=== PATIENT | male | born 1950 | race Caucasian/White ===

== ENCOUNTER → 2024-01-26 | Outpatient (CLI) | payer MEDICARE, OTHER, SELFPAY ==
--- NOTE | 2024-01-26 16:02 | RAD_ITS ---
INDICATION: HIP PAIN EXAMINATION/TECHNIQUE: X-RAY - XR Hip Unilateral with Pelvis when performed; 3 Views COMPARISON: FINDINGS: PELVIC BONES: No displaced fracture, destructive or sclerotic lesions. Note that overlapping bowel shadows may however obscure fine detail. Sacroiliac joints are unremarkable. No widening of the pubic symphysis. Degenerative vertebral changes. HIPS: The articular structures are unremarkable. No displaced fracture seen in this frontal view. SOFT TISSUES: No soft tissue swelling or gas. RAD/HIP, UNI W/ Pelvis 2-3 Views IMPRESSION: No evidence of displaced pelvic or hip fracture. Electronically Signed: Israel Edouard DO at 11:55 EST Reading Location ID and State: [facility] / [place] Tel [phone], Service support ,
== END | disposition home or self-care (01) ==
PROVIDERS: PCP Internal Medicine; Referring Provider Clinical Nurse Specialist Adult Health; Visit Provider Clinical Nurse Specialist Adult Health
DX: M25.551 Pain in right hip (principal)
CPT/HCPCS: 73502

== ENCOUNTER 2024-09-22 17:13 | Emergency (ER) | payer MEDICARE, OTHER, SELFPAY ==
[2024-09-22] VITALS (7 sets, daily range): BP systolic 168–184; BP diastolic 75–92; PULSE 66–81; RESP 16–18; TEMP 36.9; O2SAT 99–100; BMI 33.6
[2024-09-22 20:37] LABS: Anion Gap 12 (5-15); BUN 13 mg/dL (4-19); BUN/Creat Ratio 13.3 RATIO (10-20); CRP 7.72 mg/L (0.0-3.0); Calcium,Total 9.5 mg/dL (7.6-11.0); Carbon Dioxide 23.0 mmol/L (21.0-32.0); Chloride 103 mmol/L (98-108); Estimated Creatinine Clearance 83.68 ml/min (50-250); Glucose 125 mg/dL (70-99); Potassium 4.6 mmol/L (3.3-5.1)
--- NOTE | 2024-09-22 21:01 | EX.ED.DYSGE1 ---
HPI History of Present Illness Chief Complaint: Wound Detail of Chief Complaint: Infected third right toe due to cutting the bottom of his toe while he was Informant: patient and spouse/S.O. Onset/Context/Timing Onset: Days Context: Sudden Onset Timing: Continuous Quality: Infected right third toe Location: Right third toe Current Severity: Mild Maximum Severity: Mild Worsened by: Suspect due to to PAD not healing quickly Relieved by: Not applicable Associated Symptoms Associated Symptoms: None Narrative Narrative: Patient had wound to right third toe. He saw podiatry. He apparently trimmed his toenails too close and clipped the bottom of his third right toe. He had x-rays that did not reveal any abnormality. He had a vascular study because he has stigmata of peripheral arterial disease. He does not know the results. He was placed on Augmentin 875 mg twice daily. Patient does not check his blood sugar on a regular basis. He denies blurred vision, polyuria or polydipsia. He states the wound has not gotten much better. He denies fever, chills night sweats. He has no other complaints. Prior similar symptoms: No Recent Illness/Hospitalization: No PFSH PFSH Medical History no medical history Home Medications ?Medication ?Instructions ?Recorded ?Last Taken ?Type ezetimibe 10 mg tablet 10 mg PO DAILY 09/22/24 09/22/24 History gabapentin 300 mg capsule 900 mg PO BID 09/22/24 09/22/24 History lisinopril 40 mg tablet 40 mg PO DAILY 09/22/24 09/22/24 History metformin 500 mg tablet 1,000 mg PO BID 09/22/24 09/22/24 History sulfamethoxazole 800 1 tab PO BID #10 TABLETS 09/22/24 Unknown Rx mg-trimethoprim 160 mg tablet Allergy/AdvReac Type Severity Reaction Status Date / Time No Known Allergies Allergy Verified 09/22/24 17:15 Family History no significant family his Surgical History no surgical history Social History Smoking Status: Never smoker ROS ROS ED Constitutional Constitutional ED: Denies chills, fever(s), subjective, sweats or weight loss Eyes Eyes: Denies blurry vision Cardiovascular Cardiovascular: Denies palpitations Respiratory/Chest Respiratory/Chest: Denies dyspnea Gastrointestinal Gastrointestinal: Denies abdominal pain, nausea or vomiting Musculoskeletal Musculoskeletal: Denies arthralgias or myalgias Integumentary Reports rash Neurologic Neurologic: Denies paresthesias Endocrine Endocrinology: Denies polydipsia or polyuria Hematologic/Lymphatic Hematologic/Lymphatic: Reports systems reviewed and no addt'l complaints, except as documented EXAM Physical Exam Const Vital Signs: 09/22/24 17:13 09/22/24 17:15 09/22/24 18:15 Temperature 98.4 F 98.4 F 98.4 F Temperature Source Oral Oral Oral Pulse Rate 79 81 69 Respiratory Rate 18 18 16 Blood Pressure 170/83 H 170/83 H 184/92 H Blood Pressure Mean 112 112 122 Pulse Ox 99 100 99 Oxygen Delivery Method Room Air Room Air Room Air 09/22/24 18:59 09/22/24 20:00 09/22/24 21:00 Temperature 98.4 F 98.4 F 98.4 F Temperature Source Oral Oral Oral Pulse Rate 74 67 66 Respiratory Rate 16 18 16 Blood Pressure 184/92 H 176/80 H 181/75 H Blood Pressure Mean 122 112 110 Pulse Ox 100 100 99 Oxygen Delivery Method Room Air Room Air Room Air Positive well nourished Constitutional Narrative: Patient is hard of hearing. Vital signs remarkable for elevated blood pressure. General Appearance ED: NAD HEENT Reports moist mucous membranes HEENT Narrative: Head is atraumatic normocephalic. Ears normal. Nares patent. Patient wears glasses. Eyes PERRL and EOMs intact bilaterally General Eye ED: Negative for pale conjunctiva or scleral icterus Resp normal respiratory effort Cardio regular rate and regular rhythm GI GI Narrative: There is no right inguinal lymphadenopathy. Extremity Negative for normal to inspection Extremity Narrative: Patient has a erythematous slightly warm right third toe. There is no fluctuance. There is no induration. There is no lymphangitis. There is no popliteal mita lymphadenopathy. Patient has no hair on his toes. His skin is shiny. Does have some edema of the dorsal surface of the right foot. Neuro oriented x3, CN's II-XII intact bilaterally and no sensory deficits noted Motor Exam: strength 5/5 throughout Psych mental status grossly normal Skin Skin Narrative: Cellulitis right third toe. MDM MDM MDM Narrative Medical decision making narrative: Patient reports he has not gotten much better. Suspect he has delay in improvement due to PAD. Will obtain blood work to determine if patient is hyperglycemic has elevated white count or abnormal renal function that would results and adjusting his antibiotic dosage. He is proceeding predominately through the clinic. He had images and pictures taken that were placed in his medical records but not available through [facility]. Lab Data Attestation: I reviewed the patient's lab results. Lab results narrative: CBC is unremarkable. Patient has mild anemia. Basic metabolic panel with slight elevation of glucose at 125 with normal CO2 anion gap. ESR is normal. CRP is slightly elevated. Labs: Laboratory Results - last 24 hr 09/22/24 09/22/24 09/22/24 19:18 19:18 20:47 WBC Cancelled 8.0 Corrected WBC Cancelled RBC Cancelled 4.26 L Hgb Cancelled 12.8 L Hct Cancelled 38.0 L MCV Cancelled 89.2 MCH Cancelled 30.0 MCHC Cancelled 33.7 RDW Std Deviation Cancelled 44.6 H RDW Coeff of Baldo Cancelled 13.8 Plt Count Cancelled 214 MPV Cancelled 8.9 Immature Gran % (Auto) Cancelled 0.400 Neut % (Auto) Cancelled 63.5 Lymph % (Auto) Cancelled 22.6 [place] % (Auto) Cancelled 10.2 H Eos % (Auto) Cancelled 2.6 Baso % (Auto) Cancelled 0.7 Absolute Neuts (auto) Cancelled 5.1 Absolute Lymphs (auto) Cancelled 1.81 Total Counted Cancelled Neutrophils % (Manual) Cancelled Band Neutrophils % Cancelled Lymphocytes % (Manual) Cancelled Monocytes % (Manual) Cancelled Eosinophils % (Manual) Cancelled Basophils % (Manual) Cancelled Metamyelocytes % Cancelled Myelocytes % Cancelled Promyelocytes % Cancelled Blast Cells % Cancelled Plasma Cell % (Manual) Cancelled Other Cells % Cancelled Nucleated RBC % Cancelled 0 Nucleated RBCs/100 WBC Cancelled Differential Comment Cancelled Diff Path Review Cancelled Hypersegmented Neuts Cancelled Atypical Lymphocytes Cancelled Reactive Lymphocytes Cancelled Smudge Cells Cancelled Toxic Granulation Cancelled Toxic Vacuolation Cancelled Dohle Bodies Cancelled Fiordaliza Rods Cancelled Platelet Estimate Cancelled Plt Morphology Comment Cancelled RBC Morphology Cancelled Cancelled Polychromasia Cancelled Hypochromasia Cancelled Basophilic Stippling Cancelled Anisocytosis Cancelled Microcytosis Cancelled Macrocytosis Cancelled Spherocytes Cancelled Sickle Cells Cancelled Target Cells Cancelled Tear Drop Cells Cancelled Ovalocytes Cancelled Stomatocytes Cancelled Florentino-Colquitt Bodies Cancelled Samantha Cells Cancelled Bite Cells Cancelled Crenated Cell Cancelled Acanthocytes (Spur) Cancelled Rouleaux Cancelled Schistocytes Cancelled ESR Cancelled 5 Sodium 139 Potassium 4.6 Chloride 103 Carbon Dioxide 23.0 Anion Gap 12 BUN 13 Creatinine 0.96 Estim Creat Clear Calc 83.68 Est GFR (MDRD) Non-Af 84 BUN/Creatinine Ratio 13.3 Glucose 125 H Calcium 9.5 C-React Prot Ext Range 7.72 H Treatment and Re-Evaluation :: Patient was informed of results. Will add Bactrim for MRSA coverage. Suspect he is not healing quickly because he has PAD. Discharge Plan Triage Chief Complaint: Wound ED Provider: Kyrie Amaya Dx/Rx/DC Orders Clinical Impression: Cellulitis of third toe of right foot, Type 2 diabetes mellitus, PAD (peripheral artery disease), Elevated blood pressure reading with diagnosis of hypertension Instructions: ED Cellulitis Prescriptions: New sulfamethoxazole-trimethoprim 800-160 mg tablet 1 tab PO BID Qty: 10 0RF No Action metformin 500 mg tablet 1,000 mg PO BID gabapentin 300 mg capsule 900 mg PO BID lisinopril 40 mg tablet 40 mg PO DAILY ezetimibe 10 mg tablet 10 mg PO DAILY Primary Care Provider: Juan Alcaraz Referrals: Juan Alcaraz MD [Primary Care Provider] - Activity Restrictions/Additional Instructions: Keep your scheduled appointment with podiatry. Take the trimethoprim/sulfamethoxazole in addition to the amoxicillin-clavulanic acid you were prescribed by the supervisor sound technician Print Language: Libyan Disposition Disposition: Home, Self Care
[2024-09-22 21:10] LABS: Hematocrit 38.0 % (40-54); Hemoglobin 12.8 g/dL (13.0-16.5); Immature Granulocytes Count 0.030 X10^3/uL (0.0-0.0); Mean Corp Hgb Conc 33.7 g/dL (32-36); Mean Corpuscular Volume 89.2 fL (80-94); Mean Platelet Vol. 8.9 fl (6.2-12.0); NRBC Flagged by Analyzer 0 % (0-5); Platelet Count 214 K/mm3 (150-450); RBC Distribution Width CV 13.8 % (11.6-14.6); RBC Distribution Width SD 44.6 fl (35.1-43.9); Red Blood Count 4.26 M/mm3 (4.6-6.2); White Blood Count 8.0 K/mm3 (4.4-11.0)
[2024-09-22] MEDS: Smz/Tmp Ds Tablet 1 TABLET PO (21:57)
== END 2024-09-22 22:00 | disposition home or self-care (01) ==
PROVIDERS: Emergency Provider Emergency Medicine; PCP Internal Medicine; Visit Provider Emergency Medicine
DX: L03.031 Cellulitis of right toe (principal); E11.51 Type 2 diabetes mellitus with diabetic peripheral angiopathy without gangrene; I10 Essential (primary) hypertension; Z79.899 Other long term (current) drug therapy; Z79.84 Long term (current) use of oral hypoglycemic drugs
CPT/HCPCS: 80048; 85025; 85652; 86140; 99282; A4216

== ENCOUNTER 2024-09-27 10:24 | Inpatient (IN) | payer MEDICARE, OTHER, SELFPAY ==
[2024-09-27] VITALS (8 sets, daily range): BP systolic 118–150; BP diastolic 66–75; PULSE 72–80; RESP 15–18; TEMP 36.2–36.7; O2SAT 97–100; BMI 33.0; BMI 32.8
--- NOTE | 2024-09-27 10:48 | EX.ED.DYSGE1 ---
HPI History of Present Illness Chief Complaint: Wound Narrative Narrative: Chief complaint and HPI: Right third toe infection. History taken by patient as well as podiatry note. 73-year-old male with past medical history of DM2, PAD, HTN presents from the podiatry office for right third toe infection. Patient states 3 weeks ago he developed infection/ulcer in his right third toe. He states this developed after toenail trimming. He follows with podiatry Dr. Ralph. His initial evaluation was on 09/19 with podiatry in which he had x-ray and circulation studies performed. He has been on Augmentin and Bactrim without any improvement. His toe continues to swell and have redness. Endorses pain with palpation. Podiatry recommended admission for IV antibiotics. He denies any fever, chills, nausea, vomiting. Review of systems: See HPI Medications: As listed on the chart Allergies: As listed on the chart PFSH: Per chart Vital signs: As listed on the chart. Reviewed. Physical exam: Gen: A&O x3, NAD Head: Normocephalic, atraumatic Eyes: No sclera icterus, conjunctiva clear ENT: Moist mucous membranes Neck: Trachea midline, No JVD CV: RRR, no murmurs, no peripheral edema Resp: Lungs CTA BL, no w/r/c GI: Abd soft, non-distended, non-tender, no r/r/g Musc: Full ROM, no deformity, DP/PT pulses +1 on the right, +2 on the left, normal capillary refill, patient has swelling and erythema of the distal third toe extending to the PIP joint on the dorsal aspect. There is an ulceration on the distal tip with black eschar-this is on the plantar surface, no purulence or drainage, toe is tender to palpation, no crepitus Skin: Warm, dry Neuro: Alert, oriented, grossly intact, sensation intact Psych: Cooperative, appropriate mood and affect [facility] Medical History (Updated 09/27/24 @ 11:43 by Jerrica Atkins) Cellulitis of third toe of right foot Type 2 diabetes mellitus PAD (peripheral artery disease) Elevated blood pressure reading with diagnosis of hypertension Home Medications ?Medication ?Instructions ?Recorded ?Last Taken ?Type ezetimibe 10 mg tablet 10 mg PO DAILY 09/22/24 09/22/24 History gabapentin 300 mg capsule 900 mg PO BID 09/22/24 09/22/24 History lisinopril 40 mg tablet 40 mg PO DAILY 09/22/24 09/22/24 History metformin 500 mg tablet 1,000 mg PO BID 09/22/24 09/22/24 History sulfamethoxazole 800 1 tab PO BID #10 TABLETS 09/22/24 Unknown Rx mg-trimethoprim 160 mg tablet Allergy/AdvReac Type Severity Reaction Status Date / Time No Known Allergies Allergy Verified 09/22/24 17:15 Family History no significant family his Social History (Updated 09/27/24 @ 11:44 by Jerrica Atkins) household members: spouse housing: house Smoking Status: Never smoker EXAM Physical Exam Const Vital Signs: 09/27/24 10:25 09/27/24 11:26 Temperature 97.8 F 97.8 F Temperature Source Temporal Oral Pulse Rate 80 72 Respiratory Rate 16 18 Blood Pressure 131/73 H 118/66 Blood Pressure Mean 92 83 Pulse Ox 99 97 Oxygen Delivery Method Room Air Room Air MDM MDM MDM Narrative Medical decision making narrative: 73-year-old male with past medical history of DM2, PAD, HTN presents from the podiatry office for right third toe infection. History taken by patient as well as podiatry office know. Patient has had an infection/ulcer to the right third toe for approximately 3 weeks. Follows with podiatry Dr. Ralph. Sent to the emergency department by podiatry for admission with IV antibiotics given he is failing outpatient management. On presentation, patient is in no acute distress. Nontoxic-appearing. See physical exam findings. Differential diagnosis includes but is not limited to cellulitis, osteomyelitis, PAD. Vancomycin and Zosyn ordered for antibiotics. Infectious laboratory workup ordered including x-ray. On chart review, patient did have an x-ray performed on 09/19 that showed no cortical destruction to suggest osteomyelitis. He had a wound culture that revealed lactobacillus and pantoya species. Podiatry note recommends admission for further workup including vascular consult and possible partial versus total third toe amputation. He did have PVRs from 09/19 which demonstrate an JONES of 1.02 in the dorsalis pedis and 0.84 in the posterior tibial on the right foot. Left foot JONES was 1.08 and 0.95. CBC without leukocytosis or anemia. ESR unremarkable. CRP elevated at 11.8. BMP unremarkable. Lactic acid unremarkable. X-ray of the foot was personally viewed and interpreted by ar, ED physician. No fracture or dislocation. Per radiology no bony destruction. Calcaneal spurs. Patient will warrant admission for his IV antibiotics. Patient was updated of all the results and confirmed understanding of plan. I spoke with the hospitalist service who accepted admission. Impression: 1. Diabetic right third toe infection/cellulitis, failed outpatient management Lab Data Labs: Laboratory Results - last 24 hr 09/27/24 11:00 WBC 7.0 RBC 4.56 L Hgb 13.7 Hct 41.0 MCV 89.9 MCH 30.0 MCHC 33.4 RDW Std Deviation 46.1 H RDW Coeff of Baldo 14.1 Plt Count 227 MPV 8.7 Immature Gran % (Auto) 0.300 Neut % (Auto) 71.7 H Lymph % (Auto) 17.0 L [place] % (Auto) 9.2 Eos % (Auto) 1.1 Baso % (Auto) 0.7 Absolute Neuts (auto) 5.0 Absolute Lymphs (auto) 1.20 Nucleated RBC % 0 ESR 5 Sodium 138 Potassium 5.0 Chloride 104 Carbon Dioxide 21.7 Anion Gap 12 BUN 14 Creatinine 1.10 Estim Creat Clear Calc 72.46 Est GFR (MDRD) Non-Af 71 BUN/Creatinine Ratio 13.1 Glucose 108 H Lactic Acid 1.7 Calcium 9.4 C-React Prot Ext Range 11.80 H Radiography Diagnostic Testing: Clinical Impression(s) from Imaging Studies Foot X-Ray 09/27/24 11:45 IMPRESSION: Soft tissue swelling with a small amount of air seen within the soft tissues overlying the great toe. No bony destruction. Calcaneal spurs. Reading Location: [id number] Discharge Plan Triage Chief Complaint: Wound ED Provider: Abiel Hawley Dx/Rx/DC Orders Prescriptions: No Action metformin 500 mg tablet 1,000 mg PO BID gabapentin 300 mg capsule 900 mg PO BID lisinopril 40 mg tablet 40 mg PO DAILY ezetimibe 10 mg tablet 10 mg PO DAILY sulfamethoxazole-trimethoprim 800-160 mg tablet 1 tab PO BID Qty: 10 0RF Primary Care Provider: Juan Alacraz Referrals: Juan Alcaraz MD [Primary Care Provider] - Print Language: Romansh
[2024-09-27 11:16] LABS: Hematocrit 41.0 % (40-54); Hemoglobin 13.7 g/dL (13.0-16.5); Immature Granulocytes Count 0.020 X10^3/uL (0.0-0.0); Mean Corp Hgb Conc 33.4 g/dL (32-36); Mean Corpuscular Volume 89.9 fL (80-94); Mean Platelet Vol. 8.7 fl (6.2-12.0); NRBC Flagged by Analyzer 0 % (0-5); Platelet Count 227 K/mm3 (150-450); RBC Distribution Width CV 14.1 % (11.6-14.6); RBC Distribution Width SD 46.1 fl (35.1-43.9); Red Blood Count 4.56 M/mm3 (4.6-6.2); White Blood Count 7.0 K/mm3 (4.4-11.0)
[2024-09-27] MEDS: Piperacil/Tazobactam 4.5 GM in 0.9% Normal Saline (100mL MB+) 100 ML IV (11:20)
--- NOTE | 2024-09-27 11:45 | RAD_ITS ---
PROCEDURE: FOOT MIN 3 VIEWS 09/27/2024 REASON FOR EXAM: TOE INFECTION TECHNIQUE: FOOT MIN 3 VIEWS COMPARISON: None FINDINGS: Bones: Calcaneal spurs. No bony erosions are seen. Joints: Normal alignment. Soft tissues: Soft tissue swelling overlying the great toe. Small amount of air is seen within the soft tissues. Other: RAD/Foot min 3 Views IMPRESSION: Soft tissue swelling with a small amount of air seen within the soft tissues ov erlying the great toe. No bony destruction. Calcaneal spurs. Reading Location: [id number]
[2024-09-27 11:58] LABS: Anion Gap 12 (5-15); BUN 14 mg/dL (4-19); BUN/Creat Ratio 13.1 RATIO (10-20); CRP 11.80 mg/L (0.0-3.0); Calcium,Total 9.4 mg/dL (7.6-11.0); Carbon Dioxide 21.7 mmol/L (21.0-32.0); Chloride 104 mmol/L (98-108); Estimated Creatinine Clearance 72.46 ml/min (50-250); Glucose 108 mg/dL (70-99); Potassium 5.0 mmol/L (3.3-5.1)
[2024-09-27] MEDS: Vancomycin HCl 2,000 MG in 0.9% Normal Saline (500mL Bag) 500 ML 250 MG IV (12:30)
--- NOTE | 2024-09-27 13:33 | PCM.RX.CS ---
Consult Antibiotic Management Pharmacy has been consulted to manage selected antibiotic: Vancomycin Type of Intervention Type of Consult: New start Suspected Infection Suspected Infection: Skin/Soft tissue Prior Doses of Antibiotics Prior Doses of Antibiotics Received/Current Regimen: Vancomycin 2000 mg IV x 1 given 09/27/24 @ 1230 Labs Labs: Sodium 138 mmol/L (133-145) 09/27/24 11:00 Potassium 5.0 mmol/L (3.3-5.1) 09/27/24 11:00 Chloride 104 mmol/L (98-108) 09/27/24 11:00 Carbon Dioxide 21.7 mmol/L (21.0-32.0) 09/27/24 11:00 Anion Gap 12 (5-15) 09/27/24 11:00 BUN 14 mg/dL (4-19) 09/27/24 11:00 Creatinine 1.10 mg/dL (0.70-1.20) 09/27/24 11:00 Est GFR (MDRD) Non-Af 71 (>60) 09/27/24 11:00 BUN/Creatinine Ratio 13.1 RATIO (10-20) 09/27/24 11:00 Glucose 108 mg/dL (70-99) H 09/27/24 11:00 Dosing Weight Weight used for dosin kg Estimated Creatinine Clearance Estimated Creatinine Clearance: ~ 72 Goal Trough Goal Trough: 10-15 mcg/mL Pharmacy Plan for Drug Dosing Pharmacy Plan for Drug Dosing: Vancomycin 2000 mg IV x 1 followed by 1250 mg Q12H Pharmacy Service will continue to monitor and adjust dosing as required. Follow-Up Labs Follow-Up Labs: Trough: Vancomycin Date/Time Labs Ordered Labs to be done on [date and time ordered]: 09/29/24 @ 0000
--- NOTE | 2024-09-27 17:52 | PCM.HP.STD ---
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 Patient states approximately 3 weeks ago he was clipping his toenails and accidentally cut the end of his right third toe, he was placed on Augmentin initially, when this did not work he was seen in the emergency room and placed on Bactrim. Today he was seen by his water and sewer systems supervisor who felt that the area was not healing adequately and sent him to the emergency room for evaluation. Workup in the emergency room included a CBC which showed a normal white blood cell count, hemoglobin was 13.7, chemistry profile was unremarkable, C-reactive protein was elevated at 11.8. X-rays of the right foot were obtained which shows soft tissue swelling with a small amount of air seen within the soft tissues overlying the great toe, no bony destruction was noted. Examination of the right third toe reveals an area approximately 1/4 cm in diameter on the tip of the right third toe which appears to be an eschar. There is no drainage noted from the area, the area is tender to palpation. Patient will be admitted to [place] [address], he was given IV Zosyn and vancomycin, he will be seen in consultation by podiatry. [facility] Medical History Cellulitis of third toe of right foot Type 2 diabetes mellitus PAD (peripheral artery disease) Elevated blood pressure reading with diagnosis of hypertension Home Medications ?Medication ?Instructions ?Recorded ?Last Taken ?Type ezetimibe 10 mg tablet 10 mg PO DAILY 09/22/24 09/22/24 History gabapentin 300 mg capsule 900 mg PO BID 09/22/24 09/22/24 History lisinopril 40 mg tablet 40 mg PO DAILY 09/22/24 09/22/24 History metformin 500 mg tablet 1,000 mg PO BID 09/22/24 09/22/24 History Allergy/AdvReac Type Severity Reaction Status Date / Time No Known Allergies Allergy Verified 09/22/24 17:15 Family History no significant family his Social History household members: spouse housing: house Smoking Status: Never smoker ROS Constitutional Constitutional: Denies anorexia, change in weight, chills, fatigue, fever(s), malaise, night sweats or weakness Eyes Eyes: Denies blurry vision, change in vision, discharge from eye(s) or eye pain Cardiovascular Cardiovascular: Denies chest pain, claudication, dyspnea on exertion, edema or palpitations Respiratory/Chest Respiratory/Chest: Denies cough, hemoptysis, shortness of breath at rest or shortness of breath with exertion Gastrointestinal Gastrointestinal: Denies abdominal pain, constipation, diarrhea, hematemesis, hematochezia, melena, nausea or vomiting Genitourinary Genitourinary: Denies dysuria, hematuria, urinary frequency, urinary hesitancy, urinary incontinence or urinary urgency Musculoskeletal Musculoskeletal: Denies back pain, joint pain, joint stiffness, joint swelling, myalgias or neck pain Neurologic Neurologic: Denies abnormal gait, abnormal speech, dizziness, focal weakness, headache(s), loss of vision, numbness, other visual disturbances, paresthesias, syncope or tingling Psychiatric Psychiatric: Denies anxiety, cognitive impairment, depression, irritability, mood swings or suicidal ideation Endocrine Endocrinology: Denies change in body appearance, cold intolerance, excessive sweating, heat intolerance, polydipsia or polyuria Hematologic/Lymphatic Hematologic/Lymphatic: Denies none, anemia, easy bleeding, easy bruising or lymphadenopathy Allergic/Immunologic Allergic/Immunologic: Denies rhinitis, urticaria, eczemia or asthma Vital Signs Vital Signs Vital Signs: 09/27/24 10:25 09/27/24 11:26 09/27/24 12:00 Temperature 97.8 F 97.8 F 97.2 F L Temperature Source Temporal Oral Temporal Pulse Rate 80 72 79 Respiratory Rate 16 18 18 Blood Pressure 131/73 H 118/66 142/72 H Blood Pressure Mean 92 83 95 Blood Pressure Source Blood Pressure Position Blood Pressure Location Pulse Ox 99 97 100 Oxygen Delivery Method Room Air Room Air 09/27/24 12:40 09/27/24 13:03 09/27/24 13:52 Temperature 97.2 F L 97.4 F L 97.4 F L Temperature Source Temporal Temporal Pulse Rate 79 72 72 Respiratory Rate 18 16 16 Blood Pressure 142/72 H 130/73 H 130/73 H Blood Pressure Mean 95 92 92 Blood Pressure Source Monitor Blood Pressure Position Semi-Fowlers Blood Pressure Location Right Arm Pulse Ox 100 100 100 Oxygen Delivery Method Room Air Room Air Weight Weight: 104 kg Body Mass Index (BMI) 32.8 Physical Exam Const alert, oriented x3, no apparent distress and healthy appearing General Appearance: cooperative, well kempt and well developed Orientation / Consciousness: awake, oriented to person, oriented to place and oriented to time HEENT normocephalic, head/scalp atraumatic and moist oral mucous membranes Eyes PERRL, EOMs intact bilaterally and conjunctivae normal Neck supple, no JVD, thyroid normal and no carotid bruits General: trachea midline Resp normal respiratory effort, no retractions, no use of accessory muscles and clear to auscultation bilaterally Auscultation: Negative for rales, rhonchi or wheezes Cardio regular rate, regular rhythm, S1 normal heart sound, S2 normal heart sound, no murmurs, no rub and no gallops GI normal to inspection, nondistended, normoactive bowel sounds, soft to palpation, non-tender and non-distended Extremity Extremity Narrative: There is some edema of the right third toe noted, the tip of the right third toe has an eschar that is approximately quarter centimeter in diameter-this area is tender to palpation Skin Skin Narrative: There is an eschar over the tip of the right third toe approximately 1/4 cm in diameter Neuro oriented x3, CN's II-XII intact bilaterally, moves all extremities, no focal motor deficits and no sensory deficits noted Sensorium / Orientation: awake and alert Speech: speech normal Psych affect normal Results Lab / Micro Data 09/27/24 11:00 09/27/24 11:00 Labs: Laboratory Results - last 24 hr 09/27/24 11:00: WBC 7.0, RBC 4.56 L, Hgb 13.7, Hct 41.0, MCV 89.9, MCH 30.0, MCHC 33.4, RDW Std Deviation 46.1 H, RDW Coeff of Baldo 14.1, Plt Count 227, MPV 8.7, Immature Gran % (Auto) 0.300, Neut % (Auto) 71.7 H, Lymph % (Auto) 17.0 L, [place] % (Auto) 9.2, Eos % (Auto) 1.1, Baso % (Auto) 0.7, Absolute Neuts (auto) 5.0, Absolute Lymphs (auto) 1.20, Nucleated RBC % 0, ESR 5, Sodium 138, Potassium 5.0, Chloride 104, Carbon Dioxide 21.7, Anion Gap 12, BUN 14, Creatinine 1.10, Estim Creat Clear Calc 72.46, Est GFR (MDRD) Non-Af 71, BUN/Creatinine Ratio 13.1, Glucose 108 H, Lactic Acid 1.7, Calcium 9.4, C-React Prot Ext Range 11.80 H Imaging Radiology Impression Foot X-Ray 09/27/24 11:45 IMPRESSION: Soft tissue swelling with a small amount of air seen within the soft tissues overlying the great toe. No bony destruction. Calcaneal spurs. Reading Location: [id number] Assessment & Plan Assessment/Plan (1) Cellulitis of third toe of right foot: PLAN: Plan 1. Cellulitis of the right third toe-failed outpatient treatment-patient will be admitted to [place] [id number] and be placed on Zosyn and IV vancomycin. Patient will be seen in consultation by podiatry. #2 type 2 diabetes-patient is currently on metformin, fingerstick blood sugars will be monitored 3 times daily and sliding scale insulin will be administered as needed #3 hyperlipidemia-patient is on Zetia #4 essential hypertension-patient is on lisinopril Total clinical time spent by myself addressing the patient's medical issues, reviewing all of his data, and collaborating with the patient's care team: 55 minutes Charges/Coding Visit Charges Inpatient E&M: 06293 Init Hosp L2
--- OUTSIDE RECORDS SUMMARY | 2024-09-27 21:16 | XMS RPT_ITS | CCD ---
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 Role Phone Juan Alcaraz MD Primary Care Provider Ezra Montoya Unavailable [phone] Juan Alcaraz MD Primary Care Provider Ezra Montoya Unavailable [phone] Jen Woo APRN.CNP Unavailable ALEXEI RALPH Attending Unavailable KIERAN, JUAN Freed Primary Care Unavailable ALEXEI RALPH Referring Unavailable ALCARAZ, JUAN Freed Primary Care Unavailable ALEXEI RALPH Referring Unavailable ALCARAZ, JUAN Freed Primary Care Unavailable ALCARAZ, JUAN Freed Referring Unavailable ALCARAZ, JUAN Freed Primary Care Unavailable JEN WOO Attending Unavailable ALCARAZ, JUAN Freed Primary Care Unavailable ALCARAZ, JUAN Freed Referring Unavailable ALCARAZ, LAUREN Primary Care Unavailable ALCARAZ, LAUREN Primary Care Unavailable LINDA FERNÁNDEZ Attending Unavailable ALCARAZ, JUAN Freed Attending Unavailable ALCARAZ, LAUREN Primary Care Unavailable ALCARAZ, LAUREN Primary Care Unavailable JEANA DIAZ Attending Unavailable Dr. Juan Alcaraz MD Primary Care Provider Dr. Kyrie Amaya MD Emergency Provider Juan Alcaraz Primary Care Unavailable Lily Gonzales Referring Unavailable Lily Gonzales Attending Unavailable Kieran, Juan Primary Care Unavailable Kyrie Amaya Attending Unavailable Dr. Abiel Hawley DO Emergency Provider Dr. Jeana Greer DO Admit Provider [phone] Dr. Jeana Greer DO Attending Provider [phone] Allergies Allergy Classification Reported Allergen(s) Allergy Type Date of Onset Reaction(s) Facility HMG-CoA Reductase Inhibitors (statins) (4 sources) atorvastatin Drug Allergy 12-15-2016 [facility] (20 sources) atorvastatin; Translations: [ATORVASTATIN] Drug Allergy 03-04-2018 [facility] Work Phone: (20 sources) Lovastatin; Translations: [LOVASTATIN] Drug Allergy 03-04-2018 [facility] Work Phone: (20 sources) Pravastatin; Translations: [PRAVASTATIN SODIUM] Drug Allergy 12-15-2016 [facility] Work Phone: (20 sources) rosuvastatin; Translations: [ROSUVASTATIN CALCIUM] Drug Allergy 04-29-2017 [facility] Medications Current Medications Medication Drug Class(es) Dates Sig (Normalized) Sig (Original) amoxicillin 875 mg / clavulanate 125 mg oral tablet (3 sources) Penicillin-class Antibacterial Start: 09-19-2024 End: 09-26-2024 take 1 tablet by mouth twice daily amoxicillin-clav ulanate potassium (AUGMENTIN) 875-125 mg per tablet Take 1 tablet by mouth two times a day for 7 days. 14 tablet 09/19/2024 09/26/2024 Active Start: 03-19-2022 End: 03-26-2022 take 1 tablet by mouth twice daily amoxicillin-clavulanic acid (AUGMENTIN) 875-125 mg per tablet Take 1 tablet by mouth twice daily for 7 days. 14 tablet 0 03/19/2022 03/26/2022 Active Comment on above: Take 1 tablet by cam th twice daily for 7 days. aspirin 81 mg oral tablet (20 sources) Platelet Aggregation Inhibitor, Nonsteroidal Anti-inflammatory Drug Start: 1 take 1 tablet by mouth once daily Aspirin 81 mg ORAL Tab Take 1 tablet by mouth once daily. 30 tablet 11 07/17/2010 Active Comment on above: Take 1 tablet by cam th once daily. doxazosin 4 mg oral tablet (20 sources) alpha-Adrenergic Samina Start: take 1 tablet by mouth once daily doxazosin (CARDURA) 4 mg tablet Indications: Essential hypertension , Benign prostatic hyperplasia with incomplete bladder emptying Take 1 tablet by mouth once daily. 90 tablet 3 03/14/2024 Active Start: 09-02-2023 End: 03-11-2024 take 1 tablet by mouth once daily doxazosin (CARDURA) 4 mg tablet Indications: Essential hypertension , Benign prostatic hyperplasia with incomplete bladder emptying Take 1 tablet by mouth once daily. 90 tablet 1 09/02/2023 03/11/2024 Discontinued Start: 03-27-2023 End: 09-02-2023 take 1 tablet by mouth once daily doxazosin (CARDURA) 2 mg tablet Indications: Essential hypertension , Benign prostatic hyperplasia with incomplete bladder emptying Take 1 tablet by mouth once daily. 90 tablet 1 03/27/2023 09/02/2023 Discontinued (Dosage adjustment) Start: 12-04-2020 End: 12-10-2021 take 1 tablet by mouth once daily doxazosin (CARDURA) 2 mg tablet Indications: Essential hypertension , Benign prostatic hyperplasia with incomplete bladder emptying Take 1 tablet by mouth once daily. 90 tablet 3 12/10/2021 Active Comment on above: Take 1 tablet by cam th once daily. doxycycline hyclate 100 mg oral tablet (5 sources) Tetracycline-class Drug Start: 09-19-19 End: 09-29-19 take 1 tablet by mouth twice daily doxycycline (VIBRA-TABS) 100 mg tablet Indications: Cellulitis of toe of right foot Take 1 tablet by mouth two times a day for 10 days. 20 tablet 09/18/2024 09/28/2024 Active ezetimibe 10 mg oral tablet (8 sources) Dietary Cholesterol Absorption Inhibitor Start: 09-08-19 take 1 tablet by mouth once daily Ezetimibe 10 mg tablet Active 10 mg PO DAILY September 22, 2024 12:00am gabapentin 300 mg oral capsule (20 sources) Anti-epileptic Agent Start: 03-27-19 End: 03-06-20 take 3 capsules by mouth twice daily gabapentin (NEURONTIN) 300 mg capsule Indications: Well controlled type 2 diabetes mellitus with neurological manifestations (HCC) Take 3 capsules by mouth two times a day for 180 days. 540 capsule 1 09/07/2024 03/06/2025 Active Start: 08-05-2022 End: 02-01-2023 take 3 capsules by mouth twice daily gabapentin (NEURONTIN) 300 mg capsule Indications: Well controlled type 2 diabetes mellitus with neurological manifestations (HCC) Take 3 capsules by mouth twice daily for 180 days. 180 capsule 5 08/05/2022 02/01/2023 Active Start: 09-17-2021 End: 06-08-2022 take 2 capsules by mouth twice daily gabapentin (NEURONTIN) 300 mg capsule Indications: Well controlled type 2 diabetes mellitus with neurological manifestations (HCC) Take 2 capsules by mouth twice daily for 180 days. 120 capsule 5 12/10/2021 06/08/2022 Active Start: 07-26-2021 End: 01-22-2022 take 2 capsules by mouth once daily in the morning, then take 1 capsule by mouth once daily in the evening gabapentin (NEURONTIN) 300 mg capsule Indications: Well controlled type 2 diabetes mellitus with neurological manifestations (HCC) Take 2 capsules by mouth every morning AND 1 capsule every evening. Do all this for 180 days. 0 07/26/2021 09/07/2021 Discontinued (Changing Therapy/Dosage Form) Start: 03-05-2021 End: 09-01-2021 take 1 capsule by mouth three times daily gabapentin (NEURONTIN) 300 mg capsule Indications: Well controlled type 2 diabetes mellitus with neurological manifestations (HCC) Take 1 capsule by mouth three times daily for 180 days. 270 capsule 1 03/05/2021 07/26/2021 Discontinued Comment on above: Take 1 capsule by mo uth three times daily for 180 days. Take 2 capsules by m outh every morning AND 1 capsule every evening. Do all this for 180 days. Take 2 capsules by m outh twice daily for 180 days. Take 3 capsules by m outh twice daily for 180 days. lisinopril 40 mg oral tablet (20 sources) Angiotensin Converting Enzyme Inhibitor Start: 03-14-2024 take 1 tablet by mouth once daily Lisinopril 40 mg tablet Active 40 mg PO DAILY September 22, 2024 12:00am Start: 03-27-2023 End: 03-11-2024 take 1 tablet by mouth once daily lisinopril (ZESTRIL) 40 mg tablet Indications: Essential hypertension Take 1 tablet by mouth once daily. 90 tablet 1 09/02/2023 03/11/2024 Discontinued Start: 08-05-2022 take 1 tablet by cam once daily lisinopril (ZESTRIL) 40 mg tablet Indications: Essential hypertension Take 1 tablet by mouth once daily. 90 tablet 1 08/05/2022 Active Start: 03-05-2021 take 1 tablet by cam th once daily lisinopril (ZESTRIL, PRINIVIL) 40 mg tablet Indications: Essential hypertension Take 1 tablet by mouth once daily. 90 tablet 3 03/05/2021 Active Comment on above: Take 1 tablet by cam th once daily. metFORMIN hydrochloride 500 mg oral tablet (20 sources) Biguanide Start: take 2 tablets by mouth twice daily Metformin 500 mg tablet Active 1000 mg PO TWICE A DAY September 22, 2024 12:00am Start: 03-27-2023 End: 03-11-2024 take 2 tablets by mouth twice daily metFORMIN (GLUCOPHAGE) 500 mg tablet Indications: Well controlled type 2 diabetes mellitus with neurological manifestations (HCC) Take 2 tablets by mouth two times a day. 360 tablet 1 09/02/2023 03/11/2024 Discontinued Start: 08-05-2022 take 2 tablets by mo [facility] twice daily metFORMIN (GLUCOPHAGE) 500 mg tablet Indications: Well controlled type 2 diabetes mellitus with neurological manifestations (HCC) Take 2 tablets by mouth twice daily. 360 tablet 1 08/05/2022 Active Start: 03-05-2021 take 2 tablets by mo uth twice daily metFORMIN (GLUCOPHAGE) 500 mg tablet Indications: Well controlled type 2 diabetes mellitus with neurological manifestations (HCC) Take 2 tablets by mouth twice daily. 360 tablet 3 03/05/2021 Active Comment on above: Take 2 tablets by mo uth twice daily. metroNIDAZOLE 7.5 mg/ml topical cream (16 sources) Nitroimidazole Antimicrobial Start: 2022 metroNIDAZOLE 0.75 % cream For rosacea 0 08/05/2022 Active Comment on above: For rosacea nirmatrelvir tablet 300 mg (150 mg x 2) and ritonavir tablet 100 mg in a dose pack (PAXLOVID) (1 source) Start: 2021 End: 2021 nirmatrelvir tablet 300 mg (150 mg x 2) and ritonavir tablet 100 mg in a dose pack (PAXLOVID) Indications: COVID-19 Administer TWO pink nirmatrelvir 150 mg tablets and ONE white ritonavir 100 mg tablet for a total of three tablets twice daily. 30 tablet 0 11/20/2021 11/25/2021 Active Comment on above: Administer TWO pink nirmatrelvir 150 mg tablets and ONE white ritonavir 100 mg tablet for a total of three tablets twice daily. polymyxin b 26019 unt/ml / trimethoprim 1 mg/ml ophthalmic solution (1 source) Dihydrofolate Reductase Inhibitor Antibacterial, Polymyxin-class Antibacterial Start: 2022 End: 2022 take 1 drop(s) into the eye(s) four times daily trimethoprim-polymyx in (POLYTRIM) 10,000 unit- 1 mg/mL ophthalmic solution Use 1 Drop in both eyes four times daily for 7 days. 1.4 mL 0 03/19/2022 03/26/2022 Active Comment on above: Use 1 Drop in both e yes four times daily for 7 days. semaglutide (OZEMPIC) 0.25 mg or 0.5 mg (2 mg/3 mL) pen (10 sources) Start: 2024 inject 0.5 mg by subcutaneous injection every week semaglutide (OZEMPIC) 0.25 mg or 0.5 mg (2 mg/3 mL) pen Indications: Well controlled type 2 diabetes mellitus with neurological manifestations (HCC) Inject 0.5 mg subcutaneously one time a week. Patient should start on October 19, 2024. 9 mL 10/19/2024 Active Start: 09-08-2024 End: 10-20-2024 inject 0.25 mg by subcutaneous injection every week, then inject 0.5 mg by subcutaneous injection every week semaglutide (OZEMPIC) 0.25 mg or 0.5 mg (2 mg/3 mL) pen Indications: Well controlled type 2 diabetes mellitus with neurological manifestations (HCC) Inject 0.25 mg subcutaneously one time a week for 28 days, THEN 0.5 mg one time a week for 14 days. 3 mL 09/08/2024 10/20/2024 Active sulfamethoxazole 800 mg / trimethoprim 160 mg oral tablet (3 sources) Dihydrofolate Reductase Inhibitor Antibacterial, Sulfonamide Antimicrobial Start: 09-23-2024 take 1 tablet by mouth every twelve hours sulfamethoxazole-trimethoprim (BACTRIM DS) 800-160 mg per tablet Take 1 tablet by mouth every 12 hours. 09/23/2024 Active Start: 09-22-2024 End: 09-27-2024 Sulfamethoxazole-Trimethopri m 800-160 mg tablet Discontinued 1 {tbl} PO TWICE A DAY 10 0 September 22, 2024 12:00am September 27, 2024 12:37pm tadalafil 20 mg oral tablet (20 sources) Phosphodiesterase 5 Inhibitor Start: 08-05-2022 End: 09-07-2024 Tadalafil (CIALIS) 20 mg tablet Indications: Erectile dysfunction, unspecified erectile dysfunction type Take 1 tablet by mouth as needed. 30 tablet 2 09/07/2024 Active Start: 03-05-2021 End: 04-01-2022 Tadalafil (CIALIS) 20 mg tab (s) Indications: Erectile dysfunction, unspecified erectile dysfunction type Take 1 tablet by mouth as needed. 30 tablet 2 04/01/2022 Active Comment on above: Take 1 tablet by cam as needed. Completed/Discontinued Medications Medication Drug Class(es) Dates Sig (Normalized) Sig (Original) 0.5 ml dulaglutide 1.5 mg/ml auto-injector (2 sources) GLP-1 Receptor Agonist Start: 09-07-2024 End: 09-08-2024 inject 0.75 mg by subcutaneous injection every week dulaglutide (TRULICITY) 0.75 mg/0.5 mL pen injector Indications: Well controlled type 2 diabetes mellitus with neurological manifestations (HCC) Inject 0.75 mg subcutaneously one time a week. 2 mL 2 09/07/2024 09/08/2024 Discontinued (Cost of medication) GLUC/CHND/OM3/DHA/ EPA/FISH/STR (GLUCOSAMINE CHONDROITIN PLUS ORAL) (20 sources) End: 09-07-2024 take 2 tablets by mouth once daily GLUC/CHND/OM3/DHA/EP A/FISH/STR (GLUCOSAMINE CHONDROITIN PLUS ORAL) Take 2 tablets by mouth once daily. 09/07/2024 Discontinued take 2 tablets by mo ut once daily GLUC/CHND/OM3/DHA/EPA/FISH/STR (GLUCOSAM INE CHONDROITIN PLUS ORAL) Take 2 tablets by mouth once daily. Active take 2 tablets by mo uth once daily GLUC/CHND/OM3/DHA/EPA/FISH/STR (GLUCOSAM INE CHONDROITIN PLUS ORAL) Take 2 tablets by mouth once daily. 0 Active Comment on above: Take 2 tablets by [facility] once daily. mupirocin 0.02 mg/mg topical ointment (2 sources) RNA Synthetase Inhibitor Antibacterial Start: 09-02-2024 End: 09-12-2024 mupirocin (BACTROBAN) 2 % ointment Indications: Open wound of toe, initial encounter Apply to affected area three times a day for 10 days. 15 g 09/02/2024 09/07/2024 Discontinued nystatin [id number] unt/ml topical cream (13 sources) Polyene Antifungal Start: 04-05-2021 nystatin (MYCOSTATIN) cream Indications: Penile lesion Apply 1 application to affected area three times daily. 30 g 1 04/05/2021 Active Comment on above: Apply 1 application to affected area three times daily. [place]-3 Fatty Acids (FISH OIL) 500 mg cap (11 sources) Start: 10-19-2012 [place]-3 Fatty Acids (FISH OIL) 500 mg cap Take by mouth once daily. 0 10/19/2012 Active Comment on above: Take by mouth once d aily. [place]-3 Fatty Acids 500 mg cap (5 sources) Start: 10-19-2012 End: 09-02-2023 [place]-3 Fatty Acids 500 mg cap Take by mouth once daily. 0 10/19/2012 09/02/2023 Discontinued Start: 10-19-2012 [place]-3 Fatty Acids 500 mg cap Take by mouth once daily. 0 10/19/2012 Active Comment on above: Take by mouth once d aily. pregabalin 100 mg oral capsule (6 sources) Start: 09-13-2021 End: 12-12-2021 pregabalin (LYRICA) 100 mg capsule Indications: Well controlled type 2 diabetes mellitus with neurological manifestations (HCC) Take 1 capsule by mouth three times daily for 90 days. Do not start before September 13, 2021. 90 capsule 2 09/13/2021 09/17/2021 Discontinued (Adverse Reaction) Start: 09-07-2021 End: 09-17-2021 take 1 capsule by mouth three times daily pregabalin (LYRICA) 75 mg capsule Indications: Well controlled type 2 diabetes mellitus with neurological manifestations (HCC) Take 1 capsule by mouth three times daily for 7 days. 21 capsule 0 09/07/2021 09/17/2021 Discontinued (Adverse Reaction) Comment on above: Take 1 capsule by mo uth three times daily for 7 days. Take 1 capsule by mo uth three times daily for 90 days. Do not start before September 13, 2021. psyllium 3400 mg powder for oral suspension (11 sources) Start: 07-26-2021 Psyllium Husk-Aspartame (METAMUCIL MULTIHEALTH FIBER) 3.4 gram/5.8 gram powd Indications: Constipation, unspecified constipation type Take 1 Tablespoonful by mouth three times a week. 0 07/26/2021 Active Comment on above: Take 1 Tablespoonful by mouth three times a week. thioctic acid 600 mg oral tablet (3 sources) End: 09-02-2023 alpha lipoic acid 600 mg tab Take by mouth. 0 09/02/2023 Discontinued Comment on above: Take by mouth. Problems Active Problems Problem Classification Problem Date Documented Date Episodic/Chronic Acquired foot deformities (3 sources) Other hammer toe(s) (acquired), right foot; Translations: [Hammer toe] Onset: 5 09-19-2024 Chronic Chronic ulcer of skin (4 sources) Non-pressure chronic ulcer of other part of right foot with fat layer exposed; Translations: [Ulcer of other part of foot] Onset: 5 09-19-2024 Chronic Diabetes mellitus with complications (20 sources) Type 2 diabetes mellitus; Translations: [Type 2 diabetes mellitus with other diabetic neurological complication] Onset: 1 Resolved: 8 05-25-2015 Chronic Disorders of lipid metabolism (20 sources) Hyperlipidemia; Translations: [Hyperlipidemia, unspecified] Onset: 4 03-24-2013 Chronic E Codes: Adverse effects of medical drugs (8 sources) HMG COA reductase inhibitor adverse reaction; Translations: [Adverse effect of antihyperlipidemic and antiarteriosclerotic drugs, initial encounter] Onset: 5 09-07-2024 Episodic Esophageal disorders (20 sources) Gastroesophageal reflux disease; Translations: [Gastro-esophageal reflux disease without esophagitis] Onset: 9 Chronic Essential hypertension (20 sources) Essential hypertension; Translations: [Essential (primary) hypertension] Onset: 9 Chronic Hyperplasia of prostate (20 sources) Benign prostatic hypertrophy with outflow obstruction; Translations: [Benign prostatic hyperplasia with lower urinary tract symptoms] Onset: 8 03-04-2018 Chronic Immunizations and screening for infectious disease (2 sources) Vaccination needed; Translations: [Encounter for immunization] 09-02-2023 Episodic Inflammation; infection of eye (except that caused by tuberculosis or sexually transmitteddisease) (1 source) Bacterial conjunctivitis; Translations: [Unspecified conjunctivitis] Episodic Open wounds of extremities (4 sources) Open wound of toe; Translations: [Unspecified open wound of unspecified toe(s) without damage to nail, initial encounter] Onset: 5 09-02-2024 Episodic Other circulatory disease (1 source) Other specified symptoms and signs involving the circulatory and respiratory systems; Translations: [Diminished pulses in lower extremity] Onset: Episodic Other circulatory disease (2 sources) Abnormal peripheral pulse; Translations: [Other specified symptoms and signs involving the circulatory and respiratory systems] 09-19-2024 Episodic Other hereditary and degenerative nervous system conditions (1 source) Intention tremor; Translations: [Other specified forms of tremor] 01-26-2024 Chronic Other hereditary and degenerative nervous system conditions (1 source) Essential tremor; Translations: [Essential tremor] 09-07-2024 Chronic Other hereditary and degenerative nervous system conditions (1 source) Essential tremor; Translations: [Essential tremor] Onset: 5 Chronic Other male genital disorders (20 sources) Male erectile dysfunction, unspecified; Translations: [Impotence of organic origin] Onset: 9 12-03-2015 Chronic Other nutritional; endocrine; and metabolic disorders (20 sources) Obese class I; Translations: [Obesity, unspecified] Onset: 8 03-04-2018 Chronic Other skin disorders (1 source) Nail dystrophy; Translations: [Onychodystrophy] Onset: Episodic Other skin disorders (3 sources) Dystrophia unguium; Translations: [Nail dystrophy] 09-19-2024 Episodic Other upper respiratory infections (1 source) Chronic sinusitis; Translations: [Chronic sinusitis, unspecified] Chronic Peripheral and visceral atherosclerosis (3 sources) Peripheral vascular disease, unspecified; Translations: [Peripheral arterial disease] 09-22-2024 Chronic Residual codes; unclassified (20 sources) Obstructive sleep apnea syndrome; Translations: [Obstructive sleep apnea (adult) (pediatric)] Onset: 9 10-27-2016 Chronic Residual codes; unclassified (1 source) Obstructive sleep apnea (adult) (pediatric); Translations: [ROSE on CPAP] Onset: 7 Chronic Screening and history of mental health and substance abuse codes (4 sources) Patient encounter status; Translations: [Encounter for screening for depression] Onset: 5 09-07-2024 Episodic Skin and subcutaneous tissue infections (10 sources) Cellulitis of right toe; Translations: [Cellulitis and abscess of toe, unspecified] Onset: 5 09-18-2024 Episodic Unclassified (1 source) Cellulitis of toe of right foot 09-18-2024 Viral infection (1 source) Disease caused by 2019-nCoV; Translations: [COVID-19] Episodic Past or Other Problems Problem Classification Problem Date Documented Da te Episodic/Chronic Anal and rectal conditions (15 sources) Anal fistula; Translations: [Anal fistula] Onset: 9 Resolved: 1 12-20-2010 Episodic Aortic and peripheral arterial embolism or thrombosis (15 sources) Vascular disorder; Translations: [Embolism and thrombosis of unspecified artery] Onset: 9 Resolved: 1 12-20-2010 Chronic Diverticulosis and diverticulitis (15 sources) Diverticulosis of colon; Translations: [Diverticulosis of large intestine without perforation or abscess without bleeding] Onset: 9 Resolved: 1 12-20-2010 Chronic Hemorrhoids (15 sources) External hemorrhoids; Translations: [Residual hemorrhoidal skin tags] Onset: 9 Resolved: 1 12-20-2010 Episodic Melanomas of skin (20 sources) Malignant melanoma of scalp; Translations: [Malignant melanoma of scalp and neck] Onset: 9 Resolved: 4 09-22-2018 Chronic Other connective tissue disease (15 sources) Pain in limb; Translations: [Pain in unspecified limb] Onset: 4 Resolved: 6 05-25-2015 Episodic Other gastrointestinal disorders (20 sources) Constipation; Translations: [Constipation, unspecified] Onset: 2 Episodic Other male genital disorders (15 sources) Cyst of epididymis; Translations: [Cyst of epididymis] Onset: 7 Resolved: 8 03-04-2018 Episodic Other nervous system disorders (15 sources) Paresthesia of foot ; Translations: [Anesthesia of skin] Onset: 3 Resolved: 6 05-25-2015 Episodic Other non-traumatic joint disorders (15 sources) Shoulder joint pain; Translations: [Pain in unspecified shoulder] Onset: 1 Resolved: 1 12-20-2010 Episodic Other non-traumatic joint disorders (15 sources) Arthralgia of the pelvic region and thigh; Translations: [Pain in unspecified hip] Onset: 4 Resolved: 6 05-25-2015 Episodic Other non-traumatic joint disorders (1 source) Pain in right hip; Translations: [Pain in right hip] Onset: 4 Episodic Other nutritional; endocrine; and metabolic disorders (15 sources) Obesity; Translations: [Obesity, unspecified] Onset: 9 Resolved: 8 03-04-2018 Chronic Other screening for suspected conditions (not mental disorders or infectious disease) (20 sources) Raised prostate specific antigen; Translations: [Elevated prostate specific antigen [PSA]] Onset: 9 Resolved: 1 03-21-2019 Episodic Other skin disorders (15 sources) Skin tag; Translations: [Unspecified hypertrophic and atrophic conditions of skin] Onset: 9 Resolved: 1 12-20-2010 Episodic Phlebitis; thrombophlebitis and thromboembolism (15 sources) Venous thrombosis; Translations: [Phlebitis and thrombophlebitis of unspecified site] Onset: 9 Resolved: 1 12-20-2010 Episodic Spondylosis; intervertebral disc disorders; other back problems (15 sources) Cervical spondylosis; Translations: [Spondylosis without myelopathy or radiculopathy, cervical region] Onset: 4 Resolved: 7 03-11-2021 Chronic Spondylosis; intervertebral disc disorders; other back problems (15 sources) Backache; Translations: [Dorsalgia, unspecified] Onset: 4 Resolved: 7 10-27-2016 Episodic Unclassified (2 sources) Ulcer of toe of right foot, with fat layer exposed ([facility]) 09-19-2024 Results Test Name Value Interpretation Reference Range Facility Absolute lymphocyte countOrd ered By: Abiel Hawley on 09-27-2024 Lymphocytes Auto (Unsp spec) [#/Vol] 1.20 10*3/uL 0.83-4.51 [facility] Absolute neutrophil countOrd ered By: Abiel Hawley on 09-27-2024 Neutrophils (Bld) [#/Vol] 5.0 10*3/uL 2.0-7.7 [facility] Anion gap in Serum or Plasma Ordered By: Abiel Hawley on 09-27-2024 Anion gap [Moles/Vol] 12 mmol/L 5-15 [facility] Automated lymphocyte count a s percentage of total leukocytesOrdered By: Abiel Hawley on 09-27-2024 Lymphocytes/100 WBC Auto (Unsp spec) 17.0 % Low 19-41 [facility] BUN/creatinine ratioOrdered By: Abiel Hawley on 09-27-2024 Urea nitrogen/Creatinine [Mass ratio] 13.1 mg/mg 10-20 [facility] Basophil percentageOrdered B y: Abiel Hawley on 09-27-2024 Basophils/100 WBC (Bld) 0.7 % 0-1 [facility] [facility] Carbon dioxide, total [Moles /volume] in Central venous bloodOrdered By: Abiel Hawley on 09-27-2024 CO2 [Moles/Vol] 21.7 mmol/L 21.0-32.0 [facility] Chloride assayOrdered By: Junito Hawley on 09-27-2024 Chloride [Moles/Vol] 104 mmol/L 98-108 [facility] Eosinophil percentageOrdered By: Abiel Hawley on 09-27-2024 Eosinophils/100 WBC (Bld) 1.1 % 0-5 [facility] Erythrocyte distribution wid th ratioOrdered By: Abiel Hawley on 09-27-2024 Erythrocyte distribution width (RBC) [Ratio] 14.1 % 11.6-14.6 [facility] Erythrocyte distribution wid th standard deviationOrdered By: Abieleufemia Lopez on 09-27-2024 Erythrocyte distribution width (RBC) [Ratio] 46.1 fl High 35.1-43.9 [facility] Erythrocyte sedimentation ra teOrdered By: Abieleufemia Hawley on 09-27-2024 ESR (d) [Velocity] 5 mm/h 0-20 [facility] Glomerular filtration rate ( GFR) estimation/1.73 sq m using serum, plasma, or whole bOrdered By: Abieleufemia Hawley on 09-27-2024 GFR/1.73 sq M.predicted among non-blacks MDRD (S/P/Bld) [Vol rate/Area] 71 mL/min/{1.73_m2} >60 [facility] Comment on above: mL/min/1.73m2 CKD-EP I Creatinine Equation (2020) Hematocrit Auto (Bld) [Volum e fraction]Ordered By: Abiel Hawley on 09-27-2024 Hematocrit (Bld) [Volume fraction] 41.0 % 40-54 [facility] Hemoglobin measurementOrdere d By: Abiel Hwaley on 09-27-2024 Hemoglobin (Bld) [Mass/Vol] 13.7 g/dL 13.0-16.5 [facility] Immature granulocytes/100 WB C Auto (Bld)Ordered By: Abieleufemia Hawley on 09-27-2024 Immature granulocytes/100 WBC (Bld) 0.300 % 0.0-0.9 [facility] Comment on above: IG% - Immature Granu locytes (promyelocytes, myelocytes and metamyelocytes) > 1% indicates that a LEFT SHIFT is Present. Lactic acid measurementOrder ed By: Abiel Hawley on 09-27-2024 Lactate [Moles/Vol] 1.7 mmol/L 0.0-2.0 [facility] MCV (mean corpuscular volume ) determinationOrdered By: Abiel Hawley on 09-27-2024 MCV (RBC) [Entitic vol] 89.9 fL 80-94 [facility] Mean corpuscular hemoglobin (MCH) determinationOrdered By: Abiel Hawley on 09-27-2024 MCH (RBC) [Entitic mass] 30.0 pg 27.0-32.0 [facility] Mean corpuscular hemoglobin concentration (MCHC) determinationOrdered By: Abieleufemia Hawley on 09-27-2024 MCHC (RBC) [Mass/Vol] 33.4 g/dL 32-36 [facility] Mean platelet volume determi nationOrdered By: Abiel Hawley on 09-27-2024 Platelet mean volume (Bld) [Entitic vol] 8.7 fL 6.2-12.0 [facility] Monocyte percentageOrdered B y: Abiel Hawley on 09-27-2024 Monocytes/100 WBC (Bld) 9.2 % 0-10 [facility] Neutrophil percentageOrdered By: [place] Chandan on 09-27-2024 Neutrophils/100 WBC (Bld) 71.7 % High 47-70 [facility] Nucleated red blood cell per centageOrdered By: Abiel Hawley on 09-27-2024 Nucleated RBC/100 WBC (Bld) [Ratio] 0 % 0-5 [facility] Platelet countOrdered By: Junito Hawley on 09-27-2024 Platelets (Bld) [#/Vol] 227 10*3/uL 150-450 [facility] Potassium measurement (mass/ volume)Ordered By: Abiel Hawley on 09-27-2024 Potassium (Unsp spec) [Mass/Vol] 5.0 mmol/L 3.3-5.1 [facility] Comment on above: Hemolysis present, R esults could be affected. RBC Auto (Bld) [#/Vol]Ordere d By: Abiel Hawley on 09-27-2024 RBC (Bld) [#/Vol] 4.56 10*6/uL Low 4.6-6.2 [facility] Serum creatinine measurement (mass/volume)Ordered By: Abiel Hawley on 09-27-2024 Creatinine [Mass/Vol] 1.10 mg/dL 0.70-1.20 [facility] Serum glucose measurement (m ass/volume)Ordered By: Abiel Hawley on 09-27-2024 Glucose [Mass/Vol] 108 mg/dL High 70-99 [facility] Serum or plasma C reactive p rotein measurement (mass/volume)Ordered By: Abiel Hawley on 09-27-2024 CRP [Mass/Vol] 11.80 mg/L High 0.0-3.0 [facility] Serum or plasma calcium phil urement (mass/volume)Ordered By: Abiel Lopez on 09-27-2024 Calcium [Mass/Vol] 9.4 mg/dL 7.6-11.0 [facility] Serum or plasma urea nitroge n measurement (mass/volume)Ordered By: Abiel Hawley on 09-27-2024 Urea nitrogen [Mass/Vol] 14 mg/dL 4-19 [facility] Sodium levelOrdered By: Jovany Hawley on 09-27-2024 Sodium [Moles/Vol] 138 mmol/L 133-145 [facility] White blood cell (WBC) count Ordered By: Abiel Hawley on 09-27-2024 WBC (Bld) [#/Vol] 7.0 10*3/uL 4.4-11.0 [facility] Absolute lymphocyte countOrd ered By: Kyrie Amaya on 09-22-2024 Lymphocytes Auto (Unsp spec) [#/Vol] 1.81 10*3/uL 0.83-4.51 [facility] Absolute neutrophil countOrd ered By: Kyrie Amaya on 09-22-2024 Neutrophils (Bld) [#/Vol] 5.1 10*3/uL 2.0-7.7 [facility] Anion gap in Serum or Plasma Ordered By: Kyrie Amaya on 09-22-2024 Anion gap [Moles/Vol] 12 mmol/L 5-15 [facility] Automated lymphocyte count a s percentage of total leukocytesOrdered By: Kyrie Amaya on 09-22-2024 Lymphocytes/100 WBC Auto (Unsp spec) 22.6 % - [facility] BUN/creatinine ratioOrdered By: Kyrie Amaya on 09-22-2024 Urea nitrogen/Creatinine [Mass ratio] 13.3 mg/mg 01-02 [facility] Basic Metabolic Profile (BMP )on 09-22-2024 BUN/CRE 13.3 RATIO Normal 01-02 [facility] Comment on above: Performed By: #### L 500.2500, L501.6710, L101.9900, L100.0100 #### [facility] [address] [place], [address] Calcium [Mass/Vol] 9.5 mg/dL Normal 7.6-11.0 [facility] Comment on above: Performed By: #### L 500.2500, L501.6710, L101.9900, L100.0100 #### [facility] [address] [place], [address] Chloride [Moles/Vol] 103 mmol/L Normal 98-108 [facility] Comment on above: Performed By: #### L 500.2500, L501.6710, L101.9900, L100.0100 #### [facility] [address] [place], [address] CO2 [Moles/Vol] 23.0 mmol/L Normal 21.0-32.0 [facility] Comment on above: Performed By: #### L 500.2500, L501.6710, L101.9900, L100.0100 #### [facility] [address] [place], [address] Creatinine [Mass/Vol] 0.96 mg/dL Normal 0.70-1.20 [facility] Comment on above: Performed By: #### L 500.2500, L501.6710, L101.9900, L100.0100 #### [facility] [address] [place], [address] ECRCL 83.68 ml/min Normal 50-250 [facility] Comment on above: Performed By: #### L 500.2500, L501.6710, L101.9900, L100.0100 #### [facility] [address] [place], [address] GAP 12 Normal 5-15 [facility] Comment on above: Performed By: #### L 500.2500, L501.6710, L101.9900, L100.0100 #### [facility] [address] [place], [address] GFR/1.73 sq M.predicted among non-blacks MDRD (S/P/Bld) [Vol rate/Area] 84 mL/min/{1.73_m2} Normal >60 [facility] Comment on above: Result Comment: mL/m in/1.73m2 CKD-EPI Creatinine Equation (2020) Performed By: #### L 500.2500, L501.6710, L101.9900, L100.0100 #### [facility] [address] [place], [address] Glucose [Mass/Vol] 125 mg/dL High 70-99 [facility] Comment on above: Performed By: #### L 500.2500, L501.6710, L101.9900, L100.0100 #### [facility] [address] [place], [address] Potassium [Moles/Vol] 4.6 mmol/L Normal 3.3-5.1 [facility] Comment on above: Result Comment: Hemo lysis present, Results??could be affected. ?? Performed By: #### L 500.2500, L501.6710, L101.9900, L100.0100 #### [facility] [address] [place], [address] Sodium [Moles/Vol] 139 mmol/L Normal 133-145 [facility] Comment on above: Performed By: #### L 500.2500, L501.6710, L101.9900, L100.0100 #### [facility] [address] [place], [address] Urea nitrogen [Mass/Vol] 13 mg/dL Normal 4-19 [facility] Comment on above: Performed By: #### L 500.2500, L501.6710, L101.9900, L100.0100 #### [facility] [address] [place], [address] Basophil percentageOrdered B y: Kyrie Amaya on 09-22-2024 Basophils/100 WBC (Bld) 0.7 % 0-1 [facility] CBC W/Diff, Automatedon 09-13 0-2024 Absolute Lymph 1.81 X10 3/uL Normal 0.83-4.51 [facility] Comment on above: Performed By: #### L 100.0100, L101.9900 #### [facility] [address] [place], [address] Absolute Neut 5.1 X10 3/uL Normal 2.0-7.7 [facility] Comment on above: Performed By: #### L 100.0100, L101.9900 #### [facility] [address] [place], [address] Basophils/100 WBC (Bld) 0.7 % Normal 0-1 [facility] Comment on above: Performed By: #### L 100.0100, L101.9900 #### [facility] [address] [place], [address] Eosinophils/100 WBC (Bld) 2.6 % Normal 0-5 [facility] Comment on above: Performed By: #### L 100.0100, L101.9900 #### [facility] [address] [place], [address] Erythrocyte distribution width (RBC) [Ratio] 13.8 % Normal 11.6-14.6 [facility] Comment on above: Performed By: #### L 100.0100, L101.9900 #### [facility] [address] [place], [address] Hematocrit (Bld) [Volume fraction] 38.0 % Low 40-54 [facility] Comment on above: Performed By: #### L 100.0100, L101.9900 #### [facility] [address] [place], [address] Hemoglobin (Bld) [Mass/Vol] 12.8 g/dL Low 13.0-16.5 [facility] Comment on above: Performed By: #### L 100.0100, L101.9900 #### [facility] [address] [place], [address] IG% 0.400 Normal 0.0-0.9 [facility] Comment on above: Result Comment: IG% - Immature Granulocytes (promyelocytes, myelocytes and metamyelocytes) > 1% indicates that a LEFT SHIFT is Present. Performed By: #### L 100.0100, L101.9900 #### [facility] [address] [place], [address] Lymphocytes/100 WBC (Bld) 22.6 % Normal 19-41 [facility] Comment on above: Performed By: #### L 100.0100, L101.9900 #### [facility] [address] [place], [address] MCH (RBC) [Entitic mass] 30.0 pg Normal 27.0-32.0 [facility] Comment on above: Performed By: #### L 100.0100, L101.9900 #### [facility] [address] [place], [address] MCHC (RBC) [Mass/Vol] 33.7 g/dL Normal 32-36 [facility] Comment on above: Performed By: #### L 100.0100, L101.9900 #### [facility] [address] [place], [address] MCV (RBC) [Entitic vol] 89.2 fL Normal 80-94 [facility] Comment on above: Performed By: #### L 100.0100, L101.9900 #### [facility] [address] [place], [address] Monocytes/100 WBC (Bld) 10.2 % High 0-10 [facility] Comment on above: Performed By: #### L 100.0100, L101.9900 #### [facility] [address] [place], [address] Neutrophils/100 WBC (Bld) 63.5 % Normal 47-70 [facility] Comment on above: Performed By: #### L 100.0100, L101.9900 #### [facility] [address] [place], [address] Nucleated RBC (Bld) [#/Vol] 0 10*3/uL Normal 0-5 [facility] Comment on above: Performed By: #### L 100.0100, L101.9900 #### [facility] [address] [place], [address] Platelet mean volume (Bld) [Entitic vol] 8.9 fL Normal 6.2-12.0 [facility] Comment on above: Performed By: #### L 100.0100, L101.9900 #### [facility] [address] [place], [address] Platelets (Bld) [#/Vol] 214 10*3/uL Normal 150-450 [facility] Comment on above: Performed By: #### L 100.0100, L101.9900 #### [facility] [address] [place], [address] RBC (Bld) [#/Vol] 4.26 10*6/uL Low 4.6-6.2 [facility] Comment on above: Performed By: #### L 100.0100, L101.9900 #### [facility] [address] [place], [address] RDW SD 44.6 fl High 35.1-43.9 [facility] Comment on above: Performed By: #### L 100.0100, L101.9900 #### [facility] [address] [place], [address] WBC (Bld) [#/Vol] 8.0 10*3/uL Normal 4.4-11.0 [facility] Comment on above: Performed By: #### L 100.0100, L101.9900 #### [facility] [address] [place], [address] Absolute Neut Normal 2.0-7.7 [facility] Comment on above: Result Comment: This specimen has been REJECTED due to Laboratory criteria: Clotted. CATE (ED) has been notified of need of recollection. 09/22/242038 Teena Lollo Performed By: #### L 500.2500, L501.6710, L101.9900, L100.0100 #### [facility] [address] [place], [address] HCT Normal 40-54 [facility] Comment on above: Result Comment: This specimen has been REJECTED due to Laboratory criteria: Clotted. CATE (ED) has been notified of need of recollection. 09/22/242038 Teena Lollo Performed By: #### L 500.2500, L501.6710, L101.9900, L100.0100 #### [facility] [address] [place], [address] HGB Normal 13.0-16.5 [facility] Comment on above: Result Comment: This specimen has been REJECTED due to Laboratory criteria: Clotted. CATE (ED) has been notified of need of recollection. 09/22/242038 Teena Lollo Performed By: #### L 500.2500, L501.6710, L101.9900, L100.0100 #### [facility] [address] [place], [address] MCH Normal 27.0-32.0 [facility] Comment on above: Result Comment: This specimen has been REJECTED due to Laboratory criteria: Clotted. CATE (ED) has been notified of need of recollection. 09/22/242038 Teena Lollo Performed By: #### L 500.2500, L501.6710, L101.9900, L100.0100 #### [facility] [address] [place], [address] MCHC Normal 32-36 [facility] Comment on above: Result Comment: This specimen has been REJECTED due to Laboratory criteria: Clotted. CATE (ED) has been notified of need of recollection. 09/22/242038 Teena Lollo Performed By: #### L 500.2500, L501.6710, L101.9900, L100.0100 #### [facility] [address] [place], [address] MCV Normal 80-94 [facility] Comment on above: Result Comment: This specimen has been REJECTED due to Laboratory criteria: Clotted. CATE (ED) has been notified of need of recollection. 09/22/242038 Teena Lollo Performed By: #### L 500.2500, L501.6710, L101.9900, L100.0100 #### [facility] [address] [place], [address] NEUT% Normal 47-70 [facility] Comment on above: Result Comment: This specimen has been REJECTED due to Laboratory criteria: Clotted. CATE (ED) has been notified of need of recollection. 09/22/242038 Teena Lollo Performed By: #### L 500.2500, L501.6710, L101.9900, L100.0100 #### [facility] [address] [place], [address] PLT Normal 150-450 [facility] Comment on above: Result Comment: This specimen has been REJECTED due to Laboratory criteria: Clotted. CATE (ED) has been notified of need of recollection. 09/22/242038 Teena Lollo Performed By: #### L 500.2500, L501.6710, L101.9900, L100.0100 #### [facility] [address] [place], [address] RBC Normal 4.6-6.2 [facility] Comment on above: Result Comment: This specimen has been REJECTED due to Laboratory criteria: Clotted. CATE (ED) has been notified of need of recollection. 09/22/242038 Teena Lollo Performed By: #### L 500.2500, L501.6710, L101.9900, L100.0100 #### [facility] [address] [place], [address] RDW CV Normal 11.6-14.6 [facility] Comment on above: Result Comment: This specimen has been REJECTED due to Laboratory criteria: Clotted. CATE (ED) has been notified of need of recollection. 09/22/242038 Teena Lollo Performed By: #### L 500.2500, L501.6710, L101.9900, L100.0100 #### [facility] [address] [place], [address] RDW SD Normal 35.1-43.9 [facility] Comment on above: Result Comment: This specimen has been REJECTED due to Laboratory criteria: Clotted. CATE (ED) has been notified of need of recollection. 09/22/242038 Teena Lollo Performed By: #### L 500.2500, L501.6710, L101.9900, L100.0100 #### [facility] [address] [place], [address] WBC Normal 4.4-11.0 [facility] Comment on above: Result Comment: This specimen has been REJECTED due to Laboratory criteria: Clotted. CATE (ED) has been notified of need of recollection. 09/22/242038 Teena Lollo Performed By: #### L 500.2500, L501.6710, L101.9900, L100.0100 #### [facility] [address] [place], [address] CRPon 09-22-2024 C-REACTIVE PROT 7.72 mg/L High 0.0-3.0 [facility] Comment on above: Performed By: #### L 500.2500, L501.6710, L101.9900, L100.0100 #### [facility] [address] [place], [address] Carbon dioxide, total [Moles /volume] in Central venous bloodOrdered By: Kyrie Amaya on 09-22-2024 CO2 [Moles/Vol] 23.0 mmol/L 21.0-32.0 [facility] Chloride assayOrdered By: Ug o Amaya on 09-22-2024 Chloride [Moles/Vol] 103 mmol/L 98-108 [facility] Emergency Department Summary on 09-22-2024 Emergency Department Summary [facility] Medical Records Department [address] [place] [address] Emergency Department Summary 09/22/24 MR#: [id number] Acct: [id number] Name: OZZY DUNN Rep #: [id number] : 1950 73 From: Kyrie Amaya MD PCP: Dr. 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 Onset/Context/Timing Onset: Days Context: Sudden Onset Timing: Continuous Quality: Infected right third toe Location: Right third toe Current Severity: Mild Maximum Severity: Mild Worsened by: Suspect due to to PAD not healing quickly Relieved by: Not applicable Associated Symptoms Associated Symptoms: None Narrative Narrative: Patient had wound to right third toe. He saw podiatry. He apparently trimmed his toenails too close and clipped the bottom of his third right toe. He had x-rays that did not reveal any abnormality. He had a vascular study because he has stigmata of peripheral arterial disease. He does not know the results. He was placed on Augmentin 875 mg twice daily. Patient does not check his blood sugar on a regular basis. He denies blurred vision, polyuria or polydipsia. He states the wound has not gotten much better. He denies fever, chills night sweats. He has no other complaints. Prior similar symptoms: No Recent Illness/Hospitalization: No PFSH PFSH Medical History no medical history Home Medications ???Medication ???Instructions ???Recorded ???Last Taken ???Type ezetimibe 10 mg tablet 10 mg PO DAILY 09/22/24 09/22/24 H istory gabapentin 300 mg capsule 900 mg PO BID 09/22/24 09/22/24 Hi story lisinopril 40 mg tablet 40 mg PO DAILY 09/22/24 09/22/24 H istory metformin 500 mg tablet 1,000 mg PO BID 09/22/24 09/22/24 History sulfamethoxazole 800 1 tab PO BID #10 TABLETS 09/22/24 Unknown Rx mg-trimethoprim 160 mg tablet Allergy/AdvReac Type Severity Reaction Status Date / Time No Known Allergies Allergy Verified 09/22/24 17:15 Family History no significant family his Surgical History no surgical history Social History Smoking Status: Never smoker ROS ROS ED Constitutional Constitutional ED: Denies chills, fever(s), subjective, sweats or weight loss Eyes Eyes: Denies blurry vision Cardiovascular Cardiovascular: Denies palpitations Respiratory/Chest Respiratory/Chest: Denies dyspnea Gastrointestinal Gastrointestinal: Denies abdominal pain, nausea or vomiting Musculoskeletal Musculoskeletal: Denies arthralgias or myalgias Integumentary Reports rash Neurologic Neurologic: Denies paresthesias Endocrine Endocrinology: Denies polydipsia or polyuria Hematologic/Lymphatic Hematologic/Lymphatic: Reports systems reviewed and no addt'l complaints, except as documented EXAM Physical Exam Const Vital Signs: 09/22/24 17:13 09/22/24 17:15 09/22/24 18:15 Temperature 98.4 F 98.4 F 98.4 F Temperature Source Oral Oral Oral Pulse Rate 79 81 69 Respiratory Rate 18 18 16 Blood Pressure 170/83 H 170/83 H 184/92 H Blood Pressure Mean 112 112 122 Pulse Ox 99 100 99 Oxygen Delivery Method Room Air Room Air Room Air 09/22/24 18:59 09/22/24 20:00 09/22/24 21:00 Temperature 98.4 F 98.4 F 98.4 F Temperature Source Oral Oral Oral Pulse Rate 74 67 66 Respiratory Rate 16 18 16 Blood Pressure 184/92 H 176/80 H 181/75 H Blood Pressure Mean 122 112 110 Pulse Ox 100 100 99 Oxygen Delivery Method Room Air Room Air Room Air Positive well nourished Constitutional Narrative: Patient is hard of hearing. Vital signs remarkable for elevated blood pressure. General Appearance ED: NAD HEENT Reports moist mucous membranes HEENT Narrative: Head is atraumatic normocephalic. Ears normal. Nares patent. Patient wears glasses. Eyes PERRL and EOMs intact bilaterally General Eye ED: Negative for pale conjunctiva or scleral icterus Resp normal respiratory effort Cardio regular rate and regular rhythm GI GI Narrative: There is no right inguinal lymphadenopathy. Extremity Negative for normal to inspection Extremity Narrative: Patient has a erythematous slightly warm right third toe. There is no fluctuance. There is no induration. There is no lymphangitis. There is no popliteal mita lymphadenopathy. Patient has no hair on his toes. His skin is shiny. Does have some edema of the dorsal surface of the right foot. Neuro oriented x3, CN's II-XII intact bilaterally and no sensory deficits noted Motor Exam: strength 5/5 throughout Psych mental status grossly normal Skin Skin Narrative: C (more content not included)... Normal [facility] Eosinophil percentageOrdered By: Kyrie Amaya on 09-22-2024 Eosinophils/100 WBC (Bld) 2.6 % 0-5 [facility] Erythrocyte Sed Rateon 09-22 SED RATE 5 mm/hr Normal 0-20 [facility] Comment on above: Performed By: #### L 100.0100, L101.9900 #### [facility] [address] [place], [address] SED RATE Normal 0-20 [facility] Comment on above: Result Comment: This specimen has been REJECTED due to Laboratory criteria: Clotted. CATE (ED) has been notified of need of recollection. 09/22/242038 Teena Comer Performed By: #### L 500.2500, L501.6710, L101.9900, L100.0100 #### [facility] [address] [facility] [place], [place], [address] Erythrocyte distribution wid th ratioOrdered By: Kyriechetan Amaya on 09-22-2024 Erythrocyte distribution width (RBC) [Ratio] 13.8 % 11.6-14.6 [facility] Erythrocyte distribution wid th standard deviationOrdered By: Kyriechetan Amaya on 09-22-2024 Erythrocyte distribution width (RBC) [Ratio] 44.6 fl High 35.1-43.9 [facility] Erythrocyte sedimentation ra teOrdered By: Kyrie Amaya on 09-22-2024 ESR (Bld) [Velocity] 5 mm/h 0-20 [facility] Glomerular filtration rate ( GFR) estimation/1.73 sq m using serum, plasma, or whole bOrdered By: Kyriechetan Amaya on 09-22-2024 GFR/1.73 sq M.predicted among non-blacks MDRD (S/P/Bld) [Vol rate/Area] 84 mL/min/{1.73_m2} >60 [facility] Comment on above: mL/min/1.73m2 CKD-EP I Creatinine Equation (2020) Hematocrit Auto (Bld) [Volum e fraction]Ordered By: Kyrie Amaya on 09-22-2024 Hematocrit (Bld) [Volume fraction] 38.0 % Low 40-54 [facility] Hemoglobin measurementOrdere d By: Kyrie Amaya on 09-22-2024 Hemoglobin (Bld) [Mass/Vol] 12.8 g/dL Low 13.0-16.5 [facility] Immature granulocytes/100 WB C Auto (Bld)Ordered By: Kyrie Amaay on 09-22-2024 Immature granulocytes/100 WBC (Bld) 0.400 % 0.0-0.9 [facility] Comment on above: IG% - Immature Granu locytes (promyelocytes, myelocytes and metamyelocytes) > 1% indicates that a LEFT SHIFT is Present. MCV (mean corpuscular volume ) determinationOrdered By: Kyriechetan Amaya on 09-22-2024 MCV (RBC) [Entitic vol] 89.2 fL 80-94 [facility] Mean corpuscular hemoglobin (MCH) determinationOrdered By: Kyriechetan Amaya on 09-22-2024 MCH (RBC) [Entitic mass] 30.0 pg 27.0-32.0 [facility] Mean corpuscular hemoglobin concentration (MCHC) determinationOrdered By: Kyriechetan Amaya on 09-22-2024 MCHC (RBC) [Mass/Vol] 33.7 g/dL 32-36 [facility] Mean platelet volume determi nationOrdered By: Kyrie Amaya on 09-22-2024 Platelet mean volume (Bld) [Entitic vol] 8.9 fL 6.2-12.0 [facility] Monocyte percentageOrdered B y: Kyrie Amaya on 09-22-2024 Monocytes/100 WBC (Bld) 10.2 % High 0-10 [facility] Neutrophil percentageOrdered By: Kyriechetan Amaya on 09-22-2024 Neutrophils/100 WBC (Bld) 63.5 % 47-70 [facility] Nucleated red blood cell per centageOrdered By: Kyriechetan Amaya on 09-22-2024 Nucleated RBC/100 WBC (Bld) [Ratio] 0 % 0-5 [facility] Platelet countOrdered By: Luisana Amaya on 09-22-2024 Platelets (Bld) [#/Vol] 214 10*3/uL 150-450 [facility] Potassium measurement (mass/ volume)Ordered By: Kyriechetan Amaya on 09-22-2024 Potassium (Unsp spec) [Mass/Vol] 4.6 mmol/L 3.3-5.1 [facility] Comment on above: Hemolysis present, R esults could be affected. RBC Auto (Bld) [#/Vol]Ordere d By: Kyrie Amaya on 09-22-2024 RBC (Bld) [#/Vol] 4.26 10*6/uL Low 4.6-6.2 [facility] Serum creatinine measurement (mass/volume)Ordered By: Kyrie Amaya on 09-22-2024 Creatinine [Mass/Vol] 0.96 mg/dL 0.70-1.20 [facility] Serum glucose measurement (m ass/volume)Ordered By: Kyrie Amaya on 09-22-2024 Glucose [Mass/Vol] 125 mg/dL High 70-99 [facility] Serum or plasma C reactive p rotein measurement (mass/volume)Ordered By: Kyrie Amaya on 09-22-2024 CRP [Mass/Vol] 7.72 mg/L High 0.0-3.0 [facility] Serum or plasma calcium phil urement (mass/volume)Ordered By: Kyriechetan Amaya on 09-22-2024 Calcium [Mass/Vol] 9.5 mg/dL 7.6-11.0 [facility] Serum or plasma urea nitroge n measurement (mass/volume)Ordered By: Kyrie Amaya on 09-22-2024 Urea nitrogen [Mass/Vol] 13 mg/dL 4-19 [facility] Sodium levelOrdered By: Kyriechetan Amaya on 09-22-2024 Sodium [Moles/Vol] 139 mmol/L 133-145 [facility] White blood cell (WBC) count Ordered By: Kyriechetan Amaya on 09-22-2024 WBC (Bld) [#/Vol] 8.0 10*3/uL 4.4-11.0 [facility] CNOVon 09-19-2024 CNOV Office Visit (PODIWS ) -- SHAUNOZZY P ([id number]) 1950 M Date Time Provider Department 09/19/24 10:15 AM ALEXEI RALPH During your visit today, we recorded the following information about you: Deanna Johnston LPN 09/19/2024 10:32 PM Signed AMB ROOMING INTAKE FLOWSHEET DATA Pain Pain Level: 6 Pain Location: Toe Description: Sore Duration Amount of Time: 2 Duration Units: Weeks Frequency: Intermittent Intervention/Comfort measure: Relaxation, Reposition, Medication Patient presents with: Right 3rd Toe - New, Diabetic Foot Ulcer, Pain, Infection, Swelling SAL[place]OR [place] Matthew 09/19/2024 10:51 AM Signed - Begin Augmentin twice daily for 7 days as prescribed; prescription sent to [facility] in [place]. - Clean the wound gently each morning (and after showering) with soap and water, then pat dry. - Stop using Neosporin; apply the Aquacel dressing cut to the size of the wound, then cover with a clean gauze. If the dressing becomes very moist, change it twice daily. - Keep the dressing dry when you shower--cover it, then remove, clean, and reapply afterward. - Wear the surgical shoe provided to off-load pressure on your right third toe. - Obtain the right foot X-ray to check for any bone involvement as ordered. - Complete the peripheral vascular study (PVR) today or as soon as possible to assess blood flow to your feet. - Wound culture was performed today; results will guide further treatment. - Return to this clinic in one week for wound check, review of X-ray and circulation results, and further planning. - If the redness, swelling, pain worsens, or if you develop fever or chills, go to the hospital immediately. - Be aware that if the infection extends into the bone, partial removal of the toe may be necessary to clear the infection. Diana Pacheco, MELODY 09/19/2024 10:32 PM Signed Patients toe dressed with aquacel and gauzewrap. Wound care reviewed with patient and dressing supplies provided. Per Dr. Ralph, Ozzy was provided with Post op shoe with offloading insert, size Large, and instructed/educated in its application, wear, and care. All questions were answered, and patient was able to demonstrate competence with the necessary skills to utilize the above equipment. MELODY Saldivar Matthew 09/19/2024 10:32 PM Signed Subjective Ramakrishna Dunn is a 73-year-old male with a history of diabetes mellitus, presenting for evaluation of a right third toe ulceration. Right Third Toe Ulceration: - Ulceration on the distal tuft of the right third toe, x2 weeks. - Occurred after trimming toenails and accidentally cutting the skin. - Initially treated with antibiotic ointment and Epsom salt soaks BID. - Wound began to swell and flare up last Thursday. - Seen at urgent care yesterday; prescribed oral antibiotics, but prescription was not received by [facility]. - Denies current use of oral antibiotics. - No known allergies to medications; dislikes narcotics. Diabetes Mellitus: - Last A1c in August was 7.4%. - No previous issues with feet until the recent incident with the toenail. Musculoskeletal: (+) right third toe swelling, (+) right third toe pain Skin: (+) right third toe ulceration PAST MEDICAL HISTORY Diagnosis Date Anal fistula 2008 Cyst of epididymis 09/25/2016 Added automatically from request for surgery [id number] Diverticulosis of colon (without mention of hemorrhage) 2009 Embolism and thrombosis of unspecified site 10/09/2008 Postoperative DVT Epididymal cyst 10/14/2016 benign, excised Esophageal reflux 04/11/2008 Hemorrhage of rectum and anus HEMORRHOIDS EXTERNAL 09/18/2008 HTN (hypertension) no meds HYPERLIPIDEMIA NEC/NOS 04/11/2008 HYPERTENSION NOS 2008 Hypertrophy of prostate without urinary obstruction and other lower urinary tract symptoms (LUTS) 04/11/2008 Left leg cellulitis 04/27/2023 Left knee, leg MRSA. Inpatient in [place], [place] Malignant melanoma of scalp (HCC) 09/22/2018 Removed August 2018 by plastic surgeon with [facility]. Early stage, no further treatment ROSE on CPAP 04/11/2008 On CPAP Otalgia of left ear 12/21/2010 Recurrent. ENT, Dr. Rangel Snoring THROMBOPHLEBITIS NOS 10/09/2008 Type II or unspecified type diabetes mellitus without mention of complication, not stated as uncontrolled 06/07/2010 Current Outpatient Medications Medication Sig Dispense Refill amoxicillin-clavulanate potassium (AUGMENTIN) 875-125 mg per tablet Take 1 tablet by mouth two times a day for 7 days. 14 tablet 0 doxycycline (VIBRA-TABS) 100 mg tablet Take 1 tablet by mouth two times a day for 10 days. 20 tablet 0 semaglutide (OZEMPIC) 0.25 mg or 0.5 mg (2 mg/3 mL) pen Inject 0.25 mg subcutaneously one time a week for 28 days, THEN 0.5 mg one time a week for 14 days. 3 mL 0 [START ON 10/19/2024] semaglutide (OZEM (more content not included)... Normal [facility] PVR ANK PRESS RICKY VAS LABon 09-19-2024 PVR ANK PRESS RICKY VAS LAB Non-Invasive Vascular Laboratory [facility] Lower Extremity Arterial Physiology Study Bilateral/Complete Date of service/time: 09/19/2024 1:29:00 PM Name: MR. OZZY DUNN Date of : 1950 Age: 73 years Gender: M Clinical Indication Abnormal pulses. TECHNIQUE -------- An arterial physiological examination was performed, including measurement of blood pressures using continuous wave Doppler and recording of plethysmographic with or without Doppler waveforms at the below-mentioned limb segments. FINDINGS -------- RIGHT SIDE AT REST Right Doppler Waveforms Dorsalis pedis: Multiphasic. Post tibial: Multiphasic. Right Pressures Brachial: 112 mmHg Ankle dorsalis pedis: 114 mmHg JONES: 1.02 Ankle posterior tibial: 94 mmHg JONES: 0.84 Digit: 20 mmHg Right PVR Waveforms Ankle: Normal. Transmetatarsal: Mildly dampened. Digit: Mildly dampened. LEFT SIDE AT REST Left Doppler Waveforms Dorsalis pedis: Multiphasic. Post tibial: Monophasic. Left Pressures Brachial: 110 mmHg Ankle dorsalis pedis: 121 mmHg JONES: 1.08 Ankle posterior tibial: 106 mmHg JONES: 0.95 Digit: 29 mmHg Left PVR Waveforms Ankle: Normal. Transmetatarsal: Mildly dampened. Digit: Moderately dampened. IMPRESSION Dr Ralph was notified with results at 2:05pm. Compared to prior study of 10/27/2016, Right JONES was 1.34, TBI was .32; Left JONES was 1.66, TBI was .48. RIGHT SIDE Resting right ankle brachial index: 1.02 Right toe brachial index: 0.18 Normal ankle brachial index at rest in the right leg. Abnormal toe brachial index at rest is evidence of peripheral artery disease. Right ankle: Normal at rest. LEFT SIDE Resting left ankle brachial index: 1.08 Left toe brachial index: 0.26 Normal ankle brachial index at rest in the left leg. Abnormal toe brachial index at rest is evidence of peripheral artery disease. Left ankle: Normal at rest. Technologist: Felicita Betancourt RVT Ordering physician: ALEXEI RALPH Interpreting physician: Maxi Wade MD, RPVI Final CC [employer] Image : [id number] See Link below for Image Normal [facility].doppler Extremity arterie s - bilateral for physiologic artery studyon 09-19-2024 Non-Invasive Vascular Laboratory [facility] Lower Extremity Arterial Physiology Study Bilateral/Complete Date of service/time: 09/19/2024 1:29:00 PM Name: MR. OZZY DUNN Date of : 1950 Age: 73 years Gender: M Clinical Indication Abnormal pulses. TECHNIQUE -------- An arterial physiological examination was performed, including measurement of blood pressures using continuous wave Doppler and recording of plethysmographic with or without Doppler waveforms at the below-mentioned limb segments. FINDINGS -------- RIGHT SIDE AT REST Right Doppler Waveforms Dorsalis pedis: Multiphasic. Post tibial: Multiphasic. Right Pressures Brachial: 112 mmHg Ankle dorsalis pedis: 114 mmHg JONES: 1.02 Ankle posterior tibial: 94 mmHg JONES: 0.84 Digit: 20 mmHg Right PVR Waveforms Ankle: Normal. Transmetatarsal: Mildly dampened. Digit: Mildly dampened. LEFT SIDE AT REST Left Doppler Waveforms Dorsalis pedis: Multiphasic. Post tibial: Monophasic. Left Pressures Brachial: 110 mmHg Ankle dorsalis pedis: 121 mmHg JONES: 1.08 Ankle posterior tibial: 106 mmHg JONES: 0.95 Digit: 29 mmHg Left PVR Waveforms Ankle: Normal. Transmetatarsal: Mildly dampened. Digit: Moderately dampened. IMPRESSION Dr Ralph was notified with results at 2:05pm. Compared to prior study of 10/27/2016, Right JONES was 1.34, TBI was .32; Left JONES was 1.66, TBI was .48. RIGHT SIDE Resting right ankle brachial index: 1.02 Right toe brachial index: 0.18 Normal ankle brachial index at rest in the right leg. Abnormal toe brachial index at rest is evidence of peripheral artery disease. Right ankle: Normal at rest. LEFT SIDE Resting left ankle brachial index: 1.08 Left toe brachial index: 0.26 Normal ankle brachial index at rest in the left leg. Abnormal toe brachial index at rest is evidence of peripheral artery disease. Left ankle: Normal at rest. Technologist: Felicita Betancourt T Ordering physician: ALEXEI RALPH Interpreting physician: Maxi Wade MD, RPVI Final See Link below for [facility] CNOVon 09-18-2024 CNOV Office Visit (UCWSTR ) -- OZZY DUNN ([id number]) 1950 M Date Time Provider Department 09/18/24 12:45 PM JEANA DIAZ [facility] During your visit today, we recorded the following information about you: Temperature Pulse Respiration Blood pressure 98.3 degrees 90/minute 20/minute 129/82 Weight 105 kg Jeana Diaz PA-C 09/18/2024 1:06 PM Signed This note was created using [employer]. Subjective Ozzy Dunn is a 73 year old male. Patient is a 73-year-old male complains of worsening redness, swelling and foul discharge to the distal aspect of his right third toe. Patient was seen and evaluated at this facility on 02 September 2024 for evaluation of a superficial laceration secondary to nail trimming. Patient was provided with a prescription for Bactroban 2% ointment states he has been applying the medication as directed, however has noted worsening symptoms over the past 1 week. Patient is diabetic. Patient denies new skin wounds to the right third toe. Patient is able to bear weight and ambulate without difficulty. Wound Check Review of Systems Skin: Redness, Swelling and Discharge to Right Third Toe All other systems reviewed and are negative. Objective BP 129/82 Pulse 90 Temp 36.8 ?C (98.3 ?F) Resp 20 Wt 105 kg (231 lb 7.7 oz) SpO2 96% BMI 32.65 kg/m? Physical Exam Vitals and nursing note reviewed. Constitutional: Appearance: Normal appearance. He is normal weight. HENT: Head: Normocephalic and atraumatic. Nose: Nose normal. Mouth/Throat: Mouth: Mucous membranes are moist. Pharynx: Oropharynx is clear. Eyes: Extraocular Movements: Extraocular movements intact. Conjunctiva/sclera: Conjunctivae normal. Pupils: Pupils are equal, round, and reactive to light. Cardiovascular: Rate and Rhythm: Normal rate. Pulses: Normal pulses. Pulmonary: Effort: Pulmonary effort is normal. Breath sounds: Normal breath sounds. Musculoskeletal: General: Swelling present. No tenderness, deformity or signs of injury. Normal range of motion. Cervical back: Normal range of motion and neck supple. Skin: General: Skin is warm and dry. Capillary Refill: Capillary refill takes less than 2 seconds. Findings: Erythema present. Comments: Erythema and soft tissue edema is noted to the distal right third toe. There is an open wound which is draining a small degree of purulent fluid. There is no cyanosis to the skin and patient demonstrates no dorsal erythema or ecchymosis. No crepitus or deformity is noted to the right third toe. Remainder of exam to the skin of the right toes and foot is unremarkable. Neurological: General: No focal deficit present. Mental Status: He is alert and oriented to person, place, and time. Psychiatric: Mood and Affect: Mood normal. Behavior: Behavior normal. Thought Content: Thought content normal. Judgment: Judgment normal. Assessment and Plan Physical exam findings as noted above. Patient was provided with a prescription for doxycycline 100 mg and advised to continue the wound care which he has been performing at home. Referral order was placed with Dr. Alexei Ralph and the patient was scheduled for an appointment to see Dr. Ralph tomorrow morning, 19 September 2024. CLINICAL IMPRESSION: Cellulitis/Abscess Distal Right Third Toe ASSESSMENT/PLAN: 1. Cellulitis of toe of right foot - ICD9: 681.10, ICD10: L03.031 - CONSULT TO PODIATRY - DOXYCYCLINE HYCLATE 100 MG TABLET MDM Risk of Complications, Morbidity, and/or Mortality Presenting problems: low Diagnostic procedures: low Management options: yarelis Jeana JUANIS Diaz Allergies As of Date: 09/18/2024 Noted Allergy Reaction ATORVASTATIN 03/04/2018 8 - GI Upset CRESTOR (ROSUVASTATIN CALCIUM) 04/29/2017 8 - GI Upset LOVASTATIN 03/04/2018 8 - GI Upset PRAVACHOL (PRAVASTATIN SODIUM) 12/15/2016 8 - GI Upset Date Reviewed: 09/18/2024 Reviewed by: Jinny Olsen LPN - Fully Assessed Reason for Visit: Wound Check [133] Cmt: R foot 3rd toe, cut with clippers 09/02 and was seen and given cream, was improving for about a week, and then started worsening, pus filled under toe, redness and swelling, x 1 week Primary Visit Diagnosis:Cellulitis of toe of right foot [L03.031] Order(s):CONSULT TO PODIATRY [9034] Order #: [id number]: 1 FUTURE doxycycline (VIBRA-TABS) 100 mg tabletTake 1 tablet by mouth two times a day for 10 days.Disp: 20 tabletRfl: 0 Prescriptions as of 09/18/2024 - doxycycline (VIBRA-TABS) 100 mg tablet Take 1 tablet by mouth two times a day for 10 days. - semaglutide (OZEMPIC) 0.25 mg or 0.5 mg (2 mg/3 mL) pen Inject 0.25 mg subcutaneously one time a week for 28 days, THEN 0.5 mg one time a week for 14 days. - semaglutide (OZEMPIC) 0.25 mg or 0.5 mg (2 mg/3 mL) pen Inject 0.5 mg subcutaneously one time a week. Patient should start on October 19 (more content not included)... Normal [facility] CNOVon 09-07-2024 CNOV Office Visit (INTMWS ) -- SHAUNOZZY Mary ([id number]) 1950 M Date Time Provider Department 09/07/24 1:40 PM JUAN ALCARAZ INTMWS During your visit today, we recorded the following information about you: Temperature Pulse Respiration Blood pressure 98.6 degrees 84/minute 12/minute 126/78 Weight Height 103.8 kg 1.793 m Juan Alcaraz MD 09/07/2024 2:24 PM Signed Ozzy Mary Shaun is a 73 year old male here for a Medicare wellness visit. Medicare Health Risk Assessment General Health Good Exercise: Minutes/Day 20 min Exercise: Days/Week 3 days Alcohol: Daily Use Never Alcohol: Drinks/Day Patient does not drink Alcohol: 6 or more drinks Never Feel off balance Yes Concerns: Teeth/Dentures No Concerns: Sexual function No Troubled by feelings None of the above Frequency: Eating healthy diet Nearly every day ADLs requiring help None of the above Safety precautions in home/vehicle Yes Smoke, vape, chews tobacco No Difficulty hearing Yes Difficulty seeing No Current Providers Specialists: I have reviewed specialist-related care of the patient in the medical record. Current care team: Patient Care Team: Juan Alcaraz MD as PCP - General (Internal Medicine) Jen Woo APRN.GOOD as [place] (Internal Medicine) Outside specialists seen: Dr. Kyree Gamboa, Sleep Medicine. Dr. Romero Bowman, Ophthalmology. Dr. Ar Rock, Pain Management. Dr. Renetta Gotti, Dermatology [facility]. Dr. Charline Rice, PCP in [place]. Medical/Family history review Reviewed and updated problem list, medical/surgical/family/so cial history, medications, and allergies. Opioid use review Opioid Medications (last 90 days) No data to display Anxiety/Depression screening Recommendation: no further intervention at this time Cognitive screening Mini Cog Score: 4 Cognitive screening reviewed and No further action needed (score 3-5). Functional Observation Was the patient's Timed Up AND Go test unsteady or >= 12 seconds? No Advance Care Planning Patient did not wish or was not able to name a surrogate decision maker or provide an advance care plan Measurements BP 126/78 Pulse 84 Temp 37 ?C (98.6 ?F) (Temporal) Resp 12 Ht 179.3 cm (5' 10.6) Wt 103.8 kg (228 lb 13.4 oz) BMI 32.28 kg/m? Vision Screening: Follows with optometry/ophthalmology Right: 20/25 Left: 20/ 25 Both: 20/30 Assessment/Plan Medicare annual wellness visit, subsequent (Z00.00) - Counseled on healthy diet and regular exercise - Fall avoidance information provided - Personalized prevention plan provided - Discussed need for and benefit of weight loss. BMI 32.28 kg/(m2) Juan Alcaraz MD 09/07/2024 2:24 PM Signed This note was created using [employer]. Subjective Ozzy Dunn is a 73 year old male. His diabetes mellitus and lipids were elevating. His diabetes mellitus was elevating as well. Dietary indiscretion may be a factor. His hypertension and neuropathy was controlled. He noted tremors of the hands when holding a steering wheel for the past year. Paying attention controls the tremor. No resting tremor was noted, and there is no family history of tremors. He nicked the tip of his toe last week, while trimming his toenails. Review of Systems Constitutional: Negative for fatigue and fever. Respiratory: Negative for shortness of breath. Cardiovascular: Negative for chest pain, palpitations and leg swelling. Gastrointestinal: Negative for abdominal pain, constipation, diarrhea, nausea and vomiting. Genitourinary: Negative for difficulty urinating and dysuria. Musculoskeletal: Negative for arthralgias. Neurological: Negative. 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 doxazosin (CARDURA) 4 mg tablet Take 1 tablet by mouth once daily. gabapentin (NEURONTIN) 300 mg capsule Take 3 capsules by mouth two times a day for 180 days. metFORMIN (GLUCOPHAGE) 500 mg tablet Take 2 tablets by mouth two times a day. Tadalafil (CIALIS) 20 mg tablet Take 1 tablet by mouth as needed. metroNIDAZOLE 0.75 % cream For rosacea Aspirin 81 mg ORAL Tab Take 1 tablet by mouth once daily. mupirocin (BACTROBAN) 2 % ointment Apply to affected area three times a day for 10 days. (Patient not taking: Reported on 09/07/2024) GLUC/CHND (more content not included)... Normal [facility] 09-07-2024 [facility] [place] Telephone (INTMWS) -- OZZY DUNN ([id number]) 1950 M Date Time Provider Department 09/07/24 JUAN ALCARAZ INTWS During your visit today, we recorded the following information about you: Gita Lorenz RN 09/07/2024 4:34 PM Signed Patient calls to report that he was supposed to check on the cost of Trulicity with the pharmacy and let provider know if it was too costly. Patient reports the cost would be $530 per month and he is not able to afford that. He was to call back and provider was going to give further orders. Please review and advise, MELODY Brito Victor H, MD 09/08/2024 11:21 AM Signed The following approved medication requests have been transmitted electronically. Requested Prescriptions Signed Prescriptions Disp Refills semaglutide (OZEMPIC) 0.25 mg or 0.5 mg (2 mg/3 mL) pen 3 mL 0 Sig: Inject 0.25 mg subcutaneously one time a week for 28 days, THEN 0.5 mg one time a week for 14 days. Authorizing Provider: JUAN ALCARAZ semaglutide (OZEMPIC) 0.25 mg or 0.5 mg (2 mg/3 mL) pen 9 mL 0 Sig: Inject 0.5 mg subcutaneously one time a week. Patient should start on October 19, 2024. Authorizing Provider: JUAN ALCARAZ MD Babulski, Amanda, RN 09/08/2024 12:53 PM Signed Pt called and is notified of providers message. Pt voices understanding. Diana Skelton RN Allergies As of Date: 09/07/2024 Noted Allergy Reaction ATORVASTATIN 03/04/2018 8 - GI Upset CRESTOR (ROSUVASTATIN CALCIUM) 04/29/2017 8 - GI Upset LOVASTATIN 03/04/2018 8 - GI Upset PRAVACHOL (PRAVASTATIN SODIUM) 12/15/2016 8 - GI Upset Date Reviewed: 09/07/2024 Reviewed by: Renetta Reece LPN - Fully Assessed Reason for Visit: Medication Problem [65] Visit Diagnosis:Well controlled type 2 diabetes mellitus with neurological manifestations (HCC) [E11.49] Order(s):semaglutide (OZEMPIC) 0.25 mg or 0.5 mg (2 mg/3 mL) penInject 0.25 mg subcutaneously one time a week for 28 days, THEN 0.5 mg one time a week for 14 days.Disp: 3 mLRfl: 0 [START ON 10/19/2024] semaglutide (OZEMPIC) 0.25 mg or 0.5 mg (2 mg/3 mL) penInject 0.5 mg subcutaneously one time a week. Patient should start on October 19, 2024.Disp: 9 mLRfl: 0 Prescriptions as of 09/08/2024 - semaglutide (OZEMPIC) 0.25 mg or 0.5 mg (2 mg/3 mL) pen Inject 0.25 mg subcutaneously one time a week for 28 days, THEN 0.5 mg one time a week for 14 days. - semaglutide (OZEMPIC) 0.25 mg or 0.5 mg (2 mg/3 mL) pen Inject 0.5 mg subcutaneously one time a week. Patient should start on October 19, 2024. - gabapentin (NEURONTIN) 300 mg capsule Take 3 capsules by mouth two times a day for 180 days. - Tadalafil (CIALIS) 20 mg tablet Take 1 tablet by mouth as needed. - ezetimibe (ZETIA) 10 mg tablet Take 1 tablet by mouth once daily. - lisinopril (ZESTRIL) 40 mg tablet Take 1 tablet by mouth once daily. - doxazosin (CARDURA) 4 mg tablet Take 1 tablet by mouth once daily. - metFORMIN (GLUCOPHAGE) 500 mg tablet Take 2 tablets by mouth two times a day. - metroNIDAZOLE 0.75 % cream For rosacea - Aspirin 81 mg ORAL Tab Take 1 tablet by mouth once daily. 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] 09/18/2008 12/20/2010 HEMORRHOIDS EXTERNAL [K64.4] 09/18/2008 12/20/2010 Essential hypertension [I10] 2008 Phlebitis and thrombophlebitis of unspecified s*10/09/2008 12/20/2010 Embolism and thrombosis of unspecified site [I7*10/09/2008 12/20/2010 Skin tags 12/26/2008 12/20/2010 Well controlled type 2 diabetes mellitus with n*06/07/2010 Pain in joint, shoulder region [M25.519] 06/19/2010 12/20/2010 Numbness and tingling of foot [R20.0, R20.2] 10/19/2012 05/25/2015 Hyperlipidemia [E78.5] 03/24/2013 DJD (degenerative joint disease) of cervical sp*03/24/2013 10/27/2016 Diabetic peripheral neuropathy (HCC) [E11.42] 11/10/2013 03/04/2018 Backache [M54.9] 01/10/2014 10/27/2016 Pain in limb [M79.609] 01/10/2014 05/25/2015 Pain in joint, pelvic region and thigh [M25.559]01/10/2014 05/25/2015 Cyst of epididymis [N50.3] 09/25/2016 03/04/2018 Obesity, Class I, BMI 30-34.9 [E66.811] 03/04/2018 Malignant melanoma of scalp (HCC) [C43.4] 09/22/2018 01/26/2024 PSA elevation [R97.20] 03/21/2019 Constipation [K59.00] 07/26/2021 Adverse effect of statin [T46.6X5A] 09/07/2024 Prescriptions ordered this encounter Disp Refills Start End SEMAGLUTIDE 0.25 MG OR 0.5 MG (2 MG/* 3 mL 0 09/08/2024 10/20/2024 Route: SQ Sig: Inject 0.25 mg subcutaneously (more content not included)... Normal [facility] CNOVon 09-02-2024 CNOV Office Visit (UCWSTR ) -- OZZY DUNN ([id number]) 1950 M Date Time Provider Department 09/02/24 11:00 AM [facility] your visit today, we recorded the following information about you: Temperature Pulse Respiration Blood pressure 98.8 degrees 82/minute 20/minute 160/79 Weight 105 kg Linda Fernández APRN.GOOD 09/02/2024 11:32 AM Signed [facility] Subjective Ozzy Dunn is a 73 year old male. Patient presents with: Ingrown Toenail: 3rd toe clipped tip to far down and is bleeding x 2 hours ago HPI Toe Injury: - Accidentally trimmed the tip of his toe while cutting his nails at 0900 this morning. - Denies known trauma. 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 Diabetes Mellitus: - Reports A1c is below 6. Review of Systems Skin: (+) toe laceration Objective BP 160/79 Pulse 82 Temp 37.1 ?C (98.8 ?F) Resp 20 Wt 105 kg (231 lb 7.7 oz) SpO2 97% BMI 32.29 kg/m? Physical Exam General: No acute distress. Skin: Toe wound, no signs of infection. {1. Open wound of toe, initial encounter (S91.109A) - Laceration occurred this morning at 0900 while trimming toenails; no signs of infection on examination. - Soak the wound in warm [employer] salt baths at least three times daily. - Apply mupirocin cream to the wound and cover with a bandage; keep the wound covered when outside or wearing shoes to prevent contamination. - Leave the wound open to air when indoors and not at risk of contamination. - Monitor for signs of infection, including erythema, edema, lymphangitic streaking, fever, or chills; seek immediate medical attention if these symptoms occur. - Tetanus vaccination is up to date, last administered in August 2020; next due in 2030. and Recording using [employer] software for draft documentation of the visit was discussed with the patient/authorized sales representative health insurance; all questions welcomed and answered. Patient/authorized sales representative health insurance agreed to proceed MDM Procedures Allergies As of Date: 09/02/2024 Noted Allergy Reaction ATORVASTATIN 03/04/2018 8 - GI Upset CRESTOR (ROSUVASTATIN CALCIUM) 04/29/2017 8 - GI Upset LOVASTATIN 03/04/2018 8 - GI Upset PRAVACHOL (PRAVASTATIN SODIUM) 12/15/2016 8 - GI Upset Date Reviewed: 09/02/2024 Reviewed by: Jinny Olsen LPN - Fully Assessed Reason for Visit: Ingrown Toenail [111] Cmt: 3rd toe clipped tip to far down and is bleeding x 2 hours ago Primary Visit Diagnosis:Open wound of toe, initial encounter [S91.109A] Order(s):mupirocin (BACTROBAN) 2 % ointmentApply to affected area three times a day for 10 days.Disp: 15 gRfl: 0 Prescriptions as of 09/02/2024 - mupirocin (BACTROBAN) 2 % ointment Apply to affected area three times a day for 10 days. - lisinopril (ZESTRIL) 40 mg tablet Take 1 tablet by mouth once daily. - doxazosin (CARDURA) 4 mg tablet Take 1 tablet by mouth once daily. - gabapentin (NEURONTIN) 300 mg capsule Take 3 capsules by mouth two times a day for 180 days. - metFORMIN (GLUCOPHAGE) 500 mg tablet Take 2 tablets by mouth two times a day. - Tadalafil (CIALIS) 20 mg tablet Take 1 tablet by mouth as needed. - metroNIDAZOLE 0.75 % cream For rosacea - GLUC/CHND/OM3/DHA/EPA/FISH /STR (GLUCOSAMINE CHONDROITIN PLUS ORAL) Take 2 tablets by mouth once daily. - Aspirin 81 mg ORAL Tab Take 1 tablet by mouth once daily. Problem List As Of Date 09/02/2024 Noted Resolved ROSE on CPAP [G47.33] 04/11/2008 Esophageal Reflux [K21.9] 04/11/2008 OVERWEIGHT [E66.9] 04/11/2008 03/04/2018 Male erectile dysfunction, unspecified [N52.9] 04/11/2008 Benign prostatic hyperplasia with incomplete bl*03/04/2018 HYPERGLYCEMIA [R79.89] 04/14/2008 12/20/2010 DIVERTICULOSIS COLON - NO HEMORRHAGE [K57.30] 09/18/2008 12/20/2010 FISTULA ANAL [K60.30] 09/18/2008 12/20/2010 HEMORRHOIDS EXTERNAL [K64.4] 09/18/2008 12/20/2010 Essential hypertension [I10] 2008 Phlebitis and thrombophlebitis of unspecified s*10/09/2008 12/20/2010 Embolism and thrombosis of unspecified site [I7*10/09/2008 12/20/2010 Skin tags 12/26/2008 12/20/2010 Well controlled type 2 diabetes mellitus with n*06/07/2010 Pain in joint, shoulder region [M25.519] 06/19/2010 12/20/2010 Numbness and tingling of foot [R20.0, R20.2] 10/19/2012 05/25/2015 Hyperlipidemia [E78.5] 03/24/2013 DJD (degenerative joint disease) of cervical sp*03/24/2013 10/27/2016 Diabetic peripheral neuropathy (HCC) [E11.42] 11/10/2013 03/04/2018 Backache [M54.9] 01/10/2014 10/27/2016 Pain in limb [M79.609] 01/10/2014 05/25/2015 Pain in joint, pelvic region and thigh [M25.559]01/10/2014 05/25/2015 Cyst of epididymis [N50.3] 09/25/2016 03/04/2018 Obesity, Class I, BMI 30-34.9 [E66.811] 03/04/2018 Malignant melanoma of scalp (HCC) [C43.4] 09/22/2018 01/26/2024 PSA elevation [R97.20] 03/21/2019 Constipation [K59.00] 07/26/2021 (more content not included)... Normal [facility] Basic metabolic 2000 panelon 08-24-2024 Anion gap [Moles/Vol] 15 mmol/L Normal 8-15 [facility] Comment on above: Order Comment: Speci men Type: BLOOD SPECIMENOrdering Facility: [facility] Address: [address] [place] [address] Performed By: #### 2 4321-2 ####[facility] [id number] [place] [id number] [place] Calcium [Mass/Vol] 9.1 mg/dL Normal 8.5-10.2 [facility] Comment on above: Order Comment: Speci men Type: BLOOD SPECIMENOrdering Facility: [facility] Address: [address] [place] [address] Performed By: #### 2 4321-2 ####[facility]ITAL[facility]CLIA [id number] [place] [address] [place] Chloride [Moles/Vol] 101 mmol/L Normal 98-107 [facility] Comment on above: Order Comment: Speci men Type: BLOOD SPECIMENOrdering Facility: [facility] Address: [address] [place] [address] Performed By: #### 2 4321-2 ####[facility] [id number] [place] [address] [place] CO2 [Moles/Vol] 22 mmol/L Normal 22-30 [facility] Comment on above: Order Comment: Speci men Type: BLOOD SPECIMENOrdering Facility: [facility] Address: [address] [place] [address] Performed By: #### 2 4321-2 ####[facility] [id number] [place] [address] [place] Creatinine [Mass/Vol] 0.89 mg/dL Normal 0.73-1.22 [facility] Comment on above: Order Comment: Speci men Type: BLOOD SPECIMENOrdering Facility: [facility] Address: [address] [place] [address] Performed By: #### 2 4321-2 ####[facility] [id number] [place] [address] [place] [address] [facility] Creatinine and Glomerular filtration rate.predicted panel (S/P/Bld) 90 mL/min/1.73m??? Normal >=60 [facility] Comment on above: Order Comment: Speci men Type: BLOOD SPECIMENOrdering Facility: [facility] Address: [address] [place] [address] Result Comment: Roya mated Glomerular Filtration Rate (eGFR) is calculated using the 2020 CKD-EPI creatinine equation. This equation utilizes serum creatinine, sex, and age as parameters. The creatinine assay has traceable calibration to isotope dilution-mass spectrometry. Refer to KDIGO guidelines for clinical interpretation. In patients with unstable renal function, e.g. those with acute kidney injury, the eGFR may not accurately reflect actual GFR. Performed By: #### 2 4321-2 ####[facility] [id number] [place] [address] [place] Glucose [Mass/Vol] 134 mg/dL High 74-99 [facility] Comment on above: Order Comment: Speci men Type: BLOOD SPECIMENOrdering Facility: [facility] Address: [address] [place], [place] [id number] Result Comment: The [place] Diabetes Association (ADA) provides guidance for cutoff values for fasting glucose and random glucose. The ADA defines fasting as no caloric intake for at least 8 hours. Fasting plasma glucose results between 100 to 125 mg/dL indicate increased risk for diabetes (prediabetes). Fasting plasma glucose results greater than or equal to 126 mg/dL meet the criteria for diagnosis of diabetes. In the absence of unequivocal hyperglycemia, results should be confirmed by repeat testing. In a patient with classic symptoms of hyperglycemia or hyperglycemic crisis, random plasma glucose results greater than or equal to 200 mg/dL meet the criteria for diagnosis of diabetes. Reference: Standards of Medical Care in Diabetes 2016, [place] Diabetes Association. Diabetes Care. 2016.39(Suppl 1). Performed By: #### 2 4321-2 ####[facility] [id number] [place] [address] [place] Potassium [Moles/Vol] 4.9 mmol/L Normal 3.7-5.1 [facility] Comment on above: Order Comment: Speci men Type: BLOOD SPECIMENOrdering Facility: [facility] Address: [address] [place] [address] Performed By: #### 2 4321-2 ####[facility] [id number] [place] [address] [place] Sodium [Moles/Vol] 138 mmol/L Normal 136-144 [facility] Comment on above: Order Comment: Speci men Type: BLOOD SPECIMENOrdering Facility: [facility] Address: [address] [place] [address] Performed By: #### 2 4321-2 ####[facility] [id number] [place] [address] [place] Urea nitrogen [Mass/Vol] 19 mg/dL Normal 9-24 [facility] Comment on above: Order Comment: Speci men Type: BLOOD SPECIMENOrdering Facility: [facility] Address: [address] [place] [address] Performed By: #### 2 4321-2 ####[facility] [id number] [place] [address] [place] HbA1c (Bld)on 08-24-2024 Average glucose Estimated from glycated hemoglobin (Bld) [Mass/Vol] 166 mg/dL Normal [facility] Comment on above: Order Comment: [facility] Type: BLOOD SPECIMENOrdering Facility: [facility] Address: [address] [place] [address] Result Comment: eAG: (Estimated average glucose) is a calculated value from HgbA1c and is sales representative health insurance of the average blood glucose level in the last 2-3 month period. Performed By: #### 5 5454-3 ####[facility] LABCLIA [id number] [address] [place] HbA1c (Bld) [Mass fraction] 7.4 % High 4.3-5.6 [facility] Comment on above: Order Comment: [facility] Type: BLOOD SPECIMENOrdering Facility: [facility] Address: [address] [place] [address] Result Comment: [place] Diabetes Association guidelines indicate that patients with HgbA1c in the range 5.7-6.4% are at increased risk for development of diabetes, and intervention by lifestyle modification may be beneficial. HgbA1c greater or equal to 6.5% is considered diagnostic of diabetes. Performed By: #### 5 5454-3 ####[facility] LABCLIA [id number] [address] [address] [place] [facility] [place] Lipid 1996 panelon 5 Cholesterol [Mass/Vol] 208 mg/dL High <200 [facility] Comment on above: Order Comment: Geronimojasmin felton Type: BLOOD SPECIMENOrdering Facility: [facility] Address: [address] [place] [address] Result Comment: <200 mg/dL, Desirable 200-239 mg/dL, Borderline high >239 mg/dL, High Performed By: #### 2 4331-1 ####[facility] LABCLIA [id number] [id number] [place] [address] [place] Cholesterol in HDL [Mass/Vol] 37 mg/dL Low >39 [facility] Comment on above: Order Comment: Renetta felton Type: BLOOD SPECIMENOrdering Facility: [facility] Address: [address] [place] [address] Result Comment: 40-5 9 mg/dL, Acceptable >59 mg/dL, High: Negative risk factor for coronary heart disease <40 mg/dL, Low: Positive risk factor for coronary heart disease Performed By: #### 2 4331-1 ####[facility] LABCLIA [id number] [address] [id number] [place] [address] [facility] Cholesterol in LDL [Mass/Vol] 137 mg/dL High <100 [facility] Comment on above: Order Comment: Renetta men Type: BLOOD SPECIMENOrdering Facility: [facility] Address: [address] [place] [address] Result Comment: <100 mg/dL, Optimal 100-129 mg/dL, Near optimal/above optimal 130-159 mg/dL, Borderline high 160-189 mg/dL, High >189 mg/dL, Very high Secondary prevention optimal LDL Cholesterol levels are recommended to be <70 mg/dL LDL cholesterol is calculated using the Louis-NIH equation. Performed By: #### 2 4331-1 ####[facility] LABIA [id number] [address] [id number] [place] [address] [place] Cholesterol in LDL/Cholesterol in HDL [Mass ratio] 3.70 {ratio} High <2.54 [facility] Comment on above: Order Comment: Speci men Type: BLOOD SPECIMENOrdering Facility: [facility] Address: [address] [place] [address] Result Comment: Tyesha mensah: 1. National Cholesterol Education Program ATP III Guideline At-A-Glance Quick Desk Reference: National Heart, Lung, and Blood Orient. National Institutes of Health. 2001: NIH Publication No. 01-3305. 2. An International Atherosclerosis Society position paper: global recommendations for the management of dyslipidemia: executive summary, Atherosclerosis. 2014: 232(2):410-413. Performed By: #### 2 4331-1 ####[facility] [id number] [address] [id number] [place] [address] [place] Cholesterol in VLDL [Mass/Vol] 34 mg/dL High <30 [facility] Comment on above: Order Comment: Speci men Type: BLOOD SPECIMENOrdering Facility: [facility] Address: [address] [place] [address] Performed By: #### 2 4331-1 ####[facility] [id number] [address] [id number] [place] [address] [place] Cholesterol non HDL [Mass/Vol] 171 mg/dL High <130 [facility] Comment on above: Order Comment: Speci men Type: BLOOD SPECIMENOrdering Facility: [facility] Address: [address] [place], [place] [address] Result Comment: <130 mg/dL, Optimal 130-159 mg/dL, Near optimal/above optimal 160-189 mg/dL, Borderline high 190-219 mg/dL, High >219 mg/dL, Very high Secondary prevention optimal non HDL Cholesterol levels are recommended to be <100 mg/dL Performed By: #### 2 4331-1 ####[facility] LABCLIA [id number] [address] [address] [facility] [id number] [place] [address] [place] Cholesterol.total/Chol esterol in HDL [Mass ratio] 5.62 {ratio} High <5.10 [facility] Comment on above: Order Comment: Speci men Type: BLOOD SPECIMENOrdering Facility: [facility] Address: [address] [place], [place] [address] Performed By: #### 2 4331-1 ####[facility] LABCLIA [id number] [place] [id number] [facility] [id number] [place] [address] [place] FASTING TIME 15 hrs Normal [facility] Comment on above: Order Comment: Speci men Type: BLOOD SPECIMENOrdering Facility: [facility] Address: [address] [place], [place] [address] Performed By: #### 2 4331-1 ####[facility] LABCLIA [id number] [place] [id number] [facility] [id number] [place] [address] [place] Triglyceride [Mass/Vol] 189 mg/dL High <150 [facility] Comment on above: Order Comment: Speci men Type: BLOOD SPECIMENOrdering Facility: [facility] Address: [address] [place] [address] Result Comment: <150 mg/dL, Normal 150-199 mg/dL, Borderline high 200-499 mg/dL, High >499 mg/dL, Very high Performed By: #### 2 4331-1 ####[facility] LABCLIA [id number] [place] [id number] [facility] [id number] [address] CNPNon 08-02-2024 CNPN Telephone (4CQ) -- OZZY DUNN ([id number]) 1950 M Date Time Provider Department 08/02/24 DUNCAN SHELDON 4CQ During your visit today, we recorded the following information about you: Duncan Sheldon, DESTIN 08/02/2024 10:43 AM Signed Patient came in for lab work before 09/02/2024 appointment. Please call patient if labs are needed. Juan Alcaraz MD 08/02/2024 1:59 PM Signed Fasting labs ordered. Renetta Reece LPN 08/02/2024 2:11 PM Signed Patient notified, verbalized understanding. 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 - doxazosin (CARDURA) 4 mg tablet Take 1 tablet by mouth once daily. - gabapentin (NEURONTIN) 300 mg capsule Take 3 capsules by mouth two times a day for 180 days. - metFORMIN (GLUCOPHAGE) 500 mg tablet Take 2 tablets by mouth two times a day. - Tadalafil (CIALIS) 20 mg tablet Take 1 tablet by mouth as needed. - metroNIDAZOLE 0.75 % cream For rosacea - GLUC/CHND/OM3/DHA/EPA/FISH /STR (GLUCOSAMINE CHONDROITIN PLUS ORAL) Take 2 tablets by mouth once daily. - Aspirin 81 mg ORAL Tab Take 1 tablet by mouth once daily. Problem List As Of Date 08/02/2024 Noted Resolved ROSE on CPAP [G47.33] 04/11/2008 Esophageal Reflux [K21.9] 04/11/2008 OVERWEIGHT [E66.9] 04/11/2008 03/04/2018 Male erectile dysfunction, unspecified [N52.9] 04/11/2008 Benign prostatic hyperplasia with incomplete bl*03/04/2018 HYPERGLYCEMIA [R79.89] 04/14/2008 12/20/2010 DIVERTICULOSIS COLON - NO HEMORRHAGE [K57.30] 09/18/2008 12/20/2010 FISTULA ANAL [K60.30] 09/18/2008 12/20/2010 HEMORRHOIDS EXTERNAL [K64.4] 09/18/2008 12/20/2010 Essential hypertension [I10] 2008 Phlebitis and thrombophlebitis of unspecified s*10/09/2008 12/20/2010 Embolism and thrombosis of unspecified site [I7*10/09/2008 12/20/2010 Skin tags 12/26/2008 12/20/2010 Well controlled type 2 diabetes mellitus with n*06/07/2010 Pain in joint, shoulder region [M25.519] 06/19/2010 12/20/2010 Numbness and tingling of foot [R20.0, R20.2] 10/19/2012 05/25/2015 Hyperlipidemia [E78.5] 03/24/2013 DJD (degenerative joint disease) of cervical sp*03/24/2013 10/27/2016 Diabetic peripheral neuropathy (HCC) [E11.42] 11/10/2013 03/04/2018 Backache [M54.9] 01/10/2014 10/27/2016 Pain in limb [M79.609] 01/10/2014 05/25/2015 Pain in joint, pelvic region and thigh [M25.559]01/10/2014 05/25/2015 Cyst of epididymis [N50.3] 09/25/2016 03/04/2018 Obesity, Class I, BMI 30-34.9 [E66.811] 03/04/2018 Malignant melanoma of scalp (HCC) [C43.4] 09/22/2018 01/26/2024 PSA elevation [R97.20] 03/21/2019 Constipation [K59.00] 07/26/2021 Encounter Status:Closed by RENETTA REECE on 08/02/24 [facility] Mallika 01-26-2024 CNOV Office Visit (INTMWS ) -- OZZY DUNN ([id number]) 1950 M Date Time Provider Department 01/26/24 10:40 AM JEN WOO INTMWS During your visit today, we recorded the following information about you: Pulse Respiration Blood pressure Weight 70/minute 16/minute 125/71 106.6 kg Jen Woo, WELLNESS PROGRAM ADMINISTRATOR.RN INTENSIVE CARE UNIT 01/26/2024 11:59 AM Signed CC: Patient presents with: 5 month follow up: C/o neuropathy in feet ; tremors in right hand HPI Ozzy Dunn is a 73 year old male who presents today for above. HTN-Medication changes:Yes dose of doxazosin increased to 4 mg daily five months ago Taking all medications as prescribed: Yes Side effects: No Home BP's: No Denies: headache, chest pain, palpitations, dyspnea, and peripheral edema. Last 3 Encounter BP Readings: Date: BP: 09/02/2023 148/79 03/02/2023 138/70 08/05/2022 138/74 Tremors of the right hand x 6 months: reports tremors at times when he reaches for something or holding his fork. No worsening since initial presentation. Denies resting tremors. Denies numbness, tingling, weakness of the extremities. Diabetic neuropathy: taking Gabapentin 900 mg BID. Pain in his feet is bothersome at times, especially with prolonged standing or walking. Does not interfere with sleep, no trouble falling or staying asleep. Does not affect gait. He checks his feet daily, denies any ulcers or sores. Review of Systems See HPI PAST MEDICAL HISTORY Diagnosis Date Anal fistula 2008 Cyst of epididymis 09/25/2016 Added automatically from request for surgery [id number] Diverticulosis of colon (without mention of hemorrhage) 2008 Embolism and thrombosis of unspecified site 10/09/2008 Postoperative DVT Epididymal cyst 10/14/2016 benign, excised Esophageal reflux 04/11/2008 Hemorrhage of rectum and anus HEMORRHOIDS EXTERNAL 09/18/2008 HTN (hypertension) no meds HYPERLIPIDEMIA NEC/NOS 04/11/2008 HYPERTENSION NOS 2008 Hypertrophy of prostate without urinary obstruction and other lower urinary tract symptoms (LUTS) 04/11/2008 Left leg cellulitis 04/27/2023 Left knee, leg MRSA. Inpatient in [place], [place] Malignant melanoma of scalp (HCC) 09/22/2018 Removed August 2018 by plastic surgeon with [facility]. Early stage, no further treatment ROSE (obstructive sleep apnea) on CPAP ROSE on CPAP 04/11/2008 On CPAP Otalgia of left ear 12/21/2010 Recurrent. ENT, Dr. Rangel Snoring THROMBOPHLEBITIS NOS 10/09/2008 Type II or unspecified type diabetes mellitus without mention of complication, not stated as uncontrolled 06/07/2010 PAST SURGICAL HISTORY Procedure Laterality Date ARTHROPLASTY TOTAL SHOULDER Left 09/25/2020 COLONOSCOPY FLX DX W/COLLJ SPEC WHEN PFRMD 09/18/2008 Ext. hemorrhoid with left post. fistula COLONOSCOPY FLX DX W/COLLJ SPEC WHEN PFRMD 10/20/2018 Colonoscopy EPIDIDYMECTOMY UNILATERAL Left 10/14/2016 benign PAST SURGICAL HISTORY OF 2002 colonoscopy PAST SURGICAL HISTORY OF 2002 Umbilical hernia repair PAST SURGICAL HISTORY OF 2005 Rt. bicep tendon repair PAST SURGICAL HISTORY OF 2004 Rt. AND Lt. Carpal Tunnel repair surgery PAST SURGICAL HISTORY OF 08/31/2018 excision of melanoma with skin graft SEPTOPLASTY/SUBMUCOUS RESECJ W/WO CARTILAGE GRF 1989 Septoplasty SURG TX ANAL FISTULA INTERSPHINCTERIC 09/20/2008 ALLERGIES Atorvastatin, Crestor [Rosuvastatin Calcium], Lovastatin, and Pravachol [Pravastatin Sodium] MEDICATIONS gabapentin (NEURONTIN) 300 mg capsule Take 3 capsules by mouth two times a day for 180 days. lisinopril (ZESTRIL) 40 mg tablet Take 1 tablet by mouth once daily. metFORMIN (GLUCOPHAGE) 500 mg tablet Take 2 tablets by mouth two times a day. Tadalafil (CIALIS) 20 mg tablet Take 1 tablet by mouth as needed. doxazosin (CARDURA) 4 mg tablet Take 1 tablet by mouth once daily. metroNIDAZOLE 0.75 % cream For rosacea GLUC/CHND/OM3/DHA/EPA/FISH /STR (GLUCOSAMINE CHONDROITIN PLUS ORAL) Take 2 tablets by mouth once daily. Aspirin 81 mg ORAL Tab Take 1 tablet by mouth once daily. FAMILY HISTORY Problem Relation Age of Onset Hypertension Mother Dementia Mother dec. age 92 Blood Disease Father TTP dec. age 90 Diabetes Father No Known Problems Brother Arthritis Brother knee replacements. Social History Tobacco Use Smoking status: Never Smokeless tobacco: Never Substance Use Topics Alcohol use: No Drug use: No BP 125/71 Pulse 70 Resp 16 Wt 106.6 kg (235 lb 0.2 oz) SpO2 98% BMI 32.78 kg/m? Physical Exam Vitals reviewed. Constitutional: Appearance: Normal appearance. Cardiovascular: Rate and Rhythm: Normal rate and regular rhythm. Heart sounds: Normal heart sounds. No murmur heard. Pulmonary: Effort: Pulmonary effort is normal. Breath sounds: Normal breath sounds. No wheezing, rhonchi or rales. Skin: General: Skin is warm and dry. N (more content not included)... Normal [facility] HIP, UNI W/ Pelvis 2-3 Views on 01-26-2024 HIP, UNI W/ Pelvis 2-[address] [facility] Imaging Services [address] [place] [address] HIP, UNI W/ Pelvis 2-3 Views MR#: [id number] Acct: [id number] Name: OZZY DUNN Rep #: [id number] : 1950 M 73 From: Israel Edouard DO PCP: Dr. Juan Alcaraz MD Status: [facility] Study: HIP, UNI W/ Pelvis 2-3 Views Date of Exam: 03/08 Exam# [id number] Ordering Dr: Lily Gonzales [id number] INDICATION: HIP PAIN EXAMINATION/TECHNIQUE: X-RAY - XR Hip Unilateral with Pelvis when performed; 3 Views COMPARISON: FINDINGS: PELVIC BONES: No displaced fracture, destructive or sclerotic lesions. Note that overlapping bowel shadows may however obscure fine detail. Sacroiliac joints are unremarkable. No widening of the pubic symphysis. Degenerative vertebral changes. HIPS: The articular structures are unremarkable. No displaced fracture seen in this frontal view. SOFT TISSUES: No soft tissue swelling or gas. RAD/HIP, UNI W/ Pelvis 2-3 Views IMPRESSION: No evidence of displaced pelvic or hip fracture. Electronically Signed: Israel Edouard DO at 11:55 EST , CC: Lily Gonzales; Dr. Juan Alcaraz MD Players Assistant: Signed Normal [facility] ALBUMIN/CREATININE RATIO, UR INEon 01-22-2024 Albumin DL <= 20 mg/L (U) [Mass/Vol] mg/dL Normal [facility] Comment on above: Order Comment: Speci men Type: URINE SPECIMENOrdering Facility: [facility] Address: [address] [place] [address] Performed By: #### U ACR ####[facility]CLIA [id number] [place] [address] [place] Albumin/Creatinine (U) [Mass ratio] <9 Normal <30 [facility] Comment on above: Order Comment: Speci men Type: URINE SPECIMENOrdering Facility: [facility] Address: [address] [place] [address] Result Comment: Adul t Male and Female Nephrotic Criteria: <30 mg/g is considered normal to mildly increased 30-300 mg/g is considered moderately increased >300 mg/g is considered severely increased KDIGO. (2013). KDIGO 2012 Clinical Practice Guideline for the Evaluation and Management of Chronic Kidney Disease. Official Journal of the International Society of Nephrology, 3(1), 1-150. Performed By: #### U ACR ####[facility] [id number] [place] [address] [place] Creatinine (U) [Mass/Vol] 137.5 mg/dL Normal 20.0-300.0 [facility] Comment on above: Order Comment: Speci men Type: URINE SPECIMENOrdering Facility: [facility] Address: [address] [place] [address] Performed By: #### U ACR ####[facility]CL[facility] [id number] [place] [address] [place] Comprehensive metabolic 2000 panelon 01-22-2024 Albumin [Mass/Vol] 4.5 g/dL Normal 3.9-4.9 [facility] Comment on above: Order Comment: Speci men Type: BLOOD SPECIMENOrdering Facility: [facility] Address: [address] [place] [address] Performed By: #### 2 4331-1, 34684-6 ####[facility]CLIA [id number] [address] [address] [place] ALP [Catalytic activity/Vol] 57 U/L Normal 38-113 [facility] Comment on above: Order Comment: Speci men Type: BLOOD SPECIMENOrdering Facility: [facility] Address: [address] [id number] Performed By: #### 2 4331-1, ####[facility] [id number] [place] [address] [place] ALT [Catalytic activity/Vol] 35 U/L Normal 10-54 [facility] Comment on above: Order Comment: Speci men Type: BLOOD SPECIMENOrdering Facility: [facility] Address: [address] [place] [address] Performed By: #### 2 4331-1, ####[facility]CLIA [id number] [place] [address] [place] Anion gap [Moles/Vol] 13 mmol/L Normal 8-15 [facility] Comment on above: Order Comment: Speci men Type: BLOOD SPECIMENOrdering Facility: [facility] Address: [address] [place] [address] Performed By: #### 2 4331-1, ####[facility] [id number] [place] [address] [place] AST [Catalytic activity/Vol] 30 U/L Normal 14-40 [facility] Comment on above: Order Comment: Speci men Type: BLOOD SPECIMENOrdering Facility: [facility] Address: [address] [place], [place] [address] Performed By: #### 2 4331-1, ####[facility]CLIA [id number] [place] [address] [place] Bilirubin [Mass/Vol] 0.6 mg/dL Normal 0.2-1.3 [facility] Comment on above: Order Comment: Speci men Type: BLOOD SPECIMENOrdering Facility: [facility] Address: [address] [place], [place] [address] Performed By: #### 2 4331-1, 31422-5 ####[facility]CLIA [id number] [address] [address] [place] Calcium [Mass/Vol] 9.7 mg/dL Normal 8.5-10.2 [facility] Comment on above: Order Comment: Speci men Type: BLOOD SPECIMENOrdering Facility: [facility] Address: [address] [place], [place] [address] Performed By: #### 2 433-1, 13257-0 ####[facility]CLIA [id number] [place] [address] [place] Chloride [Moles/Vol] 104 mmol/L Normal 98-107 [facility] Comment on above: Order Comment: Speci men Type: BLOOD SPECIMENOrdering Facility: [facility] Address: [address] [place] [address] Performed By: #### 2 4331-, ####[facility]CLIA [id number] [place] [address] [place] CO2 [Moles/Vol] 26 mmol/L Normal 22-30 [facility] Comment on above: Order Comment: Speci men Type: BLOOD SPECIMENOrdering Facility: [facility] Address: [address] [place], [place] [address] Performed By: #### 2 4331-, 41421-9 ####[facility] LABCLIA [id number] [place] [address] [place] Creatinine [Mass/Vol] 0.91 mg/dL Normal 0.73-1.22 [facility] Comment on above: Order Comment: Speci men Type: BLOOD SPECIMENOrdering Facility: [facility] Address: [address] [place], [place] [address] Performed By: #### 2 4331-1, 24344-1 ####[facility] [id number] [place] [address] [place] Creatinine and Glomerular filtration rate.predicted panel (S/P/Bld) 89 mL/min/1.73m??? Normal >=60 [facility] Comment on above: Order Comment: Renetta felton Type: BLOOD SPECIMENOrdering Facility: [facility] Address: [address] [place] [address] Result Comment: Roya mated Glomerular Filtration Rate (eGFR) is calculated using the 2020 CKD-EPI creatinine equation. This equation utilizes serum creatinine, sex, and age as parameters. The creatinine assay has traceable calibration to isotope dilution-mass spectrometry. Refer to KDIGO guidelines for clinical interpretation. In patients with unstable renal function, e.g. those with acute kidney injury, the eGFR may not accurately reflect actual GFR. Performed By: #### 2 4331-1, 57937-8 ####[facility] [id number] [place] [address] [place] Glucose [Mass/Vol] 138 mg/dL High 74-99 [facility] Comment on above: Order Comment: Renetta felton Type: BLOOD SPECIMENOrdering Facility: [facility] Address: [address] [place] [address] Result Comment: The [place] Diabetes Association (ADA) provides guidance for cutoff values for fasting glucose and random glucose. The ADA defines fasting as no caloric intake for at least 8 hours. Fasting plasma glucose results between 100 to 125 mg/dL indicate increased risk for diabetes (prediabetes). Fasting plasma glucose results greater than or equal to 126 mg/dL meet the criteria for diagnosis of diabetes. In the absence of unequivocal hyperglycemia, results should be confirmed by repeat testing. In a patient with classic symptoms of hyperglycemia or hyperglycemic crisis, random plasma glucose results greater than or equal to 200 mg/dL meet the criteria for diagnosis of diabetes. Reference: Standards of Medical Care in Diabetes 2016, [place] Diabetes Association. Diabetes Care. 2016.39(Suppl 1). Performed By: #### 2 4331-1, 43061-8 ####[facility] LABIA [id number] [place] [address] [place] Potassium [Moles/Vol] 5.0 mmol/L Normal 3.7-5.1 [facility] Comment on above: Order Comment: Speci men Type: BLOOD SPECIMENOrdering Facility: [facility] Address: [address] [place] [address] Performed By: #### 2 4331-1, 47948-9 ####[facility] [id number] [place] [address] [place] Protein [Mass/Vol] 6.7 g/dL Normal 6.3-8.0 [facility] Comment on above: Order Comment: Speci men Type: BLOOD SPECIMENOrdering Facility: [facility] Address: [address] [place] [address] Performed By: #### 2 4331-1, 32323-7 ####[facility]CLIA [id number] [place] [address] [place] Sodium [Moles/Vol] 143 mmol/L Normal 136-144 [facility] Comment on above: Order Comment: Speci men Type: BLOOD SPECIMENOrdering Facility: [facility] Address: [address] [place] [address] Performed By: #### 2 4331-1, 13635-0 ####[facility]CL[facility] [id number] [place] [address] [place] Urea nitrogen [Mass/Vol] 12 mg/dL Normal 9-24 [facility] Comment on above: Order Comment: Speci men Type: BLOOD SPECIMENOrdering Facility: [facility] Address: [address] [place] [address] Performed By: #### 2 4331-1, 73580-7 ####[facility]CLIA [id number] [place] [address] [place] HbA1c (Bld)on 01-22-2024 Average glucose Estimated from glycated hemoglobin (Bld) [Mass/Vol] 137 mg/dL Normal [facility] Comment on above: Order Comment: Geronimoi men Type: BLOOD SPECIMENOrdering Facility: [facility] Address: [address] [place] [address] Result Comment: eAG: (Estimated average glucose) is a calculated value from HgbA1c and is sales representative health insurance of the average blood glucose level in the last 2-3 month period. Performed By: #### 5 5454-3 ####[facility]CL[facility] [id number] [place] [address] [place] HbA1c (Bld) [Mass fraction] 6.4 % High 4.3-5.6 [facility] Comment on above: Order Comment: Renetta men Type: BLOOD SPECIMENOrdering Facility: [facility] Address: [address] [place] [address] Result Comment: [place] Diabetes Association guidelines indicate that patients with HgbA1c in the range 5.7-6.4% are at increased risk for development of diabetes, and intervention by lifestyle modification may be beneficial. HgbA1c greater or equal to 6.5% is considered diagnostic of diabetes. Performed By: #### 5 5454-3 ####[facility]CLIA [id number] [place] [address] [place] Lipid 1996 panelon 4 Cholesterol [Mass/Vol] 187 mg/dL Normal <200 [facility] Comment on above: Order Comment: Renetta men Type: BLOOD SPECIMENOrdering Facility: [facility] Address: [address] [place] [address] Result Comment: <200 mg/dL, Desirable 200-239 mg/dL, Borderline high >239 mg/dL, High Performed By: #### 2 4331-1, 57421-9 ####[facility] LABIA [id number] [place] [address] [place] Cholesterol in HDL [Mass/Vol] 34 mg/dL Low >39 [facility] Comment on above: Order Comment: Geronimoi men Type: BLOOD SPECIMENOrdering Facility: [facility] Address: [address] [place] [address] Result Comment: 40-5 9 mg/dL, Acceptable >59 mg/dL, High: Negative risk factor for coronary heart disease <40 mg/dL, Low: Positive risk factor for coronary heart disease Performed By: #### 2 4331-1, ####[facility] [id number] [facility] [place] [address] [place] Cholesterol in LDL [Mass/Vol] 123 mg/dL High <100 [facility] Comment on above: Order Comment: Speci men Type: BLOOD SPECIMENOrdering Facility: [facility] Address: [address] [place] [address] Result Comment: <100 mg/dL, Optimal 100-129 mg/dL, Near optimal/above optimal 130-159 mg/dL, Borderline high 160-189 mg/dL, High >189 mg/dL, Very high Secondary prevention optimal LDL Cholesterol levels are recommended to be < 70 mg/dL Performed By: #### 2 433-, ####[facility]CLIA [id number] [place] [address] [place] Cholesterol in LDL/Cholesterol in HDL [Mass ratio] 3.62 {ratio} High <2.54 [facility] Comment on above: Order Comment: Speci men Type: BLOOD SPECIMENOrdering Facility: [facility] Address: [address] [place] [address] Result Comment: Refbernabe marquesce: 1. National Cholesterol Education Program ATP III Guideline At-A-Glance Quick Desk Reference: National Heart, Lung, and Blood Orient. National Institutes of Health. 2001: NIH Publication No. 01-3305. 2. An International Atherosclerosis Society position paper: global recommendations for the management of dyslipidemia: executive summary, Atherosclerosis. 2014: 232(2):410-413. Performed By: #### 2 4331-1, ####[facility]CLIA [id number] [place] [address] [place] Cholesterol in VLDL [Mass/Vol] 30 mg/dL High <30 [facility] Comment on above: Order Comment: Speci men Type: BLOOD SPECIMENOrdering Facility: [facility] Address: [address] [place] [address] Performed By: #### 2 4331-1, ####[facility]CLIA [id number] [place] [address] [place] Cholesterol non HDL [Mass/Vol] 153 mg/dL High <130 [facility] Comment on above: Order Comment: Speci men Type: BLOOD SPECIMENOrdering Facility: [facility] Address: [address] [place] [address] Result Comment: <130 mg/dL, Optimal 130-159 mg/dL, Near optimal/above optimal 160-189 mg/dL, Borderline high 190-219 mg/dL, High >219 mg/dL, Very high Secondary prevention optimal non HDL Cholesterol levels are recommended to be <100 mg/dL Performed By: #### 2 433-, ####[facility]CLIA [id number] [place] [address] [place] Cholesterol.total/Chol esterol in HDL [Mass ratio] 5.50 {ratio} High <5.10 [facility] Comment on above: Order Comment: Speci men Type: BLOOD SPECIMENOrdering Facility: [facility] Address: [address] [place] [address] Performed By: #### 2 4331-, ####[facility]CLIA [id number] [place] [address] [place] FASTING TIME 12 hrs Normal [facility] Comment on above: Order Comment: Speci men Type: BLOOD SPECIMENOrdering Facility: [facility] Address: [address] [place] [address] Performed By: #### 2 4331-1, ####[facility]CLIA [id number] [place] [address] [place] Triglyceride [Mass/Vol] 150 mg/dL High <150 [facility] Comment on above: Order Comment: Speci men Type: BLOOD SPECIMENOrdering Facility: [facility] Address: [address] [place] [address] Result Comment: <150 mg/dL, Normal 150-199 mg/dL, Borderline high 200-499 mg/dL, High >499 mg/dL, Very high Performed By: #### 2 4331-1, 96393-2 ####[facility] [id number] [place] [address] [place] [facility] Prostate specific Ag [Mass/Vol] 3.42 ng/mL High <2.60 [facility] Comment on above: Order Comment: Speci men Type: BLOOD SPECIMENOrdering Facility: [facility] Address: [address] [place] [address] Result Comment: Tota l PSA test methodology used is the Electrochemiluminescence Immunoassay by Cecilio Ramen. Total PSA values by differing methodologies cannot be interchanged. For an individual patient, the significance of a PSA level should be interpreted in a broad clinical context, including age, race, family history, digital rectal exam, prostate size, results of prior testing (prostate biopsy, free PSA, PCA3), and use of 5-alpha reductase inhibitors. Considering the high incidence of asymptomatic cancer in the general population that may not pose an ultimate risk to a patient, the decision to recommend urological evaluation or prostate biopsy should be individualized after consideration of all these factors. REFERENCE: Ender Núñez M.D., M.P.H., Luis Alberto Mcintyre M.D., Ph.D., Hema Roland M.D., Victorina Longo, M.P.H., Martha Pro Sc.D. Effect of Verification Bias on Screening for Prostate Cancer by Measurement of Prostatic Specific Antigen. N Engl J Med 2003,349:335-42. Performed By: #### 2 857-1 ####[facility]CLIA [id number] [address] [place] [address] [place] Basic metabolic 2000 panelon 08-28-2023 Anion gap [Moles/Vol] 14 mmol/L 8 - 15 mmol/L [facility] Calcium [Mass/Vol] 9.7 mg/dL 8.5 - 10. 2 mg/dL [facility] Chloride [Moles/Vol] 105 mmol/L 98 - 10 7 mmol/L [facility] CO2 [Moles/Vol] 23 mmol/L 22 - 30 mmol/L [facility] Creatinine [Mass/Vol] 0.83 mg/dL 0.73 - 1.22 mg/dL [facility] GFR/1.73 sq M.predicted among non-blacks MDRD (S/P/Bld) [Vol rate/Area] 93 mL/min/{1.73_m2} - PINF [facility] Comment on above: Estimated Glomerular Filtration Rate (eGFR) is calculated using the 2020 CKD-EPI creatinine equation. This equation utilizes serum creatinine, sex, and age as parameters. The creatinine assay has traceable calibration to isotope dilution-mass spectrometry. Refer to KDIGO guidelines for clinical interpretation. In patients with unstable renal function, e.g. those with acute kidney injury, the eGFR may not accurately reflect actual GFR. Glucose [Mass/Vol] 109 mg/dL High 74 - 99 mg/dL [facility] Comment on above: The [place] Diabete s Association (ADA) provides guidance for cutoff values for fasting glucose and random glucose. The ADA defines fasting as no caloric intake for at least 8 hours. Fasting plasma glucose results between 100 to 125 mg/dL indicate increased risk for diabetes (prediabetes). Fasting plasma glucose results greater than or equal to 126 mg/dL meet the criteria for diagnosis of diabetes. In the absence of unequivocal hyperglycemia, results should be confirmed by repeat testing. In a patient with classic symptoms of hyperglycemia or hyperglycemic crisis, random plasma glucose results greater than or equal to 200 mg/dL meet the criteria for diagnosis of diabetes. Reference: Standards of Medical Care in Diabetes 2016, [place] Diabetes Association. Diabetes Care. 2016.39(Suppl 1). Interpretation and review of laboratory results Abnormal [facility] Potassium [Moles/Vol] 4.6 mmol/L 3.7 - 5.1 mmol/L [facility] Sodium [Moles/Vol] 142 mmol/L 136 - 144 mmol/L [facility] Urea nitrogen [Mass/Vol] 11 mg/dL 9 - 24 mg/dL [facility] .Auto Diffon 09-26-2020 Basophil, Absolute 0.00 10 3/mcL Normal 0.00-0.19 [facility] ([place]) Comment on above: Performed By: #### C BC, ADIFF, ANEU, BMP #### [address] [address] #### GFR #### [address] [address] Basophils/100 WBC (Bld) 0.2 % Normal 0.0-2.5 [facility] ([place]) Comment on above: Performed By: #### C BC ADIFF, ANEU, BMP #### [place] [address] #### GFR #### [address] [address] Eosinophil, Absolute 0.00 10 3/mcL Normal 0.00-0.40 [facility] ([place]) Comment on above: Performed By: #### C BC, ADIFF, ANEU, BMP #### [place] [address] #### GFR #### [address] [address] Eosinophils/100 WBC (Bld) 0.3 % Normal 0.0-7.0 [facility] ([place]) Comment on above: Performed By: #### C BC, ADIFF, ANEU, BMP #### [place] [address] #### GFR #### [address] [address] Lymphocyte, Absolute 1.80 10 3/mcL Normal 0.77-3.85 A [facility] ([place]) Comment on above: Performed By: #### C BC, ADIFF, ANEU, BMP #### [place] [address] #### GFR #### [address] [address] Lymphocytes/100 WBC (Bld) 15.0 % Normal 10.0-50.0 [facility] ([place]) Comment on above: Performed By: #### C BC, ADIFF, ANEU, BMP #### [address] [address] #### GFR #### [address] [address] Monocyte, Absolute 0.90 10 3/mcL Normal 0.15-1.00 [facility] ([place]) Comment on above: Performed By: #### C BC, ADIFF, ANEU, BMP #### [address] [address] #### GFR #### [address] [address] Monocytes/100 WBC (Bld) 7.8 % Normal 1.7-13.0 [facility] ([place]) Comment on above: Performed By: #### C BC, ADIFF, ANEU, BMP #### [address] [address] #### GFR #### [address] [address] Neutrophils/100 WBC (Bld) 76.7 % Normal 37.0-80.0 [facility] [facility] ([place]) Comment on above: Performed By: #### C BC, ADIFF, ANEU, BMP #### [address] [address] #### GFR #### [address] [address] .GFRon 09-26-2020 GFR 89 ml/min/1.73sqm Normal [facility] ([place]) Comment on above: Result Comment: GFR Population mean for , Non- Americans Ages 20-29 = 116 mL/min/1.73 sq.m. Ages 30-39 = 107 mL/min/1.73 sq.m. Ages 40-49 = 99 mL/min/1.73 sq.m. Ages 50-59 = 93 mL/min/1.73 sq.m. Ages 60-69 = 85 mL/min/1.73 sq.m. Ages 70+ = 75 mL/min/1.73 sq.m. Chronic Kidney Disease: Less than 60 mL/min/1.73 square meters End Stage Renal Disease: Less than 15 mL/min/1.73 square meters Performed By: #### C BC, ADIFF, ANEU, BMP #### [address] [address] #### GFR #### [place] [address] GFR Non- 73 ml/min/1.73sqm Normal [facility] ([place]) Comment on above: Result Comment: GFR Population mean for , Non- Americans Ages 20-29 = 116 mL/min/1.73 sq.m. Ages 30-39 = 107 mL/min/1.73 sq.m. Ages 40-49 = 99 mL/min/1.73 sq.m. Ages 50-59 = 93 mL/min/1.73 sq.m. Ages 60-69 = 85 mL/min/1.73 sq.m. Ages 70+ = 75 mL/min/1.73 sq.m. Chronic Kidney Disease: Less than 60 mL/min/1.73 square meters End Stage Renal Disease: Less than 15 mL/min/1.73 square meters Performed By: #### C BC ADYAMIL, ANEU, BMP #### [address] [address] #### GFR #### [place] [address] .NEUABSon 09-26-2020 Neutrophil, Absolute 9.00 10 3/mcL High 2.85-6.16 A [facility] ([place]) Comment on above: Performed By: #### C BC, ADIFF, ANEU, BMP #### [address] [address] #### GFR #### [address] [address] BMPon 09-26-2020 BUN/Creatinine Ratio 15 ratio Normal 7-27 [facility] ([place]) Comment on above: Performed By: #### C BC, ADIFF, ANEU, BMP #### [address] [address] #### GFR #### [address] [address] Calcium [Mass/Vol] 8.5 mg/dL Normal 8.4-10.2 [facility] ([place]) Comment on above: Performed By: #### C BC, ADIFF, ANEU, BMP #### [address] [address] #### GFR #### [address] [address] Chloride [Moles/Vol] 105 mmol/L Normal 98-107 [facility] ([place]) Comment on above: Performed By: #### C BC ADYAMIL, ANEU, BMP #### [address] [address] #### GFR #### [address] [address] CO2 [Moles/Vol] 26 mmol/L Normal 23-31 [facility] ([place]) Comment on above: Performed By: #### C BC, ADYAMIL, ANEU, BMP #### [address] [address] #### GFR #### [address] [address] Creatinine [Mass/Vol] 1.01 mg/dL Normal 0.70-1.30 [facility] ([place]) Comment on above: Performed By: #### C BC, ADIFF, ANEU, BMP #### [address] [address] #### GFR #### [address] [address] Electrolyte Balance 10.0 mEq/L Normal [facility] ([place]) Comment on above: Performed By: #### C BC, ADIFF, ANEU, BMP #### [address] [address] #### GFR #### [address] [address] Glucose [Mass/Vol] 147 mg/dL High 83-110 [facility] ([place]) Comment on above: Performed By: #### C BC, ADIFF, ANEU, BMP #### [address] [address] #### GFR #### [address] [address] Potassium [Moles/Vol] 4.1 mmol/L Normal 3.5-5.1 [facility] ([place]) Comment on above: Performed By: #### C BC, ADIFF, ANEU, BMP #### [address] [address] #### GFR #### [address] [address] Sodium [Moles/Vol] 141 mmol/L Normal 136-145 [facility] ([place]) Comment on above: Performed By: #### C BC, ADIFF, ANEU, BMP #### [place] [address] #### GFR #### [address] [address] Urea nitrogen [Mass/Vol] 15 mg/dL Normal 7-18 [facility] ([place]) Comment on above: Performed By: #### C BC ADYAMIL, ANEU, BMP #### [address] [address] #### GFR #### [address] [address] CBCon 09-26-2020 Erythrocyte distribution width (RBC) [Ratio] 13.3 % Normal 11.5-14.5 [facility] ([place]) Comment on above: Performed By: #### C BC, ADIFF, ANEU, BMP #### [address] [address] #### GFR #### [address] [address] Hematocrit (Bld) [Volume fraction] 36.3 % Low 42.0-52.0 [facility] ([place]) Comment on above: Performed By: #### C BC, ADIFF, ANEU, BMP #### [address] [address] #### GFR #### [place] [address] Hgb 12.4 G/dL Low 14.0-18.0 [facility] ([place]) Comment on above: Performed By: #### C MARCELO, ADYAMIL, ANEU, BMP #### [place] [address] #### GFR #### [place] [address] MCH (RBC) [Entitic mass] 31.3 pg High 27.0-31.2 [facility] ([place]) Comment on above: Performed By: #### C GUEVARA ROBERTSON, ANEU, BMP #### [place] [address] #### GFR #### [place] [address] MCHC 34.2 G/dL Normal 31.8-35.4 [facility] ([place]) Comment on above: Performed By: #### C GUEVARA ROBERTSON, ANEU, BMP #### [place] [address] #### GFR #### [place] [address] MCV (RBC) [Entitic vol] 91.3 fL Normal 80.0-94.0 [facility] ([place]) Comment on above: Performed By: #### C GUEVARA ROBERTSON, ANEU, BMP #### [place] [address] #### GFR #### [place] [address] Platelet 212 10 3/mcL Normal 130-400 [facility] ([place]) Comment on above: Performed By: #### C BC, ADIFF, ANEU, BMP #### [place] [address] #### GFR #### [place] [address] Platelet mean volume (Bld) [Entitic vol] 7.1 fL Low 7.4-10.4 [facility] ([place]) Comment on above: Performed By: #### C BCGUEVARA ANEU, BMP #### [address] [address] #### GFR #### [place] [address] RBC 3.97 10 6/mcL Low 4.04-6.13 [facility] ([place]) Comment on above: Performed By: #### C BC, ADYAMIL ANEU, BMP #### [address] [address] #### GFR #### [place] [address] WBC 11.70 10 3/mcL High 4.60-10.80 [facility] ([place]) Comment on above: Performed By: #### C GUEVARA ROBERTSON ANEU, BMP #### [place] [address] #### GFR #### [place] [address] .GFRon 09-25-2020 GFR 98 ml/min/1.73sqm Normal [facility] ([place]) Comment on above: Result Comment: GFR Population mean for , Non- Americans Ages 20-29 = 116 mL/min/1.73 sq.m. Ages 30-39 = 107 mL/min/1.73 sq.m. Ages 40-49 = 99 mL/min/1.73 sq.m. Ages 50-59 = 93 mL/min/1.73 sq.m. Ages 60-69 = 85 mL/min/1.73 sq.m. Ages 70+ = 75 mL/min/1.73 sq.m. Chronic Kidney Disease: Less than 60 mL/min/1.73 square meters End Stage Renal Disease: Less than 15 mL/min/1.73 square meters Performed By: #### B MP, GFR #### [place] [address] GFR Non- 81 ml/min/1.73sqm Normal [facility] ([place]) Comment on above: Result Comment: GFR Population mean for , Non- Americans Ages 20-29 = 116 mL/min/1.73 sq.m. Ages 30-39 = 107 mL/min/1.73 sq.m. Ages 40-49 = 99 mL/min/1.73 sq.m. Ages 50-59 = 93 mL/min/1.73 sq.m. Ages 60-69 = 85 mL/min/1.73 sq.m. Ages 70+ = 75 mL/min/1.73 sq.m. Chronic Kidney Disease: Less than 60 mL/min/1.73 square meters End Stage Renal Disease: Less than 15 mL/min/1.73 square meters Performed By: #### B MP, GFR #### [address] [address] [facility] BUN/Creatinine Ratio 18 ratio Normal 7-27 [facility] ([place]) Comment on above: Order Comment: per cory walker metallurgical tester Specimen hemolyzed. Notified Toni in Surgery @09/25/2020 08:46:19 EDT BP Performed By: #### B TSERING, GFR #### [address] [address] Calcium [Mass/Vol] 9.0 mg/dL Normal 8.4-10.2 [facility] ([place]) Comment on above: Order Comment: gary walker metallurgical tester Specimen hemolyzed. Notified Toni in Surgery @09/25/2020 08:46:19 EDT BP Performed By: #### B MP, GFR #### [address] [address] Chloride [Moles/Vol] 102 mmol/L Normal 98-107 [facility] ([place]) Comment on above: Order Comment: per cory walker metallurgical tester Specimen hemolyzed. Notified Toni in Surgery @09/25/2020 08:46:19 EDT BP Performed By: #### B MP, GFR #### [address] [address] CO2 [Moles/Vol] 29 mmol/L Normal 23-31 [facility] ([place]) Comment on above: Order Comment: per j walker, metallurgical tester Specimen hemolyzed. Notified Toni in Surgery @09/25/2020 08:46:19 EDT BP Performed By: #### B MP, GFR #### [address] [address] Creatinine [Mass/Vol] 0.93 mg/dL Normal 0.70-1.30 [facility] ([place]) Comment on above: Order Comment: per cory walker, metallurgical tester Specimen hemolyzed. Notified Toni in Surgery @09/25/2020 08:46:19 EDT BP Performed By: #### B MP, GFR #### [address] [address] Electrolyte Balance 6.0 mEq/L Normal [facility] ([place]) Comment on above: Order Comment: per cory rousseaur, metallurgical tester Specimen hemolyzed. Notified Toni in Surgery @09/25/2020 08:46:19 EDT BP Performed By: #### B MP, GFR #### [address] [address] Glucose [Mass/Vol] 106 mg/dL Normal 83-110 [facility] ([place]) Comment on above: Order Comment: per cory walker, metallurgical tester Specimen hemolyzed. Notified Toni in Surgery @09/25/2020 08:46:19 EDT BP Performed By: #### B MP, GFR #### [address] [address] Potassium [Moles/Vol] 4.3 mmol/L Normal 3.5-5.1 [facility] ([place]) Comment on above: Order Comment: per cory walker, metallurgical tester Specimen hemolyzed. Notified Toni in Surgery @09/25/2020 08:46:19 EDT BP Performed By: #### B MP, GFR #### [address] [address] Sodium [Moles/Vol] 137 mmol/L Normal 136-145 [facility] ([place]) Comment on above: Order Comment: per cory walker, metallurgical tester Specimen hemolyzed. Notified Toni in Surgery @09/25/2020 08:46:19 EDT BP Performed By: #### B MP, GFR #### [address] [address] Urea nitrogen [Mass/Vol] 17 mg/dL Normal 7-18 [facility] ([place]) Comment on above: Order Comment: gary walker crna Specimen hemolyzed. Notified Toni in Surgery @09/25/2020 08:46:19 EDT BP Performed By: #### B MP, GFR #### [place] [id number] XR SHOULDER MINIMUM 2 VIEWS LEFTon 09-25-2020 XR SHOULDER MINIMUM 2 VIEWS LEFT ORIGINAL EXAMINATION: TWO XRAY VIEWS OF THE LEFT SHOULDER 09/25/2020 11:52 am COMPARISON: None. HISTORY: ORDERING SYSTEM PROVIDED HISTORY: Status Post Arthroplasty Reason for Exam: Status Post Arthroplasty FINDINGS: A left shoulder prosthesis is identified. The components appear well seated and intact. The acromioclavicular joint is maintained with mild degenerative change. There is no visible acute fracture or dislocation. There is gas in the soft tissues which would be consistent with given history of immediate postoperative state. IMPRESSION: Surgical changes. Interpreted by: Maeve Doherty Preliminary Report By: Maeve Doherty Electronically signed By Maeve Doherty Dictated Date: 09/25/2020 1:52:56 PM Prelim Date: 09/25/2020 1:53:51 PM Sign Date: 09/25/2020 1:53:51 PM Ordering Provider: CHARLINE Powell [facility] ([place]) .Auto Diffon 09-07-2020 Basophil, Absolute 0.10 10 3/mcL Normal 0.00-0.19 [facility] ([place]) Comment on above: Performed By: #### C BC, ADIFF, ANEU, BMP #### [address] [address] #### GFR #### [address] [address] Basophils/100 WBC (Bld) 0.8 % Normal 0.0-2.5 [facility] ([place]) Comment on above: Performed By: #### C BC, ADIFF, ANEU, BMP #### [address] [address] #### GFR #### [address] [address] Eosinophil, Absolute 0.10 10 3/mcL Normal 0.00-0.40 A [facility] ([place]) Comment on above: Performed By: #### C BC, ADIFF, ANEU, BMP #### [address] [address] #### GFR #### [address] [address] Eosinophils/100 WBC (Bld) 1.8 % Normal 0.0-7.0 [facility] ([place]) Comment on above: Performed By: #### C BC, ADIFF, ANEU, BMP #### [address] [address] #### GFR #### [address] [address] Lymphocyte, Absolute 1.80 10 3/mcL Normal 0.77-3.85 A [facility] ([place]) Comment on above: Performed By: #### C BC, ADIFF, ANEU, BMP #### [address] [address] #### GFR #### [address] [address] Lymphocytes/100 WBC (Bld) 25.7 % Normal 10.0-50.0 [facility] ([place]) Comment on above: Performed By: #### C BC, ADIFF, ANEU, BMP #### [address] [address] #### GFR #### [address] [address] Monocyte, Absolute 0.80 10 3/mcL Normal 0.15-1.00 [facility] ([place]) Comment on above: Performed By: #### C BC, ADIFF, ANEU, BMP #### [address] [address] #### GFR #### [address] [address] Monocytes/100 WBC (Bld) 11.2 % Normal 1.7-13.0 [facility] ([place]) Comment on above: Performed By: #### C BC, ADIFF, ANEU, BMP #### [address] [address] #### GFR #### [address] [address] Neutrophils/100 WBC (Bld) 60.5 % Normal 37.0-80.0 [facility] ([place]) Comment on above: Performed By: #### C BC ADYAMIL ANEU, BMP #### [address] [address] #### GFR #### [address] [address] .GFRon 09-07-2020 GFR 87 ml/min/1.73sqm Normal [facility] ([place]) Comment on above: Result Comment: GFR Population mean for , Non- Americans Ages 20-29 = 116 mL/min/1.73 sq.m. Ages 30-39 = 107 mL/min/1.73 sq.m. Ages 40-49 = 99 mL/min/1.73 sq.m. Ages 50-59 = 93 mL/min/1.73 sq.m. Ages 60-69 = 85 mL/min/1.73 sq.m. Ages 70+ = 75 mL/min/1.73 sq.m. Chronic Kidney Disease: Less than 60 mL/min/1.73 square meters End Stage Renal Disease: Less than 15 mL/min/1.73 square meters Performed By: #### C BC ADYAMIL, ANEU, BMP #### [address] [address] #### GFR #### [address] [address] GFR Non- 72 ml/min/1.73sqm Normal [facility] ([place]) Comment on above: Result Comment: GFR Population mean for , Non- Americans Ages 20-29 = 116 mL/min/1.73 sq.m. Ages 30-39 = 107 mL/min/1.73 sq.m. Ages 40-49 = 99 mL/min/1.73 sq.m. Ages 50-59 = 93 mL/min/1.73 sq.m. Ages 60-69 = 85 mL/min/1.73 sq.m. Ages 70+ = 75 mL/min/1.73 sq.m. Chronic Kidney Disease: Less than 60 mL/min/1.73 square meters End Stage Renal Disease: Less than 15 mL/min/1.73 square meters Performed By: #### C BC, ADIFF, ANEU, BMP #### [place] [address] #### GFR #### [place] [address] .NEUABSon 09-07-2020 Neutrophil, Absolute 4.30 10 3/mcL Normal 2.85-6.16 A [facility] ([place]) Comment on above: Performed By: #### C BC, ADYAMIL, ANEU, BMP #### [place] [address] #### GFR #### [place] [address] A1Con 09-07-2020 HbA1c (Bld) [Mass fraction] 6.2 % Normal 4.3-6.4 [facility] ([place]) Comment on above: Performed By: #### A 1C #### [address] 09-07-2020 BUN/Creatinine Ratio 24 ratio Normal 7-27 [facility] ([place]) Comment on above: Performed By: #### C BC, ADIFF, ANEU, BMP #### [address] [address] #### GFR #### [place] [address] Calcium [Mass/Vol] 9.3 mg/dL Normal 8.4-10.2 [facility] ([place]) Comment on above: Performed By: #### C BC, ADIFF, ANEU, BMP #### [place] [address] #### GFR #### [address] [address] Chloride [Moles/Vol] 104 mmol/L Normal 98-107 [facility] ([place]) Comment on above: Performed By: #### C BC, GUEVARA, ANEU, BMP #### [address] [address] #### GFR #### [address] [address] CO2 [Moles/Vol] 30 mmol/L Normal 23-31 [facility] ([place]) Comment on above: Performed By: #### C BC, ADYAMIL, ANEU, BMP #### [address] [address] #### GFR #### [address] [address] Creatinine [Mass/Vol] 1.03 mg/dL Normal 0.70-1.30 [facility] ([place]) Comment on above: Performed By: #### C GUEVARA ROBERTSON, ANEU, BMP #### [address] [address] #### GFR #### [address] [address] Electrolyte Balance 6.0 mEq/L Normal [facility] ([place]) Comment on above: Performed By: #### C BCGUEVARA, ANEU, BMP #### [address] [address] #### GFR #### [address] [address] Glucose [Mass/Vol] 97 mg/dL Normal 80-115 [facility] ([place]) Comment on above: Performed By: #### C BC, ADIFF, ANEU, BMP #### [address] [address] #### GFR #### [address] [address] Potassium [Moles/Vol] 5.3 mmol/L High 3.5-5.1 [facility] ([place]) Comment on above: Performed By: #### C BC, ADIFF, ANEU, BMP #### [address] [address] #### GFR #### [address] [address] Sodium [Moles/Vol] 140 mmol/L Normal 136-145 [facility] ([place]) Comment on above: Performed By: #### C BC, ADIFF, ANEU, BMP #### [address] [address] #### GFR #### [place] [address] Urea nitrogen [Mass/Vol] 25 mg/dL High 7-18 [facility] ([place]) Comment on above: Performed By: #### C BC, ADIFF, ANEU, BMP #### [place] [address] #### GFR #### [place] [address] CBCon 09-07-2020 Erythrocyte distribution width (RBC) [Ratio] 13.9 % Normal 11.5-14.5 [facility] ([place]) Comment on above: Order Comment: Pre-A dmission Testing Performed By: #### C BC, ADIFF, ANEU, BMP #### [place] [address] #### GFR #### [place] [address] Hematocrit (Bld) [Volume fraction] 41.3 % Low 42.0-52.0 [facility] ([place]) Comment on above: Order Comment: Pre-A dmission Testing Performed By: #### C BC, ADIFF, ANEU, BMP #### [address] [address] #### GFR #### [place] [address] Hgb 14.1 G/dL Normal 14.0-18.0 [facility] ([place]) Comment on above: Order Comment: Pre-A dmission Testing Performed By: #### C BC, ADIFF, ANEU, BMP #### [place] [address] #### GFR #### [address] [address] MCH (RBC) [Entitic mass] 31.4 pg High 27.0-31.2 [facility] ([place]) Comment on above: Order Comment: Pre-A dmission Testing Performed By: #### C BC, ADIFF, ANEU, BMP #### [place] [address] #### GFR #### [place] [address] MCHC 34.2 G/dL Normal 31.8-35.4 [facility] ([place]) Comment on above: Order Comment: Pre-A dmission Testing Performed By: #### C BC, ADIFF, ANEU, BMP #### [place] [address] #### GFR #### [place] [address] MCV (RBC) [Entitic vol] 91.9 fL Normal 80.0-94.0 [facility] ([place]) Comment on above: Order Comment: Pre-A dmission Testing Performed By: #### C BC, ADIFF, ANEU, BMP #### [place] [address] #### GFR #### [place] [address] Platelet 230 10 3/mcL Normal 130-400 [facility] ([place]) Comment on above: Order Comment: Pre-A dmission Testing Performed By: #### C BC, ADIFF, ANEU, BMP #### [place] [address] #### GFR #### [place] [address] Platelet mean volume (Bld) [Entitic vol] 7.1 fL Low 7.4-10.4 [facility] ([place]) Comment on above: Order Comment: Pre-A dmission Testing Performed By: #### C BC, ADIFF, ANEU, BMP #### [address] [address] #### GFR #### [place] [address] RBC 4.49 10 6/mcL Normal 4.04-6.13 [facility] ([place]) Comment on above: Order Comment: Pre-A dmission Testing Performed By: #### C BC, ADIFF, ANEU, BMP #### [place] [address] #### GFR #### [place] [address] WBC 7.20 10 3/mcL Normal 4.60-10.80 [facility] ([place]) Comment on above: Order Comment: Pre-A dmission Testing Performed By: #### C BC, ADIFF, ANEU, BMP #### [address] [address] #### GFR #### [place] [address] [address] SHOULDER W/O CONTRAST LEF Ton 08-09-2020 CT SHOULDER W/O CONTRAST LEFT ORIGINAL CT LEFT shoulder without contrast with sagittal and coronal reconstructions Clinical Statement: OSTEOARTHRITIS LEFT SHOULDER, shoulder pain preoperative mapping for surgery, Comparison: None TECHNIQUE:This exam was performed according to our departmental dose optimization program, and includes the following measures where applicable: automated exposure control, adjustment of the mAs and/or kVp according to patient size and/or exam, and an iterative reconstruction algorithm. FINDINGS: There is moderate glenohumeral osteoarthritis with subchondral sclerosis and marginal spurring most prominent in the inferior aspect of the humeral head articular surface. No significant joint space narrowing. Glenohumeral alignment on the axial images is within normal limits. There may be mild underlying glenoid dysplasia. There is mild calcific tendinitis at the supraspinatus footprint. Rotator cuff muscle bulk is within normal limits. There are spicules bodies in the subcoracoid region larger is 12 mm. There is at least small glenohumeral effusion. Moderate AC joint arthrosis with spurring that is causing some deformity of the supraspinatus. No significant acromial downsloping. The included LEFT lung shows no consolidation or mass. There is evidence of previous healed granulomatous disease with lung granulomas and calcified LEFT hilar lymph nodes. IMPRESSION: Moderate glenohumeral osteoarthritis. Supraspinatus calcific tendinitis. Loose bodies in the subscapularis bursa. Interpreted By: Carrillo Mosley MD Preliminary Report By: Carrillo Mosley MD Electronically Signed By: Carrillo Mosley MD Dictated Date: 08/08/2020 9:59:00 PM Prelim Date: 08/08/2020 9:59:00 PM Sign Date: 08/08/2020 10:03:54 PM Ordering Provider:Charline Urena [facility] ([place]) Vital Signs Date Time Vital Sign Value Performing Clinician Facility 09-27-2024 12:40-0400 Body temperature 97.2 [degF] Dr. Juan Alcaraz MD Work Phone: 5(820)695-503102 [place] [address] 09-27-2024 12:40-0400 Diastolic blood pressure 72 mm[Hg] Dr. Juan Alcaraz MD Work Phone: 6(094)029-498402 [place] [address] 09-27-2024 12:40-0400 Heart rate 79 /min Dr. Juan Alcaraz MD Work Phone: 9(879)006-834302 [place] [address] 09-27-2024 12:40-0400 Respiratory rate 18 /min Dr. Juan Alcaraz MD Work Phone: 1(213)028-703002 [place] [address] 09-27-2024 12:40-0400 SaO2% (BldA) [Mass fraction] 100 % Dr. Juan Alcaraz MD Work Phone: 8(502)617-802102 [place] [address] 09-27-2024 12:40-0400 Systolic blood pressure 142 mm[Hg] Dr. Juan Alcaraz MD Work Phone: 9(689)039-330202 [place] [address] 09-27-2024 10:25-0400 Body height 177.[address] Juan Alcaraz MD Work Phone: 4(919)637-861102 [place] [address] 09-27-2024 10:25-0400 Body mass index (BMI) [Ratio] 33 kg/m2 Dr. Juan Alcaraz MD Work Phone: 1(393)759-258091 [place] [address] 09-27-2024 10:25-0400 Body weight 104.[address] Juan Alcaraz MD Work Phone: 0(878)126-658391 [place] [address] 09-22-2024 21:58-0400 Body temperature 98.4 [degF] Dr. Juan Alcaraz MD Work Phone: 3(647)180-997291 [place] [address] 09-22-2024 21:58-0400 Diastolic blood pressure 83 mm[Hg] Dr. Juan Alcaraz MD Work Phone: 1(534)954-481102 [place] [address] 09-22-2024 21:58-0400 Heart rate 68 /min Dr. Juan Alcaraz MD Work Phone: 4(906)723-424602 [place] [address] 09-22-2024 21:58-0400 Respiratory rate 18 /min Dr. Juan Aclaraz MD Work Phone: 2(403)960-346102 [place] [address] 09-22-2024 21:58-0400 SaO2% (BldA) [Mass fraction] 99 % Dr. Juan Alcaraz MD Work Phone: 9(723)833-005591 [place] [address] 09-22-2024 21:58-0400 Systolic blood pressure 168 mm[Hg] Dr. Juan Alcaraz MD Work Phone: 2(148)151-141091 [place] [address] 09-22-2024 17:13-0400 Body height 177.[address] Juan Alcaraz MD Work Phone: 8(090)237-936591 [place] [address] 09-22-2024 17:13-0400 Body mass index (BMI) [Ratio] 33.6 kg/m2 Dr. Juan Alcaraz MD Work Phone: 8(802)721-392491 [place] [address] 09-22-2024 17:13-0400 Body weight 106.[address] Juan Alcaraz MD Work Phone: 9(567)986-573202 [place] [address] 09-18-2024 12:46-0400 Body mass index (BMI) [Ratio] 32.65 kg/m2 Jeana Diaz PA-C Work Phone: [facility] 09-18-2024 12:46-0400 Body temperature 98.29 [degF] Jeana Diaz PA-C Work Phone: 0(832)275-521565 [place] [address] 09-18-2024 12:46-0400 Body weight 105 kg Jeana Clutter PA-C Work Phone: [facility] 09-18-2024 12:46-0400 Diastolic blood pressure 82 mm[Hg] Jeana Clutter PA-C Work Phone: [facility] 09-18-2024 12:46-0400 Heart rate 90 /min Jeana Clutter PA-C Work Phone: [facility] 09-18-2024 12:46-0400 Respiratory rate 20 /min Jeana Clutter PA-C Work Phone: [facility] 09-18-2024 12:46-0400 SaO2% (BldA) [Mass fraction] 96 % Jeana Clutter PA-C Work Phone: [facility] 09-18-2024 12:46-0400 Systolic blood pressure 129 mm[Hg] Jeana Clutter PA-C Work Phone: [facility] 09-07-2024 13:22-0400 Body height 179.3 cm Juan Alcaraz MD Work Phone: [facility] 09-07-2024 13:22-0400 Body mass index (BMI) [Ratio] 32.28 kg/m2 Juan Alcaraz MD Work Phone: [facility] 09-07-2024 13:22-0400 Body temperature 98.6 [degF] Juan Alcaraz MD Work Phone: [facility] 09-07-2024 13:22-0400 Body weight 103.8 kg Juan Alcaraz MD Work Phone: [facility] 09-07-2024 13:22-0400 Diastolic blood pressure 78 mm[Hg] Juan Alcaraz MD Work Phone: [facility] 09-07-2024 13:22-0400 Heart rate 84 /min Juan Alcaraz MD Work Phone: [facility] 09-07-2024 13:22-0400 Respiratory rate 12 /min Juan Alcaraz MD Work Phone: [facility] 09-07-2024 13:22-0400 Systolic blood pressure 126 mm[Hg] Juan Alcaraz MD Work Phone: [facility] 09-02-2024 11:03-0400 Body mass index (BMI) [Ratio] 32.29 kg/m2 Linda Fernández APRN.RN INTENSIVE CARE UNIT Work Phone: [facility] 09-02-2024 11:03-0400 Body temperature 98.8 [degF] Linda Fernández APRN.RN INTENSIVE CARE UNIT Work Phone: [facility] 09-02-2024 11:03-0400 Body weight 105 kg Linda Fernández APRN.RN INTENSIVE CARE UNIT Work Phone: [facility] 09-02-2024 11:03-0400 Diastolic blood pressure 79 mm[Hg] Linda Fernández APRN.RN INTENSIVE CARE UNIT Work Phone: [facility] 09-02-2024 11:03-0400 Heart rate 82 /min Linda Fernández APRN.RN INTENSIVE CARE UNIT Work Phone: [facility] 09-02-2024 11:03-0400 Respiratory rate 20 /min Linda Fernández APRN.RN INTENSIVE CARE UNIT Work Phone: [facility] 09-02-2024 11:03-0400 SaO2% (BldA) [Mass fraction] 97 % Linda Fernández APRN.RN INTENSIVE CARE UNIT Work Phone: [facility] 09-02-2024 11:03-0400 Systolic blood pressure 160 mm[Hg] Linda Fernández APRN.RN INTENSIVE CARE UNIT Work Phone: [facility] 01-26-2024 11:24-0500 Diastolic blood pressure 71 mm[Hg] Jen Woo APRN.RN INTENSIVE CARE UNIT Work Phone: [facility] Comment on above: bp alfredo average 01-26-2024 11:24-0500 Heart rate 70 /min Jen Woo APRN.RN INTENSIVE CARE UNIT Work Phone: [facility] 01-26-2024 11:24-0500 Systolic blood pressure 125 mm[Hg] Jen Woo WELLNESS PROGRAM ADMINISTRATOR.RN INTENSIVE CARE UNIT Work Phone: [facility] Comment on above: bp alfredo average 01-26-2024 10:58-0500 Body mass index (BMI) [Ratio] 32.78 kg/m2 Jen Woo WELLNESS PROGRAM ADMINISTRATOR.RN INTENSIVE CARE UNIT Work Phone: [facility] 01-26-2024 10:58-0500 Body weight 106.6 kg Jen Woo WELLNESS PROGRAM ADMINISTRATOR.RN INTENSIVE CARE UNIT Work Phone: [facility] 01-26-2024 10:58-0500 Respiratory rate 16 /min Jen Woo WELLNESS PROGRAM ADMINISTRATOR.RN INTENSIVE CARE UNIT Work Phone: [facility] 01-26-2024 10:58-0500 SaO2% (BldA) [Mass fraction] 98 % Jen Woo WELLNESS PROGRAM ADMINISTRATOR.RN INTENSIVE CARE UNIT Work Phone: [facility] 09-02-2023 09:22-0400 Diastolic blood pressure 79 mm[Hg] Juan Alcaraz MD Work Phone: [facility] 09-02-2023 09:22-0400 Heart rate 72 /min Juan Alcaraz MD Work Phone: [facility] 09-02-2023 09:22-0400 Systolic blood pressure 148 mm[Hg] Juan Alcaraz MD Work Phone: [facility] 09-02-2023 09:13-0400 Body height 180.3 cm Juan Alcaraz MD Work Phone: [facility] 09-02-2023 09:13-0400 Body mass index (BMI) [Ratio] 32.08 kg/m2 Juan Alcaraz MD Work Phone: [facility] 09-02-2023 09:13-0400 Body temperature 98.6 [degF] Juan Alcaraz MD Work Phone: [facility] 09-02-2023 09:13-0400 Body weight 104.33 kg Juan Alcaraz MD Work Phone: [facility] 03-19-2022 08:39-0500 Body temperature 99.5 [degF] [facility] WELLNESS PROGRAM ADMINISTRATOR.RN INTENSIVE CARE UNIT Work Phone: [facility] 03-19-2022 08:39-0500 Body weight 107.23 kg [facility] WELLNESS PROGRAM ADMINISTRATOR.RN INTENSIVE CARE UNIT Work Phone: [facility] 03-19-2022 08:39-0500 Diastolic blood pressure 78 mm[Hg] [facility] WELLNESS PROGRAM ADMINISTRATOR.RN INTENSIVE CARE UNIT Work Phone: [facility] 03-19-2022 08:39-0500 Heart rate 93 /min [facility] WELLNESS PROGRAM ADMINISTRATOR.RN INTENSIVE CARE UNIT Work Phone: [facility] 03-19-2022 08:39-0500 Respiratory rate 21 /min [facility] WELLNESS PROGRAM ADMINISTRATOR.RN INTENSIVE CARE UNIT Work Phone: [facility] 03-19-2022 08:39-0500 SaO2% (BldA) [Mass fraction] 95 % [facility] WELLNESS PROGRAM ADMINISTRATOR.RN INTENSIVE CARE UNIT Work Phone: [facility] 03-19-2022 08:39-0500 Systolic blood pressure 158 mm[Hg] [facility] WELLNESS PROGRAM ADMINISTRATOR.RN INTENSIVE CARE UNIT Work Phone: [facility] 07-26-2021 10:29-0400 Diastolic blood pressure 60 mm[Hg] Juan Alcaraz MD Work Phone: [facility] 07-26-2021 10:29-0400 Systolic blood pressure 110 mm[Hg] Juan Alcaraz MD Work Phone: [facility] 07-26-2021 10:14-0400 Body height 182.9 cm Juan Alcraaz MD Work Phone: [facility] 07-26-2021 10:140400 Body temperature 97.7 [degF] Juan Alcaraz MD Work Phone: [facility] 07-26-2021 10:140400 Body weight 107.96 kg Juan Alcaraz MD Work Phone: [facility] 07-26-2021 10:14-0400 Heart rate 76 /min Juan Alcaraz MD Work Phone: [facility] 07-26-2021 10:14-0400 Respiratory rate 12 /min Juan Alcaraz MD Work Phone: [facility] 07-26-2021 10:14-0400 SaO2% (BldA) [Mass fraction] 98 % Juan Alcaraz MD Work Phone: [facility] 07-22-2021 09:13-0400 Diastolic blood pressure 71 mm[Hg] Mi Nurse Work Phone: [facility] 07-22-2021 09:13-0400 Heart rate 70 /min Mi Nurse Work Phone: [facility] 07-22-2021 09:13-0400 Systolic blood pressure 126 mm[Hg] Mi Nurse Work Phone: [facility] Encounters Encounter Date Encounter Type Care Provider Facility Start: 09-27-2024 Evaluation and management of inpatient Dr. Jeana Greer DO -Medical Surgical 3 Work Phone: Start: 09-27-2024 End: 09-27-2024 Patient encounter procedure Alexei Ralph Work Phone: Podiatry Comment on above: Skin ulcer of toe of right foot with fat layer exposed (HCC); Peripheral vascular disease; Cellulitis of right toe Start: 09-22-2024 End: 09-22-2024 Emergency department patient visit Dr. Juan Alcaraz MD Work Phone: -Emergency Department Work Phone: Start: 09-19-2024 End: 09-19-2024 ambulatory ALEXEI RALPH Facility:[facility] Start: 09-19-2024 ambulatory ALEXEI RALPH Facili ty:[facility] Start: 09-19-2024 End: 09-19-2024 Subsequent hospital visit by physician Justo [facility] [place] Me[facility]ia Work Phone: Radiology Comment on above: Ulcer of toe of righ t foot, with fat layer exposed (HCC) [L97.512] Start: 09-19-2024 End: 09-19-2024 Patient encounter procedure Alexei Ralph Work Phone: Podiatry Comment on above: Ulcer of toe of righ t foot, with fat layer exposed (HCC) (Primary Dx); Diabetic polyneuropathy associated with type 2 diabetes mellitus (HCC); Hammertoe of right foot; Cellulitis and abscess of toe of right foot; Onychodystrophy; Diminished pulses in lower extremity Start: 09-19-2024 End: 09-19-2024 ambulatory ALEXEI RALPH Facility:[facility] Start: 09-18-2024 End: 09-18-2024 Office outpatient new 30 minutes Jeana Diaz PA-C Work Phone: [facility] Comment on above: Cellulitis of toe of right foot (Primary Dx) Start: 09-18-2024 End: 09-18-2024 ambulatory JUAN ALCARAZ Facility:[facility] Start: 09-07-2024 End: 09-08-2024 Telephone encounter Juan Alcaraz MD Work Phone: [facility] [place] Comment on above: Medication Problem Start: 09-07-2024 End: 09-07-2024 ambulatory JUAN ALCARAZ Facility:[facility] Start: 09-07-2024 End: 09-07-2024 Patient encounter procedure Juan Alcaraz MD Work Phone: [facility] [place] Comment on above: Medicare annual well ness visit, subsequent (Primary Dx); Screening for depression; Encounter for screening examination for other mental health and behavioral disorders; Well controlled type 2 diabetes mellitus with neurological manifestations (HCC); Erectile dysfunction, unspecified erectile dysfunction type; Open wound of toe, subsequent encounter; Essential hypertension; Hyperlipidemia, unspecified hyperlipidemia type; ROSE on CPAP; Adverse effect of statin; Essential tremor Start: 09-02-2024 End: 09-02-2024 Patient encounter procedure Linda Fernández APRN.CNP Work Phone: [facility] Comment on above: Open wound of toe, i nitial encounter (Primary Dx) Start: 09-02-2024 End: 09-02-2024 ambulatory JUAN ALCARAZ Facility:[facility] Start: 08-27-2024 End: 08-27-2024 Follow-up encounter Juan Alcaraz MD Work Phone: [facility] [place] Start: 08-24-2024 End: 08-24-2024 ambulatory JUAN ALCARAZ Facility:[facility] Start: 03-11-2024 End: 03-14-2024 Refill Juan Alcaraz MD Work Phone: [facility] Comment on above: Refill Request Start: 01-26-2024 End: 01-26-2024 ambulatory JEN WOO Facility:[facility] Start: 01-26-2024 End: 01-26-2024 Patient encounter procedure Jen Woo WELLNESS PROGRAM ADMINISTRATOR.RN INTENSIVE CARE UNIT Work Phone: [facility] [place] Comment on above: Well controlled type 2 diabetes mellitus with neurological manifestations (HCC) (Primary Dx); Action tremor; Essential hypertension; Hyperlipidemia, unspecified hyperlipidemia type; PSA elevation; Encounter for immunization Start: 01-26-2024 End: 01-26-2024 ambulatory Juan Alcaraz Facility:[facility] Start: 01-22-2024 End: 01-22-2024 ambulatory JUAN ALCARAZ Facility:[facility] Start: 09-30-2023 Refill Juan echols MD Work Phone: [facility] Comment on above: Refill Request Start: 09-18-2023 Telephone encounter Juan west MD Work Phone: [facility] [place] Comment on above: Medication Question Start: 09-02-2023 Telephone encounter Juan west MD Work Phone: [facility] [place] Comment on above: Medical Records Start: 09-02-2023 End: 09-02-2023 Patient encounter procedure Juan Alcaraz MD Work Phone: [facility] [place] Comment on above: Medicare annual well ness visit, subsequent (Primary Dx); Essential hypertension; Benign prostatic hyperplasia with incomplete bladder emptying; Well controlled type 2 diabetes mellitus with neurological manifestations (HCC); Erectile dysfunction, unspecified erectile dysfunction type; Need for COVID-19 vaccine; PSA elevation Start: 08-28-2023 Telephone encounter Juan west MD Work Phone: [facility] [place] Comment on above: Orders Start: 10-07-2022 ambulatory Juan echols MD Work Phone: [facility] [place] Start: 04-01-2022 Refill Juan echols MD Work Phone: [facility] [place] Comment on above: Refill Request Start: 03-19-2022 End: 03-19-2022 Office outpatient visit 25 minutes Ar Moya APRN.CNP Work Phone: [facility] Comment on above: Bacterial conjunctiv itis (Primary Dx); Sinobronchitis Start: 12-10-2021 Telephone encounter Juan west MD Work Phone: [facility] Comment on above: Patient Question Refill Request Start: 11-20-2021 End: 11-20-2021 ambulatory Juan Alcaraz MD Work Phone: [facility] [place] Comment on above: COVID-19 (Primary Dx ) Start: 11-20-2021 End: 11-20-2021 Telemedicine consultation with patient Juan Alcaraz MD Work Phone: [facility] [place] Start: 11-20-2021 Telephone encounter Juan west MD Work Phone: [facility] [place] Comment on above: VV appt Start: 09-17-2021 Telephone encounter Juan west MD Work Phone: [facility] [place] Comment on above: Patient Update Start: 09-11-2021 Telephone encounter Juan west MD Work Phone: [facility] [place] Comment on above: Insurance Authorizat ion Start: 09-05-2021 Telephone encounter Juan west MD Work Phone: [facility] Comment on above: Patient Update Start: 07-26-2021 End: 07-26-2021 Patient encounter procedure Juan Alcaraz MD Work Phone: [facility] [place] Comment on above: Constipation, unspec ified constipation type (Primary Dx); Well controlled type 2 diabetes mellitus with neurological manifestations (HCC); Essential hypertension; Hyperlipidemia, unspecified hyperlipidemia type Start: 07-22-2021 Telephone encounter Juan west MD Work Phone: [facility] [place] Comment on above: Blood Pressure Check Start: 07-22-2021 End: 07-22-2021 Nursing evaluation of patient and report Mi Nurse Work Phone: [facility] Comment on above: Essential hypertensi on (Primary Dx) Procedures Date Procedure Procedure Detail Performing Clinician Start: 09-27-2024 X-ray of foot, three or more views Dr. Juan Alcaraz MD Work Phone: Start: 09-27-[address] Juan Alcaraz MD Work Phone: Start: 09-22-[address] Juan Aclaraz MD Work Phone: Start: 09-07-2024 Adult depression screening assessment Juan Alcaraz MD Work Phone: Start: 09-02-2023 [employer] COVI D-19 VACCINE () AGE 12+ YR Juan Alcaraz MD Work Phone: Start: 09-02-2023 Adult depression screening assessment Jen Woo APRN.CNP Work Phone: Start: 09-03-2020 Adult depression screening assessment Mi Nurse Work Phone: Start: 10-20-2018 Colonoscopy Mi Nurse Work Phone: Plan of Treatment Date Care Activity Detail Author Start: 09-03-2030 Urine microalbumin profile [facility] Start: 10-20-2028 Colonoscopy COLONOSCOPY [facility] Start: 10-20-2028 COLORECTAL CANCER SCREENING COLORECTAL CANCER SCREENING [facility] Start: 10-20-2028 Screening for malign ant neoplasm of colon [facility] Start: 2025 RSV Vaccine (1 - 1-d ose 75+ series) RSV Vaccine (1 - 1-dose 75+ series) [facility] Start: 09-07-2025 Annual PCP Team Branch Lending Manager dang Disease Visit Annual PCP Team Chronic Disease Visit [facility] Start: 09-07-2025 Anxiety Screening Anxiety Screening [facility] Start: 09-07-2025 Depression Screening Depression Scre ening [facility] Start: 09-07-2025 Diabetic foot examination Diabetic Foot Exam [facility] Start: 09-07-2025 Medicare Annual Wellness Visit Medicare Annual Wellness Visit [facility] Start: 08-24-2025 Hepatitis B surface antibody level LDL Cholesterol [facility] Start: 02-23-2025 Hemoglobin A1c measurement HbA1C [facility] Start: 01-25-2025 Annual PCP Team Branch Lending Manager dang Disease Visit Annual PCP Team Chronic Disease Visit [facility] Start: 01-25-2025 BP Controlled (<130/80) BP Controlle d (<130/80) [facility] Start: 01-25-2025 Covid-19 Vaccine ( season) Covid-19 Vaccine () [facility] Comment on above: Postponed from 11/14 (Declined at this time) Start: 01-21-2025 Hepatitis B screening Urine Al bumin:Creatinine Ratio [facility] Start: 01-21-2025 Hepatitis B surface antibody level LDL Cholesterol [facility] Start: 12-15-2024 End: 12-15-2024 Patient encounter procedure 12/15/2024 10:40 AM EDT Office Visit [facility] [place] [address] [place], [place] [id number] Juan Alcaraz MD [address] [place], [place] [address] 3 month follow-up [facility] [place] Comment on above: 3 month follow-up Start: 11-14-2024 Influenza vaccination Influenza Vacc ine (#1) [facility] Start: 10-18-2024 End: 10-18-2024 Patient encounter procedure 10/18/2024 3:00 PM EDT Office Visit Podiatry [address] [place], [place] [id number] Alexei Ralph [address] [place] [address] [facility] Comment on above: [facility] Start: 09-27-2024 Bacteria identified in Blood by Culture Blood Culture [facility] Start: 09-27-2024 Verification routine [facility] Start: 09-27-2024 Admission procedure [facility] Start: 09-27-2024 Hospital admission, emergency, from emergency room, medical nature [facility] Start: 09-27-2024 [facility] Start: 09-27-2024 End: 09-27-2024 Patient encounter procedure 09/27/2024 9:15 AM EDT Office Visit Podiatry [address] [place] [address] Alexei Ralph [address] [place] [address] 1 week follow up ulcer Podiatry Comment on above: [address] [facility] Start: 09-22-2024 [facility] Start: 09-19-2024 End: 09-19-2024 Patient encounter procedure 09/19/2024 10:15 AM EDT Office Visit Podiatry [address] [place] [address] Alexei Ralph [address] [place] [address] open wound 3rd toe / per [facility] Comment on above: open wound 3rd toe / per [facility] Start: 09-07-2024 End: 09-07-2024 Patient encounter procedure 09/07/2024 1:40 PM EDT Office Visit [facility] [place] [address] [place] [address] Juan Alcaraz MD [address] [place] [address] Annual Medicare Wellness w/6 month follow-up [facility] [place] Comment on above: Annual Medicare Well ness w/6 month follow-up Start: 09-02-2024 End: 09-02-2024 Patient encounter procedure 09/02/2024 10:00 AM EDT Office Visit [facility] [place] [address] [place] [address] Juan Alcaraz MD [address] [facility] [place] [address] Annual Medicare Wellness w/6 month follow-up [facility] [place] Comment on above: Annual Medicare Well ness w/6 month follow-up Start: 09-01-2024 Annual PCP Team Branch Lending Manager dang Disease Visit Annual PCP Team Chronic Disease Visit [facility] Start: 09-01-2024 Anxiety Screening Anxiety Screening [facility] Start: 09-01-2024 Depression Screening Depression Scre ening [facility] Start: 09-01-2024 Diabetic foot examination Diabetic Foot Exam [facility] Start: 09-01-2024 Medicare Annual Wellness Visit Medicare Annual Wellness Visit [facility] Start: 07-21-2024 Hemoglobin A1c measurement HbA1C [facility] Start: 07-19-2024 Glaucoma screening Dilated Retinal E xam [facility] Start: 03-16-2024 Advance Directive Discussion Advance Directive Discussion [facility] Start: 03-02-2024 Annual PCP Team Branch Lending Manager dang Disease Visit Annual PCP Team Chronic Disease Visit [facility] Start: 03-02-2024 RSV Vaccine (1 - 1-d ose 60+ series) RSV Vaccine (1 - 1-dose 60+ series) [facility] Comment on above: Postponed from 10/03 (Declined at this time) Start: 02-27-2024 Hemoglobin A1c measurement HbA1C [facility] Start: 02-25-2024 Hepatitis B screening Urine Al bumin:Creatinine Ratio [facility] Start: 02-25-2024 Hepatitis B surface antibody level LDL Cholesterol [facility] Start: 01-26-2024 End: 01-26-2024 Patient encounter procedure 01/26/2024 10:40 AM EST Office Visit [facility] [place] [address] [place] [address] Jen Woo, WELLNESS PROGRAM ADMINISTRATOR.RN INTENSIVE CARE UNIT [address] [facility] [place] [address] 5 month follow-up [facility] [place] Comment on above: 5 month follow-up Start: 01-15-2024 End: 04-15-2024 Comprehensive metabolic 2000 panel - Serum or Plasma COMPREHENSIVE METABOLIC PANEL Lab Routine Well controlled type 2 diabetes mellitus with neurological manifestations (HCC) Expected: 01/15/2024, Expires: 04/15/2024 [facility] Work Phone: Comment on above: Expected: 01/15/2024 , Expires: 04/15/2024 Start: 01-15-2024 End: 04-15-2024 Hemoglobin A1c in Blood HEMOGLOBIN A1C Lab Routine Well controlled type 2 diabetes mellitus with neurological manifestations (HCC) Expected: 01/15/2024, Expires: 04/15/2024 [facility] Comment on above: Expected: 01/15/2024 , Expires: 04/15/2024 Start: 01-15-2024 End: 04-15-2024 Lipid 1996 panel - Serum or Plasma LIPID PANEL BASIC Lab Routine Well controlled type 2 diabetes mellitus with neurological manifestations (HCC) Expected: 01/15/2024, Expires: 04/15/2024 [facility] Comment on above: Expected: 01/15/2024 , Expires: 04/15/2024 Start: 01-15-2024 End: 04-15-2024 Microalbumin/Creatinine [Mass Ratio] in Urine ALBUMIN/CREATININE RATIO, URINE Lab Routine Well controlled type 2 diabetes mellitus with neurological manifestations (HCC) Expected: 01/15/2024, Expires: 04/15/2024 [facility] Comment on above: Expected: 01/15/2024 , Expires: 04/15/2024 Start: 01-15-2024 End: 04-15-2024 Prostate specific Ag [Mass/volume] in Serum or Plasma PROSTATE-SPECIFIC ANTIGEN DIAGNOSTIC Lab Routine PSA elevation Expected: 01/15/2024, Expires: 04/15/2024 [facility] Comment on above: Expected: 01/15/2024 , Expires: 04/15/2024 Start: 12-23-2023 Shingrix Vaccine (2 of 2) Shingrix Vaccine (2 of 2) [facility] Start: 11-15-2023 Influenza vaccination Influenza Vacc ine (#1) [facility] Start: 09-02-2023 End: 09-02-2023 Patient encounter procedure 09/02/2023 9:20 AM EDT Office Visit [facility] [place] [address] [place] [address] Juan Alcaraz MD [address] [place] [address] 6 month Medicare Wellness [facility] [place] Comment on above: 6 month Medicare Wel lness Start: 08-28-2023 End: 11-27-2023 Hemoglobin A1c in Blood [facility] Work Phone: Comment on above: Expected: 08/28/2023 , Expires: 11/27/2023 Start: 08-26-2023 Hemoglobin A1c measurement HbA1C [facility] Start: 08-06-2023 3 comp foot exam completed DIABETIC FOOT EXAM [facility] Start: 08-06-2023 ANNUAL PCP TEAM FOCUSER DANG DISEASE VISIT ANNUAL PCP TEAM CHRONIC DISEASE VISIT [facility] Start: 08-06-2023 COVID-19 VACCINE (4 - Moderna series) COVID-19 VACCINE (4 - Moderna series) [facility] Comment on above: Postponed from 04/16 (Declined at this time) Start: 08-06-2023 Diabetic foot examination Diabetic Foot Exam [facility] Start: 08-06-2023 SHINGRIX VACCINE (1 of 2) SHINGRIX VACCINE (1 of 2) [facility] Comment on above: Postponed from 10/03 (Declined at this time) Start: 07-02-2023 Covid-19 Vaccine ( season) Covid-19 Vaccine ( season) [facility] Start: 03-16-2023 Advance Directive Discussion Advance Directive Discussion [facility] Start: 03-16-2023 Behavioral Health Screening Behavioral Health Screening [facility] Start: 11-20-2022 ANNUAL PCP TEAM FOCUSER DANG DISEASE VISIT ANNUAL PCP TEAM CHRONIC DISEASE VISIT [facility] Start: 11-14-2022 Influenza vaccination INFLUENZA (#1) [facility] Start: 10-07-2022 End: 12-07-2022 Hemoglobin A1c in Blood HGB A1C Lab Routine Well controlled type 2 diabetes mellitus with neurological manifestations (HCC) Expected: 10/07/2022, Expires: 12/07/2022 [facility] Work Phone: Comment on above: Expected: 10/07/2022 , Expires: 12/07/2022 Start: 07-26-2022 ANNUAL PCP TEAM FOCUSER DANG DISEASE VISIT ANNUAL PCP TEAM CHRONIC DISEASE VISIT [facility] Start: 07-26-2022 BP CONTROLLED (<130/80) BP CONTROLLE D (<130/80) [facility] Start: 07-22-2022 BP CONTROLLED (<130/80) BP CONTROLLE D (<130/80) [facility] Start: 07-22-2022 Hepatitis B screening URINE AL BUMIN:CREATININE RATIO [facility] Start: 03-16-2022 ADVANCE DIRECTIVE DISCUSSION ADVANCE DIRECTIVE DISCUSSION [facility] Start: 03-16-2022 DEPRESSION ASSESSMENT DEPRESSION ASS ESSMENT [facility] Start: 03-05-2022 ANNUAL PCP TEAM FOCUSER DANG DISEASE VISIT ANNUAL PCP TEAM CHRONIC DISEASE VISIT [facility] Start: 03-05-2022 SHINGRIX VACCINE (1 of 2) SHINGRIX VACCINE (1 of 2) [facility] Comment on above: Postponed from 10/03 (Declined at this time) Postponed from 10/03 (Declined at this time) Start: 02-19-2022 Hepatitis C antibody , confirmatory test DILATED RETINAL EXAM [facility] Start: 01-26-2022 End: 03-28-2022 Basic metabolic 2000 panel - Serum or Plasma BASIC METABOLIC PNL Lab Routine Well controlled type 2 diabetes mellitus with neurological manifestations (HCC) Expected: 01/26/2022, Expires: 03/28/2022 [facility] Work Phone: Comment on above: Expected: 01/26/2022 , Expires: 03/28/2022 Start: 01-26-2022 End: 03-28-2022 Hemoglobin A1c/Hemoglobin.total in Blood HGB A1C Lab Routine Well controlled type 2 diabetes mellitus with neurological manifestations (HCC) Expected: 01/26/2022, Expires: 03/28/2022 [facility] Work Phone: Comment on above: Expected: 01/26/2022 , Expires: 03/28/2022 Start: 01-22-2022 Hemoglobin A1c/Hemoglobin.total in Blood HBA1C [facility] Start: 11-14-2021 Influenza vaccination INFLUENZA (#1) [facility] Start: 09-03-2021 3 comp foot exam completed DIABETIC FOOT EXAM [facility] Start: 09-03-2021 Adult depression screening assessment DEPRESSION SCREENING [facility] Start: 09-03-2021 Hemoglobin A1c/Hemoglobin.total in Blood HBA1C [facility] Start: 09-03-2021 Hepatitis B screening URINE AL BUMIN:CREATININE RATIO [facility] Start: 08-28-2021 Hepatitis B surface antibody level LDL CHOLESTEROL [facility] Start: 06-20-2021 COVID-19 VACCINE (4 - Booster for Moderna series) COVID-19 VACCINE (4 - Booster for Moderna series) [facility] Start: 04-16-2021 COVID-19 VACCINE (4 - Booster for Moderna series) COVID-19 VACCINE (4 - Booster for Moderna series) [facility] Start: 03-16-2021 ADVANCE DIRECTIVE DISCUSSION ADVANCE DIRECTIVE DISCUSSION [facility] Start: 03-16-2021 DEPRESSION ASSESSMENT DEPRESSION ASS ESSMENT [facility] Start: 12-22-2014 FECAL OCCULT BLOOD FECAL OCCULT BLOO D [facility] Start: 12-22-2014 Screening for malign ant neoplasm of colon Fecal Occult Blood [facility] Start: 2000 SHINGRIX VACCINE (1 of 2) SHINGRIX VACCINE (1 of 2) [facility] Start: 10-04-1995 COLOGUARD (FIT-DNA) COLOGUARD (FIT-D NA) [facility] Start: 10-04-[address] [facility] Start: 10-04-1995 Screening for malign ant neoplasm of colon [facility] Start: 10-04-1995 SIGMOIDOSCOPY SIGMOIDOSCOPY [facility] Start: 1968 BP CONTROLLED (<130/80) BP CONTROLLE D (<130/80) [facility] Bacteria identified in Wound by Culture BACTERIAL CULTURE AND GRAM STAIN, ABSCESS AND WOUND (AEROBIC CULTURE) Microbiology Routine Ulcer of toe of right foot, with fat layer exposed (HCC) 09/19/2024 11:04 AM EDT [facility] Hemoglobin.gastroint est inal.lower [Presence] in Stool by Immunoassay FECAL OCCULT BLOOD TEST Lab Routine Constipation, unspecified constipation type Ordered: 07/26/2021 [facility] Work Phone: Comment on above: Ordered: 07/26/2021 Patient Education ED Cellulitis [facility] Work Phone: End: 10-19-2025 XR Toes - right 3 Views XR TOE AP/LAT/OBL RIGHT Radiology Routine Ulcer of toe of right foot, with fat layer exposed (HCC) Cellulitis and abscess of toe of right foot Onychodystrophy 1 Occurrences starting 09/19/2024 until 10/19/2025 [facility] Work Phone: Comment on above: 1 Occurrences starti ng 09/19/2024 until 10/19/2025 XR Toes - right 3 Views XR TOE A P/LAT/OBL RIGHT Radiology Routine Ulcer of toe of right foot, with fat layer exposed (HCC) Cellulitis and abscess of toe of right foot Onychodystrophy 09/19/2024 11:41 AM EDT [facility] Immunizations Immunization Date Immunization Notes Care Provider Renetta hoff 04-05-2024 zoster vaccine recombinant Juan Alcaraz MD Work Phone: [facility] 01-26-2024 influenza, high dose seasonal, preservative-free Jen Maricarmen WELLNESS PROGRAM ADMINISTRATOR.RN INTENSIVE CARE UNIT Work Phone: [facility] 01-26-2024 influenza virus vaccine, unspecified formulation Jeana Diaz PA-C Work Phone: [facility] 10-28-2023 zoster vaccine recombinant Jen Maricarmen WELLNESS PROGRAM ADMINISTRATOR.RN INTENSIVE CARE UNIT Work Phone: [facility] 09-02-2023 COVID-19 vaccine, ag e 12+ yr, season (PFIZER-BIONTECH) Juan Alcaraz MD Work Phone: [facility] 03-02-2023 COVID-19 vaccine, ag e 12+ yr, season (PFIZER-BIONTECH) Juan Alcaraz MD Work Phone: [facility] 03-02-2023 influenza (HD-IIV4) vaccine, age 65+ yr, high dose, quadrivalent, PF (FLUZONE HIGH-DOSE) Juan Alcaraz MD Work Phone: [facility] 03-02-2023 influenza virus vaccine, unspecified formulation Juan Alcaraz MD Work Phone: [facility] 02-19-2021 COVID-19 vaccine, booster dose (MODERNA) Mi Nurse Work Phone: [facility] Work Phone: 12-04-2020 influenza, high-dose , quadrivalent vaccine (FLUZONE HIGH DOSE QUADRIVALENT) Mi Nurse Work Phone: [facility] Work Phone: 09-03-2020 tetanus toxoid, redu mariella diphtheria toxoid, and acellular pertussis vaccine, adsorbed Mi Nurse Work Phone: [facility] Work Phone: 07-25-2020 COVID-19 vaccine, fu ll dose (MODERNA) Nh Nurse Work Phone: [facility] Work Phone: 06-27-2020 COVID-19 vaccine, fu ll dose (MODERNA) Nh Nurse Work Phone: [facility] Work Phone: 03-29-2019 influenza, high dose seasonal, preservative-free Nh Nurse Work Phone: [facility] Work Phone: 03-04-2018 pneumococcal polysaccharide vaccine, 23 valent Nh Nurse Work Phone: [facility] 12-03-2015 influenza, high dose seasonal, preservative-free Mi Nurse Work Phone: [facility] 12-03-2015 pneumococcal conjuga te vaccine, 13 valent Nh Nurse Work Phone: [facility] 03-24-2013 influenza virus vaccine, unspecified formulation Mi Nurse Work Phone: [facility] 02-19-2012 influenza virus vaccine, unspecified formulation Mi Nurse Work Phone: [facility] 07-17-2010 pneumococcal polysaccharide vaccine, 23 valent Nh Nurse Work Phone: [facility] Work Phone: 10-30-2008 tetanus and diphther ia toxoids, adsorbed, preservative free, for adult use (2 Lf of tetanus toxoid and 2 Lf of diphtheria toxoid) Nh Nurse Work Phone: [facility] Payers Date Payer Category Payer Self-pay 2019 Private Health Insurance MMO MED ICARE SUPPLEMENT [id number] 2019 Unknown MMO MMO MEDICARE SUPPLEMENT [id number] 2019-Present [phone] [address] [place] [address] Indemnity [id number] 2019 Unknown MMO MMO MEDICARE SUPPLEMENT [id number] 2019-Present [phone] [address] [place] [address] Indemnity [id number] 2019 Medicare [id number] 2015 Medicare MEDICARE MEDICAR E A AND B [id number] 2015-Present [phone] [address] [address] [place] [address] Medicare [id number] 2015 Medicare [id number] 2015 Medicare [id number] Unknown [id number] Unknown [id number] Social History Date Type Detail Facility Start: 09-09-2010 End: 09-27-2024 Tobacco smoking status NHIS Never smoked tobacco [facility] Work Phone: Start: 07-22-2021 End: 09-27-2024 Alcohol intake Current non-drinker of alcohol (finding) [facility] Start: 1950 Sex Assigned At Not on file [facility] Start: 07-12-2021 End: 07-26-2021 Exposure to SARS-CoV-2 (event) Not sure [facility] Start: 09-09-2010 Tobacco use and exposure Smokeless tobacco non-user [facility] Start: 11-10-2021 End: 11-20-2021 Exposure to SARS-CoV-2 (event) Yes [facility] Start: 08-05-2022 End: 09-02-2023 History of Social function [facility] Work Phone: Start: 08-05-2022 End: 09-02-2023 Tobacco use panel [facility] Work Phone: Adult Depression Screening Assessment 0 [facility] Work Phone: How often to you hav e a drink containing alcohol? Never [facility] Start: 1950 Sex Assigned At Male W [facility] Functional Status Date Assessment Result Facility 09-07-2024 Total score [AUDIT-C] 0 09/08/19 1:41 PM Juan Daley MD [facility] 06-02-2016 Are you deaf, or do you have serious difficulty hearing No 06/02/2016 8:40 AM Juan Daley MD No [facility] 06-02-2016 Are you blind, or do you have serious difficulty seeing, even when wearing glasses No 06/02/2016 8:40 AM STORMT Juan Alcaraz MD No [facility] 06-02-2016 Do you have serious difficulty walking or climbing stairs No 06/02/2016 8:40 AM STORMT Juan Alcaraz MD No [facility] 06-02-2016 Do you have difficul ty dressing or bathing No 06/02/2016 8:40 AM EDT Juan Alcaraz MD No [facility] 06-02-2016 Because of a physica l, mental, or emotional condition, do you have difficulty doing errands alone such as visiting a physician's office or shopping No 06/02/2016 8:40 AM STORMT Juan Alcaraz MD [facility] Mental Status Date Assessment Result Facility 06-02-2016 Because of a physica l, mental, or emotional condition, do you have serious difficulty concentrating, remembering, or making decisions No 06/02/2016 8:40 AM STORMT Juan Alcaraz MD [facility] Clinical Notes 09-25-2016 to 09-27-2024 Alexei Ralph - 09/27/2024 10:01 AM Deanna Allred LPN - 09/27/2024 8:46 AM EDT Note Date & Type Note Facility 09-27-2024 Discharge summary [facility] 09-27-2024 Radiology Diagnostic study note [facility] Imaging Services [address], [place] [address] Foot min 3 Views MR#: [id number] Acct: [id number] Name: OZZY DUNN Rep #: [id number] : 1950 M 73 From: Saul Fontenot MD PCP: Dr. Juan Alcaraz MD Status: R EG ER Study:Foot min 3 Views Date of Exam: Exam# [id number] Ordering Dr: Abiel Alfred DO PROCEDURE: FOOT MIN 3 VIEWS 09/27/2024 REASON FOR EXAM: TOE INFECTION TECHNIQUE: FOOT MIN 3 VIEWS COMPARISON: None FINDINGS: Bones: Calcaneal spurs. No bony erosions are seen. Joints: Normal alignment. Soft tissues: Soft tissue swelling overlying the great toe. Small amount of airis seen within the soft tissues. Other: RAD/Foot min 3 Views IMPRESSION: Soft tissue swelling with a small amount of air seen within the soft tissues overlying the great toe. No bony destruction. Calcaneal spurs. Reading Location: [id number] CC: Dr. Abiel Acosta-Jessica, DO; Dr. Juan Alcaraz MD ~ Players Assistant: Signed [facility] 09-27-2024 History of Present illness Narrative Subjective Ramakrishna Dunn is a 73-year-old male presenting for follow-up of a right third toe ulceration. Right Third Toe Ulceration: - Ulceration began after aggressive toenail trimming by patient. - Seen on 09/19 for initial evaluation; x-ray and circulation studies performed. - ER visit resulted in Bactrim prescription, completed today. - Augmentin prescribed by clinician. - he has been on both augmentin and bactrim for the past week. continues to have swelling and redness to his right 3rd toe - Applying silver gel to the ulceration. - Reports ulceration is staying the same - First Mounjaro injection on Thursday for diabetes management. Skin: (+) right third toe redness PAST MEDICAL HISTORY Diagnosis Date Anal fistula 2009 Cyst of epididymis 09/25/2016 Added automatically from request for surgery [id number] Diverticulosis of colon (without mention of hemorrhage) 2009 Embolism and thrombosis of unspecified site 10/09/2008 Postoperative DVT Epididymal cyst 10/14/2016 benign, excised Esophageal reflux 04/11/2008 Hemorrhage of rectum and anus HEMORRHOIDS EXTERNAL 09/18/2008 HTN (hypertension) no meds HYPERLIPIDEMIA NEC/NOS 04/11/2008 HYPERTENSION NOS 2008 Hypertrophy of prostate without urinary obstruction and other lower urinary tract symptoms (LUTS) 04/11/2008 Left leg cellulitis 04/27/2023 Left knee, leg MRSA. Inpatient in [place], [place] Malignant melanoma of scalp (HCC) 09/22/2018 Removed August 2018 by plastic surgeon with [facility]. Early stage, no further treatment ROSE on CPAP 04/11/2008 On CPAP Otalgia of left ear 12/21/2010 Recurrent. ENT, Dr. Rangel Snoring THROMBOPHLEBITIS NOS 10/09/2008 Type II or unspecified type diabetes mellitus without mention of complication, not stated as uncontrolled 06/07/2010 Current Outpatient Medications Medication Sig Dispense Refill sulfamethoxazole-trimethoprim (BACTRIM DS) 800-160 mg per tablet Take 1 tablet by mouth every 12 hours. doxycycline (VIBRA-TABS) 100 mg tablet Take 1 tablet by mouth two times a day for 10 days. 20 tablet 0 semaglutide (OZEMPIC) 0.25 mg or 0.5 mg (2 mg/3 mL) pen Inject 0.25 mg subcutaneously one time a week for 28 days, THEN 0.5 mg one time a week for 14 days. (Patient not taking: Reported on 09/27/2024) 3 mL 0 [START ON 10/19/2024] semaglutide (OZEMPIC) 0.25 mg or 0.5 mg (2 mg/3 mL) pen Inject 0.5 mg subcutaneously one time a week. Patient should start on October 19, 2024. (Patient not taking: Reported on 09/27/2024 Patient should start on October 19, 2024.) 9 mL 0 gabapentin (NEURONTIN) 300 mg capsule Take 3 capsules by mouth two times a day for 180 days. 540 capsule 1 Tadalafil (CIALIS) 20 mg tablet Take 1 tablet by mouth as needed. 30 tablet 2 ezetimibe (ZETIA) 10 mg tablet Take 1 tablet by mouth once daily. 90 tablet 1 lisinopril (ZESTRIL) 40 mg tablet Take 1 tablet by mouth once daily. 90 tablet 3 doxazosin (CARDURA) 4 mg tablet Take 1 tablet by mouth once daily. 90 tablet 3 metFORMIN (GLUCOPHAGE) 500 mg tablet Take 2 tablets by mouth two times a day. 360 tablet 3 metroNIDAZOLE 0.75 % cream For rosacea 0 Aspirin 81 mg ORAL Tab Take 1 tablet by mouth once daily. (Patient not taking: Reported on 09/18/2024) 30 tablet 11 No current facility-administered medications for this visit. Family History Problem Relation Age of Onset Hypertension Mother Dementia Mother dec. age 92 Blood Disease Father TTP dec. age 90 Diabetes Father No Known Problems Brother Arthritis Brother knee replacements. Objective There were no vitals taken for this visit. - Cardiovascular: Dorsalis pedis and posterior tibial pulses faintly palpable in the right lower extremity; capillary refill time <5 seconds. - Skin: Skin temperature warm to cool. - Musculoskeletal: - Right Third Toe: - Swelling and slight erythema noted at the level of the distal phalanx extending to the proximal interphalangeal joint. - Neurological: - Skin: - Right Third Toe: - Ulceration on the distal tip with a mixture of granulation tissue and black eschar, measuring 9 mm; no drainage noted. Labs: - Wound culture: Growth of Leclercia sp. and Pantoea sp. Susceptibility Leclercia adecarboxylata (1) Antibiotic Interpretation Method Status Ampicillin Susceptible MINIMUM INHIBITORY CONCENTRATION(VITEK) Final Ceftriaxone Susceptible MINIMUM INHIBITORY CONCENTRATION(VITEK) Final Cefepime Susceptible MINIMUM INHIBITORY CONCENTRATION(VITEK) Final Ertapenem Susceptible MINIMUM INHIBITORY CONCENTRATION(VITEK) Final Meropenem Susceptible MINIMUM INHIBITORY CONCENTRATION(VITEK) Final Ampicillin/Sulbact Susceptible MINIMUM INHIBITORY CONCENTRATION(VITEK) Final Gentamicin Susceptible MINIMUM INHIBITORY CONCENTRATION(VITEK) Final Tobramycin Susceptible MINIMUM INHIBITORY CONCENTRATION(VITEK) Final Trimeth sulfameth Susceptible MINIMUM INHIBITORY CONCENTRATION(VITEK) Final Ciprofloxacin Susceptible MINIMUM INHIBITORY CONCENTRATION(VITEK) Final Piperacillin/Tazobac Susceptible MINIMUM INHIBITORY CONCENTRATION ([place]) Final Pantoea agglomerans (2) Antibiotic Interpretation Method Status Ampicillin Susceptible MINIMUM INHIBITORY CONCENTRATION(VITEK) Final Ceftriaxone Susceptible MINIMUM INHIBITORY CONCENTRATION(VITEK) Final Cefepime Susceptible MINIMUM INHIBITORY CONCENTRATION(VITEK) Final Ertapenem Susceptible MINIMUM INHIBITORY CONCENTRATION(VITEK) Final Meropenem Susceptible MINIMUM INHIBITORY CONCENTRATION(VITEK) Final Ampicillin/Sulbact Susceptible MINIMUM INHIBITORY CONCENTRATION(VITEK) Final Piperacillin/Tazobac Susceptible MINIMUM INHIBITORY CONCENTRATION(VITEK) Final Gentamicin Susceptible MINIMUM INHIBITORY CONCENTRATION(VITEK) Final Tobramycin Susceptible MINIMUM INHIBITORY CONCENTRATION(VITEK) Final Trimeth sulfameth Susceptible MINIMUM INHIBITORY CONCENTRATION(VITEK) Final Ciprofloxacin Susceptible MINIMUM INHIBITORY CONCENTRATION(VITEK) Final Tests: - (09/19) PVR: - Right foot: - JONES (dorsalis pedis): 1.02 - JONES (posterior tibial): 0.84 - Toe pressure: 0.18 - Left foot: - JONES (dorsalis pedis): 1.08 - JONES (posterior tibial): 0.95 - Toe pressure: 0.26 Imaging: - (09/19) X-ray of the right third toe: No cortical destruction to suggest bone infection. Assessment & Plan 1. Skin ulcer of toe of right foot with fat layer exposed ([facility]) (L97.512) 2. Cellulitis of right toe (L03.031) - Ulceration on the distal top of the right third toe measures 9 mm, with a mixture of granulation tissue and black eschar; no drainage noted. Slight erythema and swelling extending to the proximal interphalangeal joint. - X-rays from September 19 show no cortical destruction to suggest osteomyelitis. - Wound culture revealed Lactobacillus and Pantoya species. - Completed course of Bactrim; Augmentin was also prescribed. - discussed the appearance of right 3rd toe. there is continued swelilng, redness and nonhealing of wound. he has been on augmentin and bactrim but continues to have pain, swelling, redness. at this time, I do feel that the infection combined with pad, admission to the hospital for further work-up including vascular consult and possible partial vs total 3rd toe amputation is necessary. discussed options, both [facility] and [facility]. I informed patient that I do not take call at [facility] so if he goes to [facility], he will need to have staff at [facility] evaluate him. he is not interested in [facility]. - Advised patient on the potential risk of partial or complete toe amputation due to poor healing and circulation. - Recommended immediate evaluation in the ER at [facility] for potential IV antibiotics and vascular surgery consultation. - I informed patient taht I have concerns that this toe has potential for rapid decline. 3. Peripheral vascular disease (I73.9) - PVRs from September 19 demonstrate an JONES of 1.02 to the dorsalis pedis and 0.84 to the posterior tibial on the right foot; toe pressures on the right side were 0.18. - Left foot JONES was 1.08 and 0.95; toe pressures were 0.26. - Circulation to the foot is adequate, but toe pressures indicate poor blood flow to the toe, consistent with small vessel disease. - Discussed the possibility of vascular intervention to improve circulation to the toe. - Advised patient to seek immediate evaluation in the ER for potential vascular surgery consultation. Recording using [employer] software for draft documentation of the visit was discussed with the patient/authorized sales representative health insurance; all questions welcomed and answered. Patient/authorized sales representative health insurance agreed to proceed Alexei Ralph DPM AMB ROOMING INTAKE FLOWSHEET DATA Pain Pain Level: 10 Pain Location: Toe Description: Sharp Duration Units: Weeks Frequency: Intermittent Intervention/Comfort measure: Reposition, Relaxation, Medication Patient presents with: Right 3rd Toe - Pain, Swelling, Infection, Diabetic Foot Ulcer, Established Patient, Follow Up Deanna Johnston LPN documented in this encounter [facility] 09-22-2024 Discharge summary [facility] 09-22-2024 Discharge summary Note Date/Time September 22, 2024 9:55pm [facility] Medical Records Department [address] [place] [address] Emergency Department Summary 09/22/24 MR#: [id number] Acct: [id number] Name: OZZY DUNN Rep #:[id number] : 1950 73 From: Kyrie Amaya MD PCP: Dr. Juan Alcaraz MD Status:R EG ER Location: ED HPI History of Present Illness Chief Complaint: Wound Detail of Chief Complaint: Infected third right toe due to cutting the bottom ofhis toe while he was Informant: patient and spouse/S.O. Onset/Context/Timing Onset: Days Context: Sudden Onset Timing: Continuous Quality: Infected right third toe Location: Right third toe Current Severity: Mild Maximum Severity: Mild Worsened by: Suspect due to to PAD not healing quickly Relieved by: Not applicable Associated Symptoms Associated Symptoms: None Narrative Narrative: Patient had wound to right third toe. He saw podiatry. He apparently trimmed his toenails too close and clipped the bottom of his third right toe. He had x-rays that did not reveal any abnormality. He had a vascular study because he has stigmata of peripheral arterial disease. He does not know the results. He was placed on Augmentin 875 mg twice daily. Patient does not check his blood sugar on a regular basis. He denies blurred vision, polyuria or polydipsia. He states the wound has not gotten much better. He denies fever, chills night sweats. He has no other complaints. Prior similar symptoms: No Recent Illness/Hospitalization: No PFSH PFSH Medical History no medical history Home Medications ?Medication ?Instructions ?Recorded ?Last Taken ?Type ezetimibe 10 mg tablet 10 mg PO DAILY 09/22/2409/13 History gabapentin 300 mg capsule 900 mg PO BID 09/22/2409/22 History lisinopril 40 mg tablet 40 mg PO DAILY 09/22/2409/13 History metformin 500 mg tablet 1,000 mg PO BID 09/22/2401/07 History sulfamethoxazole 800 1 tab PO BID #10 TABLETS 01/07 Unknown Rx mg-trimethoprim 160 mg tablet Allergy/AdvReac Type Severity Reaction Status Date / Time No Known Allergies Allergy Verified 09/22/24 17:15 Family History no significant family his Surgical History no surgical history Social History Smoking Status: Never smoker ROS ROS ED Constitutional Constitutional ED: Denies chills, fever(s), subjective, sweats or weight loss Eyes Eyes: Denies blurry vision Cardiovascular Cardiovascular: Denies palpitations Respiratory/Chest Respiratory/Chest: Denies dyspnea Gastrointestinal Gastrointestinal: Denies abdominal pain, nausea or vomiting Musculoskeletal Musculoskeletal: Denies arthralgias or myalgias Integumentary Reports rash Neurologic Neurologic: Denies paresthesias Endocrine Endocrinology: Denies polydipsia or polyuria Hematologic/Lymphatic Hematologic/Lymphatic: Reports systems reviewed and no addt'l complaints, exceptas documented EXAM Physical Exam Const Vital Signs: 09/22/24 17:13 09/22/24 17:15 09/22/24 18:15 Temperature 98.4 F 98.4 F 98.4 F Temperature Source Oral Oral Oral Pulse Rate 79 81 69 Respiratory Rate 18 18 16 Blood Pressure 170/83 H 170/83 H 184/92 H Blood Pressure Mean 112 112 122 Pulse Ox 99 100 99 Oxygen Delivery Method Room Air Room Air Room Air 09/22/24 18:59 09/22/24 20:00 09/22/24 21:00 Temperature 98.4 F 98.4 F 98.4 F Temperature Source Oral Oral Oral Pulse Rate 74 67 66 Respiratory Rate 16 18 16 Blood Pressure 184/92 H 176/80 H 181/75 H Blood Pressure Mean 122 112 110 Pulse Ox 100 100 99 Oxygen Delivery Method Room Air Room Air Room Air Positive well nourished Constitutional Narrative: Patient is hard of hearing. Vital signs remarkable for elevated blood pressure. General Appearance ED: NAD HEENT Reports moist mucous membranes HEENT Narrative: Head is atraumatic normocephalic. Ears normal. Nares patent. Patient wears glasses. Eyes PERRL and EOMs intact bilaterally General Eye ED: Negative for pale conjunctiva or scleral icterus Resp normal respiratory effort Cardio regular rate and regular rhythm GI GI Narrative: There is no right inguinal lymphadenopathy. Extremity Negative for normal to inspection Extremity Narrative: Patient has a erythematous slightly warm right third toe. There is no fluctuance. There is no induration. There is no lymphangitis. There is no popliteal mita lymphadenopathy. Patient has no hair on his toes. His skin is shiny. Does have some edema of the dorsal surface of the right foot. Neuro oriented x3, CN's II-XII intact bilaterally and no sensory deficits noted Motor Exam: strength 5/5 throughout Psych mental status grossly normal Skin Skin Narrative: Cellulitis right third toe. MDM MDM MDM Narrative Medical decision making narrative: Patient reports he has not gotten much better. Suspect he has delay in improvement due to PAD. Will obtain blood work to determine if patient is hyperglycemic has elevated white count or abnormal renal function that would results and adjusting his antibiotic dosage. He is proceeding predominately through theclinic. He had images and pictures taken that were placed in his medical records but not available through [facility]. Lab Data Attestation: I reviewed the patient's lab results. Lab results narrative: CBC is unremarkable. Patient has mild anemia. Basic metabolic panel with slight elevation of glucose at 125 with normal CO2 anion gap. ESR is normal. CRP is slightly elevated. Labs: Laboratory Results - last 24 hr 09/22/24 09/22/24 09/22/24 19:18 19:18 20:47 WBC Cancelled 8.0 Corrected WBC Cancelled RBC Cancelled 4.26 L Hgb Cancelled 12.8 L Hct Cancelled 38.0 L MCV Cancelled 89.2 MCH Cancelled 30.0 MCHC Cancelled 33.7 RDW Std Deviation Cancelled 44.6 H RDW Coeff of Baldo Cancelled 13.8 Plt Count Cancelled 214 MPV Cancelled 8.9 Immature Gran % (Auto) Cancelled 0.400 Neut % (Auto) Cancelled 63.5 Lymph % (Auto) Cancelled 22.6 [place] % (Auto) Cancelled 10.2 H Eos % (Auto) Cancelled 2.6 Baso % (Auto) Cancelled 0.7 Absolute Neuts (auto) Cancelled 5.1 Absolute Lymphs (auto) Cancelled 1.81 Total Counted Cancelled Neutrophils % (Manual) Cancelled Band Neutrophils % Cancelled Lymphocytes % (Manual) Cancelled Monocytes % (Manual) Cancelled Eosinophils % (Manual) Cancelled Basophils % (Manual) Cancelled Metamyelocytes % Cancelled Myelocytes % Cancelled Promyelocytes % Cancelled Blast Cells % Cancelled Plasma Cell % (Manual) Cancelled Other Cells % Cancelled Nucleated RBC % Cancelled 0 Nucleated RBCs/100 WBC Cancelled Differential Comment Cancelled Diff Path Review Cancelled Hypersegmented Neuts Cancelled Atypical Lymphocytes Cancelled Reactive Lymphocytes Cancelled Smudge Cells Cancelled Toxic Granulation Cancelled Toxic Vacuolation Cancelled Dohle Bodies Cancelled Fiordaliza Rods Cancelled Platelet Estimate Cancelled Plt Morphology Comment Cancelled RBC Morphology Cancelled Cancelled Polychromasia Cancelled Hypochromasia Cancelled Basophilic Stippling Cancelled Anisocytosis Cancelled Microcytosis Cancelled Macrocytosis Cancelled Spherocytes Cancelled Sickle Cells Cancelled Target Cells Cancelled Tear Drop Cells Cancelled Ovalocytes Cancelled Stomatocytes Cancelled Florentino-[place] Bodies Cancelled Samantha Cells Cancelled Bite Cells Cancelled Crenated Cell Cancelled Acanthocytes (Spur) Cancelled Rouleaux Cancelled Schistocytes Cancelled ESR Cancelled 5 Sodium 139 Potassium 4.6 Chloride 103 Carbon Dioxide 23.0 Anion Gap 12 BUN 13 Creatinine 0.96 Estim Creat Clear Calc 83.68 Est GFR (MDRD) Non-Af 84 BUN/Creatinine Ratio 13.3 Glucose 125 H Calcium 9.5 C-React Prot Ext Range 7.72 H Treatment and Re-Evaluation :: Patient was informed of results. Will add Bactrim for MRSA coverage. Suspect he is not healing quickly because he has PAD. Discharge Plan Triage Chief Complaint: Wound ED Provider: Kyrie Amaya Dx/Rx/DC Orders Clinical Impression: Cellulitis of third toe of right foot, Type 2 diabetes mellitus, PAD (peripheral artery disease), Elevated blood pressure reading with diagnosis of hypertension Instructions: ED Cellulitis Prescriptions: New sulfamethoxazole-trimethoprim 800-160 mg tablet 1 tab PO BID Qty: 10 0RF No Action metformin 500 mg tablet 1,000 mg PO BID gabapentin 300 mg capsule 900 mg PO BID lisinopril 40 mg tablet 40 mg PO DAILY ezetimibe 10 mg tablet 10 mg PO DAILY Primary Care Provider: Juan Alcaraz Referrals: Juan Alcaraz MD [Primary Care Provider] - Activity Restrictions/Additional Instructions: Keep your scheduled appointment with podiatry. Take the trimethoprim/sulfamethoxazole in addition to the amoxicillin-clavulanicacid you were prescribed by the pick up and delivery driver Print Language: Czech Disposition Disposition: Home, Self Care What to do if you have Problems For any increased pain, shortness of breath, bleeding, nausea or vomiting, chestpain, or any unexpected problems, contact your Primary Care Provider. Call [facility] ([phone]) or report to the closest Emergency Room. Call 911 if necessary. [id number]/22/[id number] <Electronically signed by Kyrie Amaya MD> Cosigner Signature (if applicable): CC: Dr. Juan Alcaraz MD ~ Signed [facility] Work Phone: [phone] 562-628507-07-2025 NoteHNO ID: [id number] Author: ALEXEI RALPH, ? Service: ? Author Type: Physician Type: Progress Notes Filed: 09/19/2024 22:32 Note Text: Subjective Ramakrishna Dunn is a 73-year-old male with a history of diabetes mellitus, presenting for evaluation of a right third toe ulceration. Right Third Toe Ulceration: - Ulceration on the distal tuft of the right third toe, x2 weeks. - Occurred after trimming toenails and accidentally cutting the skin. - Initially treated with antibiotic ointment and Epsom salt soaks BID. - Wound began to swell and flare up last Thursday. - Seen at urgent care yesterday; prescribed oral antibiotics, but prescription was not received by [facility]. - Denies current use of oral antibiotics. - No known allergies to medications; dislikes narcotics. Diabetes Mellitus: - Last A1c in August was 7.4%. - No previous issues with feet until the recent incident with the toenail. Musculoskeletal: (+) right third toe swelling, (+) right third toe pain Skin: (+) right third toe ulceration PAST MEDICAL HISTORY Diagnosis Date Anal fistula 2008 Cyst of epididymis 09/25/2016 Added automatically from request for surgery [id number] Diverticulosis of colon (without mention of hemorrhage) 2008 Embolism and thrombosis of unspecified site 10/09/2008 Postoperative DVT Epididymal cyst 10/14/2016 benign, excised Esophageal reflux 04/11/2008 Hemorrhage of rectum and anus HEMORRHOIDS EXTERNAL 09/18/2008 HTN (hypertension) no meds HYPERLIPIDEMIA NEC/NOS 04/11/2008 HYPERTENSION NOS 2008 Hypertrophy of prostate without urinary obstruction and other lower urinary tract symptoms (LUTS) 04/11/2008 Left leg cellulitis 04/27/2023 Left knee, leg MRSA. Inpatient in [place], [place] Malignant melanoma of scalp (HCC) 09/22/2018 Removed August 2018 by plastic surgeon with [facility]. Early stage, no further treatment ROSE on CPAP 04/11/2008 On CPAP Otalgia of left ear 12/21/2010 Recurrent. ENT, Dr. Rangel Snoring THROMBOPHLEBITIS NOS 10/09/2008 Type II or unspecified type diabetes mellitus without mention of complication, not stated as uncontrolled 06/07/2010 Current Outpatient Medications Medication Sig Dispense Refill amoxicillin-clavulanate potassium (AUGMENTIN) 875-125 mg per tablet Take 1 tablet by mouth two times a day for 7 days. 14 tablet 0 doxycycline (VIBRA-TABS) 100 mg tablet Take 1 tablet by mouth two times a day for 10 days. 20 tablet 0 semaglutide (OZEMPIC) 0.25 mg or 0.5 mg (2 mg/3 mL) pen Inject 0.25 mg subcutaneously one time a week for 28 days, THEN 0.5 mg one time a week for 14 days. 3 mL 0 [START ON 10/19/2024] semaglutide (OZEMPIC) 0.25 mg or 0.5 mg (2 mg/3 mL) pen Inject 0.5 mg subcutaneously one time a week. Patient should start on October 19, 2024. 9 mL 0 gabapentin (NEURONTIN) 300 mg capsule Take 3 capsules by mouth two times a day for 180 days. 540 capsule 1 Tadalafil (CIALIS) 20 mg tablet Take 1 tablet by mouth as needed. 30 tablet 2 ezetimibe (ZETIA) 10 mg tablet Take 1 tablet by mouth once daily. 90 tablet 1 lisinopril (ZESTRIL) 40 mg tablet Take 1 tablet by mouth once daily. 90 tablet 3 doxazosin (CARDURA) 4 mg tablet Take 1 tablet by mouth once daily. 90 tablet 3 metFORMIN (GLUCOPHAGE) 500 mg tablet Take 2 tablets by mouth two times a day. 360 tablet 3 metroNIDAZOLE 0.75 % cream For rosacea 0 Aspirin 81 mg ORAL Tab Take 1 tablet by mouth once daily. (Patient not taking: Reported on 09/18/2024) 30 tablet 11 No current facility-administered medications for this visit. Family History Problem Relation Age of Onset Hypertension Mother Dementia Mother dec. age 92 Blood Disease Father TTP dec. age 90 Diabetes Father No Known Problems Brother Arthritis Brother knee replacements. Objective There were no vitals taken for this visit. - Cardiovascular: Dorsalis pedis and posterior tibial pulses non-palpable bilaterally; capillary refill <5 seconds; skin temperature warm to cool from proximal to distal; hair growth absent on toes bilaterally; posterior tibial pulses triphasic on right lower extremity; dorsalis pedis pulses monophasic to nonphasic on right lower extremity. - Skin: Ulceration on distal tuft of right third toe with a combination of vascular and fibrotic tissue, marcus-wound blistering; wound measures 9mm x 6mm; drainage present; erythema extending to PIP joint and slightly to MTP joint; redness persists with elevation of the right foot. nails 1-5 b/l are elongated, dystrophic, painful - Neurological: Protective sensation intact bilaterally; vibratory sensation diminished bilaterally. - Musculoskeletal: Hammer toes on lesser toes of right foot; subtle contractures on lesser toes of left foot. Labs: - (Today) Wound Culture: Results not available - (August) Hemoglobin A1c: 7.4 Tests: - (2016) JONES with Toe Pressures: - Right JONES: 1.18 - Left JONES: 1.15 - Right Toe Pressure: 0.32 - Left Toe Press (more content not included)...[facility] 09-19-2024 History of Present illness Narrative* Alexei Ralph - 09/19/2024 10:30 PM EDT Subjective Ramakrishna Dunn is a 73-year-old male with a history of diabetes mellitus, presenting for evaluation of a right third toe ulceration. Right Third Toe Ulceration: - Ulceration on the distal tuft of the right third toe, x2 weeks. - Occurred after trimming toenails and accidentally cutting the skin. - Initially treated with antibiotic ointment and Epsom salt soaks BID. - Wound began to swell and flare up last Thursday. - Seen at urgent care yesterday; prescribed oral antibiotics, but prescription was not received by [facility]. - Denies current use of oral antibiotics. - No known allergies to medications; dislikes narcotics. Diabetes Mellitus: - Last A1c in August was 7.4%. - No previous issues with feet until the recent incident with the toenail. Musculoskeletal: (+) right third toe swelling, (+) right third toe pain Skin: (+) right third toe ulceration PAST MEDICAL HISTORY Diagnosis Date Anal fistula 2008 Cyst of epididymis 09/25/2016 Added automatically from request for surgery [id number] Diverticulosis of colon (without mention of hemorrhage) 2008 Embolism and thrombosis of unspecified site 10/09/2008 Postoperative DVT Epididymal cyst 10/14/2016 benign, excised Esophageal reflux 04/11/2008 Hemorrhage of rectum and anus HEMORRHOIDS EXTERNAL 09/18/2008 HTN (hypertension) no meds HYPERLIPIDEMIA NEC/NOS 04/11/2008 HYPERTENSION NOS 2008 Hypertrophy of prostate without urinary obstruction and other lower urinary tract symptoms (LUTS) 04/11/2008 Left leg cellulitis 04/27/2023 Left knee, leg MRSA. Inpatient in [place], [place] Malignant melanoma of scalp (HCC) 09/22/2018 Removed August 2018 by plastic surgeon with [facility]. Early stage, no further treatment ROSE on CPAP 04/11/2008 On CPAP Otalgia of left ear 12/21/2010 Recurrent. ENT, Dr. Rangel Snoring THROMBOPHLEBITIS NOS 10/09/2008 Type II or unspecified type diabetes mellitus without mention of complication, not stated as uncontrolled 06/07/2010 Current Outpatient Medications Medication Sig Dispense Refill amoxicillin-clavulanate potassium (AUGMENTIN) 875-125 mg per tablet Take 1 tablet by mouth two times a day for 7 days. 14 tablet 0 doxycycline (VIBRA-TABS) 100 mg tablet Take 1 tablet by mouth two times a day for 10 days. 20 tablet 0 semaglutide (OZEMPIC) 0.25 mg or 0.5 mg (2 mg/3 mL) pen Inject 0.25 mg subcutaneously one time a week for 28 days, THEN 0.5 mg one time a week for 14 days. 3 mL 0 [START ON 10/19/2024] semaglutide (OZEMPIC) 0.25 mg or 0.5 mg (2 mg/3 mL) pen Inject 0.5 mg subcutaneously one time a week. Patient should start on October 19, 2024. 9 mL 0 gabapentin (NEURONTIN) 300 mg capsule Take 3 capsules by mouth two times a day for 180 days. 540 capsule 1 Tadalafil (CIALIS) 20 mg tablet Take 1 tablet by mouth as needed. 30 tablet 2 ezetimibe (ZETIA) 10 mg tablet Take 1 tablet by mouth once daily. 90 tablet 1 lisinopril (ZESTRIL) 40 mg tablet Take 1 tablet by mouth once daily. 90 tablet 3 doxazosin (CARDURA) 4 mg tablet Take 1 tablet by mouth once daily. 90 tablet 3 metFORMIN (GLUCOPHAGE) 500 mg tablet Take 2 tablets by mouth two times a day. 360 tablet 3 metroNIDAZOLE 0.75 % cream For rosacea 0 Aspirin 81 mg ORAL Tab Take 1 tablet by mouth once daily. (Patient not taking: Reported on 09/18/2024) 30 tablet 11 No current facility-administered medications for this visit. Family History Problem Relation Age of Onset Hypertension Mother Dementia Mother dec. age 92 Blood Disease Father TTP dec. age 90 Diabetes Father No Known Problems Brother Arthritis Brother knee replacements. Objective There were no vitals taken for this visit. - Cardiovascular: Dorsalis pedis and posterior tibial pulses non-palpable bilaterally; capillary refill <5 seconds; skin temperature warm to cool from proximal to distal; hair growth absent on toes bilaterally; posterior tibial pulses triphasic on right lower extremity; dorsalis pedis pulses monophasic to nonphasic on right lower extremity. - Skin: Ulceration on distal tuft of right third toe with a combination of vascular and fibrotic tissue, marcus-wound blistering; wound measures 9mm x 6mm; drainage present; erythema extending to PIP joint and slightly to MTP joint; redness persists with elevation of the right foot. nails 1-5 b/l areelongated, dystrophic, painful - Neurological: Protective sensation intact bilaterally; vibratory sensation diminished bilaterally. - Musculoskeletal: Hammer toes on lesser toes of right foot; subtle contractures on lesser toes of left foot. Labs: - (Today) Wound Culture: Results not available - (August) Hemoglobin A1c: 7.4 Tests: - (2016) JONES with Toe Pressures: - Right JONES: 1.18 - Left JONES: 1.15 - Right Toe Pressure: 0.32 - Left Toe Pressure: 0.48 Assessment & Plan 1. Ulcer of toe of right foot, with fat layer exposed ([facility]) (L97.512) 2. Cellulitis and abscess of toe of right foot (L03.031) - Ulceration on the distal tuft of the right third toe measuring 9mm x 6mm with erythema extending to the PIP joint and slight redness to the MTP joint; evidence of infection with marcus-wound blistering and drainage. - Performed debridement of nonviable tissue today with tissue nippers. total debridement was 9 mm x6 mm. - Ordered X-ray of the right foot to evaluate for any underlying osteomyelitis. - Initiated Augmentin BID for 7 days; prescription sent to [facility] in [place]. - Provided Aquacel dressing; instructed to clean the wound daily with soap and water, keep it dry, apply Aquacel, and cover with gauze. - Advised to avoid Neosporin to prevent moisture retention and blistering. - Provided surgical shoe to offload pressure from the ulcer. - Scheduled follow-up in one week to reassess wound healing and review culture and imaging results. 3. Diabetic polyneuropathy associated with type 2 diabetes mellitus (HCC) (E11.42) - Neurological examination reveals intact protective sensation but diminished vibratory sensation in both feet. - Last HbA1c in August was 7.4%. - Discussed the importance of glycemic control in wound healing. 4. Hammertoe of right foot (M20.41) - Contributing to pressure on the ulcerated area. - Provided gel pad to reduce pressure; advised not to tighten the strap excessively to avoid blistering. 5. Onychodystrophy (L60.3) - Toenails trimmed during the visit. toenails 1-5 b/l debrided ion length and thickness. q8 modifier. - Discussed regular nail care to prevent future complications. 6. Diminished pulses in lower extremity (R09.89) - Dorsalis pedis and posterior tibial pulses non-palpable bilaterally; capillary refill time less than 5 seconds. - Skin temperature warm to cool from proximal to distal; absence of hair growth on toes. - Ordered PVR to assess circulation. - Previous circulation study in 2017 showed adequate foot circulation but decreased toe pressures (right: 0.32, left: 0.48). - Discussed potential impact of compromised circulation on wound healing and risk of infection progression. Recording using [employer] software for draft documentation of the visit was discussed with the patient/authorized sales representative health insurance; all questions welcomed and answered. Patient/authorized sales representative health insurance agreed to proceed Alexei Ralph DPM * Diana Pacheco RN - 09/19/2024 11:36 AM EDT Patients toe dressed with aquacel and gauzewrap. Wound care reviewed with patient and dressing supplies provided. Per Ozzy Dsouza was provided with Post op shoe with offloading insert, size Large, and instructed/educated in its application, wear, and care. All questions were answered, and patient was able to demonstrate competence with the necessary skills to utilize the above equipment. Diana Pacheco RN * Deanna Johnston LPN - 09/19/2024 9:54 AM EDT AMB ROOMING INTAKE FLOWSHEET DATA Pain Pain Level: 6 Pain Location: Toe Description: Sore Duration Amount of Time: 2 Duration Units: Weeks Frequency: Intermittent Intervention/Comfort measure: Relaxation, Reposition, Medication Patient presents with: Right 3rd Toe - New, Diabetic Foot Ulcer, Pain, Infection, Swelling Deanna Johnston LPN [facility] NoteHNO ID: [id number] Author: DIANA PACHECO RN Service: ? Author Type: Registered Nurse Type: Progress Notes Filed: 09/19/2024 22:32 Note Text: Patients toe dressed with aquacel and gauzewrap. Wound care reviewed with patient and dressing supplies provided. Per Ozzy Dsouza was provided with Post op shoe with offloading insert, size Large, and instructed/educated in its application, wear, and care. All questions were answered, and patient was able to demonstrate competence with the necessary skills to utilize the above equipment. Diana Pacheco [facility] Instructions* Patient Instructions* Alexei Ralph - 09/19/2024 10:51 AM EDT - Begin Augmentin twice daily for 7 days as prescribed; prescription sent to [facility] in [place]. - Clean the wound gently each morning (and after showering) with soap and water, then pat dry. - Stop using Neosporin; apply the Aquacel dressing cut to the size of the wound, then cover with a clean gauze. If the dressing becomes very moist, change it twice daily. - Keep the dressing dry when you shower--cover it, then remove, clean, and reapply afterward. - Wear the surgical shoe provided to off-load pressure on your right third toe. - Obtain the right foot X-ray to check for any bone involvement as ordered. - Complete the peripheral vascular study (PVR) today or as soon as possible to assess blood flow toyour feet. - Wound culture was performed today; results will guide further treatment. - Return to this clinic in one week for wound check, review of X-ray and circulation results, and further planning. - If the redness, swelling, pain worsens, or if you develop fever or chills, go to the hospital immediately. - Be aware that if the infection extends into the bone, partial removal of the toe may be necessaryto clear the infection. documented in this [facility]25 NoteHNO ID: [id number] Author: DEANNA JOHNSTON LPN Service: ? Author Type: LICENSED NURSE Type: Progress Notes Filed: 09/19/2024 22:32 Note Text: AMB ROOMING INTAKE FLOWSHEET DATA Pain Pain Level: 6 Pain Location: Toe Description: Sore Duration Amount of Time: 2 Duration Units: Weeks Frequency: Intermittent Intervention/Comfort measure: Relaxation, Reposition, Medication Patient presents with: Right 3rd Toe - New, Diabetic Foot Ulcer, Pain, Infection, Swelling [facility] NoteHNO ID: [id number] Author: JEANA DIAZ PA-C Service: ? Author Type: Physician Marketing Support Coordinator Type: Progress Notes Filed: 09/18/2024 13:06 Note Text: This note was created using [employer]. Subjective Ozzy Dunn is a 73 year old male. Patient is a 73-year-old male complains of worsening redness, swelling and foul discharge to the distal aspect of his right third toe. Patient was seen and evaluated at this facility on 02 September 2024 for evaluation of a superficial laceration secondary to nail trimming. Patient was provided with a prescription for Bactroban 2% ointment states he has been applying the medication as directed, however has noted worsening symptoms over the past 1 week. Patient is diabetic. Patient denies new skin wounds to the right third toe. Patient is able to bear weight and ambulate without difficulty. Wound Check Review of Systems Skin: Redness, Swelling and Discharge to Right Third Toe All other systems reviewed and are negative. Objective BP 129/82 Pulse 90 Temp 36.8 ?C (98.3 ?F) Resp 20 Wt 105 kg (231 lb 7.7 oz) SpO2 96% BMI 32.65 kg/m? Physical Exam Vitals and nursing note reviewed. Constitutional: Appearance: Normal appearance. He is normal weight. HENT: Head: Normocephalic and atraumatic. Nose: Nose normal. Mouth/Throat: Mouth: Mucous membranes are moist. Pharynx: Oropharynx is clear. Eyes: Extraocular Movements: Extraocular movements intact. Conjunctiva/sclera: Conjunctivae normal. Pupils: Pupils are equal, round, and reactive to light. Cardiovascular: Rate and Rhythm: Normal rate. Pulses: Normal pulses. Pulmonary: Effort: Pulmonary effort is normal. Breath sounds: Normal breath sounds. Musculoskeletal: General: Swelling present. No tenderness, deformity or signs of injury. Normal range of motion. Cervical back: Normal range of motion and neck supple. Skin: General: Skin is warm and dry. Capillary Refill: Capillary refill takes less than 2 seconds. Findings: Erythema present. Comments: Erythema and soft tissue edema is noted to the distal right third toe. There is an open wound which is draining a small degree of purulent fluid. There is no cyanosis to the skin and patient demonstrates no dorsal erythema or ecchymosis. No crepitus or deformity is noted to the right third toe. Remainder of exam to the skin of the right toes and foot is unremarkable. Neurological: General: No focal deficit present. Mental Status: He is alert and oriented to person, place, and time. Psychiatric: Mood and Affect: Mood normal. Behavior: Behavior normal. Thought Content: Thought content normal. Judgment: Judgment normal. Assessment and Plan Physical exam findings as noted above. Patient was provided with a prescription for doxycycline 100 mg and advised to continue the wound care which he has been performing at home. Referral order was placed with Dr. Alexei Ralph and the patient was scheduled for an appointment to see Dr. Ralph tomorrow morning, 19 September 2024. CLINICAL IMPRESSION: Cellulitis/Abscess Distal Right Third Toe ASSESSMENT/PLAN: 1. Cellulitis of toe of right foot - ICD9: 681.10, ICD10: L03.031 - CONSULT TO PODIATRY - DOXYCYCLINE HYCLATE 100 MG TABLET MDM Risk of Complications, Morbidity, and/or Mortality Presenting problems: low Diagnostic procedures: low Management options: low [facility]07-06-2025 History of Present illness Narrative* Jeana Diaz PA-C - 09/18/2024 12:52 PM EDT This note was created using Quipperriter. Subjective Ozzy Dunn is a 73 year old male. Patient is a 73-year-old male complains of worsening redness, swelling and foul discharge to the distal aspect of his right third toe. Patient was seen and evaluated at this facility on 02 September 2024 for evaluation of a superficial laceration secondary to nail trimming. Patient was provided with a prescription for Bactroban 2% ointment states he has been applying the medication as directed, however has noted worsening symptoms over the past 1 week. Patient is diabetic. Patient denies new skin wounds to the right third toe. Patient is able to bear weight and ambulate without difficulty. Wound Check Review of Systems Skin: Redness, Swelling and Discharge to Right Third Toe All other systems reviewed and are negative. Objective BP 129/82 Pulse 90 Temp 36.8 C (98.3 F) Resp 20 Wt 105 kg (231 lb 7.7 oz) SpO2 96% BMI 32.65 kg/m Physical Exam Vitals and nursing note reviewed. Constitutional: Appearance: Normal appearance. He is normal weight. HENT: Head: Normocephalic and atraumatic. Nose: Nose normal. Mouth/Throat: Mouth: Mucous membranes are moist. Pharynx: Oropharynx is clear. Eyes: Extraocular Movements: Extraocular movements intact. Conjunctiva/sclera: Conjunctivae normal. Pupils: Pupils are equal, round, and reactive to light. Cardiovascular: Rate and Rhythm: Normal rate. Pulses: Normal pulses. Pulmonary: Effort: Pulmonary effort is normal. Breath sounds: Normal breath sounds. Musculoskeletal: General: Swelling present. No tenderness, deformity or signs of injury. Normal range of motion. Cervical back: Normal range of motion and neck supple. Skin: General: Skin is warm and dry. Capillary Refill: Capillary refill takes less than 2 seconds. Findings: Erythema present. Comments: Erythema and soft tissue edema is noted to the distal right third toe. There is an open wound which is draining a small degree of purulent fluid. There is no cyanosis to the skin and patient demonstrates no dorsal erythema or ecchymosis. No crepitus or deformity is noted to the right third toe. Remainder of exam to the skin of the right toes and foot is unremarkable. Neurological: General: No focal deficit present. Mental Status: He is alert and oriented to person, place, and time. Psychiatric: Mood and Affect: Mood normal. Behavior: Behavior normal. Thought Content: Thought content normal. Judgment: Judgment normal. Assessment and Plan Physical exam findings as noted above. Patient was provided with a prescription for doxycycline 100mg and advised to continue the wound care which he has been performing at home. Referral order was placed with Dr. Alexei Ralph and the patient was scheduled for an appointment to see Dr. Ralph tomorrow morning, 19 September 2024. CLINICAL IMPRESSION: Cellulitis/Abscess Distal Right Third Toe ASSESSMENT/PLAN: 1. Cellulitis of toe of right foot - ICD9: 681.10, ICD10: L03.031 - CONSULT TO PODIATRY - DOXYCYCLINE HYCLATE 100 MG TABLET MDM Risk of Complications, Morbidity, and/or Mortality Presenting problems: low Diagnostic procedures: low Management options: low Jeana Diaz PA-C [facility] encounter Note * Telephone Encounter - Diana Skelton RN - 09/08/2024 12:52 PM EDT Pt called and is notified of providers message. Pt voices understanding. Diana Skelton RN [facility]06-[facility] Miscellaneous Notes* Telephone Encounter - Diana Skelton RN - 09/08/2024 12:52 PM EDT Pt called and is notified of providers message. Pt voices understanding. Diana Skelton RN * Telephone Encounter - Jaun Alcaraz MD - 09/08/2024 11:20 AM EDT The following approved medication requests have been transmitted electronically. Requested Prescriptions Signed Prescriptions Disp Refills semaglutide (OZEMPIC) 0.25 mg or 0.5 mg (2 mg/3 mL) pen 3 mL 0 Sig: Inject 0.25 mg subcutaneously one time a week for 28 days, THEN 0.5 mg one time a week for 14 days. Authorizing Provider: JUAN ALCARAZ semaglutide (OZEMPIC) 0.25 mg or 0.5 mg (2 mg/3 mL) pen 9 mL 0 Sig: Inject 0.5 mg subcutaneously one time a week. Patient should start on October 19, 2024. Authorizing Provider: JUAN ALCARAZ MD * Telephone Encounter - Gita Lorenz RN - 09/07/2024 4:32 PM EDT Patient calls to report that he was supposed to check on the cost of Trulicity with the pharmacy and let provider know if it was too costly. Patient reports the cost would be $530 per month and he is not able to afford that. He was to call back and provider was going to give further orders. Please review and advise, Gita Lorenz RN documented [facility] Telephone encounter Note * Telephone Encounter - Juan Alcaraz MD - 09/08/2024 11:20 AM EDT The following approved medication requests have been transmitted electronically. Requested Prescriptions Signed Prescriptions Disp Refills semaglutide (OZEMPIC) 0.25 mg or 0.5 mg (2 mg/3 mL) pen 3 mL 0 Sig: Inject 0.25 mg subcutaneously one time a week for 28 days, THEN 0.5 mg one time a week for 14 days. Authorizing Provider: JUAN ALCARAZ semaglutide (OZEMPIC) 0.25 mg or 0.5 mg (2 mg/3 mL) pen 9 mL 0 Sig: Inject 0.5 mg subcutaneously one time a week. Patient should start on October 19, 2024. Authorizing Provider: JUAN ALCARAZ MD [facility] Telephone encounter Note* Telephone Encounter - Gita Lorenz RN - 09/07/2024 4:32 PM EDT Patient calls to report that he was supposed to check on the cost of Trulicity with the pharmacy and let provider know if it was too costly. Patient reports the cost would be $530 per month and he is not able to afford that. He was to call back and provider was going to give further orders. Please review and advise, Gita Lorenz RN [facility]06-25-[facility] Instructions* Patient Instructions* Juan Alcaraz MD - 09/07/2024 1:50 PM EDT Screening schedule The following prevention plan is recommended: Advance Directive Discussion due on 03/16/2024 Dilated Retinal Exam due on 07/19/2024 Medicare Annual Wellness Visit due on 09/01/2024 Diabetic Foot Exam due on 09/01/2024 Depression Screening due on 09/01/2024 Anxiety Screening due on 09/01/2024 Advance Directive Forms Advanced Directives Forms (Czech) FORMS: [email or web address]-[email or web address]-[email or web address]-[email or web address].pd f INFORMATIONAL BROCHURE: [email or web address]/files/[email or web address]/patients-[email or web address]/inform ation/advance-[email or web address]?la=en Advance Directives (non-Czech) FORMS: [email or web address]-xzokp/adva nce-directives#forms-tab Please bring completed forms to your next appointment or email them to [email or web address]. Patient Resources How to Get Started Talking with Loved Ones about your Wishes at the End of Life [email or web address]/wp-content/uploads//ConversationProjec m-RbjveVlywrlnIld-Kqznozf.pdf How to Navigate Conversations with your Care Team around your Preferences [email or web address] WHAT YOU CAN DO TO PREVENT FALLS Many falls can be prevented. By making some changes, you can lower your chances of falling. Four things YOU can do to prevent falls for you* and your caregiver 1. Begin a regular exercise program Exercise is one of the most important ways to lower your chances of falling. It makes you stronger and helps you feel better. Exercises that improve balance and coordination (like Mike Chi) are the most helpful. Lack of exercise leads to weakness and increases your chances of falling. Ask your doctor or health care provider about the best type of exercise program for you. 2. Have your health care provider review your medicines Have your doctor or pharmacist review all the medicines you take, even zurj-kik-rdxzvkk medicines. As you get older, the way medicines work in your body can change. Some medicines, or combinations of medicines, can make you sleepy or dizzy andcan cause you to fall. 3. Have your vision checked Have your eyes checked by an eye doctor at least once a year. You may be wearing the wrong glasses or have a condition like glaucoma or cataracts that limits your vision. Poor vision can increase your chances of falling. 4. Make your home safer About half of all falls happen at home. To make your home safer: Remove things you can trip over (like papers, books, clothes, and shoes) from stairs and places where you walk. Remove small throw rugs or use double-sided tape to keep the rugs from slipping. Keep items you use often in cabinets you can reach easily without using a step stool. Have grab bars put in next to your toilet and in the tub or shower. Use non-slip mats in the bathtub and on shower floors. Improve the lighting in your home. As you get older, you need brighter lights to see well. Hang light-weight curtains or shades to reduce glare. Have handrails and lights put in on all staircases. Wear shoes both inside and outside the house. Avoid going barefoot or wearing slippers. For more information, contact: Centers for Disease Control and Prevention www.cdc.gov/injury * This information may not apply if you have certain medical conditions. documented in this encounterCos[facility]06-[facility]25 NoteHNO ID: [id number] Author: JUAN ALCARAZ MD Service: ? Author Type: Physician Type: Progress Notes Filed: 09/07/2024 14:24 Note Text: This note was created using Quipperriter. Subjective Ozzy Dunn is a 73 year old male. His diabetes mellitus and lipids were elevating. His diabetes mellitus was elevating as well. Dietary indiscretion may be a factor. His hypertension and neuropathy was controlled. He noted tremors of the hands when holding a steering wheel for the past year. Paying attention controls the tremor. No resting tremor was noted, and there is no family history of tremors. He nicked the tip of his toe last week, while trimming his toenails. Review of Systems Constitutional: Negative for fatigue and fever. Respiratory: Negative for shortness of breath. Cardiovascular: Negative for chest pain, palpitations and leg swelling. Gastrointestinal: Negative for abdominal pain, constipation, diarrhea, nausea and vomiting. Genitourinary: Negative for difficulty urinating and dysuria. Musculoskeletal: Negative for arthralgias. Neurological: Negative. 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 doxazosin (CARDURA) 4 mg tablet Take 1 tablet by mouth once daily. gabapentin (NEURONTIN) 300 mg capsule Take 3 capsules by mouth two times a day for 180 days. metFORMIN (GLUCOPHAGE) 500 mg tablet Take 2 tablets by mouth two times a day. Tadalafil (CIALIS) 20 mg tablet Take 1 tablet by mouth as needed. metroNIDAZOLE 0.75 % cream For rosacea Aspirin 81 mg ORAL Tab Take 1 tablet by mouth once daily. mupirocin (BACTROBAN) 2 % ointment Apply to affected area three times a day for 10 days. (Patient not taking: Reported on 09/07/2024) GLUC/CHND/OM3/DHA/EPA/FISH/STR (GLUCOSAMINE CHONDROITIN PLUS ORAL) Take 2 tablets by mouth once daily. (Patient not taking: Reported on 09/02/2024) No current facility-administered medications for this visit. Objective BP 126/78 Pulse 84 Temp 37 ?C (98.6 ?F) (Temporal) Resp 12 Ht 179.3 cm (5' 10.6) Wt 103.8 kg (228 lb 13.4 oz) BMI 32.28 kg/m? Physical Exam Constitutional: General: He is not in acute distress. HENT: Nose: No rhinorrhea. Eyes: Conjunctiva/sclera: Conjunctivae normal. Cardiovascular: Rate and Rhythm: Normal rate and regular rhythm. Heart sounds: No murmur heard. No gallop. Pulmonary: Breath sounds: Normal breath sounds. Abdominal: Palpations: Abdomen is soft. Tenderness: There is no abdominal tenderness. Musculoskeletal: Right lower leg: No edema. Left lower leg: No edema. Neurological: General: No focal deficit present. Mental Status: He is alert and oriented to person, place, and time. Sensory: No sensory deficit. Motor: Tremor present. No weakness or abnormal muscle tone. Coordination: Coordination normal. Gait: Gait normal. Comments: Mild intention tremor of both hands. Feet:Shoes and socks removed, No deformities, ulcers, calluses, normal distal pulses, sensitive to 10 gm monofilament, and nails notable for Deformed, Hypertrophic, or Yellowish. Granulating dry wound, tip of right 3rd toe. Latest Ref Rng 08/24/2024 Glucose 74 - 99 mg/dL 134 (H) BUN 9 - 24 mg/dL 19 Creatinine 0.73 - 1.22 mg/dL 0.89 Sodium 136 - 144 mmol/L 138 Potassium 3.7 - 5.1 mmol/L 4.9 Chloride 98 - 107 mmol/L 101 CO2 22 - 30 mmol/L 22 Anion Gap 8 - 15 mmol/L 15 Calcium 8.5 - 10.2 mg/dL 9.1 eGFR >=60 mL/min/1.73m? 90 Cholesterol, Total <200 mg/dL 208 (H) Triglyceride <150 mg/dL 189 (H) HDL Cholesterol >39 mg/dL 37 (L) LDL Cholesterol, Calculated <100 mg/dL 137 (H) Non HDL Cholesterol <130 mg/dL 171 (H) VLDL Cholesterol <30 mg/dL 34 (H) TC:HDL Ratio <5.10 5.62 (H) LDL:HDL Ratio <2.54 3.70 (H) Fasting Time hrs 15 Hemoglobin A1C 4.3 - 5.6 % 7.4 (H) Estimated Average Glucose mg/dL 166 Legend: (H) High (L) Low Assessment and Plan 1. Medicare annual wellness visit, subsequent - ICD9: V70.0, ICD10: Z00.00 (primary diagnosis) 2. Screening for depression - ICD9: V79.0, ICD10: Z13.31 - DEPRESSION SCREENING 3. Encounter for screening examination for other mental health and behavioral disorders - ICD9: V79.8, ICD10: Z13.39 - ANXIETY SCREENING 4. Well controlled type 2 diabetes mellitus with neurological manifestations (HCC) - ICD9: 250.60, ICD10: E11.49 - Worsening control - Continue current medications - Start dulaglutide (Trulicity) (more content not included)...[facility]06-25-2025 History of Present illness Narrative* Juan Alcaraz MD - 09/07/2024 1:49 PM EDT This note was created using CoWare. Subjective Ozzy Dunn is a 73 year old male. His diabetes mellitus and lipids were elevating. His diabetes mellitus was elevating as well. Dietary indiscretion may be a factor. His hypertension and neuropathy was controlled. He noted tremors of the hands when holding a steering wheel for the past year. Paying attention controls the tremor. No resting tremor was noted, and there is no family history of tremors. He nicked the tip of his toe last week, while trimming his toenails. Review of Systems Constitutional: Negative for fatigue and fever. Respiratory: Negative for shortness of breath. Cardiovascular: Negative for chest pain, palpitations and leg swelling. Gastrointestinal: Negative for abdominal pain, constipation, diarrhea, nausea and vomiting. Genitourinary: Negative for difficulty urinating and dysuria. Musculoskeletal: Negative for arthralgias. Neurological: Negative. ACTIVE PROBLEM LIST Rose On Cpap Esophageal Reflux Male Erectile Dysfunction, Unspecified Benign Prostatic Hyperplasia With Incomplete Bladder Emptying Essential Hypertension Well Controlled Type 2 Diabetes Mellitus With Neurological Manifestations ([facility]) Hyperlipidemia Obesity, Class I, Bmi 30-34.9 Psa Elevation Constipation Social History Tobacco Use Smoking status: Never Smokeless tobacco: Never Substance Use Topics Alcohol use: No Drug use: No Current Outpatient Medications Medication Sig lisinopril (ZESTRIL) 40 mg tablet Take 1 tablet by mouth once daily. doxazosin (CARDURA) 4 mg tablet Take 1 tablet by mouth once daily. gabapentin (NEURONTIN) 300 mg capsule Take 3 capsules by mouth two times a day for 180 days. metFORMIN (GLUCOPHAGE) 500 mg tablet Take 2 tablets by mouth two times a day. Tadalafil (CIALIS) 20 mg tablet Take 1 tablet by mouth as needed. metroNIDAZOLE 0.75 % cream For rosacea Aspirin 81 mg ORAL Tab Take 1 tablet by mouth once daily. mupirocin (BACTROBAN) 2 % ointment Apply to affected area three times a day for 10 days. (Patient not taking: Reported on 09/07/2024) GLUC/CHND/OM3/DHA/EPA/FISH/STR (GLUCOSAMINE CHONDROITIN PLUS ORAL) Take 2 tablets by mouth once daily. (Patient not taking: Reported on 09/02/2024) No current facility-administered medications for this visit. Objective BP 126/78 Pulse 84 Temp 37 C (98.6 F) (Temporal) Resp 12 Ht 179.3 cm (5' 10.6) Wt 103.8 kg (228 lb 13.4 oz) BMI 32.28 kg/m Physical Exam Constitutional: General: He is not in acute distress. HENT: Nose: No rhinorrhea. Eyes: Conjunctiva/sclera: Conjunctivae normal. Cardiovascular: Rate and Rhythm: Normal rate and regular rhythm. Heart sounds: No murmur heard. No gallop. Pulmonary: Breath sounds: Normal breath sounds. Abdominal: Palpations: Abdomen is soft. Tenderness: There is no abdominal tenderness. Musculoskeletal: Right lower leg: No edema. Left lower leg: No edema. Neurological: General: No focal deficit present. Mental Status: He is alert and oriented to person, place, and time. Sensory: No sensory deficit. Motor: Tremor present. No weakness or abnormal muscle tone. Coordination: Coordination normal. Gait: Gait normal. Comments: Mild intention tremor of both hands. Feet:Shoes and socks removed, No deformities, ulcers, calluses, normal distal pulses, sensitive to 10 gm monofilament, and nails notable for Deformed, Hypertrophic, or Yellowish. Granulating dry wound, tip of right 3rd toe. Latest Ref Rng 08/24/2024 Glucose 74 - 99 mg/dL 134 (H) BUN 9 - 24 mg/dL 19 Creatinine 0.73 - 1.22 mg/dL 0.89 Sodium 136 - 144 mmol/L 138 Potassium 3.7 - 5.1 mmol/L 4.9 Chloride 98 - 107 mmol/L 101 CO2 22 - 30 mmol/L 22 Anion Gap 8 - 15 mmol/L 15 Calcium 8.5 - 10.2 mg/dL 9.1 eGFR >=60 mL/min/1.73m 90 Cholesterol, Total <200 mg/dL 208 (H) Triglyceride <150 mg/dL 189 (H) HDL Cholesterol >39 mg/dL 37 (L) LDL Cholesterol, Calculated <100 mg/dL 137 (H) Non HDL Cholesterol <130 mg/dL 171 (H) VLDL Cholesterol <30 mg/dL 34 (H) TC:HDL Ratio <5.10 5.62 (H) LDL:HDL Ratio <2.54 3.70 (H) Fasting Time hrs 15 Hemoglobin A1C 4.3 - 5.6 % 7.4 (H) Estimated Average Glucose mg/dL 166 Legend: (H) High (L) Low Assessment and Plan 1. Medicare annual wellness visit, subsequent - ICD9: V70.0, ICD10: Z00.00 (primary diagnosis) 2. Screening for depression - ICD9: V79.0, ICD10: Z13.31 - DEPRESSION SCREENING 3. Encounter for screening examination for other mental health and behavioral disorders - ICD9: V79.8, ICD10: Z13.39 - ANXIETY SCREENING 4. Well controlled type 2 diabetes mellitus with neurological manifestations (HCC) - ICD9: 250.60, ICD10: E11.49 - Worsening control - Continue current medications - Start dulaglutide (Trulicity) - GABAPENTIN 300 MG CAPSULE - DULAGLUTIDE 0.75 MG/0.5 ML SUBCUTANEOUS PEN INJECTOR Discussed medication dosage, usage, goals of therapy, and side effects. PA may be needed. 5. Erectile dysfunction, unspecified erectile dysfunction type - ICD9: 607.84, ICD10: N52.9 - Controlled. - TADALAFIL 20 MG TABLET 6. Open wound of toe, subsequent encounter - ICD9: V58.89, 893.0, ICD10: S91.109D - Right 3rd toe, healing well. 7. Essential hypertension - ICD9: 401.9, ICD10: I10 - Controlled - Continue current medications 8. Hyperlipidemia, unspecified hyperlipidemia type - ICD9: 272.4, ICD10: E78.5 - Worsening control - EZETIMIBE 10 MG TABLET 9. ROSE on CPAP - ICD9: 327.23, ICD10: G47.33 - Controlled and managed by his sleep specialist, Dr. Gamboa. 10. Adverse effect of statin - ICD9: E942.2, ICD10: T46.6X5A - Various tried, all with GI upset. 11. Essential tremor - ICD9: 333.1, ICD10: G25.0 - Noted for one year. Monitor for impacts to activities of daily living. Juan Alcaraz MD * Juan Alcaraz MD - 09/07/2024 1:44 PM EDT Images from the original note were not included. Ozzy Dunn is a 73 year old male here for a Medicare wellness visit. Medicare Health Risk Assessment General Health Good Exercise: Minutes/Day 20 min Exercise: Days/Week 3 days Alcohol: Daily Use Never Alcohol: Drinks/Day Patient does not drink Alcohol: 6 or more drinks Never Feel off balance Yes Concerns: Teeth/Dentures No Concerns: Sexual function No Troubled by feelings None of the above Frequency: Eating healthy diet Nearly every day ADLs requiring help None of the above Safety precautions in home/vehicle Yes Smoke, vape, chews tobacco No Difficulty hearing Yes Difficulty seeing No Current Providers Specialists: I have reviewed specialist-related care of the patient in the medical record. Current care team: Patient Care Team: Juan Alcaraz MD as PCP - General (Internal Medicine) MaricarmenJen alberto, DANYA.RN INTENSIVE CARE UNIT as [facility] (Internal Medicine) Outside specialists seen: Dr. Kyree Gamboa, Sleep Medicine. Dr. Romero Bowman, Ophthalmology. Dr. Ar Rock, Pain Management. Dr. Renetta Gotti, Dermatology [facility]. Dr. Charline Rice, PCP in [place]. Medical/Family history review Reviewed and updated problem list, medical/surgical/family/social history, medications, and allergies. Opioid use review Opioid Medications (last 90 days) No data to display Anxiety/Depression screening Recommendation: no further intervention at this time Cognitive screening Mini Cog Score: 4 Cognitive screening reviewed and No further action needed (score 3-5). Functional Observation Was the patient's Timed Up & Go test unsteady or >= 12 seconds? No Advance Care Planning Patient did not wish or was not able to name a surrogate decision maker or provide an advance care plan Measurements BP 126/78 Pulse 84 Temp 37 C (98.6 F) (Temporal) Resp 12 Ht 179.3 cm (5' 10.6) Wt 103.8 kg (228 lb 13.4 oz) BMI 32.28 kg/m Vision Screening: Follows with optometry/ophthalmology Right: 20/25 Left: Both: Assessment/Plan Medicare annual wellness visit, subsequent (Z00.00) - Counseled on healthy diet and regular exercise - Fall avoidance information provided - Personalized prevention plan provided - Discussed need for and benefit of weight loss. BMI 32.28 kg/(m^2) documented in this encounterCos[facility]06-[facility]25 NoteHNO ID: [id number] Author: JUAN ALCARAZ MD Service: ? Author Type: Physician Type: Progress Notes Filed: 09/07/2024 14:24 Note Text: Ozzy Dunn is a 73 year old male here for a Medicare wellness visit. Medicare Health Risk Assessment General Health Good Exercise: Minutes/Day 20 min Exercise: Days/Week 3 days Alcohol: Daily Use Never Alcohol: Drinks/Day Patient does not drink Alcohol: 6 or more drinks Never Feel off balance Yes Concerns: Teeth/Dentures No Concerns: Sexual function No Troubled by feelings None of the above Frequency: Eating healthy diet Nearly every day ADLs requiring help None of the above Safety precautions in home/vehicle Yes Smoke, vape, chews tobacco No Difficulty hearing Yes Difficulty seeing No Current Providers Specialists: I have reviewed specialist-related care of the patient in the medical record. Current care team: Patient Care Team: Juan Alcaraz MD as PCP - General (Internal Medicine) Jen Woo, WELLNESS PROGRAM ADMINISTRATOR.RN INTENSIVE CARE UNIT as [facility] (Internal Medicine) Outside specialists seen: Dr. Kyree Gamboa, Sleep Medicine. Dr. Romero Bowman, Ophthalmology. Dr. Ar Rock, Pain Management. Dr. Renetta Gotti, Dermatology [facility]. Dr. Charline Rice, PCP in [place]. Medical/Family history review Reviewed and updated problem list, medical/surgical/family/social history, medications, and allergies. Opioid use review Opioid Medications (last 90 days) No data to display Anxiety/Depression screening Recommendation: no further intervention at this time Cognitive screening Mini Cog Score: 4 Cognitive screening reviewed and No further action needed (score 3-5). Functional Observation Was the patient's Timed Up AND Go test unsteady or >= 12 seconds? No Advance Care Planning Patient did not wish or was not able to name a surrogate decision maker or provide an advance care plan Measurements BP 126/78 Pulse 84 Temp 37 ?C (98.6 ?F) (Temporal) Resp 12 Ht 179.3 cm (5' 10.6) Wt 103.8 kg (228 lb 13.4 oz) BMI 32.28 kg/m? Vision Screening: Follows with optometry/ophthalmology Right: 20/25 Left: 20/ 25 Both: 2030 Assessment/Plan Medicare annual wellness visit, subsequent (Z00.00) - Counseled on healthy diet and regular exercise - Fall avoidance information provided - Personalized prevention plan provided - Discussed need for and benefit of weight loss. BMI 32.28 kg/(m2)[facility]06-20-2025 NoteHNO ID: [id number] Author: LINDA FERNÁNDEZ APRN.RN INTENSIVE CARE UNIT Service: ? Author Type: Nurse Practitioner Type: Progress Notes Filed: 09/02/2024 11:32 Note Text: [facility] Subjective Ozzy Dunn is a 73 year old male. Patient presents with: Ingrown Toenail: 3rd toe clipped tip to far down and is bleeding x 2 hours ago HPI Toe Injury: - Accidentally trimmed the tip of his toe while cutting his nails at 0900 this morning. - Denies known trauma. 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 Diabetes Mellitus: - Reports A1c is below 6. Review of Systems Skin: (+) toe laceration Objective BP 160/79 Pulse 82 Temp 37.1 ?C (98.8 ?F) Resp 20 Wt 105 kg (231 lb 7.7 oz) SpO2 97% BMI 32.29 kg/m? Physical Exam General: No acute distress. Skin: Toe wound, no signs of infection. {1. Open wound of toe, initial encounter (S91.109A) - Laceration occurred this morning at 0900 while trimming toenails; no signs of infection on examination. - Soak the wound in warm Epsom salt baths at least three times daily. - Apply mupirocin cream to the wound and cover with a bandage; keep the wound covered when outside or wearing shoes to prevent contamination. - Leave the wound open to air when indoors and not at risk of contamination. - Monitor for signs of infection, including erythema, edema, lymphangitic streaking, fever, or chills; seek immediate medical attention if these symptoms occur. - Tetanus vaccination is up to date, last administered in August 2020; next due in 2030. and Recording using ambient AI software for draft documentation of the visit was discussed with the patient/authorized sales representative health insurance; all questions welcomed and answered. Patient/authorized sales representative health insurance agreed to proceed [facility] History of Present illness Narrative* Linda Fernández APRN.[facility] - 09/02/2024 11:06 AM EDT [facility] Subjective Ozzy Dunn is a 73 year old male. Patient presents with: Ingrown Toenail: 3rd toe clipped tip to far down and is bleeding x 2 hours ago HPI Toe Injury: - Accidentally trimmed the tip of his toe while cutting his nails at 0900 this morning. - Denies known trauma. 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 Diabetes Mellitus: - Reports A1c is below 6. Review of Systems Skin: (+) toe laceration Objective BP 160/79 Pulse 82 Temp 37.1 C (98.8 F) Resp 20 Wt 105 kg (231 lb 7.7 oz) SpO2 97% BMI 32.29 kg/m Physical Exam General: No acute distress. Skin: Toe wound, no signs of infection. {1. Open wound of toe, initial encounter (S91.109A) - Laceration occurred this morning at 0900 while trimming toenails; no signs of infection on examination. - Soak the wound in warm Epsom salt baths at least three times daily. - Apply mupirocin cream to the wound and cover with a bandage; keep the wound covered when outside or wearing shoes to prevent contamination. - Leave the wound open to air when indoors and not at risk of contamination. - Monitor for signs of infection, including erythema, edema, lymphangitic streaking, fever, or chills; seek immediate medical attention if these symptoms occur. - Tetanus vaccination is up to date, last administered in August 2020; next due in 2030. and Recording using ambient AI software for draft documentation of the visit was discussed with thepatient/authorized sales representative health insurance; all questions welcomed and answered. Patient/authorized sales representative health insurance agreed to proceed MDM Procedures documented [facility] encounter[facility] Telephone encounter Note * Telephone Encounter - Alyson Martinez - 03/11/2024 11:56 AM EST Prescription Refill Information The patient has been identified by name and date of : Yes Caregiver verified no other encounters exist for this prescription request: Yes Caregiver confirmed with patient/requestor that no other refills are due, in the near future, with this provider at this time: Yes The last office visit in the department: 01-26-24 Does the patient have a future office visit with this provider/department: Yes Requested Prescriptions Pending Prescriptions Disp Refills lisinopril (ZESTRIL) 40 mg tablet 90 tablet 1 Sig: Take 1 tablet by mouth once daily. doxazosin (CARDURA) 4 mg tablet 90 tablet 1 Sig: Take 1 tablet by mouth once daily. gabapentin (NEURONTIN) 300 mg capsule 540 capsule 1 Sig: Take 3 capsules by mouth two times a day for 180 days. metFORMIN (GLUCOPHAGE) 500 mg tablet 360 tablet 1 Sig: Take 2 tablets by mouth two times a day. Alyson Haile March 11, 2024 11:58 AM [facility]12-27-2024 Miscellaneous Notes* Telephone Encounter - Alyson Martinez - 03/11/2024 11:56 AM EST Prescription Refill Information The patient has been identified by name and date of : Yes Caregiver verified no other encounters exist for this prescription request: Yes Caregiver confirmed with patient/requestor that no other refills are due, in the near future, with this provider at this time: Yes The last office visit in the department: 01-26-24 Does the patient have a future office visit with this provider/department: Yes Requested Prescriptions Pending Prescriptions Disp Refills lisinopril (ZESTRIL) 40 mg tablet 90 tablet 1 Sig: Take 1 tablet by mouth once daily. doxazosin (CARDURA) 4 mg tablet 90 tablet 1 Sig: Take 1 tablet by mouth once daily. gabapentin (NEURONTIN) 300 mg capsule 540 capsule 1 Sig: Take 3 capsules by mouth two times a day for 180 days. metFORMIN (GLUCOPHAGE) 500 mg tablet 360 tablet 1 Sig: Take 2 tablets by mouth two times a day. Alyson Haile March 11, 2024 11:58 AM documented in this encounterCoshocton [facility]11-12-2024 History of Present illness Narrative* Jen Woo, WELLNESS PROGRAM ADMINISTRATOR.RN INTENSIVE CARE UNIT - 01/26/2024 10:40 AM EST CC: Patient presents with: 5 month follow up: C/o neuropathy in feet ; tremors in right hand HPI Ozzy Dunn is a 73 year old male who presents today for above. HTN-Medication changes:Yes dose of doxazosin increased to 4 mg daily five months ago Taking all medications as prescribed: Yes Side effects: No Home BP's: No Denies: headache, chest pain, palpitations, dyspnea, and peripheral edema. Last 3 Encounter BP Readings: Date: BP: 09/02/2023 148/79 03/02/2023 138/70 08/05/2022 138/74 Tremors of the right hand x 6 months: reports tremors at times when he reaches for something or holding his fork. No worsening since initial presentation. Denies resting tremors. Denies numbness, tingling, weakness of the extremities. Diabetic neuropathy: taking Gabapentin 900 mg BID. Pain in his feet is bothersome at times, especially with prolonged standing or walking. Does not interfere with sleep, no trouble falling or stayingasleep. Does not affect gait. He checks his feet daily, denies any ulcers or sores. Review of Systems See HPI PAST MEDICAL HISTORY Diagnosis Date Anal fistula 2009 Cyst of epididymis 09/25/2016 Added automatically from request for surgery [id number] Diverticulosis of colon (without mention of hemorrhage) 2008 Embolism and thrombosis of unspecified site 10/09/2008 Postoperative DVT Epididymal cyst 10/14/2016 benign, excised Esophageal reflux 04/11/2008 Hemorrhage of rectum and anus HEMORRHOIDS EXTERNAL 09/18/2008 HTN (hypertension) no meds HYPERLIPIDEMIA NEC/NOS 04/11/2008 HYPERTENSION NOS 2008 Hypertrophy of prostate without urinary obstruction and other lower urinary tract symptoms (LUTS) 04/11/2008 Left leg cellulitis 04/27/2023 Left knee, leg MRSA. Inpatient in [place], [place] Malignant melanoma of scalp (HCC) 09/22/2018 Removed August 2018 by plastic surgeon with [facility]. Early stage, no further treatment ROSE (obstructive sleep apnea) on CPAP ROSE on CPAP 04/11/2008 On CPAP Otalgia of left ear 12/21/2010 Recurrent. ENT, Dr. Rangel Snoring THROMBOPHLEBITIS NOS 10/09/2008 Type II or unspecified type diabetes mellitus without mention of complication, not stated as uncontrolled 06/07/2010 PAST SURGICAL HISTORY Procedure Laterality Date ARTHROPLASTY TOTAL SHOULDER Left 09/25/2020 COLONOSCOPY FLX DX W/COLLJ SPEC WHEN PFRMD 09/18/2008 Ext. hemorrhoid with left post. fistula COLONOSCOPY FLX DX W/COLLJ SPEC WHEN PFRMD 10/20/2018 Colonoscopy EPIDIDYMECTOMY UNILATERAL Left 10/14/2016 benign PAST SURGICAL HISTORY OF 2002 colonoscopy PAST SURGICAL HISTORY OF 2002 Umbilical hernia repair PAST SURGICAL HISTORY OF 2005 Rt. bicep tendon repair PAST SURGICAL HISTORY OF 2004 Rt. & Lt. Carpal Tunnel repair surgery PAST SURGICAL HISTORY OF 08/31/2018 excision of melanoma with skin graft SEPTOPLASTY/SUBMUCOUS RESECJ W/WO CARTILAGE GRF 1989 Septoplasty SURG TX ANAL FISTULA INTERSPHINCTERIC 09/20/2008 ALLERGIES Atorvastatin, Crestor [Rosuvastatin Calcium], Lovastatin, and Pravachol [Pravastatin Sodium] MEDICATIONS gabapentin (NEURONTIN) 300 mg capsule Take 3 capsules by mouth two times a day for 180 days. lisinopril (ZESTRIL) 40 mg tablet Take 1 tablet by mouth once daily. metFORMIN (GLUCOPHAGE) 500 mg tablet Take 2 tablets by mouth two times a day. Tadalafil (CIALIS) 20 mg tablet Take 1 tablet by mouth as needed. doxazosin (CARDURA) 4 mg tablet Take 1 tablet by mouth once daily. metroNIDAZOLE 0.75 % cream For rosacea GLUC/CHND/OM3/DHA/EPA/FISH/STR (GLUCOSAMINE CHONDROITIN PLUS ORAL) Take 2 tablets by mouth once daily. Aspirin 81 mg ORAL Tab Take 1 tablet by mouth once daily. FAMILY HISTORY Problem Relation Age of Onset Hypertension Mother Dementia Mother dec. age 92 Blood Disease Father TTP dec. age 90 Diabetes Father No Known Problems Brother Arthritis Brother knee replacements. Social History Tobacco Use Smoking status: Never Smokeless tobacco: Never Substance Use Topics Alcohol use: No Drug use: No BP 125/71 Pulse 70 Resp 16 Wt 106.6 kg (235 lb 0.2 oz) SpO2 98% BMI 32.78 kg/m Physical Exam Vitals reviewed. Constitutional: Appearance: Normal appearance. Cardiovascular: Rate and Rhythm: Normal rate and regular rhythm. Heart sounds: Normal heart sounds. No murmur heard. Pulmonary: Effort: Pulmonary effort is normal. Breath sounds: Normal breath sounds. No wheezing, rhonchi or rales. Skin: General: Skin is warm and dry. Neurological: Mental Status: He is alert. Motor: Tremor (mild action tremor right hand only. No resting tremors noted.) present. No weakness. Gait: Gait is intact. Psychiatric: Mood and Affect: Mood normal. Health maintenance reviewed with patient: BP Controlled (<130/80) Never done Influenza Vaccine(1) due on 11/15/2023 Covid-19 Vaccine( season) due on 11/15/2023 Shingrix Vaccine(2 of 2) due on 12/23/2023 Dilated Retinal Exam due on 07/19/2024 HbA1C due on 07/21/2024 Diabetic Foot Exam due on 09/01/2024 Annual PCP Team Chronic Disease Visit due on 09/01/2024 Depression Screening due on 09/01/2024 Anxiety Screening due on 09/01/2024 Urine Albumin:Creatinine Ratio due on 01/21/2025 LDL Cholesterol due on 01/21/2025 RSV Vaccine(1 - 1-dose 75+ series) due on 2025 Colorectal Cancer Screening due on 10/20/2028 DTaP,Tdap,Td Vaccine(2 - Td or Tdap) due on 09/03/2030 Advance Directive Discussion Completed Pneumococcal Vaccine: 65+ Completed Hepatitis C Screening Addressed HPV Vaccine Aged Out DATA REVIEWED: Most recent labs ASSESSMENT/PLAN: 1. Well controlled type 2 diabetes mellitus with neurological manifestations (HCC) - ICD9: 250.60, ICD10: E11.49 (primary diagnosis) - Controlled - Continue current medications - discussed treatment options for neuropathy including additional medications such as Cymbalta or Elavil. Patient does not wish to try another medication at this time. He was given patient information from Up to Date. 2. Action tremor - ICD9: 333.1, ICD10: G25.2 Suspect essential tremors. Discussed etiology and treatment options if indicated. Given patient education handout from Up to Date. 3. Essential hypertension - ICD9: 401.9, ICD10: I10 - Controlled - Continue current medications - Recommend home blood pressure monitoring, to bring results to next visit - Encouraged sodium restriction, DASH or Mediterranean diet - Recommend regular aerobic exercise 4. Hyperlipidemia, unspecified hyperlipidemia type - ICD9: 272.4, ICD10: E78.5 The 10-year ASCVD risk score (Fabio VERNON, et al., 2019) is: 45.6% Values used to calculate the score: Age: 73 years Sex: Male Is Non- : No Diabetic: Yes Tobacco smoker: No Systolic Blood Pressure: 125 mmHg Is BP treated: Yes HDL Cholesterol: 34 mg/dL Total Cholesterol: 187 mg/dL Elevated heart disease risk, statin therapy recommended. Patient is unable to tolerate any statins. 5. PSA elevation - ICD9: 790.93, ICD10: R97.20 Stable 6. Encounter for immunization - ICD9: V03.89, ICD10: Z23 - INFLUENZA VACCINE, PRSV FREE, AGE 65+ YR, HIGH DOSE, TRIVALENT (FLUZONE HIGH-DOSE) Prescription instructions reviewed with patient as applicable. Potential red flag symptoms discussed with the patient. Reviewed appropriate action plan to take if red flag symptoms occur. Patient agreeable to treatment plan. Jen Woo APRN.RN INTENSIVE CARE UNIT documented in this encounterCoshocton [facility]11-12-2024 NoteHNO ID: [id number] Author: JEN WOO APRN.GOOD Service: ? Author Type: Nurse Practitioner Type: Progress Notes Filed: 01/26/2024 11:59 Note Text: CC: Patient presents with: 5 month follow up: C/o neuropathy in feet ; tremors in right hand HPI Ozzy Dunn is a 73 year old male who presents today for above. HTN-Medication changes:Yes dose of doxazosin increased to 4 mg daily five months ago Taking all medications as prescribed: Yes Side effects: No Home BP's: No Denies: headache, chest pain, palpitations, dyspnea, and peripheral edema. Last 3 Encounter BP Readings: Date: BP: 09/02/2023 148/79 03/02/2023 138/70 08/05/2022 138/74 Tremors of the right hand x 6 months: reports tremors at times when he reaches for something or holding his fork. No worsening since initial presentation. Denies resting tremors. Denies numbness, tingling, weakness of the extremities. Diabetic neuropathy: taking Gabapentin 900 mg BID. Pain in his feet is bothersome at times, especially with prolonged standing or walking. Does not interfere with sleep, no trouble falling or staying asleep. Does not affect gait. He checks his feet daily, denies any ulcers or sores. Review of Systems See HPI PAST MEDICAL HISTORY Diagnosis Date Anal fistula 2008 Cyst of epididymis 09/25/2016 Added automatically from request for surgery [id number] Diverticulosis of colon (without mention of hemorrhage) 2008 Embolism and thrombosis of unspecified site 10/09/2008 Postoperative DVT Epididymal cyst 10/14/2016 benign, excised Esophageal reflux 04/11/2008 Hemorrhage of rectum and anus HEMORRHOIDS EXTERNAL 09/18/2008 HTN (hypertension) no meds HYPERLIPIDEMIA NEC/NOS 04/11/2008 HYPERTENSION NOS 2008 Hypertrophy of prostate without urinary obstruction and other lower urinary tract symptoms (LUTS) 04/11/2008 Left leg cellulitis 04/27/2023 Left knee, leg MRSA. Inpatient in [place], [place] Malignant melanoma of scalp (HCC) 09/22/2018 Removed August 2018 by plastic surgeon with [facility]. Early stage, no further treatment ROSE (obstructive sleep apnea) on CPAP ROSE on CPAP 04/11/2008 On CPAP Otalgia of left ear 12/21/2010 Recurrent. ENT, Dr. Rangel Snoring THROMBOPHLEBITIS NOS 10/09/2008 Type II or unspecified type diabetes mellitus without mention of complication, not stated as uncontrolled 06/07/2010 PAST SURGICAL HISTORY Procedure Laterality Date ARTHROPLASTY TOTAL SHOULDER Left 09/25/2020 COLONOSCOPY FLX DX W/COLLJ SPEC WHEN PFRMD 09/18/2008 Ext. hemorrhoid with left post. fistula COLONOSCOPY FLX DX W/COLLJ SPEC WHEN PFRMD 10/20/2018 Colonoscopy EPIDIDYMECTOMY UNILATERAL Left 10/14/2016 benign PAST SURGICAL HISTORY OF 2002 colonoscopy PAST SURGICAL HISTORY OF 2002 Umbilical hernia repair PAST SURGICAL HISTORY OF 2005 Rt. bicep tendon repair PAST SURGICAL HISTORY OF 2004 Rt. AND Lt. Carpal Tunnel repair surgery PAST SURGICAL HISTORY OF 08/31/2018 excision of melanoma with skin graft SEPTOPLASTY/SUBMUCOUS RESECJ W/WO CARTILAGE GRF 1989 Septoplasty SURG TX ANAL FISTULA INTERSPHINCTERIC 09/20/2008 ALLERGIES Atorvastatin, Crestor [Rosuvastatin Calcium], Lovastatin, and Pravachol [Pravastatin Sodium] MEDICATIONS gabapentin (NEURONTIN) 300 mg capsule Take 3 capsules by mouth two times a day for 180 days. lisinopril (ZESTRIL) 40 mg tablet Take 1 tablet by mouth once daily. metFORMIN (GLUCOPHAGE) 500 mg tablet Take 2 tablets by mouth two times a day. Tadalafil (CIALIS) 20 mg tablet Take 1 tablet by mouth as needed. doxazosin (CARDURA) 4 mg tablet Take 1 tablet by mouth once daily. metroNIDAZOLE 0.75 % cream For rosacea GLUC/CHND/OM3/DHA/EPA/FISH/STR (GLUCOSAMINE CHONDROITIN PLUS ORAL) Take 2 tablets by mouth once daily. Aspirin 81 mg ORAL Tab Take 1 tablet by mouth once daily. FAMILY HISTORY Problem Relation Age of Onset Hypertension Mother Dementia Mother dec. age 92 Blood Disease Father TTP dec. age 90 Diabetes Father No Known Problems Brother Arthritis Brother knee replacements. Social History Tobacco Use Smoking status: Never Smokeless tobacco: Never Substance Use Topics Alcohol use: No Drug use: No BP 125/71 Pulse 70 Resp 16 Wt 106.6 kg (235 lb 0.2 oz) SpO2 98% BMI 32.78 kg/m? Physical Exam Vitals reviewed. Constitutional: Appearance: Normal appearance. Cardiovascular: Rate and Rhythm: Normal rate and regular rhythm. Heart sounds: Normal heart sounds. No murmur heard. Pulmonary: Effort: Pulmonary effort is normal. Breath sounds: Normal breath sounds. No wheezing, rhonchi or rales. Skin: General: Skin is warm and dry. Neurological: Mental Status: He is alert. Motor: Tremor (mild action tremor right hand only. No resting tremors noted.) present. No weakness. Gait: Gait is intact. Psychiatric: Mood and Affect: Mood normal. Health maintenance reviewed with patient: BP Controlle (more content not included)...[facility]07-17-2024 Telephone encounter Note* Telephone Encounter - Jordana Hartmann - 09/30/2023 9:09 AM EDT Prescription Refill Information The patient has been identified by name and date of : Yes Caregiver verified no other encounters exist for this prescription request: Yes Caregiver confirmed with patient/requestor that no other refills are due, in the near future, with this provider at this time: Yes The last office visit in the department: 09/02/2023 Does the patient have a future office visit with this provider/department: Yes 01/2024 Requested Prescriptions Pending Prescriptions Disp Refills gabapentin (NEURONTIN) 300 mg capsule 540 capsule 1 Sig: Take 3 capsules by mouth two times a day. Jordana Pineda September 30, 2023 9:10 AM [facility]07-17-2024 Miscellaneous Notes* Telephone Encounter - Jordana Hartmann - 09/30/2023 9:09 AM EDT Prescription Refill Information The patient has been identified by name and date of : Yes Caregiver verified no other encounters exist for this prescription request: Yes Caregiver confirmed with patient/requestor that no other refills are due, in the near future, with this provider at this time: Yes The last office visit in the department: 09/02/2023 Does the patient have a future office visit with this provider/department: Yes 01/2024 Requested Prescriptions Pending Prescriptions Disp Refills gabapentin (NEURONTIN) 300 mg capsule 540 capsule 1 Sig: Take 3 capsules by mouth two times a day. Jordana Pineda September 30, 2023 9:10 AM documented in this encounterCoshocton [facility]07-05-2024 Telephone encounter Note * Telephone Encounter - Jeny Garza MA - 09/18/2023 12:52 PM EDT Patient notified. [facility]07-05-2024 Miscellaneous Notes* Telephone Encounter - Jeny Garza MA - 09/18/2023 12:52 PM EDT Patient notified. * Telephone Encounter - Juan Alcaraz MD - 09/18/2023 11:43 AM EDT Diarrhea and Cardura are not likely to be related. * Telephone Encounter - Melody Zambrano LPN - 09/18/2023 8:06 AM EDT Patient calling, states he has had diarrhea the last couple of days and is wondering if the increase in Cardura could have caused it. Please advise. documented in this encounterCoshocton [facility] Center07-05-2024 Telephone encounter Note * Telephone Encounter - Juan Alcaraz MD - 09/18/2023 11:43 AM EDT Diarrhea and Cardura are not likely to be related. [facility]07-05-[facility] Telephone encounter Note* Telephone Encounter - Melody Zambrano LPN - 09/18/2023 8:06 AM EDT Patient calling, states he has had diarrhea the last couple of days and is wondering if the increase in Cardura could have caused it. Please advise. [facility]06-20-[facility] Telephone encounter Note* Telephone Encounter - Jamel Lopez MA - 09/03/2023 11:14 AM EDT Records request faxed via [employer] to number provided. [facility] Miscellaneous Notes* Telephone Encounter - Jamel Lopez MA - 09/03/2023 11:14 AM EDT Records request faxed via [employer] to number provided. * Telephone Encounter - Melissa Hernández RN - 09/02/2023 2:50 PM EDT Patient calling to say [facility] is asking office send request for Medical Records tothem. . He says Dr. Peterson asked him to obtain discharge summary and pertinent labs from 05/26/23 admission. Melissa Hernández RN documented in this encounterCoshocton Regional [facility] Center06-19-2024 Telephone encounter Note * Telephone Encounter - Melissa Hernández RN - 09/02/2023 2:50 PM EDT Patient calling to say [facility] is asking office send request for Medical Records tothem. . He says Dr. Peterson asked him to obtain discharge summary and pertinent labs from 05/26/23 admission. Melissa Hernández RN [facility]06-19-2024 History of Present illness Narrative* Juan Alcaraz MD - 09/02/2023 10:18 AM EDT This note was created using Quipperriter. Subjective Ozzy Dunn is a 72 year old male. He developed MRSA infection, presumably cellulitis for which he was hospitalized in [place] for 6 days around . He was seen by orthopedics and ID. No surgical procedure was done. His diabetes mellitus was controlled. Hypertension was still not at goal. Review of Systems Constitutional: Negative for fatigue, fever and unexpected weight change. HENT: Negative. Eyes: Negative for visual disturbance. Respiratory: Negative for cough and shortness of breath. Cardiovascular: Negative for chest pain, palpitations and leg swelling. Gastrointestinal: Negative for abdominal pain, constipation and diarrhea. Genitourinary: Negative for difficulty urinating, dysuria and hematuria. Musculoskeletal: Negative for arthralgias and joint swelling. Neurological: Negative for dizziness, numbness and headaches. Psychiatric/Behavioral: Negative. 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 metroNIDAZOLE 0.75 % cream For rosacea GLUC/CHND/OM3/DHA/EPA/FISH/STR (GLUCOSAMINE CHONDROITIN PLUS ORAL) Take 2 tablets by mouth once daily. Aspirin 81 mg ORAL Tab Take 1 tablet by mouth once daily. lisinopril (ZESTRIL) 40 mg tablet Take 1 tablet by mouth once daily. metFORMIN (GLUCOPHAGE) 500 mg tablet Take 2 tablets by mouth two times a day. Tadalafil (CIALIS) 20 mg tablet Take 1 tablet by mouth as needed. doxazosin (CARDURA) 4 mg tablet Take 1 tablet by mouth once daily. No current facility-administered medications for this visit. Objective BP 148/79 (BP Site: Left Arm, BP Position: Sitting, BP Cuff Size: Large Adult) Pulse 72 Temp 37C (98.6 F) (Temporal) Ht 180.3 cm (5' 11) Wt 104.3 kg (230 lb) BMI 32.08 kg/m Physical Exam Constitutional: General: He is not in acute distress. Cardiovascular: Rate and Rhythm: Normal rate and regular rhythm. Heart sounds: No murmur heard. No gallop. Pulmonary: Breath sounds: Normal breath sounds. Abdominal: Palpations: Abdomen is soft. There is no mass. Tenderness: There is no abdominal tenderness. Musculoskeletal: Left knee: Normal. Right lower leg: No edema. Left lower leg: Normal. No edema. Neurological: Mental Status: He is alert. Feet:Shoes and socks removed, No deformities, ulcers, calluses, normal distal pulses, and sensitiveto 10 gm monofilament Latest Ref Rng 08/28/2023 Glucose 74 - 99 mg/dL 109 (H) BUN 9 - 24 mg/dL 11 Creatinine 0.73 - 1.22 mg/dL 0.83 Sodium 136 - 144 mmol/L 142 Potassium 3.7 - 5.1 mmol/L 4.6 Chloride 98 - 107 mmol/L 105 CO2 22 - 30 mmol/L 23 Anion Gap 8 - 15 mmol/L 14 Calcium 8.5 - 10.2 mg/dL 9.7 eGFR >=60 mL/min/1.73m 93 Hemoglobin A1C 4.3 - 5.6 % 6.5 (H) Estimated Average Glucose mg/dL 140 Legend: (H) High Assessment and Plan 1. Medicare annual wellness visit, subsequent - ICD9: V70.0, ICD10: Z00.00 (primary diagnosis) - See wellness note. - BEHAVIORAL HEALTH SCREENING - ADVANCE CARE PLAN DISCUSSION 2. Essential hypertension - ICD9: 401.9, ICD10: I10 - Worsening control - Recommend home blood pressure monitoring, to bring results to next visit - Encouraged sodium restriction, DASH or Mediterranean diet - Reviewed risks of hypertension and principles of treatment - LISINOPRIL 40 MG TABLET - DOXAZOSIN 4 MG TABLET. Dose increased. Discussed medication dosage, usage, goals of therapy, and side effects. 3. Benign prostatic hyperplasia with incomplete bladder emptying - ICD9: 600.01, 788.21, ICD10: N40.1, R39.14 - Controlled. - DOXAZOSIN 4 MG TABLET 4. Well controlled type 2 diabetes mellitus with neurological manifestations (HCC) - ICD9: 250.60, ICD10: E11.49 - Controlled - Continue current medications - METFORMIN 500 MG TABLET - COMPREHENSIVE METABOLIC PANEL - LIPID PANEL BASIC - HEMOGLOBIN A1C - ALBUMIN/CREATININE RATIO, URINE 5. Erectile dysfunction, unspecified erectile dysfunction type - ICD9: 607.84, ICD10: N52.9 - Controlled. - TADALAFIL 20 MG TABLET 6. Need for COVID-19 vaccine - ICD9: V04.89, ICD10: Z23 - [email or web address] COVID-19 VACCINE (2022- SEASON) AGE 12+ YR 7. PSA elevation - ICD9: 790.93, ICD10: R97.20 Monitored. - PROSTATE-SPECIFIC ANTIGEN DIAGNOSTIC Juan Alcaraz MD * Juan Alcaraz MD - 09/02/2023 9:48 AM EDT Images from the original note were not included. Ozzy Dunn is a 72 year old male here for a Medicare wellness visit. Medicare Health Risk Assessment General Health Good Exercise: Minutes/Day 20 min Exercise: Days/Week 3 days Alcohol: Daily Use Never Alcohol: Drinks/Day Patient does not drink Alcohol: 6 or more drinks Never Feel off balance Yes Concerns: Teeth/Dentures No Concerns: Sexual function No Troubled by feelings None of the above Frequency: Eating healthy diet Nearly every day ADLs requiring help None of the above Safety precautions in home/vehicle Yes Smoke, vape, chews tobacco No Difficulty hearing Yes Difficulty seeing No Current Providers Specialists: I have reviewed specialist-related care of the patient in the medical record. Current care team: Patient Care Team: Juan Alcaraz MD as PCP - General (Internal Medicine) Outside specialists seen: Dr. Kyree Gamboa, Sleep Medicine. Dr. Romero Bowman, Ophthalmology. Dr. Charline Rice, PCP in [place]. Orthopedics in [place]. Infectious Disease in [place]. Medical/Family history review Reviewed and updated problem list, medical/surgical/family/social history, medications, and allergies. Opioid use review Opioid Medications (last 90 days) No data to display Anxiety/Depression screening (Lower risk for depression) Recommendation: no further intervention at this time Cognitive screening Mini Cog Score: 5 Cognitive screening reviewed and No further action needed (score 3-5). Functional Observation Was the patient's Timed Up & Go test unsteady or ? 12 seconds? No Advance Care Planning Patient did not wish or was not able to name a surrogate decision maker or provide an advance care plan Measurements BP 148/79 Pulse 72 Temp (Src) 98.6 (Temporal) Ht 5' 11 (1.80m) Wt 230 lb (104.3kg) BMI 32.09 kg/(m^2). Vision Screening: Follows with optometry/ophthalmology Right: 20/40 Left: 20/ 30 Both: 20/40 Assessment/Plan Medicare annual wellness visit, subsequent (Z00.00) - Counseled on healthy diet and regular exercise - Fall avoidance information provided - Personalized prevention plan provided - Discussed need for and benefit of weight loss. BMI 32.08 kg/(m^2) - Vaccines recommended. Covid booster now. Shingrix at the pharmacy. [facility] Telephone encounter Note * Telephone Encounter - Fifi Piña LPN - 08/28/2023 10:51 AM EDT Pt walked in for lab order. He has a wellness appt 09/01/23. [facility] Miscellaneous Notes* Telephone Encounter - Fifi Piña LPN - 08/28/2023 10:51 AM EDT Pt walked in for lab order. He has a wellness appt 09/01/23. documented in this encounterCos[facility]01[facility]17-[facility]23 Miscellaneous Notes* Telephone Encounter - Elyssa Cox - 04/01/2022 8:59 AM EST Patient has been identified by name and date of : Yes Requested Prescriptions Pending Prescriptions Disp Refills Tadalafil (CIALIS) 20 mg tab(s) 30 tablet 2 Sig: Take 1 tablet by mouth as needed. LISBETH-11/20/21 Labs-07/22/21 NOV-07/29/22 med filled 03/05/21 RX INSTRUCTIONS: Patient aware RX will be sent to pharmacy. No need to notify patient. Elyssa Cox documented in this encounterCos[facility]01-04-[facility]23 History of Present illness Narrative* Ar Moya, DANYA.RN INTENSIVE [facility]ARE UNIT - 03/19/2022 8:43 AM EST Subjective HPI Nontoxic-appearing male presents urgent care chief complaint sore throat cough nasal congestion. Duration of symptoms a week and a half. Associated symptoms sore throat cough nasal congestion eye matting discharge. Patient states today sore throat nasal pressure is most bothersome. Has not used anyOTC medications. Denies any known sick contacts. Denies any fever body aches chills productive cough chest pain shortness of breath pleuritic pain hemoptysis nausea vomiting abdominal pain change in bowel or bladder habits. Denies any visual changes eye pain pain with EOM contact lens use. No foreign bodies flashes light or floaters. Past medical history prescription medication use and allergies r eviewed. .Patient presents with: Sore Throat: Cough, congestion, watery eyes x 1.5 weeks PAST MEDICAL HISTORY Diagnosis Date Anal fistula 2008 Cyst of epididymis 09/25/2016 Added automatically from request for surgery [id number] Diverticulosis of colon (without mention of hemorrhage) 2009 Embolism and thrombosis of unspecified site 10/09/2008 Postoperative DVT Epididymal cyst 10/14/2016 benign, excised Esophageal reflux 04/11/2008 Hemorrhage of rectum and anus HEMORRHOIDS EXTERNAL 09/18/2008 HTN (hypertension) no meds HYPERLIPIDEMIA NEC/NOS 04/11/2008 HYPERTENSION NOS 2008 Hypertrophy of prostate without urinary obstruction and other lower urinary tract symptoms (LUTS) 04/11/2008 Malignant melanoma of scalp (HCC) 09/22/2018 Removed August 2018 by plastic surgeon with [facility]. Early stage, no further treatment ROSE (obstructive sleep apnea) on CPAP ROSE on CPAP 04/11/2008 On CPAP Otalgia of left ear 12/21/2010 Recurrent. ENT, Dr. Rangel Snoring THROMBOPHLEBITIS NOS 10/09/2008 Type II or unspecified type diabetes mellitus without mention of complication, not stated as uncontrolled 06/07/2010 PAST SURGICAL HISTORY Procedure Laterality Date ARTHROPLASTY TOTAL SHOULDER Left 09/25/2020 COLONOSCOPY FLX DX W/COLLJ SPEC WHEN PFRMD 09/18/2008 Ext. hemorrhoid with left post. fistula COLONOSCOPY FLX DX W/COLLJ SPEC WHEN PFRMD 10/20/2018 Colonoscopy EPIDIDYMECTOMY UNILATERAL Left 10/14/2016 benign PAST SURGICAL HISTORY OF 2002 colonoscopy PAST SURGICAL HISTORY OF 2002 Umbilical hernia repair PAST SURGICAL HISTORY OF 2005 Rt. bicep tendon repair PAST SURGICAL HISTORY OF 2004 Rt. & Lt. Carpal Tunnel repair surgery PAST SURGICAL HISTORY OF 08/31/2018 excision of melanoma with skin graft SEPTOPLASTY/SUBMUCOUS RESECJ W/WO CARTILAGE GRF 1989 Septoplasty SURG TX ANAL FISTULA INTERSPHINCTERIC 09/20/2008 ALLERGIES Atorvastatin, Crestor [Rosuvastatin Calcium], Lovastatin, and Pravachol [Pravastatin Sodium] MEDICATIONS doxazosin (CARDURA) 2 mg tablet Take 1 tablet by mouth once daily. gabapentin (NEURONTIN) 300 mg capsule Take 2 capsules by mouth twice daily for 180 days. Psyllium Husk-Aspartame (METAMUCIL MULTIHEALTH FIBER) 3.4 gram/5.8 gram powd Take 1 Tablespoonful by mouth three times a week. nystatin (MYCOSTATIN) cream Apply 1 application to affected area three times daily. metFORMIN (GLUCOPHAGE) 500 mg tablet Take 2 tablets by mouth twice daily. lisinopril (ZESTRIL, PRINIVIL) 40 mg tablet Take 1 tablet by mouth once daily. Tadalafil (CIALIS) 20 mg tab(s) Take 1 tablet by mouth as needed. GLUC/CHND/OM3/DHA/EPA/FISH/STR (GLUCOSAMINE CHONDROITIN PLUS ORAL) Take 2 tablets by mouth once daily. [place]-3 Fatty Acids 500 mg cap Take by mouth once daily. Aspirin 81 mg ORAL Tab Take 1 tablet by mouth once daily. FAMILY HISTORY Problem Relation Age of Onset Hypertension Mother Dementia Mother dec. age 92 Blood Disease Father TTP dec. age 90 Diabetes Father No Known Problems Brother Arthritis Brother knee replacements. Social History Tobacco Use Smoking status: Never Smokeless tobacco: Never Substance Use Topics Alcohol use: No Drug use: No BP 158/78 Pulse 93 Temp 37.5 C (99.5 F) Resp 21 Wt 107.2 kg (236 lb 6.4 oz) SpO2 95% BMI 32.06 kg/m Review of Systems Constitutional: Negative for chills, fever and malaise/fatigue. HENT: Positive for congestion, sinus pain and sore throat. Negative for ear discharge and ear pain. Eyes: Positive for discharge and redness. Negative for blurred vision, double vision, photophobia and pain. Respiratory: Positive for cough. Negative for hemoptysis, sputum production, shortness of breath, wheezing and stridor. Cardiovascular: Negative for chest pain. Gastrointestinal: Negative for abdominal pain, diarrhea, nausea and vomiting. Musculoskeletal: Negative for myalgias. Skin: Negative for itching and rash. Neurological: Negative for dizziness and headaches. Objective Physical Exam Constitutional: General: He is not in acute distress. Appearance: He is not diaphoretic. HENT: Head: Normocephalic. Right Ear: Tympanic membrane, ear canal and external ear normal. Left Ear: Tympanic membrane, ear canal and external ear normal. Mouth/Throat: Mouth: Mucous membranes are moist. Pharynx: Oropharynx is clear. No oropharyngeal exudate or posterior oropharyngeal erythema. Eyes: General: Lids are normal. Right eye: Discharge present. No foreign body. Left eye: Discharge present.No foreign body or hordeolum. Conjunctiva/sclera: Right eye: Right conjunctiva is injected. Exudate present. No chemosis or hemorrhage. Left eye: Left conjunctiva is injected. Exudate present. No chemosis or hemorrhage. Pupils: Pupils are equal, round, and reactive to light. Comments: Limbus clear. Visual acuity unchanged via bedside examination. Cardiovascular: Rate and Rhythm: Normal rate and regular rhythm. Heart sounds: Normal heart sounds. Pulmonary: Effort: Pulmonary effort is normal. No tachypnea, accessory muscle usage or respiratory distress. Breath sounds: Normal breath sounds. No stridor. No wheezing, rhonchi or rales. Abdominal: General: There is no distension. Palpations: Abdomen is soft. Tenderness: There is no abdominal tenderness. There is no guarding or rebound. Musculoskeletal: Cervical back: Normal range of motion and neck supple. No rigidity or tenderness. Lymphadenopathy: Cervical: No cervical adenopathy. Skin: General: Skin is warm and dry. Neurological: Mental Status: He is alert and oriented to person, place, and time. ASSESSMENT/PLAN: 1. Bacterial conjunctivitis - ICD9: 372.39, 041.9, ICD10: H10.9 (primary diagnosis) 2. Sinobronchitis - ICD9: 473.9, 490, ICD10: J32.9, J40 Patient diagnosed with bacterial conjunctivitis. Will be placed on Polytrim. Will be placed on antibiotic for increased sinus pressure drainage and cough. Chest x-ray offered declined testing at thistime. Follow-up with PCP 2 to 3 days reevaluation. Red flags for prompt reevaluation discussed. Patient was educated on supportive therapies. Patient will follow up with primary care provider as needed. Patient was instructed to immediately proceed to emergency room for any new, worsening, or symptoms lasting longer than anticipated. The patient's clinical presentation is otherwise unremarkable at this time. Based on exam and clinical finding, the patient is stable for discharge. Plan of care was discussed with patient. Patient verbalizes understanding and agrees to plan of care. This note was generated using Bilibot software. It may contain errors in wording, punctuation, or spelling. Ar Moya APRN.CNP documented in this encounterCos[facility]09-27-2022 Miscellaneous Notes* Telephone Encounter - Jen Fontenot APRN.CNP - 12/10/2021 2:07 PM EDT The following approved medication requests have been transmitted electronically. Requested Prescriptions Signed Prescriptions Disp Refills gabapentin (NEURONTIN) 300 mg capsule 120 capsule 5 Sig: Take 2 capsules by mouth twice daily for 180 days. Authorizing Provider: JEN FONTENOT APRN.CNP * Telephone Encounter - Kristy Santana RN - 12/10/2021 1:23 PM EDT [facility] states they never received script for gabapentin 300 mg take 2 capsules twice a day, that was sent on 09/17/21. Patient requesting script be sent. He is almost out of medication. Thank you. documented in this encounterCos[facility]09-27-2022 Miscellaneous Notes* Telephone Encounter - Kristy Santana RN - 12/10/2021 1:25 PM EDT Contacted patient and questions answered. See refill request for gabapentin placed today. Kristy Santana RN * Telephone Encounter - Renetta Reece LPN - 12/10/2021 11:40 AM EDT Please triage. Renetta Reece LPN * Telephone Encounter - Jordana Pineda - 12/10/2021 10:29 AM EDT Patient is calling in regards to his gabapentin 300 mg capsule, that he has been taking two of the gabapentin twice daily , which is 4 a day. 270 is 90 day supply. He said the RX the pharmacy gave him was for 270 pills, but reads take one three times a day. He would like someone to call him to explain the correct dosage and if need be send a new prescription as the pharmacy said he can not get the refill until 03 of January as he was to only take one pill 3x day. documented in this encounterCos[facility]09-27-2022 Miscellaneous Notes* Telephone Encounter - Renetta Reece LPN - 12/10/2021 10:57 AM EDT Patient has been identified by name and date of : Yes Patient phones for refill(s): Requested Prescriptions Pending Prescriptions Disp Refills doxazosin (CARDURA) 2 mg tablet 90 tablet 3 Sig: Take 1 tablet by mouth once daily. Date of last office visit in primary care: 11/20/2021 Medicare Wellness: 02/25/2022 Last 2 Encounter Wt Readings: Date: Wt: 07/26/2021 108 kg (238 lb) 04/05/2021 110.2 kg (243 lb) Previous labs/tests for medication: Blood Pressure: BUN (mg/dL) Date Value 07/22/2021 16 08/28/2020 20 Sodium (mmol/L) Date Value 07/22/2021 139 08/28/2020 140 Last 1 Encounter BP Readings: Date: BP: 07/26/2021 110/60 Please advise. Thank you. Renetta Reece LPN * Telephone Encounter - Jordana Pineda - 12/10/2021 10:38 AM EDT Patient has been identified by name and date of : Yes Requested Prescriptions Pending Prescriptions Disp Refills doxazosin (CARDURA) 2 mg tablet 90 tablet 3 Sig: Take 1 tablet by mouth once daily. RX INSTRUCTIONS: Patient aware RX will be sent to pharmacy. No need to notify patient. [facility] documented in this encounterCos[facility]09-07-2022 Instructions* Patient Instructions* Juan Alcaraz MD - 11/20/2021 5:23 PM EDT FACT SHEET FOR PATIENTS, PARENTS, AND CAREGIVERS EMERGENCY USE AUTHORIZATION (EUA) OF PAXLOVID FOR CORONAVIRUS DISEASE 2019 (COVID-19) You are being given this Fact Sheet because your healthcare provider believes it is necessary to provide you with PAXLOVID for the treatment of ajwo-lw-yjfmkwla coronavirus disease (COVID-19) caused by the SARS-CoV-2 virus. This Fact Sheet contains information to help you understand the risks and benefits of taking the PAXLOVID you have received or may receive. The U.S. Food and Drug Administration (FDA) has issued an Emergency Use Authorization (EUA) to makePAXLOVID available during the COVID-19 pandemic (for more details about an EUA please see What is an Emergency Use Authorization? at the end of this document). PAXLOVID is not an FDA-approved medicine in the [place]. Read this Fact Sheet for information about PAXLOVID. Talk to your healthcareprovider about your options or if you have any questions. It is your choice to take PAXLOVID. What is COVID-19? COVID-19 is caused by a virus called a coronavirus. You can get COVID-19 through close contact withanother person who has the virus. COVID-19 illnesses have ranged from very gqza-ym-afsypu, including illness resulting in . While information so far suggests that most COVID-19 illness is mild, serious illness can happen and maycause some of your other medical conditions to become worse. Older people and people of all ages with severe, long lasting (chronic) medical conditions like heart disease, lung disease, and diabetes,for example seem to be at higher risk of being hospitalized for COVID-19. What is PAXLOVID? PAXLOVID is an investigational medicine used to treat cuyh-ch-amtegqoa COVID-19 in adults and children [12 years of age and older weighing at least 88 pounds (40 kg)] with positive results of direct SARS-CoV-2 viral testing, and who are at high risk for progression to severe COVID-19, including hospitalization or . PAXLOVID is investigational because it is still being studied. There is limited information about the safety and effectiveness of using PAXLOVID to treat people with jxlt-sv-mhgveocs COVID-19. The FDA has authorized the emergency use of PAXLOVID for the treatment of lyob-uq-sknahftm COVID-19in adults and children [12 years of age and older weighing at least 88 pounds (40 kg)] with a positive test for the virus that causes COVID-19, and who are at high risk for progression to severe COVID-19, including hospitalization or , under an EUA. 1 Revised: 31 May 2021 What should I tell my healthcare provider before I take PAXLOVID? Tell your healthcare provider if you: Have any allergies Have liver or kidney disease Are or plan to become Are a child Have any serious illnesses Tell your healthcare provider about all the medicines you take, including prescription and dhef-gko-ictekvj medicines, vitamins, and herbal supplements. Some medicines may interact with PAXLOVID and may cause serious side effects. Keep a list of your medicines to show your healthcare provider and pharmacist when you get a new medicine. You can ask your healthcare provider or pharmacist for a list of medicines that interact with PAXLOVID. Do not start taking a new medicine without telling your healthcare provider. Your healthcare provider can tell you if it is safe to take PAXLOVID with other medicines. Tell your healthcare provider if you are taking combined hormonal contraceptive. PAXLOVID may affect how your control pills work. Females who are able to become should use another effective alternative form of contraception or an additional barrier method of contraception. Talk to your healthcare provider if you have any questions about contraceptive methods thatmight be right for you. How do I take PAXLOVID? PAXLOVID consists of 2 medicines: nirmatrelvir and ritonavir. Take 2 pink tablets of nirmatrelvir with 1 white tablet of ritonavir by mouth 2 times each day (in the morning and in the evening) for 5 days. For each dose, take all 3 tablets at the same time. If you have kidney disease, talk to your healthcare provider. You may need a different dose. Swallow the tablets whole. Do not chew, break, or crush the tablets. Take PAXLOVID with or without food. Do not stop taking PAXLOVID without talking to your healthcare provider, even if you feel better. If you miss a dose of PAXLOVID within 8 hours of the time it is usually taken, take it as soon as you remember. If you miss a dose by more than 8 hours, skip the missed dose and take the next dose atyour regular time. Do not take 2 doses of PAXLOVID at the same time. If you take too much PAXLOVID, call your healthcare provider or go to the nearest hospital emergency room right away. If you are taking a ritonavir-or cobicistat-containing medicine to treat hepatitis C or Human Immunodeficiency Virus (HIV), you should continue to take your medicine as prescribed by your healthcare provider. Talk to your healthcare provider if you do not feel better or if you feel worse after 5 days. Who should generally not take PAXLOVID? Do not take PAXLOVID if: You are allergic to nirmatrelvir, ritonavir, or any of the ingredients in PAXLOVID You are taking any of the following medicines: Alfuzosin Pethidine, propoxyphene Ranolazine Amiodarone, dronedarone, flecainide, propafenone, quinidine Colchicine Lurasidone, pimozide, clozapine Dihydroergotamine, ergotamine, methylergonovine Lovastatin, simvastatin Sildenafil (Revatio ) for pulmonary arterial hypertension (PAH) Triazolam, oral midazolam Apalutamide Carbamazepine, phenobarbital, phenytoin Rifampin Pangburn s Wort (hypericum perforatum) Taking PAXLOVID with these medicines may cause serious or life-threatening side effects or affect how PAXLOVID works. These are not the only medicines that may cause serious side effects if taken with PAXLOVID. PAXLOVID may increase or decrease the levels of multiple other medicines. It is very important to tell your healthcare provider about all of the medicines you are taking because additional laboratory tests or changes in the dose of your other medicines may be necessary while you are taking PAXLOVID. Your healthcare provider may also tell you about specific symptoms to watch out for that may indicate that you need to stop or decrease the dose of some of your other medicines. What are the important possible side effects of PAXLOVID? Possible side effects of PAXLOVID are: Allergic Reactions. Allergic reactions can happen in people taking PAXLOVID, even after only 1 dose. Stop taking PAXLOVID and call your healthcare provider right away if you get any of the following symptoms of an allergic reaction: hives trouble swallowing or breathing swelling of the mouth, lips, or face throat tightness hoarseness skin rash Liver Problems. Tell your healthcare provider right away if you have any of these signs and symptoms of liver problems: loss of appetite, yellowing of your skin and the whites of eyes (jaundice), dark-colored urine, pale colored stools and itchy skin, stomach area (abdominal) pain. Resistance to HIV Medicines. If you have untreated HIV infection, PAXLOVID may lead to some HIV medicines not working as well in the future. Other possible side effects include: altered sense of taste diarrhea high blood pressure muscle aches These are not all the possible side effects of PAXLOVID. Not many people have taken PAXLOVID. Serious and unexpected side effects may happen. PAXLOVID is still being studied, so it is possible that all of the risks are not known at this time. What other treatment choices are there? Veklury (remdesivir) is FDA-approved for the treatment of jxqe-ad-piyitjus COVID-19 in certain adults and children. Talk with your doctor to see if Veklury is appropriate for you. Like PAXLOVID, FDA may also allow for the emergency use of other medicines to treat people with COVID-19. Go to https://www.fda.gov/zhtgdhfwz-imbrudtpvcih-zsdcvepeitf/knd-iwnbo-adlqxbexpv-and- policy-framework/womlvoona-ttr-pibdkarbusmng for information on the emergency use of other medicines that are authorized by FDA to treat people with COVID-19. Your healthcare provider may talk with you aboutclinical trials for which you may be eligible. It is your choice to be treated or not to be treated with PAXLOVID. Should you decide not to receive it or for your child not to receive it, it will not change your standard medical care. What if I am or ? There is piano mechanic treating women or mothers with PAXLOVID. For a motherand unborn baby, the benefit of taking PAXLOVID may be greater than the risk from the treatment. Ifyou are , discuss your options and specific situation with your healthcare provider. It is recommended that you use effective barrier contraception or do not have sexual activity whiletaking PAXLOVID. If you are , discuss your options and specific situation with your healthcare provider. How do I report side effects with PAXLOVID? Contact your healthcare provider if you have any side effects that bother you or do not go away. Report side effects to [employer] at www.fda.gov/medwatch or call 7-759-RAP9129 or you can reportside effects to [facility]. at the contact information provided below. Website Fax number Telephone number [email or web address] How should I store PAXLOVID? Store PAXLOVID tablets at room temperature, between 68?F to 77?F (20?C to 25?C). How can I learn more about COVID-19? Ask your healthcare provider. Visit https://www.cdc.gov/COVID19. Contact your local or state public health department. What is an Emergency Use Authorization (EUA)? The [place] FDA has made PAXLOVID available under an emergency access mechanism called an Emergency Use Authorization (EUA). The EUA is supported by a [place] of Health and Human Service (HHS) declaration that circumstances exist to justify the emergency use of drugs and biological productsduring the COVID-19 pandemic. PAXLOVID for the treatment of uajf-ps-teuxblxi COVID-19 in adults and children [12 years of age andolder weighing at least 88 pounds (40 kg)] with positive results of direct SARS-CoV-2 viral testing, and who are at high risk for progression to severe COVID-19, including hospitalization or , has not undergone the same type of review as an FDA-approved product. In issuing an EUA under the COVID-19 public health emergency, the FDA has determined, among other things, that based on the total amount of scientific evidence available including data from adequate and well-controlled clinical trials, if available, it is reasonable to believe that the product may be effective for diagnosing, treating, or preventing COVID-19, or a serious or life-threatening disease or condition caused by COVID-19; that the known and potential benefits of the product, when used to diagnose, treat, or prevent such disease or condition, outweigh the known and potential risks of such product; and that there are no adequate, approved, and available alternatives. All of these criteria must be met to allow for the product to be used in the treatment of patients during the COVID-19 pandemic. The EUA for PAXLOVID is in effect for the duration of the COVID-19 declaration justifying emergency use of this product, unless terminated or revoked (after which the products may no longer be used under the EUA). Additional Information For general questions, visit the website or call the telephone number provided below. Website Telephone number [email or web address] (9-801-R28-PTGX) You can also go to www.[employer] or call for more information. Pfizer Distributed by [employer] Division of [place] [address] [id number] Revised: 31 May 2021 documented in this encounterCos[facility] History of Present illness Narrative* Juan Alcaraz MD - 11/20/2021 5:04 PM EDT Telemedicine Evaluation for COVID-19 Infection Audio only was used for evaluation of this patient. Location of patient: [facility] Ozzy Dunn is a 71 year old male who presents with 1 day of symptoms that are stable. Symptoms include: Fever (?100.4F): No or Chills: Yes Cough: Yes Shortness of breath: No or Difficulty breathing: No Fatigue: Yes Muscle aches: No Headache: Yes New loss of smell or taste: No Sore throat: Yes Nasal congestion: Yes or Rhinorrhea: No Nausea: No or Vomiting: No Diarrhea: No OTC meds/remedies that patient has tried: acetaminophen. High risk category assessment Age > 60 years old Diabetes Hypertension Exposures: Sick contacts? Yes Family or close contacts with confirmed/probable COVID-19 in last 14 days? Yes He reports that he has never smoked. He has never used smokeless tobacco. OBJECTIVE Conversant in full sentences. No wheezing, no audible respiratory distress. Coughing occasionally. ASSESSMENT/PLAN (U07.1) COVID-19 (primary encounter diagnosis) - Discussed symptom monitoring and supportive care - Red flag symptoms requiring follow up discussed Nirmatrelvir/Ritonavir (Paxlovid) Eligibility and Patient Discussion [facility] Formul[facility] Restriction Criteria: Adult outpatients 18 years and older with ALL of the following: [x] Patient has positive SARS-COV-2 viral test (PCR or antigen test) during current illness [x] Patient has symptoms for 5 days or less [x] Not requiring hospitalization at any time for management of COVID-19 [x] Not requiring supplemental oxygen or a change in baseline supplemental oxygen [] Not utilized for pre-exposure or post-exposure prophylaxis for prevention of COVID-19 [x] Patient does not have severe renal impairment (eGFR < 30 mL/min) or severe hepatic impairment (Child-[place] Class C) [] Meeting at least one of the criteria for high risk of progression to severe COVID-19: [x] Age over 65 years [] Cancer [] Chronic kidney disease [] Chronic liver disease [] Chronic lung diseases, including cystic fibrosis [] Dementia or other neurological conditions [x] Diabetes (type 1 or type 2) [] Disabilities, including Down syndrome and neurodevelopmental disorders [] Heart conditions [] HIV infection [] Immunocompromised state [] Mental health conditions [] Medical related technological dependence (tracheostomy, gastrostomy, or positive pressure ventilation (not related to COVID) [x] Overweight and obesity (BMI greater or equal to 25 for adults) [] Physical inactivity [] [] Sickle cell disease or thalassemia [] Smoking, current or former [] Solid organ or blood stem cell transplant [] Stroke or cerebrovascular disease [] Substance use disorders [] Tuberculosis [] People from racial and ethnic minority groups Criteria above are met: Yes Date of Positive Test:11/20/21 Date of Symptom Onset: 11/19/2021 Patient received COVID vaccine: Yes Drug-Drug interactions reviewed: Yes. No drug interactions were identified. I have discussed the use of the investigational therapeutic, nirmatrelvir/ritonavir, for the treatment of mild to moderate COVID-19 and its use under Emergency Use Authorization with the patient. The patient was informed that nirmatrelvir/ritonavir is not an FDA approved drug and that it is authorized for use under this Emergency Use Authorization. The patient was also informed of the significant known benefits and potential risks of nirmatrelvir/ritonavir, and the extent to which such potential risks and benefits are unknown. The patient was informed that there is mandatory reporting of all medication errors and serious adverse events potentially related to nirmatrelvir/ritonavir treatment within 7 calendar days from the onset of the event and that events up to 28 days after completion of therapy need to be reported. The discussion included alternatives to receiving nirmatrelvir/rit onavir, including clinical trials, and potential the risks and benefits of those alternatives. The patient was provided electronically with the Fact Sheet for Patients, Parents and Caregivers. The patient was also instructed that in addition to the treatment with nirmatrelvir/ritonavir, he/she should continue to self-isolate and use infection control measures (e.g., wear mask, isolate, social distance, avoid sharing personal items, clean and disinfect high touch surfaces, and frequent h andwashing) according to CDC guidelines. The patient stated understanding and gave verbal consent to proceeding with nirmatrelvir/ritonavir treatment. I spent 25 minutes for this phone encounter. Pharmacy choice clarified. Juan Alcaraz MD November 20, 2021 5:15 PM documented in this encounterCoshocton [facility]09-07-2022 Miscellaneous Notes* Telephone Encounter - Catalino Seals RN - 11/20/2021 4:13 PM EDT Left vm asking patient if he wants to have VV today, with Dr. Alcaraz instead of King Hernandez, tomorrow. Patient is scheduled for both. Asked patient to return call to let nurse know. documented in this encounterCoshocton [facility]07-05-2022 Miscellaneous Notes* Telephone Encounter - Jamel Lopez Ma - 09/17/2021 1:31 PM EDT Patient notified, verbalized understanding. Jamel Lopez Ma * Telephone Encounter - Juan Alcaraz MD - 09/17/2021 12:54 PM EDT He can increase gabapentin 300 mg to two capsules twice a day (4 capsules per day total). * Telephone Encounter - Kristy Santana RN - 09/17/2021 9:04 AM EDT Patient states he was recently ordered Lyrica for his neuropathy due to increased gabapentin not being very effective for him. Patient calling to update Dr. Little that after about 2 days of takingthe Lyrica, he was feeling not like himself, did not feel in control of himself and words weren't; coming to him as normal. He has stopped the Lyrica and is back to taking the Gabapentin 300mg three times a day now with some effect. Patient asking if there is any other medication he can try for his neuropathy or other advise? Please advise patient. Thank you. documented in this encounterCoshocton [facility] Center06-29-2022 Miscellaneous Notes* Telephone Encounter - Fifi Piña LPN - 09/11/2021 3:06 PM EDT PA reviewed for 100mg pregabalin and this is the response. Ninoska DUNN (Turner: [id number]) Rx #: [id number] Pregabalin 100MG capsules Form [employer] Electronic PA Form (2017 NCPDP) Created 2 days ago Sent to Plan less than a minute ago Plan Response less than a minute ago Submit Clinical Questions Determination N/A Message from Plan The patient currently has access to the requested medication and a Prior Authorization is not needed for the patient/medication. * Telephone Encounter - Fifi Piña LPN - 09/11/2021 12:01 PM EDT rec'd approval from 03/16/2021 to 09/05/2022. * Telephone Encounter - Fifi Piña LPN - 09/11/2021 11:20 AM EDT PA complete via covermymeds for pregabalin 75 mg. This has been approved. Pharmacy notified. documented in this encounterCoshocton [facility]06-25-2022 Miscellaneous Notes* Telephone Encounter - Juan Alcaraz MD - 09/07/2021 11:56 PM EDT Patient's request for medication is as follows Signed Prescriptions Disp Refills pregabalin (LYRICA) 75 mg capsule 21 capsule 0 Sig: Take 1 capsule by mouth three times daily for 7 days. GARRETT Class: C-V Authorizing Provider: JUAN ALCARAZ pregabalin (LYRICA) 100 mg capsule 90 capsule 2 Sig: Take 1 capsule by mouth three times daily for 90 days. Do not start before September 13, 2021. GARRETT Class: C-V Authorizing Provider: JUAN ALCARAZ Order entered - please phone pharmacy and notify patient. Juan Alcaraz MD * Telephone Encounter - Melody Zambrano LPN - 09/07/2021 9:39 AM EDT Patient would like to try Lyrica. Would like Rx sent to [facility] in [place]. * Telephone Encounter - Juan Alcaraz MD - 09/06/2021 11:18 PM EDT We can continue titrating the gabapentin medication up, or try different medication called Lyrica. Lyrica may need prior authorization. Side effect profiles are similar. * Telephone Encounter - Melissa Hernández RN - 09/05/2021 2:39 PM EDT Patient calling to let PCP know that neuropathy symptoms have not improved much with increased dose of Gabapentin. 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 Melissa Hernández RN documented in this encounterCoshocton [facility] Center05-13-2022 History of Present illness Narrative* Juan Alcaraz MD - 07/26/2021 10:25 AM EDT This note was created using [employer]. Subjective Ozzy Dunn is a 70 year old male. His neuropathy was more bothersome during the day, with activity, 3/10 in severity. He was practically taking gabapentin BID, because he was not home during mid day on most days. Constipation was noted the past year. Metamucil helped. was wondering about colonoscopy. No bleeding was noted. He saw [facility] for actinic keratosis and was started on Efudex. Review of Systems Constitutional: Negative. Negative for unexpected weight change. Respiratory: Negative for shortness of breath. Cardiovascular: Negative for chest pain, palpitations and leg swelling. Gastrointestinal: Positive for constipation. Negative for abdominal pain, blood in stool, diarrhea,nausea and vomiting. Genitourinary: Negative for difficulty urinating. ACTIVE PROBLEM LIST Rose On Cpap Esophageal Reflux Male Erectile Dysfunction, Unspecified Benign Prostatic Hyperplasia With Incomplete Bladder Emptying Essential Hypertension Well Controlled Type 2 Diabetes Mellitus With Neurological Manifestations (Hcc) Hyperlipidemia Obesity, Class I, Bmi 30-34.9 Malignant Melanoma of Scalp (Hcc) Psa Elevation Current Outpatient Medications Medication Sig nystatin (MYCOSTATIN) cream Apply 1 application to affected area three times daily. metFORMIN (GLUCOPHAGE) 500 mg tablet Take 2 tablets by mouth twice daily. lisinopril (ZESTRIL, PRINIVIL) 40 mg tablet Take 1 tablet by mouth once daily. gabapentin (NEURONTIN) 300 mg capsule Take 1 capsule by mouth three times daily for 180 days. Tadalafil (CIALIS) 20 mg tab(s) Take 1 tablet by mouth as needed. doxazosin (CARDURA) 2 mg tablet Take 1 tablet by mouth once daily. GLUC/CHND/OM3/DHA/EPA/FISH/STR (GLUCOSAMINE CHONDROITIN PLUS ORAL) Take 2 tablets by mouth once daily. [place]-3 Fatty Acids (FISH OIL) 500 mg cap Take by mouth once daily. Aspirin 81 mg ORAL Tab Take 1 tablet by mouth once daily. No current facility-administered medications for this visit. Objective BP 110/60 (BP Site: Left Arm, BP Position: Sitting) Pulse 76 Temp 36.5 C (97.7 F) Resp 12 Ht 182.9 cm (6') Wt 108 kg (238 lb) SpO2 98% BMI 32.28 kg/m Physical Exam Constitutional: Appearance: He is not ill-appearing. Cardiovascular: Rate and Rhythm: Normal rate and regular rhythm. Heart sounds: No murmur heard. No gallop. Pulmonary: Effort: Pulmonary effort is normal. Breath sounds: Normal breath sounds. Abdominal: General: There is no distension. Palpations: Abdomen is soft. There is no mass. Tenderness: There is no abdominal tenderness. Musculoskeletal: Right lower leg: No edema. Left lower leg: No edema. Neurological: Mental Status: He is alert. Gait: Gait normal. Component Latest Ref Rng & Units 07/22/2021 Protein, Total 6.3 - 8.0 g/dL 7.3 Albumin 3.9 - 4.9 g/dL 4.5 Calcium 8.5 - 10.2 mg/dL 9.7 Bilirubin, Total 0.2 - 1.3 mg/dL 0.5 Alkaline Phosphatase 38 - 113 U/L 51 AST 14 - 40 U/L 27 ALT 10 - 54 U/L 34 Glucose 74 - 99 mg/dL 132 (H) BUN 9 - 24 mg/dL 16 Creatinine 0.73 - 1.22 mg/dL 0.99 Sodium 136 - 144 mmol/L 139 Potassium 3.7 - 5.1 mmol/L 4.6 Chloride 97 - 105 mmol/L 101 CO2 22 - 30 mmol/L 28 Anion Gap 9 - 18 mmol/L 10 eGFR >=60 mL/min/1.73m 82 WBC 3.70 - 11.00 k/uL 6.36 RBC 4.20 - 6.00 m/uL 5.04 Hemoglobin 13.0 - 17.0 g/dL 14.7 Hematocrit 39.0 - 51.0 % 45.8 MCV 80.0 - 100.0 fL 90.9 MCH 26.0 - 34.0 pg 29.2 MCHC 30.5 - 36.0 g/dL 32.1 RDW-CV 11.5 - 15.0 % 13.5 Platelet Count 150 - 400 k/uL 212 MPV 9.0 - 12.7 fL 8.6 (L) Absolute nRBC <0.01 k/uL <0.01 Creatinine, Ur Random (UCRR) 20.0 - 300.0 mg/dL 180.6 Albumin, Urine Random mg/L <12.0 Albumin/Creat Ratio <30 mg/g <7 Hemoglobin A1C 4.3 - 5.6 % 6.8 (H) Estimated Average Glucose mg/dL 148 PSA <2.60 ng/mL 3.02 (H) Assessment and Plan 1. Constipation, unspecified constipation type - ICD9: 564.00, ICD10: K59.00 (primary diagnosis) - METAMUCIL MULTIHEALTH FIBER 3.4 GRAM/5.8 GRAM ORAL POWDER. Take 3 times a week. - FECAL OCCULT BLOOD TEST. Discussed medication dosage, usage, goals of therapy, and side effects. 2. Well controlled type 2 diabetes mellitus with neurological manifestations (HCC) - ICD9: 250.60, ICD10: E11.49 Neuropathy not well controlled. - GABAPENTIN 300 MG CAPSULE. Change to 600 mg every AM and 300 mg every PM. - BASIC METABOLIC PNL - HGB A1C 3. Essential hypertension - ICD9: 401.9, ICD10: I10 - good control 4. Hyperlipidemia, unspecified hyperlipidemia type - ICD9: 272.4, ICD10: E78.5 - to be determined upon return of lab results - Continue current medication. Juan Alcaraz MD documented in this encounterCoshocton [facility]05-09-2022 Miscellaneous Notes* Telephone Encounter - Jen Fontenot APRN.RN [facility] - 07/22/2021 10:18 AM EDT Noted Jen Fontenot APRN.CNP * Telephone Encounter - Ashanti Pena LPN - 07/22/2021 9:13 AM EDT Manual Readin/78 Pulse: 72 BP Alfredo average: 126/71 P: 70 Repeat BP Check: 132/75 P72 #1 132/73 P69 #2 129/69 P71 #3 127/69 P69 #4 122/69 P70 #5 114/68 P70 #6 Reason for blood pressure check - Last BP elevated Patient is: Taking medication as prescribed Yes Took medication today Yes If no, date medication last taken N/A Experiencing side effects No BP was elevated at appt 04/05/21 with UC. Taking all medications as prescribed. Denies any chest pain, shortness of breath, dizziness, or headaches. Daily caffeine use. No personal history of tobacco use; no current exposure. Alert and oriented. Pt has been identified by name and birthdate: Yes Allergies reviewed: Yes Latex allergy: no. Medication - prescribed and OTC reviewed and updated: Yes Do you need any prescription refills prior to your next visit: No Health Maintenance: Reviewed and not up to date and provider notified Patient advised to continue with current medications and would be contacted if any further instructions after review by PCP. Ashanti Pena LPN documented in this encounterCoshocton [facility]05-09-2022 History of Present illness Narrative* Ashanti Pena LPN - 07/22/2021 8:58 AM EDT Manual Readin/78 Pulse: 72 BP Alfredo average: 126/71 P: 70 Repeat BP Check: 132/75 P72 #1 132/73 P69 #2 129/69 P71 #3 127/69 P69 #4 122/69 P70 #5 114/68 P70 #6 Reason for blood pressure check - Last BP elevated Patient is: Taking medication as prescribed Yes Took medication today Yes If no, date medication last taken N/A Experiencing side effects No BP was elevated at appt 04/05/21 with UC. Taking all medications as prescribed. Denies any chest pain, shortness of breath, dizziness, or headaches. Daily caffeine use. No personal history of tobacco use; no current exposure. Alert and oriented. Pt has been identified by name and birthdate: Yes Allergies reviewed: Yes Latex allergy: no. Medication - prescribed and OTC reviewed and updated: Yes Do you need any prescription refills prior to your next visit: No Health Maintenance: Reviewed and not up to date and provider notified Patient advised to continue with current medications and would be contacted if any further instructions after review by PCP. Ashanti Pena LPN documented in this encounterCoshocton [facility] Center07-13-2017 History of Past illness Narrative* Problem Noted Date Resolved Date Cyst of epididymis 09/25/2016 03/04/2018 Overview: Added automatically from request for surgery [id number] Backache 01/10/2014 10/27/2016 Pain in limb 01/10/2014 05/25/2015 Pain in joint, pelvic region and thigh 4 05/25/2015 Diabetic peripheral neuropathy 11/10/2013 1 05/05/2017 DJD (degenerative joint disease) of cervical spi ne 03/24/2013 10/27/2016 Overview: Dr. Salinas for pain management. Numbness and tingling of foot 10/19/2012 Pain in joint, shoulder region 06/19/2010 1 Skin tags 12/26/2008 12/20/2010 Phlebitis and thrombophlebitis of unspecified si te 10/09/2008 12/20/2010 Embolism and thrombosis of unspecified site 09/1412/20/2010 DIVERTICULOSIS COLON - NO HEMORRHAGE 09/18/2008 12/20/2010 FISTULA ANAL 09/18/2008 12/20/2010 HEMORRHOIDS EXTERNAL 09/18/2008 12/20/2010 HYPERGLYCEMIA 04/14/2008 12/20/2010 OVERWEIGHT 04/11/2008 03/04/2018 documented as of this encounter (statuses as of 07/22/2021) [facility] of Past illness Narrative* Problem Noted Date Resolved Date Cyst of epididymis 09/25/2016 03/04/2018 Overview: Added automatically from request for surgery [id number] Backache 01/10/2014 10/27/2016 Pain in limb 01/10/2014 05/25/2015 Pain in joint, pelvic region and thigh 4 05/25/2015 Diabetic peripheral neuropathy 11/10/2013 1 05/05/2017 DJD (degenerative joint disease) of cervical spi ne 03/24/2013 10/27/2016 Overview: Dr. Salinas for pain management. Numbness and tingling of foot 10/19/2012 Pain in joint, shoulder region 06/19/2010 1 Skin tags 12/26/2008 12/20/2010 Phlebitis and thrombophlebitis of unspecified si te 10/09/2008 12/20/2010 Embolism and thrombosis of unspecified site 09/1412/20/2010 DIVERTICULOSIS COLON - NO HEMORRHAGE 09/18/2008 12/20/2010 FISTULA ANAL 09/18/2008 12/20/2010 HEMORRHOIDS EXTERNAL 09/18/2008 12/20/2010 HYPERGLYCEMIA 04/14/2008 12/20/2010 OVERWEIGHT 04/11/2008 03/04/2018 documented as of this encounter (statuses as of 07/22/2021) [facility] of Past illness Narrative* Problem Noted Date Resolved Date Cyst of epididymis 09/25/2016 03/04/2018 Overview: Added automatically from request for surgery [id number] Backache 01/10/2014 10/27/2016 Pain in limb 01/10/2014 05/25/2015 Pain in joint, pelvic region and thigh 4 05/25/2015 Diabetic peripheral neuropathy 11/10/2013 1 05/05/2017 DJD (degenerative joint disease) of cervical spi ne 03/24/2013 10/27/2016 Overview: Dr. Salinas for pain management. Numbness and tingling of foot 10/19/2012 Pain in joint, shoulder region 06/19/2010 1 Skin tags 12/26/2008 12/20/2010 Phlebitis and thrombophlebitis of unspecified si te 10/09/2008 12/20/2010 Embolism and thrombosis of unspecified site 09/1412/20/2010 DIVERTICULOSIS COLON - NO HEMORRHAGE 09/18/2008 12/20/2010 FISTULA ANAL 09/18/2008 12/20/2010 HEMORRHOIDS EXTERNAL 09/18/2008 12/20/2010 HYPERGLYCEMIA 04/14/2008 12/20/2010 OVERWEIGHT 04/11/2008 03/04/2018 documented as of this encounter (statuses as of 07/26/2021) [facility] of Past illness Narrative* Problem Noted Date Resolved Date Cyst of epididymis 09/25/2016 03/04/2018 Overview: Added automatically from request for surgery [id number] Backache 01/10/2014 10/27/2016 Pain in limb 01/10/2014 05/25/2015 Pain in joint, pelvic region and thigh 4 05/25/2015 Diabetic peripheral neuropathy 11/10/2013 1 05/05/2017 DJD (degenerative joint disease) of cervical spi ne 03/24/2013 10/27/2016 Overview: Dr. Salinas for pain management. Numbness and tingling of foot 10/19/2012 Pain in joint, shoulder region 06/19/2010 1 Skin tags 12/26/2008 12/20/2010 Phlebitis and thrombophlebitis of unspecified si te 10/09/2008 12/20/2010 Embolism and thrombosis of unspecified site 09/1412/20/2010 DIVERTICULOSIS COLON - NO HEMORRHAGE 09/18/2008 12/20/2010 FISTULA ANAL 09/18/2008 12/20/2010 HEMORRHOIDS EXTERNAL 09/18/2008 12/20/2010 HYPERGLYCEMIA 04/14/2008 12/20/2010 OVERWEIGHT 04/11/2008 03/04/2018 documented as of this encounter (statuses as of 09/08/2021) [facility] History of Past illness Narrative* Problem Noted Date Resolved Date Cyst of epididymis 09/25/2016 03/04/2018 Overview: Added automatically from request for surgery [id number] Backache 01/10/2014 10/27/2016 Pain in limb 01/10/2014 05/25/2015 Pain in joint, pelvic region and thigh 4 05/25/2015 Diabetic peripheral neuropathy 11/10/2013 1 05/05/2017 DJD (degenerative joint disease) of cervical spi ne 03/24/2013 10/27/2016 Overview: Dr. Salinas for pain management. Numbness and tingling of foot 10/19/2012 Pain in joint, shoulder region 06/19/2010 1 Skin tags 12/26/2008 12/20/2010 Phlebitis and thrombophlebitis of unspecified si te 10/09/2008 12/20/2010 Embolism and thrombosis of unspecified site 09/1412/20/2010 DIVERTICULOSIS COLON - NO HEMORRHAGE 09/18/2008 12/20/2010 FISTULA ANAL 09/18/2008 12/20/2010 HEMORRHOIDS EXTERNAL 09/18/2008 12/20/2010 HYPERGLYCEMIA 04/14/2008 12/20/2010 OVERWEIGHT 04/11/2008 03/04/2018 documented as of this encounter (statuses as of 09/11/2021) [facility] History of Past illness Narrative* Problem Noted Date Resolved Date Cyst of epididymis 09/25/2016 03/04/2018 Overview: Added automatically from request for surgery [id number] Backache 01/10/2014 10/27/2016 Pain in limb 01/10/2014 05/25/2015 Pain in joint, pelvic region and thigh 4 05/25/2015 Diabetic peripheral neuropathy 11/10/2013 1 05/05/2017 DJD (degenerative joint disease) of cervical spi ne 03/24/2013 10/27/2016 Overview: Dr. Salinas for pain management. Numbness and tingling of foot 10/19/2012 Pain in joint, shoulder region 06/19/2010 1 Skin tags 12/26/2008 12/20/2010 Phlebitis and thrombophlebitis of unspecified si te 10/09/2008 12/20/2010 Embolism and thrombosis of unspecified site 09/1412/20/2010 DIVERTICULOSIS COLON - NO HEMORRHAGE 09/18/2008 12/20/2010 FISTULA ANAL 09/18/2008 12/20/2010 HEMORRHOIDS EXTERNAL 09/18/2008 12/20/2010 HYPERGLYCEMIA 04/14/2008 12/20/2010 OVERWEIGHT 04/11/2008 03/04/2018 documented as of this encounter (statuses as of 09/17/2021) [facility] History of Past illness Narrative* Problem Noted Date Resolved Date Cyst of epididymis 09/25/2016 03/04/2018 Overview: Added automatically from request for surgery [id number] Backache 01/10/2014 10/27/2016 Pain in limb 01/10/2014 05/25/2015 Pain in joint, pelvic region and thigh 4 05/25/2015 Diabetic peripheral neuropathy 11/10/2013 1 05/05/2017 DJD (degenerative joint disease) of cervical spi ne 03/24/2013 10/27/2016 Overview: Dr. Salinas for pain management. Numbness and tingling of foot 10/19/2012 Pain in joint, shoulder region 06/19/2010 1 Skin tags 12/26/2008 12/20/2010 Phlebitis and thrombophlebitis of unspecified si te 10/09/2008 12/20/2010 Embolism and thrombosis of unspecified site 09/1412/20/2010 DIVERTICULOSIS COLON - NO HEMORRHAGE 09/18/2008 12/20/2010 FISTULA ANAL 09/18/2008 12/20/2010 HEMORRHOIDS EXTERNAL 09/18/2008 12/20/2010 HYPERGLYCEMIA 04/14/2008 12/20/2010 OVERWEIGHT 04/11/2008 03/04/2018 documented as of this encounter (statuses as of 11/20/2021) [facility] History of Past illness Narrative* Problem Noted Date Resolved Date Cyst of epididymis 09/25/2016 03/04/2018 Overview: Added automatically from request for surgery [id number] Backache 01/10/2014 10/27/2016 Pain in limb 01/10/2014 05/25/2015 Pain in joint, pelvic region and thigh 4 05/25/2015 Diabetic peripheral neuropathy 11/10/2013 1 05/05/2017 DJD (degenerative joint disease) of cervical spi ne 03/24/2013 10/27/2016 Overview: Dr. Salinas for pain management. Numbness and tingling of foot 10/19/2012 Pain in joint, shoulder region 06/19/2010 1 Skin tags 12/26/2008 12/20/2010 Phlebitis and thrombophlebitis of unspecified si te 10/09/2008 12/20/2010 Embolism and thrombosis of unspecified site 09/1412/20/2010 DIVERTICULOSIS COLON - NO HEMORRHAGE 09/18/2008 12/20/2010 FISTULA ANAL 09/18/2008 12/20/2010 HEMORRHOIDS EXTERNAL 09/18/2008 12/20/2010 HYPERGLYCEMIA 04/14/2008 12/20/2010 OVERWEIGHT 04/11/2008 03/04/2018 documented as of this encounter (statuses as of 11/20/2021) [facility] History of Past illness Narrative* Problem Noted Date Resolved Date Cyst of epididymis 09/25/2016 03/04/2018 Overview: Added automatically from request for surgery [id number] Backache 01/10/2014 10/27/2016 Pain in limb 01/10/2014 05/25/2015 Pain in joint, pelvic region and thigh 4 05/25/2015 Diabetic peripheral neuropathy 11/10/2013 1 05/05/2017 DJD (degenerative joint disease) of cervical spi ne 03/24/2013 10/27/2016 Overview: Dr. Salinas for pain management. Numbness and tingling of foot 10/19/2012 Pain in joint, shoulder region 06/19/2010 1 Skin tags 12/26/2008 12/20/2010 Phlebitis and thrombophlebitis of unspecified si te 10/09/2008 12/20/2010 Embolism and thrombosis of unspecified site 09/1412/20/2010 DIVERTICULOSIS COLON - NO HEMORRHAGE 09/18/2008 12/20/2010 FISTULA ANAL 09/18/2008 12/20/2010 HEMORRHOIDS EXTERNAL 09/18/2008 12/20/2010 HYPERGLYCEMIA 04/14/2008 12/20/2010 OVERWEIGHT 04/11/2008 03/04/2018 documented as of this encounter (statuses as of 12/10/2021) [facility] History of Past illness Narrative* Problem Noted Date Resolved Date Cyst of epididymis 09/25/2016 03/04/2018 Overview: Added automatically from request for surgery [id number] Backache 01/10/2014 10/27/2016 Pain in limb 01/10/2014 05/25/2015 Pain in joint, pelvic region and thigh 4 05/25/2015 Diabetic peripheral neuropathy 11/10/2013 1 05/05/2017 DJD (degenerative joint disease) of cervical spi ne 03/24/2013 10/27/2016 Overview: Dr. Salinas for pain management. Numbness and tingling of foot 10/19/2012 Pain in joint, shoulder region 06/19/2010 1 Skin tags 12/26/2008 12/20/2010 Phlebitis and thrombophlebitis of unspecified si te 10/09/2008 12/20/2010 Embolism and thrombosis of unspecified site 09/1412/20/2010 DIVERTICULOSIS COLON - NO HEMORRHAGE 09/18/2008 12/20/2010 FISTULA ANAL 09/18/2008 12/20/2010 HEMORRHOIDS EXTERNAL 09/18/2008 12/20/2010 HYPERGLYCEMIA 04/14/2008 12/20/2010 OVERWEIGHT 04/11/2008 03/04/2018 documented as of this encounter (statuses as of 12/10/2021) [facility] History of Past illness Narrative* Problem Noted Date Resolved Date Cyst of epididymis 09/25/2016 03/04/2018 Overview: Added automatically from request for surgery [id number] Backache 01/10/2014 10/27/2016 Pain in limb 01/10/2014 05/25/2015 Pain in joint, pelvic region and thigh 4 05/25/2015 Diabetic peripheral neuropathy 11/10/2013 1 05/05/2017 DJD (degenerative joint disease) of cervical spi ne 03/24/2013 10/27/2016 Overview: Dr. Salinas for pain management. Numbness and tingling of foot 10/19/2012 Pain in joint, shoulder region 06/19/2010 1 Skin tags 12/26/2008 12/20/2010 Phlebitis and thrombophlebitis of unspecified si te 10/09/2008 12/20/2010 Embolism and thrombosis of unspecified site 09/1412/20/2010 DIVERTICULOSIS COLON - NO HEMORRHAGE 09/18/2008 12/20/2010 FISTULA ANAL 09/18/2008 12/20/2010 HEMORRHOIDS EXTERNAL 09/18/2008 12/20/2010 HYPERGLYCEMIA 04/14/2008 12/20/2010 OVERWEIGHT 04/11/2008 03/04/2018 documented as of this encounter (statuses as of 03/20/2022) [facility] History of Past illness Narrative* Problem Noted Date Resolved Date Cyst of epididymis 09/25/2016 03/04/2018 Overview: Added automatically from request for surgery [id number] Backache 01/10/2014 10/27/2016 Pain in limb 01/10/2014 05/25/2015 Pain in joint, pelvic region and thigh 4 05/25/2015 Diabetic peripheral neuropathy 11/10/2013 1 05/05/2017 DJD (degenerative joint disease) of cervical spi ne 03/24/2013 10/27/2016 Overview: Dr. Salinas for pain management. Numbness and tingling of foot 10/19/2012 Pain in joint, shoulder region 06/19/2010 1 Skin tags 12/26/2008 12/20/2010 Phlebitis and thrombophlebitis of unspecified si te 10/09/2008 12/20/2010 Embolism and thrombosis of unspecified site 09/1412/20/2010 DIVERTICULOSIS COLON - NO HEMORRHAGE 09/18/2008 12/20/2010 FISTULA ANAL 09/18/2008 12/20/2010 HEMORRHOIDS EXTERNAL 09/18/2008 12/20/2010 HYPERGLYCEMIA 04/14/2008 12/20/2010 OVERWEIGHT 04/11/2008 03/04/2018 documented as of this encounter (statuses as of 04/01/2022) [facility] History of Past illness Narrative* Problem Noted Date Diagnosed Date Resolved Date Cyst of epididymis 09/25/2016 8 Overview: Added automatically from request for surgery [id number] Backache 01/10/2014 10/27/2016 Pain in limb 01/10/2014 05/25/2015 Pain in joint, pelvic region and thigh 01/10/2014 05/25/2015 Diabetic peripheral neuropathy 11/10/2013 03/04/2018 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 Salinas for pain management. Numbness and tingling of foot 10/19/2012 05/25/2015 Pain in joint, shoulder region 06/19/2010 12/20/2010 Skin tags 12/26/2008 12/20/2010 Phlebitis and thrombophlebit is of unspecified site 10/09/2008 12/20/2010 Embolism and thrombosis of unspecified site 10/09/2008 12/20/2010 DIVERTICULOSIS COLON - NO HEMORRHAGE 09/18/2008 12/20/2010 FISTULA ANAL 09/18/2008 12/20/2010 HEMORRHOIDS EXTERNAL 09/18/2008 011 HYPERGLYCEMIA 04/14/2008 12/20/2010 OVERWEIGHT 04/11/2008 03/04/2018 documented as of this encounter (statuses as of 10/10/2022) [facility] Note Date/Time September 27, 2024 12:1 9pm [facility] Medical Records Department [address] [place] [address] Emergency Department Summary 09/27/24 MR#: [id number] Acct: [id number] Name: OZZY DUNN Rep #:[id number] : 1950 73 From: Abiel chou DO PCP: Dr. Juan Alcaraz MD Status:R EG ER Location: ED HPI History of Present Illness Chief Complaint: Wound Narrative Narrative: Chief complaint and HPI: Right third toe infection. History taken by patient aswell as podiatry note. 73-year-old male with past medical history of DM2, PAD, HTN presents from the podiatry office for right third toe infection. Patient states 3 weeks ago he developed infection/ulcer in his right third toe. He states this developed after toenail trimming. He follows with podiatry Dr. Ralph. His initial evaluation was on 09/19 with podiatry in which he had x-rayand circulation studies performed. He has been on Augmentin and Bactrim withoutany improvement. His toe continues to swell and have redness. Endorses pain with palpation. Podiatry recommended admission for IV antibiotics. He denies any fever, chills, nausea, vomiting. Review of systems: See HPI Medications: As listed on the chart Allergies: As listed on the chart PFSH: Per chart Vital signs: As listed on the chart. Reviewed. Physical exam: Gen: A&O x3, NAD Head: Normocephalic, atraumatic Eyes: No sclera icterus, conjunctiva clear ENT: Moist mucous membranes Neck: Trachea midline, No JVD CV: RRR, no murmurs, no peripheral edema Resp: Lungs CTA BL, no w/r/c GI: Abd soft, non-distended, non-tender, no r/r/g Musc: Full ROM, no deformity, DP/PT pulses +1 on the right, +2 on the left, normal capillary refill, patient has swelling and erythema of the distal third toe extending to the PIP joint on the dorsal aspect. There is an ulceration on the distal tip with black eschar-this is on the plantar surface, no purulence ordrainage, toe is tender to palpation, no crepitus Skin: Warm, dry Neuro: Alert, oriented, grossly intact, sensation intact Psych: Cooperative, appropriate mood and affect PFSH PFS Medical History (Updated 09/27/24 @ 11:43 by Cate Dunn) Cellulitis of third toe of right foot Type 2 diabetes mellitus PAD (peripheral artery disease) Elevated blood pressure reading with diagnosis of hypertension Home Medications ?Medication ?Instructions ?Recorded ?Last Taken ?Type ezetimibe 10 mg tablet 10 mg PO DAILY 09/22/2409/13 History gabapentin 300 mg capsule 900 mg PO BID 09/22/2409/22 History lisinopril 40 mg tablet 40 mg PO DAILY 09/22/2409/13 History metformin 500 mg tablet 1,000 mg PO BID 09/22/2401/07 History sulfamethoxazole 800 1 tab PO BID #10 TABLETS 01/07 Unknown Rx mg-trimethoprim 160 mg tablet Allergy/AdvReac Type Severity Reaction Status Date / Time No Known Allergies Allergy Verified 09/22/24 17:15 Family History no significant family his Social History (Updated 09/27/24 @ 11:44 by Cate Dunn) household members: spouse housing: house Smoking Status: Never smoker EXAM Physical Exam Const Vital Signs: 09/27/24 10:25 09/27/24 11:26 Temperature 97.8 F 97.8 F Temperature Source Temporal Oral Pulse Rate 80 72 Respiratory Rate 16 18 Blood Pressure 131/73 H 118/66 Blood Pressure Mean 92 83 Pulse Ox 99 97 Oxygen Delivery Method Room Air Room Air MDM MDM MDM Narrative Medical decision making narrative: 73-year-old male with past medical history of DM2, PAD, HTN presents from the podiatry office for right third toe infection. History taken by patient as wellas podiatry office know. Patient has had an infection/ulcer to the right third toe for approximately 3 weeks. Follows with podiatry Dr. Ralph. Sent to theemergency department by podiatry for admission with IV antibiotics given he is failing outpatient management. On presentation, patient is in no acute distress. Nontoxic-appearing. See physical exam findings. Differential diagnosis includes but is not limited to cellulitis, osteomyelitis, PAD. Vancomycin and Zosyn ordered for antibiotics. Infectious laboratory workup ordered including x-ray. On chart review, patient did have an x-ray performed on 09/19 that showed no cortical destruction to suggest osteomyelitis. He had a wound culture that revealed lactobacillus and pantoya species. Podiatry note recommends admission for further workup including vascular consult and possible partial versus total third toe amputation. He did have PVRs from 09/19 which demonstrate an JONES of 1.02 in the dorsalis pedis and 0.84 in the posterior tibial on the right foot. Left foot JONES was 1.08 and 0.95. CBC without leukocytosis or anemia. ESR unremarkable. CRP elevated at 11.8. BMP unremarkable. Lactic acid unremarkable. X-ray of the foot was personally viewed and interpreted by me, ED physician. No fracture or dislocation. Per radiology no bony destruction. Calcaneal spurs. Patient will warrant admission for his IV antibiotics. Patient was updated of all the results and confirmed understandingof plan. I spoke with the hospitalist service who accepted admission. Impression: 1. Diabetic right third toe infection/cellulitis, failed outpatient management Lab Data Labs: Laboratory Results - last 24 hr 09/27/24 11:00 WBC 7.0 RBC 4.56 L Hgb 13.7 Hct 41.0 MCV 89.9 MCH 30.0 MCHC 33.4 RDW Std Deviation 46.1 H RDW Coeff of Baldo 14.1 Plt Count 227 MPV 8.7 Immature Gran % (Auto) 0.300 Neut % (Auto) 71.7 H Lymph % (Auto) 17.0 L [place] % (Auto) 9.2 Eos % (Auto) 1.1 Baso % (Auto) 0.7 Absolute Neuts (auto) 5.0 Absolute Lymphs (auto) 1.20 Nucleated RBC % 0 ESR 5 Sodium 138 Potassium 5.0 Chloride 104 Carbon Dioxide 21.7 Anion Gap 12 BUN 14 Creatinine 1.10 Estim Creat Clear Calc 72.46 Est GFR (MDRD) Non-Af 71 BUN/Creatinine Ratio 13.1 Glucose 108 H Lactic Acid 1.7 Calcium 9.4 C-React Prot Ext Range 11.80 H Radiography Diagnostic Testing: Clinical Impression(s) from Imaging Studies Foot X-Ray 09/27/24 11:45 IMPRESSION: Soft tissue swelling with a small amount of air seen within the soft tissues overlying the great toe. No bony destruction. Calcaneal spurs. Reading Location: [id number] Discharge Plan Triage Chief Complaint: Wound ED Provider: Abiel Hawley Dx/Rx/DC Orders Prescriptions: No Action metformin 500 mg tablet 1,000 mg PO BID gabapentin 300 mg capsule 900 mg PO BID lisinopril 40 mg tablet 40 mg PO DAILY ezetimibe 10 mg tablet 10 mg PO DAILY sulfamethoxazole-trimethoprim 800-160 mg tablet 1 tab PO BID Qty: 10 0RF Primary Care Provider: Juan Alcaraz Referrals: Juan Alcaraz MD [Primary Care Provider] - Print Language: Czech What to do if you have Problems For any increased pain, shortness of breath, bleeding, nausea or vomiting, chestpain, or any unexpected problems, contact your Primary Care Provider. Call [facility] ([phone]) or report to the closest Emergency Room. Call 911 if necessary. 09/27/24 1219 <Electronically signed by Abiel Hawley DO> Cosigner Signature (if applicable): CC: Dr. Juan Alcaraz MD ~ Signed [facility] Work Phone: Evaluation note* Diagnosis Essential hypertension- Primary Unspecified essential hypertension [facility] Diagnosis Constipation, unspecified constipation type- Primary Well controlled type 2 diabetes mellitus with neurological manifestations (HCC) Type II or unspecified type diabetes mellitus with neurological manifestations, not stated as uncontrolled Essential hypertension Unspecified essential hypertension Hyperlipidemia, unspecified hyperlipidemia type [facility] Diagnosis Well controlled type 2 diabetes mellitus with neurological manifestations (HCC)- Primary Type II or unspecified type diabetes mellitus with neurological manifestations, not stated as uncontrolled [facility] Diagnosis Well controlled type 2 diabetes mellitus with neurological manifestations (HCC) Type II or unspecified type diabetes mellitus with neurological manifestations, not stated as uncontrolled [facility] Diagnosis COVID-19- Primary [facility] Diagnosis Well controlled type 2 diabetes mellitus with neurological manifestations (HCC) Type II or unspecified type diabetes mellitus with neurological manifestations, not stated as uncontrolled [facility] Diagnosis Essential hypertension Unspecified essential hypertension Benign prostatic hyperplasia with incomplete bladder emptying [facility]* Diagnosis Bacterial conjunctivitis- Primary Other conjunctivitis Sinobronchitis Unspecified sinusitis (chronic) [facility]* Diagnosis Erectile dysfunction, unspecified erectile dysfunction type documented [facility]* Diagnosis Well controlled type 2 diabetes mellitus with neurological manifestations (HCC) Type II or unspecified type diabetes mellitus with neurological manifestations, not stated as uncontrolled [facility]* Diagnosis Well controlled type 2 diabetes mellitus with neurological manifestations (HCC)- Primary Type II or unspecified type diabetes mellitus with neurological manifestations, not stated as uncontrolled Mixed hyperlipidemia [facility]* Diagnosis Medicare annual wellness visit, subsequent- Primary Routine general medical examination at a health care facility Essential hypertension Unspecified essential hypertension Benign prostatic hyperplasia with incomplete bladder emptying Well controlled type 2 diabetes mellitus with neurological manifestations (HCC) Type II or unspecified type diabetes mellitus with neurological manifestations, not stated as uncontrolled Erectile dysfunction, unspecified erectile dysfunction type Need for COVID-19 vaccine PSA elevation Elevated prostate specific antigen (PSA) documented in this encounter [facility]* Diagnosis Well controlled type 2 diabetes mellitus with neurological manifestations (HCC) Type II or unspecified type diabetes mellitus with neurological manifestations, not stated as uncontrolled [facility]* Diagnosis Well controlled type 2 diabetes mellitus with neurological manifestations (HCC)- Primary Type II or unspecified type diabetes mellitus with neurological manifestations, not stated as uncontrolled Action tremor Essential and other specified forms of tremor Essential hypertension Unspecified essential hypertension Hyperlipidemia, unspecified hyperlipidemia type PSA elevation Elevated prostate specific antigen (PSA) Encounter for immunization Need for other specified prophylactic vaccination against single bacterial disease documented [facility] this encounter [facility]* Diagnosis Essential hypertension Unspecified essential hypertension Benign prostatic hyperplasia with incomplete bladder emptying Well controlled type 2 diabetes mellitus with neurological manifestations (HCC) Type II or unspecified type diabetes mellitus with neurological manifestations, not stated as uncontrolled [facility]* Diagnosis Open wound of toe, initial encounter- Primary [facility]* Diagnosis Medicare annual wellness visit, subsequent- Primary Routine general medical examination at a health care facility Screening for depression Encounter for screening examination for other mental health and behavioral disorders Well controlled type 2 diabetes mellitus with neurological manifestations (HCC) Type II or unspecified type diabetes mellitus with neurological manifestations, not stated as uncontrolled Erectile dysfunction, unspecified erectile dysfunction type Open wound of toe, subsequent encounter Essential hypertension Unspecified essential hypertension Hyperlipidemia, unspecified hyperlipidemia type ROSE on CPAP Obstructive sleep apnea (adult) (pediatric) Adverse effect of statin Essential tremor Essential and other specified forms of tremor [facility]* Diagnosis Well controlled type 2 diabetes mellitus with neurological manifestations (HCC) Type II or unspecified type diabetes mellitus with neurological manifestations, not stated as uncontrolled [facility]* Diagnosis Cellulitis of toe of right foot- Primary Cellulitis and abscess of toe, unspecified documented in this encounter [facility] note* Diagnosis Ulcer of toe of right foot, with fat layer exposed (HCC)- Primary Diabetic polyneuropathy associated with type 2 diabetes mellitus (HCC) Hammertoe of right foot Cellulitis and abscess of toe of right foot Onychodystrophy Other specified disease of nail Diminished pulses in lower extremity Other symptoms involving cardiovascular system documented in this encounter [facility] note* Diagnosis Ulcer of toe of right foot, with fat layer exposed (HCC) Cellulitis and abscess of toe of right foot Onychodystrophy Other specified disease of nail documented in this encounter [facility] noteNo assessment information availableWKindred Hospital [facility] Work Phone: Evaluation note* Diagnosis Skin ulcer of toe of right foot with fat layer exposed (HCC) Peripheral vascular disease Peripheral vascular disease, unspecified Cellulitis of right toe [facility] Dis[facility] instructionsAdditional Instructions Keep your scheduled appointment with podiatry. Take the trimethoprim/sulfamethoxazole in addition to the amoxicillin-clavulanic acid you were [facility]: Reason for referral (narrative)No reason for referral information availableWKindred Hospital [facility] Work Phone: Reason for visit Narrative* Diagnostic Procedure Only (Routine) - Closed Specialty Diagnoses / Procedures Referred By Nikos t Referred To Contact XR IMAGING Diagnoses Ulcer of toe of right foot, with fat layer exposed (HCC) Cellulitis and abscess of toe of right foot Onychodystrophy Procedures XR TOE AP/LAT/OBL RIGHT RADEX TOE MINIMUM 2 VIEWS Testrake, Alexei [address] [place] [address] Phone: tel: fax: [place] [phone] Referral ID Status Reason Start Date Expiration Date V isits Requested Visits Authorized [id number] Closed Auto-Generate d Referral 09/19/2024 10/19/2025 1 1 [facility] Summary Purpose Family History No Family History Records FoundNo Family History Records FoundNo Family History Records Found Advance Directives Documents on File Type Date Recorded 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 No September 22, 2024 6:43pm Advance Directive Response Recorded Date/ Time Do you have a Healthcare Power of Torch Burner? No September 22, 2024 6:43pm Do you have a Healthcare Power of Torch Burner? No September 27, 2024 11:43am Chief Complaint and Reason for Visit Chief Complaint Admit Date WOUND September 22, 2024 5:13 pm Chief Complaint Admit Date WOUND September 22, 2024 5:13 pm INFFECTED THIRD TOES RIGHT FOOT September 12:18pm Additional Source Comments (unrecognized sect ion and content) No Status Records FoundNo Status Records FoundNo Status Records Found INFORMATION SOURCE (unrecogn ized section and content) DATE CREATED AUTHOR 04/18/2021 [facility] ([place]) DATE CREATED AUTHOR AUTHOR'S ORGANIZ ATION 09/21/2024 [facility] DATE CREATED AUTHOR AUTHOR'S ORGANIZ ATION 09/27/2024 [facility] Source Comments (unrecognize d section and content) In the event this informatio n is protected by the Federal Confidentiality of Alcohol and Drug Abuse Patient Records regulations: The Federal rules restrict any use of the information to criminally investigate or prosecute any alcohol or drug abuse patient.[facility] the event this information is protected by the Federal Confidentiality of Alcohol and Drug Abuse Patient Records regulations: The Federal rules restrict any use of the information to criminally investigate or prosecute any alcohol or drug abuse patient.[facility] Center[facility] the event this information is protected by the Federal Confidentiality of Alcohol and Drug Abuse Patient Records regulations: The Federal rules restrict any use of the information to criminally investigate or prosecute any alcohol or drug abuse patient.[facility] CenterIn the event this information is protected by the Federal Confidentiality of Alcohol and Drug Abuse Patient Records regulations: The Federal rules restrict any use of the information to criminally investigate or prosecute any alcohol or drug abuse patient.[facility] Center[facility] the event this information is protected by the Federal Confidentiality of Alcohol and Drug Abuse Patient Records regulations: The Federal rules restrict any use of the information to criminally investigate or prosecute any alcohol or drug abuse patient.[facility] Center[facility] the event this information is protected by the Federal Confidentiality of Alcohol and Drug Abuse Patient Records regulations: The Federal rules restrict any use of the information to criminally investigate or prosecute any alcohol or drug abuse patient.[facility] Center[facility] the event this information is protected by the Federal Confidentiality of Alcohol and Drug Abuse Patient Records regulations: The Federal rules restrict any use of the information to criminally investigate or prosecute any alcohol or drug abuse patient.[facility] CenterIn the event this information is protected by the Federal Confidentiality of Alcohol and Drug Abuse Patient Records regulations: The Federal rules restrict any use of the information to criminally investigate or prosecute any alcohol or drug abuse patient.[facility] CenterIn the event this information is protected by the Federal Confidentiality of Alcohol and Drug Abuse Patient Records regulations: The Federal rules restrict any use of the information to criminally investigate or prosecute any alcohol or drug abuse patient.[facility] CenterIn the event this information is protected by the Federal Confidentiality of Alcohol and Drug Abuse Patient Records regulations: The Federal rules restrict any use of the information to criminally investigate or prosecute any alcohol or drug abuse patient.[facility] CenterIn the event this information is protected by the Federal Confidentiality of Alcohol and Drug Abuse Patient Records regulations: The Federal rules restrict any use of the information to criminally investigate or prosecute any alcohol or drug abuse patient.[facility] CenterIn the event this information is protected by the Federal Confidentiality of Alcohol and Drug Abuse Patient Records regulations: The Federal rules restrict any use of the information to criminally investigate or prosecute any alcohol or drug abuse patient.[facility] CenterIn the event this information is protected by the Federal Confidentiality of Alcohol and Drug Abuse Patient Records regulations: The Federal rules restrict any use of the information to criminally investigate or prosecute any alcohol or drug abuse patient.[facility] CenterIn the event this information is protected by the Federal Confidentiality of Alcohol and Drug Abuse Patient Records regulations: The Federal rules restrict any use of the information to criminally investigate or prosecute any alcohol or drug abuse patient.[facility] CenterIn the event this information is protected by the Federal Confidentiality of Alcohol and Drug Abuse Patient Records regulations: The Federal rules restrict any use of the information to criminally investigate or prosecute any alcohol or drug abuse patient.[facility] CenterIn the event this information is protected by the Federal Confidentiality of Alcohol and Drug Abuse Patient Records regulations: The Federal rules restrict any use of the information to criminally investigate or prosecute any alcohol or drug abuse patient.[facility] CenterIn the event this information is protected by the Federal Confidentiality of Alcohol and Drug Abuse Patient Records regulations: The Federal rules restrict any use of the information to criminally investigate or prosecute any alcohol or drug abuse patient.[facility] CenterIn the event this information is protected by the Federal Confidentiality of Alcohol and Drug Abuse Patient Records regulations: The Federal rules restrict any use of the information to criminally investigate or prosecute any alcohol or drug abuse patient.[facility] CenterIn the event this information is protected by the Federal Confidentiality of Alcohol and Drug Abuse Patient Records regulations: The Federal rules restrict any use of the information to criminally investigate or prosecute any alcohol or drug abuse patient.[facility] CenterIn the event this information is protected by the Federal Confidentiality of Alcohol and Drug Abuse Patient Records regulations: The Federal rules restrict any use of the information to criminally investigate or prosecute any alcohol or drug abuse patient.[facility] CenterIn the event this information is protected by the Federal Confidentiality of Alcohol and Drug Abuse Patient Records regulations: The Federal rules restrict any use of the information to criminally investigate or prosecute any alcohol or drug abuse patient.[facility] CenterIn the event this information is protected by the Federal Confidentiality of Alcohol and Drug Abuse Patient Records regulations: The Federal rules restrict any use of the information to criminally investigate or prosecute any alcohol or drug abuse patient.[facility] CenterIn the event this information is protected by the Federal Confidentiality of Alcohol and Drug Abuse Patient Records regulations: The Federal rules restrict any use of the information to criminally investigate or prosecute any alcohol or drug abuse patient.[facility] CenterIn the event this information is protected by the Federal Confidentiality of Alcohol and Drug Abuse Patient Records regulations: The Federal rules restrict any use of the information to criminally investigate or prosecute any alcohol or drug abuse patient.[facility] CenterIn the event this information is protected by the Federal Confidentiality of Alcohol and Drug Abuse Patient Records regulations: The Federal rules restrict any use of the information to criminally investigate or prosecute any alcohol or drug abuse patient.[facility] CenterIn the event this information is protected by the Federal Confidentiality of Alcohol and Drug Abuse Patient Records regulations: The Federal rules restrict any use of the information to criminally investigate or prosecute any alcohol or drug abuse patient.[facility] CenterIn the event this information is protected by the Federal Confidentiality of Alcohol and Drug Abuse Patient Records regulations: The Federal rules restrict any use of the information to criminally investigate or prosecute any alcohol or drug abuse patient.[facility] CenterIn the event this information is protected by the Federal Confidentiality of Alcohol and Drug Abuse Patient Records regulations: The Federal rules restrict any use of the information to criminally investigate or prosecute any alcohol or drug abuse patient.[facility] CenterIn the event this information is protected by the Federal Confidentiality of Alcohol and Drug Abuse Patient Records regulations: The Federal rules restrict any use of the information to criminally investigate or prosecute any alcohol or drug abuse patient.[facility] Reason for Visit (unrecogniz ed section and content) Reason Comments Blood Pressure Check Reason Comments Established Patient 6 month follow up Reason Comments Patient Update Reason Comments Insurance Authorization Reason Comments VV appt Reason Comments Covid19 Concern Reason Comments Patient Question Reason Onset Date Comments Refill Request 12/10/2021 Reason Comments Refill Request Reason Comments Sore Throat Cough, congestion, w atery eyes x 1.5 weeks Reason Onset Date Comments Refill Request 04/01/2022 Reason Comments Orders Reason Comments Medicare Wellness Exam F/U 6 months Reason Comments Medical Records Reason Comments Medication Question Reason Comments 5 month follow up C/o neuropathy in fe et ; tremors in right hand Reason Onset Date Comments Refill Request 03/11/2024 Reason Comments Ingrown Toenail 3rd toe clipped tip to far down and is bleeding x 2 hours ago Reason Comments Medication Problem Reason Comments Wound Check R foot 3rd toe, cut with clippers 09/02 and was seen and given cream, was improving for about a week, and then started worsening, pus filled under toe, redness and swelling, x 1 week Reason Comments New Diabetic Foot Ulcer Pain Infection Swelling Reason Comments Pain Swelling Infection Diabetic Foot Ulcer Established Patient Follow Up Care Teams (unrecognized sec tion and content) Solidworks Mechanical Designer Relationship Specialty Start Date End Date Juan Alcaraz MD [address] [place] [address] PCP - General Internal Medicine 12/20/10 Ezra Montoya [address] [place] [address], [place] [address] Physician Ophthalmology 04/10/20 [employer] Mechanical Designer Relationship Specialty Start Date End Date Juan Alcaraz MD [address] [facility] [place] [address] PCP - General Internal Medicine 12/20/10 Ezra Montoya [address] [place] [address], [place] [address] Physician Ophthalmology 04/10/20 [employer] Mechanical Designer Relationship Specialty Start Date End Date Juan Alcaraz MD [address] [facility] [place] [place] [address] PCP - General Internal Medicine 12/20/10 Ezra Montoya [address] [place] [address] Physician Ophthalmology 04/10/20 [employer] Mechanical Designer Relationship Specialty Start Date End Date Juan Alcaraz MD [address] [facility] [place] [place] [address] PCP - General Internal Medicine 12/20/10 Ezra Montoya [address] [place] [address] Physician Ophthalmology 04/10/20 [employer] Mechanical Designer Relationship Specialty Start Date End Date Juan Alcaraz MD [address] [facility] [place] [place] [address] PCP - General Internal Medicine 12/20/10 Ezra Montoya [address] [place] [address] Physician Ophthalmology 04/10/20 [employer] Mechanical Designer Relationship Specialty Start Date End Date Juan Alcaraz MD [address] [facility] [place] [place] [address] PCP - General Internal Medicine 12/20/10 Ezra Montoya [address] [place] [address] Physician Ophthalmology 04/10/20 [employer]works Mechanical Designer Relationship Specialty Start Date End Date Juan Alcaraz MD [address] [facility] [place] [address] PCP - General Internal Medicine 12/20/10 Ezra Montoya [address] [place] [address] Physician Ophthalmology 04/10/20 [employer]works Mechanical Designer Relationship Specialty Start Date End Date Juan Alcaraz MD [address] [facility] [place] [address] PCP - General Internal Medicine 12/20/10 Ezra Montoya [address] [place] [address] Physician Ophthalmology 04/10/20 [employer]works Mechanical Designer Relationship Specialty Start Date End Date Juan Alcaraz MD [address] [facility] [place] [address] PCP - General Internal Medicine 12/20/10 Ezra Montoya [address] [place] [address] Physician Ophthalmology 04/10/20 [employer]works Mechanical Designer Relationship Specialty Start Date End Date Juan Alcaraz MD [address] [facility] [place] [address] PCP - General Internal Medicine 12/20/10 Ezra Montoya [address] [place] [address] Physician Ophthalmology 04/10/20 [employer] Mechanical Designer Relationship Specialty Start Date End Date Juan Alcaraz MD [address] [place] [address] PCP - General Internal Medicine 12/20/10 Ezra Montoya [address] [place] [address] Physician Ophthalmology 04/10/20 [employer] Mechanical Designer Relationship Specialty Start Date End Date Juan Alcaraz MD [address] [place] [address] PCP - General Internal Medicine 12/20/10 Ezra Montoya [address] [place] [address] Physician Ophthalmology 04/10/20 [employer]works Mechanical Designer Relationship Specialty Start Date End Date Juan Alcaraz MD [address] [place] [address] PCP - General Internal Medicine 12/20/10 Ezra Montoya [address] [place] [address] Physician Ophthalmology 04/10/20 [employer]works Mechanical Designer Relationship Specialty Start Date End Date Juan Alcaraz MD [address] [place] [address] PCP - General Internal Medicine 12/20/10 Ezra Montoya [address] [place] [address] Physician Ophthalmology 04/10/20 Solidworks Mechanical Designer Relationship Specialty Start Date End Date Juan Alcaraz MD [address] [place] [address] PCP - General Internal Medicine 12/20/10 Ezra Montoya [address] [place] [address] Physician Ophthalmology 04/10/20 Jen Woo, WELLNESS PROGRAM ADMINISTRATOR.RN INTENSIVE [facility] UN[facility] [address] [facility] [place] [address] Stone Layer Internal Medicine 02/22/24 [employer]works Mechanical Designer Relationship Specialty Start Date End Date Juan Alcaraz MD [address] [facility] [place] [address] PCP - General Internal Medicine 12/20/10 Ezra Montoya [address] [place] [address] Physician Ophthalmology 04/10/20 Jen Woo, WELLNESS PROGRAM ADMINISTRATOR.RN INTENSIVE CARE UNIT [address] [facility] [place] [address] Stone Layer Internal Medicine 02/22/24 [employer]works Mechanical Designer Relationship Specialty Start Date End Date Juan Alcaraz MD [address] [place] [address] PCP - General Internal Medicine 12/20/10 Ezra Montoya [address] [place] [address] Physician Ophthalmology 04/10/20 Jen Woo, WELLNESS PROGRAM ADMINISTRATOR.RN INTENSIVE CARE UNIT [address] [facility] [place] [address] Stone Layer Internal Medicine 02/22/24 Solidworks Mechanical Designer Relationship Specialty Start Date End Date Juan Alcaraz MD [address] [facility] [place] [address] PCP - General Internal Medicine 12/20/10 Ezra Montoya [address] [place] [address] Physician Ophthalmology 04/10/20 Jen Woo, WELLNESS PROGRAM ADMINISTRATOR.RN INTENSIVE CARE UNIT [address] [facility] [place] [address] Stone Layer Internal Medicine 02/22/24 [employer] Mechanical Designer Relationship Specialty Start Date End Date Juan Alcaraz MD [address] [place] [address] PCP - General Internal Medicine 12/20/10 Ezra Montoya [address] [place] [address] Physician Ophthalmology 04/10/20 Jen Woo, WELLNESS PROGRAM ADMINISTRATOR.RN INTENSIVE CARE UNIT [address] [facility] [place] [address] Stone Layer Internal Medicine 02/22/24 [employer] Mechanical Designer Relationship Specialty Start Date End Date Juan Alcaraz MD [address] [facility] [place] [address] PCP - General Internal Medicine 12/20/10 Ezra Montoya [address] [place] [address] Physician Ophthalmology 04/10/20 Jen Woo, WELLNESS PROGRAM ADMINISTRATOR.RN INTENSIVE CARE UNIT [address] [facility] [place] [address] Stone Layer Internal Medicine 02/22/24 [employer]works Mechanical Designer Relationship Specialty Start Date End Date Juan Alcaraz MD [address] [facility] [place], [place] [address] PCP - General Internal Medicine 12/20/10 Ezra Montoya [address] [place], [place] [id number] Physician Ophthalmology 04/10/20 Jen Woo, WELLNESS PROGRAM ADMINISTRATOR.RN INTENSIVE CARE UNIT [address] [place], [place] [address] [facility] Internal Medicine 02/22/24 Team Status: Active Member Role/Relationship Status Dates Dr. Juan Alcaraz MD Primary Care Provider Active Team Status: Inactive Member Role/Relationship Status Dates Dr. Juan Alcaraz MD Primary Care Provider Active Start: September 22, 2024 End: September 22, 2024 Dr. Kyrie Amaya MD Emergency Provider Active Sta rt: September 22, 2024 End: September 22, 2024 Team Status: Active Member Role/Relationship Status Dates Dr. Juan Alcaraz MD Primary Care Provider Active Start: September 27, 2024 Dr. Abiel Hawley DO Emergency Provider Activ e Start: September 27, 2024 Dr. Jeana Greer DO Admit Provider Active S tart: September 27, 2024 Dr. Jeana Greer , Attending Provider Active Start: September 27, 2024 [employer] Mechanical Designer Relationship Specialty Start Date End Date Juan Alcaraz MD [address] [place], [place] [address] PCP - General Internal Medicine 12/20/10 Ezra Montoya [address] [place] [address] Physician Ophthalmology 04/10/20 Jen Woo, WELLNESS PROGRAM ADMINISTRATOR.RN INTENSIVE CARE UNIT [address] [place] [address] Stone Layer Internal Medicine 02/22/24 Goals (unrecognized section and content) Goals may be documented in a n alternate sectionGoals may be documented in an alternate section FOR RECORDS PERTAINING TO PATIENTS WHO ARE OR HAVE BEEN ENROLLED IN A CHEMICAL DEPENDENCY/SUBSTANCEABUSE PROGRAM, SOME INFORMATION MAY BE OMITTED. This clinical summary was aggregated from multiple sources. Caution should be exercised in using it in the provision of clinical care. This summary normalizes information from multiple sources, and as a consequence, information in this document may materially change the coding, format and clinical context of patient data. In addition, data may be omitted in some cases. CLINICAL DECISIONS SHOULD BE BASED ON THE PRIMARY CLINICAL RECORDS. [employer] provides no warranty or guarantee of the accuracy or completeness of information in this document.
--- NOTE | 2024-09-27 21:18 | PCM.CONS.GEN ---
Assessment & Plan Assessment/Plan (1) Type 2 diabetes mellitus: (2) PAD (peripheral artery disease): PLAN: At this point reviewed his PVR studies recommend vascular input for the patient to see if there is anything further they could do versus small vessel disease consider MRI. (3) Cellulitis of third toe of right foot: (4) Ulcer of right foot due to type 2 diabetes mellitus: PLAN: Excisional debridement into including subcutaneous tissue right foot which was removed of all necrotic devitalized slough today from the area there was pain to palpation no palpable bone though it is very close to the distal tuft. PLAN: Plan Will order MRI, vascular consult, offloading, dressing supplies, follow-up with the patient outpatient once he is disc charged. Will also order blood work such as ESR and CRP. HPI Consult Data Date of Consult: 09/27/24 HPI Narrative Reason for Consultation: Nonhealing ulceration right third digit secondary to self trauma HPI Narrative: DURGA DUNN, is a 73 M who presents patient presented to the emergency room in which she was told by his other physician that he should get into get IV antibiotic therapy the patient about 3 weeks ago had been trying to cut his own nails trimmed the tip of the skin it bled quite much he said at that point he then went to the urgent care urgent care wrapped it did not need antibiotics at the time he went back a week later they thought it was getting somewhat infected he was not healing they then sent him to another physician at this point to be seen he was then placed on 1 antibiotic he then was placed on a secondary antibiotic and even through 2 antibiotics orally it was not helping resolve this there were no cultures taken at the time I do think culture should be taken on the third digit. At this point he has no pain except for palpation with pressure and debridement to the distal tuft of the toe. Otherwise laying still he has no pain at all denies nausea vomiting chills or fever. He states he is a diabetic with an A1c of 7.3 States he had PVR studies in which she had small vessel disease noted which I need to review from his chart. [facility] Medical History (Updated 09/27/24 @ 21:[address] Fred Yanez MD) Cellulitis of third toe of right foot Type 2 diabetes mellitus PAD (peripheral artery disease) Elevated blood pressure reading with diagnosis of hypertension Home Medications ?Medication ?Instructions ?Recorded ?Last Taken ?Type ezetimibe 10 mg tablet 10 mg PO DAILY 09/22/24 09/22/24 History gabapentin 300 mg capsule 900 mg PO BID 09/22/24 09/22/24 History lisinopril 40 mg tablet 40 mg PO DAILY 09/22/24 09/22/24 History metformin 500 mg tablet 1,000 mg PO BID 09/22/24 09/22/24 History Allergy/AdvReac Type Severity Reaction Status Date / Time No Known Allergies Allergy Verified 09/22/24 17:15 Family History no significant family his Social History household members: spouse housing: house Smoking Status: Never smoker ROS Review of Systems ROS Unobtainable: due to encephalopathy, due to endotracheal tube, due to mental condition, due to mental status and other Constitutional Constitutional: Reports systems reviewed and no addt'l complaints, except as documented, as per HPI, anorexia, body ache(s), change in weight, chills, daytime sleepiness, difficulty sleeping, excessive sweating, fatigue, fever(s), frequent falls, headache(s), increased appetite, lethargy, malaise, night sweats, poor appetite, snoring, stops breathing during sleep, weakness, weight gain, weight loss and other Eyes Eyes: Reports systems reviewed and no addt'l complaints, except as documented, as per HPI, none, acute decrease in peripheral vision, blindness, blind spots, bloody eye, blurry vision, burning, change in eye color, change in vision, decreased night vision, diplopia, discharge from eye(s), discongugate gaze, double vision, dry eyes, erythema, excessive blinking, exophthalmos, eye pain, floaters, foreign body, halo effect, irritation, itchy eyes, loss of central vision, loss of peripheral vision, loss of vision, miosis, mydriasis, numbness, nystagmus, other visual disturbances, periorbital itching, photophobia, ptosis, puffy eyes, requires corrective lenses, seeing flashes, spots in vision, sunken eyes, tearing, tunnel vision and other ENT HEENT: Reports systems reviewed and no addt'l complaints, except as documented, as per HPI, none, abnormal hearing, bleeding gums, change in voice, dental pain, disequillibrium, dizziness, dry mouth, dysphagia, ear discharge, ear pain, epistaxis, facial pain, foreign body in nose, halitosis, headache(s), hearing loss, hoarseness, lip swelling, loss taste/smell, mouth lesions, mouth pain, mucositis, nasal congestion, nasal discharge, nasal obstruction, nasal trauma, neck mass, neck pain, nose pain, odynophagia, otalgia, post nasal drip, rhinorrhea, sinus pain, sinus pressure, sore throat, throat swelling, tinnitus, tongue swelling, vertigo and other Cardiovascular Cardiovascular: Reports systems reviewed and no addt'l complaints, except as documented, as per HPI, none, abdominal bloating, abdominal edema, abdominal pain, arrhythmia on telemetry, bluish discoloration of hand/feet, chest pain, chest pain at rest, chest pain with activity, claudication, clubbing, cold extremities, cyanosis, diaphoresis, dizziness, dyspnea, dyspnea at rest, dyspnea on exertion, easily tiring during activity, edema, erythema on extremities, fatigue, flutter in chest, hypertension, irregular heart rhythm, leg edema, leg ulcers, lightheadedness, nausea, numbness in extremities, orthopnea, orthostatic symptoms, pale poon skin, palpitations, paroxysmal nocturnal dyspnea, pedal edema, periorbital swelling, pounding heartbeat, racing heartbeat, radiating jaw, neck or arm pain, rapid heart rate, slow heart rate, syncope, tachypnea, vomiting, weakness in extremities, weight gain and other Respiratory/Chest Respiratory/Chest: Reports systems reviewed and no addt'l complaints, except as documented, as per HPI, none, change in mental status, change in phlegm color, chest congestion, chest tightness, cough, difficulty clearing secretions, dry cough, dusky skin, dyspnea, dyspnea on exertion, excessive phlegm production, hemoptysis, hoarseness, inability to speak, mouth breathing, nail bed cyanosis, non-rest sleep EDS, pain on inspiration, pain with cough, pale skin, marcus-oral cyanosis, portable oxygen @ home, productive cough, red skin, restlessness, shortness of breath at rest, shortness of breath with exertion, snoring, stridor, tachypnea, wheezing, witnessed apneas, breast mass, breast pain, breast skin changes, breast swelling, change in breast shape, nipple discharge and other Gastrointestinal Gastrointestinal: Reports systems reviewed and no addt'l complaints, except as documented, as per HPI, none, abdominal pain, anorexia, belching, bloating, change in bowel habits, change in stool character, chewing difficulty, coffee ground emesis, constipation, cramping, diarrhea, dry heaves, dyspepsia, dysphagia, early satiety, excessive flatus, fecal incontinence, heartburn, hematemesis, hematochezia, hemorrhoids, loose stools, melena, nausea, odynophagia, rectal bleeding, taste impaired, tenesmus, vomiting, weight changes and other Genitourinary Genitourinary: Reports systems reviewed and no addt'l complaints, except as documented, as per HPI, none, abdominal discomfort, anuria, burning urination, change in libido, change in urinary stream, contractions, difficulty urinating, difficulty with ejaculations, dribbling, dysuria, erectile dysfunction, external genitalia discoloration, movement, flank pain, genital bruising, genital lesions, genital pain, hematospermia, hematuria, itching, low back pain, nocturia, oliguria, painful ejaculations, penile discharge, penile swelling, polyuria, post void dribbling, scrotal pain, scrotal swelling, testicular mass, testicular swelling, undescended testicles, urinary frequency, urinary hesitancy, urinary incontinence, urinary urgency and other Musculoskeletal Musculoskeletal: Reports systems reviewed and no addt'l complaints, except as documented, as per HPI, none, abnormal gait, arthralgias, atrophy, back pain, deformity, difficulty walking, extremity pain, joint pain, joint stiffness, joint swelling, limited range of motion, loss of height, muscle cramps, muscle spasms, muscle weakness, myalgias, neck pain, numbness, radiating pain into limb, stiffness, tingling, tremors and other Integumentary Integumentary: Reports systems reviewed and no addt'l complaints, except as documented, as per HPI, none, acne, alopecia, bleeding lesions, change in hair, change in pigmentation, changing lesions, dry skin, erythema, furuncle, hirsutism, jaundice, lesions, nail changes, new lesions, non-healing lesions, photosensitivity, pruritus, rash, skin pain, skin ulcer, skin swelling, sores, striae, unusual bruising, wounds and other Neurologic Neurologic: Reports systems reviewed and no addt'l complaints, except as documented, as per HPI, none, abnormal gait, abnormal hearing, abnormal movements, abnormal speech, behavior changes, burning sensations, confusion, convulsions, disequilibrium, dizziness, focal weakness, frequent falls, headache(s), lack of coordination, loss of vision, memory loss, numbness, other visual disturbances, paresthesias, radicular pain, restless legs, seizure-like activity, seizures, sensory deficit, syncope, tingling, tremor(s), vertigo, weakness and other Psychiatric Psychiatric: Reports systems reviewed and no addt'l complaints, except as documented, as per HPI, none, abnormal sleep pattern, anhedonia, anxiety, auditory hallucinations, behavioral changes, change in appetite, change in libido, cognitive impairment, confusion, depression, difficulty concentrating, hallucinations, homicidal ideation, hopelessness, irritability, memory loss, mood swings, panic attacks, paranoia, suicidal ideation, suicidal thoughts, tactile hallucinations, visual hallucinations and other Endocrine Endocrinology: Reports systems reviewed and no addt'l complaints, except as documented, as per HPI, none, change in body appearance, change in libido, cold intolerance, deepening of the voice, excessive sweating, fatigue, flushing, heat intolerance, increase in ring/shoe/hat size, palpitations, polydipsia, polyphagia, polyuria and other Physical Exam Narrative Barely palpable pedal pulses DP and PT bilateral. Skin is thin and shiny has an ulceration of the distal tuft third digit right foot that does show there is a necrotic tissue with also callus formation I did then debride the ulceration into including subcutaneous tissue. He does have minimal bleeding which is concerning for the patient does have possible small vessel disease as seen on his JONES that was done showing that he has significant blunting toe pressures of 0.18 on the right and 0.26 on the left. For this reason this is why has a distal tuft ulceration I do not foresee that even amputation would be beneficial though the patient may need vascular input to see if we can increase the flow to the right lower extremity. He does have pain to palpation along with pain with debridement. The ulceration on the distal tuft measures 1 cm x 1 cm x 0.3 cm which again was debrided excisionally into including subcutaneous tissue. Removing all necrotic slough using a 10 blade dressed with Betadine dry dressing. Const alert, oriented x3, no apparent distress, average body habitus, no limitations, healthy appearing and well nourished HEENT normocephalic, head/scalp atraumatic, hearing grossly normal bilaterally, external ears normal, EAC's normal, TM's normal bilaterally, external nose normal, nasal mucous membranes and turbinates normal, moist oral mucous membranes, oropharynx normal, dentition normal and gingiva normal Eyes PERRL, EOMs intact bilaterally, conjunctivae normal, no scleral icterus, no papilledema, normal visual espinosa by confrontation and fundi normal bilaterally Chest inspection of chest normal, palpation of chest normal, inspection of breasts normal and palpation of breasts normal Resp normal respiratory effort, normal air movement, no retractions, no use of accessory muscles, clear to auscultation bilaterally and percussion normal GI normal to inspection, nondistended, normoactive bowel sounds, soft to palpation, non-tender, non-distended, hepatosplenomegaly, no masses and no bruits Testes: testicular swelling and testicular mass Extremity no clubbing, cyanosis or edema Peripheral Pulses: Yes popliteal pulses present bilateral diminished and dorsalis pedis pulses present bilateral 1+ and diminished Lab / Micro Data 09/27/24 11:00 09/27/24 11:00 Labs: Laboratory Results - last 24 hr 09/27/24 11:00: WBC 7.0, RBC 4.56 L, Hgb 13.7, Hct 41.0, MCV 89.9, MCH 30.0, MCHC 33.4, RDW Std Deviation 46.1 H, RDW Coeff of Baldo 14.1, Plt Count 227, MPV 8.7, Immature Gran % (Auto) 0.300, Neut % (Auto) 71.7 H, Lymph % (Auto) 17.0 L, Bureau % (Auto) 9.2, Eos % (Auto) 1.1, Baso % (Auto) 0.7, Absolute Neuts (auto) 5.0, Absolute Lymphs (auto) 1.20, Nucleated RBC % 0, ESR 5, Sodium 138, Potassium 5.0, Chloride 104, Carbon Dioxide 21.7, Anion Gap 12, BUN 14, Creatinine 1.10, Estim Creat Clear Calc 72.46, Est GFR (MDRD) Non-Af 71, BUN/Creatinine Ratio 13.1, Glucose 108 H, Lactic Acid 1.7, Calcium 9.4, C-React Prot Ext Range 11.80 H Imaging Radiology Impression Foot X-Ray 09/27/24 11:45 IMPRESSION: Soft tissue swelling with a small amount of air seen within the soft tissues overlying the great toe. No bony destruction. Calcaneal spurs. Reading Location: [id number]
[2024-09-27] MEDS: Heparin Injection (Vial) 5,000 UNIT/ML VIAL 5000 UNIT SC (23:11)
[2024-09-27] MEDS: Piperacil/Tazobactam 3.375 GM in 0.9% Normal Saline (50mL MB+) 50 ML IV (23:12)
[2024-09-27] MEDS: 0.9% Saline Lock 10 ML Syringe IV (23:16)
[2024-09-28 02:32] VITALS: BP 142/66; PULSE 67; RESP 15; TEMP 36.7; O2SAT 98
[2024-09-28] MEDS: Vancomycin HCl 1,250 MG in 0.9% Normal Saline (250mL Bag) 250 ML 167 MG IV ×2 (03:25→13:05)
[2024-09-28 04:33] LABS: Hematocrit 37.7 % (40-54); Hemoglobin 12.5 g/dL (13.0-16.5); Immature Granulocytes Count 0.030 X10^3/uL (0.0-0.0); Mean Corp Hgb Conc 33.2 g/dL (32-36); Mean Corpuscular Volume 90.2 fL (80-94); Mean Platelet Vol. 8.7 fl (6.2-12.0); NRBC Flagged by Analyzer 0 % (0-5); Platelet Count 226 K/mm3 (150-450); RBC Distribution Width CV 14.1 % (11.6-14.6); RBC Distribution Width SD 46.7 fl (35.1-43.9); Red Blood Count 4.18 M/mm3 (4.6-6.2); White Blood Count 6.4 K/mm3 (4.4-11.0)
[2024-09-28] MEDS: Piperacil/Tazobactam 3.375 GM in 0.9% Normal Saline (50mL MB+) 50 ML IV ×3 (06:05→22:23)
[2024-09-28] MEDS: Heparin Injection (Vial) 5,000 UNIT/ML VIAL 5000 UNIT SC ×2 (07:52→22:22)
[2024-09-28 08:10] VITALS: BP 127/66; PULSE 72; RESP 18; TEMP 36.4; O2SAT 97
--- NOTE | 2024-09-28 08:30 | WOUNDNOTE ---
wound photo: right 3rd toe
--- NOTE | 2024-09-28 08:31 | WOUNDNOTE ---
wound photo: right 3rd toe
--- NOTE | 2024-09-28 09:30 | MRI_ITS ---
PROCEDURE: LOWER EXT NO JOINT W/WO CONT 09/28/2024 REASON FOR EXAM: OSTEOMYELITIS RIGHT FOOT 3RD DIGIT TECHNIQUE: T1, T2, postcontrast T1 fat-sat LOWER EXT NO JOINT W/WO CONT CONTRAST: 20 cc Clariscan COMPARISON: None FINDINGS: There is abnormal increased T2 signal, decreased precontrast T1 signal, and increased postcontrast T1 signal in the distal phalanx of the 3rd digit, sagittal image 19/30, which meets the criteria for osteomyelitis. There is no other evidence of abnormal marrow signal in the forefoot. Flexor and extensor tendons appear intact. There is no significant muscular atrophy. MRI/Lower Ext No Joint W/WO Cont IMPRESSION: There is abnormal increased T2 signal, decreased precontrast T1 signal, and inc reased postcontrast T1 signal in the distal phalanx of the 3rd digit, sagittal image 19/30, which meets the criteria for os teomyelitis. Reading Location: [facility]
--- NOTE | 2024-09-28 09:37 | PCM.PN.HOSP ---
Reason for Visit Chief Complaint: Infection of the right third toe Objective Data Objective Data Vital Signs: Vital Signs Temp Pulse Resp BP Pulse Ox O2 Del Method 97.6 F L 72 18 127/66 H 97 Room Air 09/28/24 08:10 09/28/24 08:10 09/28/24 08:10 09/28/24 08:10 09/28/24 08:10 09/28/24 08:11 Oxygen Delivery Method Room Air Weight: 229 lb 4.492 oz Body Mass Index (BMI) 32.8 Intake & Output: Intake and Output for Last 24 Hours 09/26/24 09/27/24 09/28/24 23:59 23:59 23:59 Intake Total 1120 / 1120 357.71 / 357.71 Balance 1120 / 1120 357.71 / 357.71 Lab / Micro Data 09/28/24 03:38 09/27/24 11:00 Labs: Laboratory Results - last 24 hr 09/27/24 11:00: WBC 7.0, RBC 4.56 L, Hgb 13.7, Hct 41.0, MCV 89.9, MCH 30.0, MCHC 33.4, RDW Std Deviation 46.1 H, RDW Coeff of Baldo 14.1, Plt Count 227, MPV 8.7, Immature Gran % (Auto) 0.300, Neut % (Auto) 71.7 H, Lymph % (Auto) 17.0 L, [place] % (Auto) 9.2, Eos % (Auto) 1.1, Baso % (Auto) 0.7, Absolute Neuts (auto) 5.0, Absolute Lymphs (auto) 1.20, Nucleated RBC % 0, ESR 5, Sodium 138, Potassium 5.0, Chloride 104, Carbon Dioxide 21.7, Anion Gap 12, BUN 14, Creatinine 1.10, Estim Creat Clear Calc 72.46, Est GFR (MDRD) Non-Af 71, BUN/Creatinine Ratio 13.1, Glucose 108 H, Lactic Acid 1.7, Calcium 9.4, C-React Prot Ext Range 11.80 H 09/28/24 03:38: WBC 6.4, RBC 4.18 L, Hgb 12.5 L, Hct 37.7 L, MCV 90.2, MCH 29.9, MCHC 33.2, RDW Std Deviation 46.7 H, RDW Coeff of Baldo 14.1, Plt Count 226, MPV 8.7, Immature Gran % (Auto) 0.500, Neut % (Auto) 59.4, Lymph % (Auto) 26.1, [place] % (Auto) 10.0, Eos % (Auto) 3.1, Baso % (Auto) 0.9, Absolute Neuts (auto) 3.8, Absolute Lymphs (auto) 1.68, Nucleated RBC % 0, ESR 6, Hemoglobin A1c 7.3 H 09/28/24 06:38: POC Glucose 129 H Radiography Diagnostic Testing: Radiology Impression Foot X-Ray 09/27/24 11:45 IMPRESSION: Soft tissue swelling with a small amount of air seen within the soft tissues overlying the great toe. No bony destruction. Calcaneal spurs. Reading Location: [facility] Physical Exam Narrative Seen and examined. Patient had MRI of left foot in the morning. Seen by cad librarian. Vascular surgery consulted. History of DM type II Physical exam General: Alert, Oriented x3, Cooperative HEENT: Atraumatic, PERRLA, EOMI, Normocephalic. Oral: No Gingival or Mucosal Lesions/ Ulcerations Neck: Supple, No JVD, Negative Carotid Bruits Chest wall/Lungs: Air entry equal in bilateral lung bases. No crepitation/rhonchi Cardiovascular: Regular rate and rhythm, Normal S1,S2, No M/G/R Abdomen: Bowel Sounds Present, Soft, Non Tender, Non-Distended : No dysuria. No renal angle tenderness. No suprapubic tenderness. Extremities: No edema, Capillary Refill Less than 3 Seconds Skin: Left great toe ulcer, covered with dressing. Musculoskeletal: No Tenderness to Palpation of Joints or Extremities Neurological: Cranial nerves II-XII grossly intact, DTR 2+/4. No acute focal neurological deficit. Psych/Mental Status: Normal Affect, Appropriate. Assessment & Plan Assessment/Plan (1) Cellulitis of third toe of right foot: PLAN: Plan 1. Cellulitis of the right third toe-failed outpatient treatment with mild PAD. Patient is being admitted on [facility] floor. On IV vancomycin and Zosyn. Patient was seen by cad librarian. PVR studies recommended vascular surgery input therefore vascular surgery consulted. MRI of the left foot shows osteomyelitis of left third digit. Follow-up podiatry input needed. CRP pending #2 type 2 diabetes-patient is currently on metformin, glucose 106, 129. A1c 7.3%. Glucose is reasonably controlled. #3 hyperlipidemia-patient is on Zetia #4 essential hypertension-patient is on lisinopril Laboratory Results 09/28/24 03:38: WBC 6.4, RBC 4.18 L, Hgb 12.5 L, Hct 37.7 L, MCV 90.2, MCH 29.9, MCHC 33.2, RDW Std Deviation 46.7 H, RDW Coeff of Baldo 14.1, Plt Count 226, MPV 8.7, Immature Gran % (Auto) 0.500, Neut % (Auto) 59.4, Lymph % (Auto) 26.1, [place] % (Auto) 10.0, Eos % (Auto) 3.1, Baso % (Auto) 0.9, Absolute Neuts (auto) 3.8, Absolute Lymphs (auto) 1.68, Nucleated RBC % 0, ESR 6, Hemoglobin A1c 7.3 H, C-React Prot High Sens Pending 09/28/24 06:38: POC Glucose 129 H 09/28/24 11:25: POC Glucose 106 Clinical Impression(s) from Imaging Studies Foot X-Ray 09/27/24 11:45 IMPRESSION: Soft tissue swelling with a small amount of air seen within the soft tissues overlying the great toe. No bony destruction. Calcaneal spurs. Reading Location: [facility] Lower Extremity MRI 09/28/24 09:30 IMPRESSION: There is abnormal increased T2 signal, decreased precontrast T1 signal, and increased postcontrast T1 signal in the distal phalanx of the 3rd digit, sagittal image , which meets the criteria for osteomyelitis. Reading Location: [facility] Charges/Coding Visit Charges Inpatient E&M: 51676 Subs Hosp L2
[2024-09-28 15:00] VITALS: BP 134/71; PULSE 73; RESP 16; TEMP 36.6; O2SAT 99
--- NOTE | 2024-09-28 15:43 | CASEMGMT ---
MELODY LACKEY Assessment Face to Face with patient for initial transition planning/care coordination assessment. RN DARYA introduced self and role at [facility], pt voices understanding. Pt is A&Ox4 and is resting comfortably in bed and is calm. Care providers, pharmacy, and demographics verified. Admitting dx: Infected 3rd Toe Rt Foot PCP: Juan Alcaraz Specialists: Ramo ([facility]). Dr Yanez is currently consulted. Preferred Pharmacy: [facility] Insurance: MCR A/B, MMO Prescription Benefit: Yes LNOK: Awa Atkins (W), Betty Clarke (Daughter) Living Arrangements: Pt lives with his in a trailer with 2 steps to enter ADLs/IADLs: Indep. 6-Click score is 24. Denies concerns. Transportation: Self, DME: CPAP @ [facility] with no additional oxygen. Inquired with the pt if he has DM supplies. Pt denies. This MELODY LACKEY asked the pt if he would like DM education and/or a prescription for a BMG and supplies. Pt firmly declines the need. Pt states, I know my body. Pt denies all other DME uses or needs now. HHC/SNF: Denies hx Pt?s goal: Home Plan: TBD. Anticipate home with with no additional needs vs home with IV ATBs. Podiatry and vascular are consulted. Pt educated about the potential for home IV ATBs and what that would entail. Pt states that he and or his could be the teachable caregiver. Pt states that he would prefer HH if the infusion would be more than once per day. If once per day, pt would prefer the OP infusion center. CM to follow recommendations and follow for appropriate DC planning including preferred HH agency and infusion company. Pt denies further questions or concerns at this time. Report given to MS3 MELODY LACKEY. Bronwyn Rice RN, CM
[2024-09-28] MEDS: Lactobacillis Acidophilus 1 CAP PO (17:24)
--- NOTE | 2024-09-28 17:25 | EX.PCM.CON.S ---
Assessment & Plan Assessment/Plan (1) PAD (peripheral artery disease): PLAN: Reviewed his PVRs from outside facility which suggests normal perfusion to the level of the ankle and primarily small vessel disease; this correlates with my exam today, he has multiphasic signals PT/DP with palpable pedal pulse and no apparent signs of ischemia. At this time, do not think further imaging or preemptive intervention is indicated. It is reasonable to proceed with any podiatric intervention that is necessary; if there is delayed healing or ischemic appearance of the site postoperatively then would consider angiogram for further evaluation. Discussed with patient and his who acknowledged understanding. HPI Consult Data Date of Consult: 09/29/24 HPI Narrative HPI Narrative: DURGA DUNN, is a 73 M who presented to [facility] ER with R 3rd digit cellulitis after failure to improve on outpatient course of oral antibiotics. He reports he attained this wound 3 weeks ago, he was trimming his own toenails and inadvertently clipped the bottom of his toe. Unfortunately, this then became infected; he was seen by Dr. Ralph as an outpatient and tried what sounds like 2-3 oral antibiotic regimens with failure to improve leading to his ER visit. He was admitted here for IV antibiotics and reports it seems to be improving. He has had an MRI to assess for osteomyelitis, Dr. Yanez is consulted for podiatry here. As an outpatient, he'd had an arterial study at [facility]; report reads R JONES 1.02, R TBI 0.18, and multiphasic DP and PT waveforms, and PVR waveforms normal at the ankle but mildly dampened transmetatarsal and digit. He reports no prior history of revascularization. He does report bilateral neuropathy (pins and needles, tingling) in his feet which sometimes worsens with activity as well as low back pain worse with activity; he denies any calf cramping/burning/aching with activity. He reports no prior wounds. He is diabetic, A1c 7.3 this admission. [facility] Medical History Cellulitis of third toe of right foot Type 2 diabetes mellitus PAD (peripheral artery disease) Elevated blood pressure reading with diagnosis of hypertension Home Medications ?Medication ?Instructions ?Recorded ?Last Taken ?Type ezetimibe 10 mg tablet 10 mg PO DAILY 09/22/24 09/22/24 History gabapentin 300 mg capsule 900 mg PO BID md ordered 09/22/24 09/27/24 08:00 History lisinopril 40 mg tablet 40 mg PO DAILY 09/22/24 09/22/24 History metformin 500 mg tablet 1,000 mg PO BID 09/22/24 09/22/24 History Allergy/AdvReac Type Severity Reaction Status Date / Time No Known Allergies Allergy Verified 09/22/24 17:15 Family History no significant family his Social History household members: spouse housing: house Smoking Status: Never smoker Physical Exam Const alert, oriented x3 and no apparent distress General Appearance: cooperative HEENT normocephalic, head/scalp atraumatic, TM's normal bilaterally and external nose normal Eyes EOMs intact bilaterally Neck full ROM General: normal visual inspection Resp normal respiratory effort and no retractions Effort and Inspection: able to speak in complete sentences Cardio Rate: regular rate Rhythm: regular rhythm Extremity Extremity Narrative: Mild RLE edema R DP/PT pulses diminished to palpation; DP with triphasic doppler signal, PT with biphasic doppler signal No pallor, rubor, cyanotic discoloration. Bilateral feet appropriately warm to palpation. Skin Wound Narrative: R 3rd toe with wound dressings C/D/I, not removed for exam. Neuro Speech: speech normal Psych mental status grossly normal and affect normal Appearance: grossly normal Lab / Micro Data 09/29/24 05:50 09/29/24 05:50 Labs: Laboratory Results - last 24 hr 09/28/24 03:38: WBC 6.4, RBC 4.18 L, Hgb 12.5 L, Hct 37.7 L, MCV 90.2, MCH 29.9, MCHC 33.2, RDW Std Deviation 46.7 H, RDW Coeff of Baldo 14.1, Plt Count 226, MPV 8.7, Immature Gran % (Auto) 0.500, Neut % (Auto) 59.4, Lymph % (Auto) 26.1, [place] % (Auto) 10.0, Eos % (Auto) 3.1, Baso % (Auto) 0.9, Absolute Neuts (auto) 3.8, Absolute Lymphs (auto) 1.68, Nucleated RBC % 0, ESR 6, Hemoglobin A1c 7.3 H 09/28/24 06:38: POC Glucose 129 H 09/28/24 11:25: POC Glucose 106 09/28/24 16:49: POC Glucose 118 H Imaging Radiology Impression Lower Extremity MRI 09/28/24 09:30 IMPRESSION: There is abnormal increased T2 signal, decreased precontrast T1 signal, and increased postcontrast T1 signal in the distal phalanx of the 3rd digit, sagittal image , which meets the criteria for osteomyelitis. Reading Location: [facility] Charges/Coding Visit Charges Inpatient E&M: 20797 Init Hosp L1
--- NOTE | 2024-09-28 20:07 | PCM.PN.SRG ---
Subjective Subjective Patient seen today follow-up for third digit ulcer, traumatic injury right foot which the patient recently has had MRI, he had vascular input as well as I spoke with the PA and Dr. Mcdonnell. At the same time the patient has had follow-ups now MRI results and still having pain to the third digit. Objective Data Objective Data Vital Signs: Vital Signs Temp Pulse Resp BP Pulse Ox O2 Del Method 97.9 F 73 16 134/71 H 99 Room Air 09/28/24 15:00 09/28/24 15:00 09/28/24 15:00 09/28/24 15:00 09/28/24 15:00 09/28/24 15:00 Oxygen Delivery Method Room Air Weight: 104 kg Body Mass Index (BMI) 32.8 Intake & Output: Intake and Output for Last 24 Hours 09/26/24 09/27/24 09/28/24 23:59 23:59 23:59 Intake Total 1120 / 1120 1550.00 / 1550.00 Balance 1120 / 1120 1550.00 / 1550.00 Lab / Micro Data 09/28/24 03:38 09/27/24 11:00 Labs: Laboratory Results - last 24 hr 09/28/24 03:38: WBC 6.4, RBC 4.18 L, Hgb 12.5 L, Hct 37.7 L, MCV 90.2, MCH 29.9, MCHC 33.2, RDW Std Deviation 46.7 H, RDW Coeff of Baldo 14.1, Plt Count 226, MPV 8.7, Immature Gran % (Auto) 0.500, Neut % (Auto) 59.4, Lymph % (Auto) 26.1, [place] % (Auto) 10.0, Eos % (Auto) 3.1, Baso % (Auto) 0.9, Absolute Neuts (auto) 3.8, Absolute Lymphs (auto) 1.68, Nucleated RBC % 0, ESR 6, Hemoglobin A1c 7.3 H 09/28/24 06:38: POC Glucose 129 H 09/28/24 11:25: POC Glucose 106 09/28/24 16:49: POC Glucose 118 H Micro: As noted ESR and CRP were evaluated CRP is elevated ESR is normal. Radiography Diagnostic Testing: Radiology Impression Lower Extremity MRI 09/28/24 09:30 IMPRESSION: There is abnormal increased T2 signal, decreased precontrast T1 signal, and increased postcontrast T1 signal in the distal phalanx of the 3rd digit, sagittal image 19/30, which meets the criteria for osteomyelitis. Reading [facility] Physical Exam Narrative Patient with nonhealing ulceration distal tuft right third digit which at this point is showing signs of necrotic tissue and the MRI is positive for criteria meeting osteomyelitis. Therefore amputation is probably most evident for the patient I did speak with vascular they do think that because the patient has an JONES 0.18 that is best to probably undergo surgery for amputation and see if this goes on to heal I do not think a distal amputation would heal therefore would rather do a proximal amputation at the MPJ level. He does understand we had a long discussion with this he wants to know his recovery we had a long discussion regarding postop course and him following up with us outpatient. This also would stop his IV antibiotics at some point after surgery because there will not be any need for them. HEENT normocephalic, head/scalp atraumatic, hearing grossly normal bilaterally, external ears normal, EAC's normal, TM's normal bilaterally, external nose normal, nasal mucous membranes and turbinates normal, moist oral mucous membranes, oropharynx normal, dentition normal and gingiva normal Extremity Extremity Narrative: Necrotic ulcer third digit right foot. Assessment & Plan Assessment/Plan (1) Ulcer of right foot due to type 2 diabetes mellitus: (2) PAD (peripheral artery disease): PLAN: Nonhealing wound with infection and osteomyelitis sensitive and positive on MRI plan for amputation. (3) Osteomyelitis: (4) Type 2 diabetes mellitus: PLAN: Plan Plan at this point is a plan for surgical amputation with advancement flap third digit right foot as the patient is going to require this as a surgical intervention since I do not think removing at the distal aspect would go on to heal with an JONES of 0.18 as of now that there is not much that vascular can do such as this is all small vessel disease therefore recommend amputation and see if we can follow-up from there see if it going to heal afterwards. Plan for no tourniquet during surgery.
[2024-09-28 22:16] VITALS: BP 151/63; PULSE 80; RESP 15; TEMP 36.8; O2SAT 97
[2024-09-29] VITALS (7 sets, daily range): BP systolic 134–173; BP diastolic 68–85; PULSE 69–78; RESP 15–18; TEMP 36.5–36.9; O2SAT 97–98; BMI 32.8
[2024-09-29 00:42] LABS: Vancomycin, Trough Level 12.1 ug/mL (5.0-15.0)
--- NOTE | 2024-09-29 00:52 | PCM.RX.CS ---
Consult Antibiotic Management Pharmacy has been consulted to manage selected antibiotic: Vancomycin Type of Intervention Type of Consult: Follow-up Suspected Infection Suspected Infection: Skin/Soft tissue Labs Labs: Sodium 138 mmol/L (133-145) 09/27/24 11:00 Potassium 5.0 mmol/L (3.3-5.1) 09/27/24 11:00 Chloride 104 mmol/L (98-108) 09/27/24 11:00 Carbon Dioxide 21.7 mmol/L (21.0-32.0) 09/27/24 11:00 Anion Gap 12 (5-15) 09/27/24 11:00 BUN 14 mg/dL (4-19) 09/27/24 11:00 Creatinine 1.10 mg/dL (0.70-1.20) 09/27/24 11:00 Est GFR (MDRD) Non-Af 71 (>60) 09/27/24 11:00 BUN/Creatinine Ratio 13.1 RATIO (10-20) 09/27/24 11:00 Glucose 108 mg/dL (70-99) H 09/27/24 11:00 Vancomycin Trough 12.1 ug/mL (5.0-15.0) 09/29/24 00:06 Dosing Weight Weight used for dosin kg Estimated Creatinine Clearance Estimated Creatinine Clearance: 72 Goal Trough Goal Trough: 10-15 mcg/mL Pharmacy Plan for Drug Dosing Pharmacy Plan for Drug Dosing: Vancomycin trough level of 12.1, drawn 11 hours post-dose, was within the target range of 10-15. Will continue dosing at 1250mg q12h, and will draw another trough level in two days. Pharmacy Service will continue to monitor and adjust dosing as required. Follow-Up Labs Follow-Up Labs: Trough: Vancomycin Date/Time Labs Ordered Labs to be done on [date and time ordered]: 10/01/24 @0000
[2024-09-29] MEDS: Vancomycin HCl 1,250 MG in 0.9% Normal Saline (250mL Bag) 250 ML 167 MG IV ×2 (03:08→12:00)
[2024-09-29 05:07] LABS: CRP, High Sensitivity 5.95 mg/L (0.00-3.00)
[2024-09-29 06:01] LABS: Hematocrit 38.4 % (40-54); Hemoglobin 13.0 g/dL (13.0-16.5); Immature Granulocytes Count 0.020 X10^3/uL (0.0-0.0); Mean Corp Hgb Conc 33.9 g/dL (32-36); Mean Corpuscular Volume 88.1 fL (80-94); Mean Platelet Vol. 8.6 fl (6.2-12.0); NRBC Flagged by Analyzer 0 % (0-5); Platelet Count 233 K/mm3 (150-450); RBC Distribution Width CV 13.8 % (11.6-14.6); RBC Distribution Width SD 44.7 fl (35.1-43.9); Red Blood Count 4.36 M/mm3 (4.6-6.2); White Blood Count 6.7 K/mm3 (4.4-11.0)
[2024-09-29 06:31] LABS: Anion Gap 10 (5-15); BUN 14 mg/dL (4-19); BUN/Creat Ratio 15.5 RATIO (10-20); Calcium,Total 8.8 mg/dL (7.6-11.0); Carbon Dioxide 21.8 mmol/L (21.0-32.0); Chloride 106 mmol/L (98-108); Estimated Creatinine Clearance 89.29 ml/min (50-250); Glucose 97 mg/dL (70-99); Potassium 4.1 mmol/L (3.3-5.1)
[2024-09-29] MEDS: Piperacil/Tazobactam 3.375 GM in 0.9% Normal Saline (50mL MB+) 50 ML IV ×3 (06:40→20:37)
--- NOTE | 2024-09-29 13:42 | CHAPLAIN ---
Type of Pastoral Visit _x__ Initial Visit ___ Follow-up Visit ___ On-call Visit ___ General Patient Visit ___ Spiritual Assessment ___ Family Conference ___ Bereavement ___ Rapid Response ___ Code Blue ___ Other (describe below) Pastoral Care Referral From _x__ Patient ___ Family ___ Nurse ___ Physician ___ Chemical Engineering Teacher ___ Quill Stripper ___ Other (describe below) Sacrament/Intervention _x__ Active listening ___ Anointing ___ Yazidi ___ Bereavement ___ Communion _x__ Cherri exploration ___ _x__ Life review _x__ Prayer ___ Reconciliation ___ Sacrament of Sick ___ Supportive presence ___ Wedding ___ Other (describe below) Pastoral Comments patient expresses his cherri in God and the plan that God has for him; pt explains his decision for surgery; pt gives much life review and his perspective on life; spouse is with him and he acknowledges her great support; pt requests prayer for his surgery
--- NOTE | 2024-09-29 14:07 | PN.HOSP_ITS ---
Reason for Visit Chief Complaint: Infection of the right third toe Objective Data Objective Data Vital Signs: Vital Signs Temp Pulse Resp BP Pulse Ox O2 Del Method 97.7 F L 69 18 134/71 H 98 Room Air 09/29/24 12:46 09/29/24 12:46 09/29/24 12:46 09/29/24 12:46 09/29/24 12:46 09/29/24 12:46 Oxygen Delivery Method Room Air Weight: 229 lb 4.492 oz Body Mass Index (BMI) 32.8 Intake & Output: Intake and Output for Last 24 Hours 09/27/24 09/28/24 09/29/24 23:59 23:59 23:59 Intake Total 1120 / 1120 1600.00 / 1600.00 375 / 375 Balance 1120 / 1120 1600.00 / 1600.00 375 / 375 Lab / Micro Data 09/29/24 05:50 09/29/24 05:50 Labs: Laboratory Results - last 24 hr 09/28/24 03:38: C-React Prot High Sens 5.95 H 09/28/24 16:49: POC Glucose 118 H 09/29/24 00:06: Vancomycin Trough 12.1 09/29/24 05:50: WBC 6.7, RBC 4.36 L, Hgb 13.0, Hct 38.4 L, MCV 88.1, MCH 29.8, MCHC 33.9, RDW Std Deviation 44.7 H, RDW Coeff of Baldo 13.8, Plt Count 233, MPV 8.6, Immature Gran % (Auto) 0.300, Neut % (Auto) 58.7, Lymph % (Auto) 28.0, [place] % (Auto) 9.5, Eos % (Auto) 2.5, Baso % (Auto) 1.0, Absolute Neuts (auto) 3.9, Absolute Lymphs (auto) 1.88, Nucleated RBC % 0, Sodium 138, Potassium 4.1, Chloride 106, Carbon Dioxide 21.8, Anion Gap 10, BUN 14, Creatinine 0.89, Estim Creat Clear Calc 89.29, Est GFR (MDRD) Non-Af 91, BUN/Creatinine Ratio 15.5, Glucose 97, Calcium 8.8 09/29/24 06:43: POC Glucose 102 09/29/24 11:25: POC Glucose 104 Micro: Microbiology 09/27/24 11:00 Blood Culture (Wb) - Anticubital Left Blood Culture - Preliminary No growth in 48 hours. 09/27/24 11:00 Blood Culture (Wb) - Left Hand Blood Culture - Preliminary No growth in 48 hours. Physical Exam Narrative Seen and examined. Patient had MRI of left foot in the morning. Seen by strike warfare/missile systems officer. Vascular surgery consult reviewed. History of DM type II. Plan for surgery today Physical exam General: Alert, Oriented x3, Cooperative HEENT: Atraumatic, PERRLA, EOMI, Normocephalic. Oral: No Gingival or Mucosal Lesions/ Ulcerations Neck: Supple, No JVD, Negative Carotid Bruits Chest wall/Lungs: Air entry equal in bilateral lung bases. No crepitation/rhonchi Cardiovascular: Regular rate and rhythm, Normal S1,S2, No M/G/R Abdomen: Bowel Sounds Present, Soft, Non Tender, Non-Distended : No dysuria. No renal angle tenderness. No suprapubic tenderness. Extremities: No edema, Capillary Refill Less than 3 Seconds Skin: Right third toe ulcer, covered with dressing. Musculoskeletal: No Tenderness to Palpation of Joints or Extremities Neurological: Cranial nerves II-XII grossly intact, DTR 2+/4. No acute focal neurological deficit. Psych/Mental Status: Normal Affect, Appropriate. Assessment & Plan Assessment/Plan (1) Cellulitis of third toe of right foot: PLAN: Plan 1. Cellulitis of the right third toe-failed outpatient treatment with mild PAD. Patient is being admitted on [facility] floor. On IV vancomycin and Zosyn. Patient was seen by strike warfare/missile systems officer. PVR studies recommended vascular surgery input therefore vascular surgery consulted. MRI of the right foot shows osteomyelitis of right third digit. Follow-up podiatry input needed. CRP pending 09/29: Vascular surgery consult reviewed. PVR from outside facility suggest normal perfusion to the level of ankle and primarily small vessel disease. Patient also has multiphasic signal in PT and DP with palpable pedal vessel therefore possible small vessel disease. Plan for surgical amputation with advancement flap of third digit right foot. #2 type 2 diabetes-patient is currently on metformin, glucose 106, 129. A1c 7.3%. Glucose is reasonably controlled. #3 hyperlipidemia-patient is on Zetia #4 essential hypertension-patient is on lisinopril Microbiology Past 72 Hours 09/27/24 11:00 Blood Culture (Wb) - Anticubital Left Blood Culture - Preliminary No growth in 48 hours. 09/27/24 11:00 Blood Culture (Wb) - Left Hand Blood Culture - Preliminary No growth in 48 hours. Laboratory Results 09/28/24 03:38: C-React Prot High Sens 5.95 H 09/28/24 16:49: POC Glucose 118 H 09/29/24 00:06: Vancomycin Trough 12.1 09/29/24 05:50: WBC 6.7, RBC 4.36 L, Hgb 13.0, Hct 38.4 L, MCV 88.1, MCH 29.8, MCHC 33.9, RDW Std Deviation 44.7 H, RDW Coeff of Baldo 13.8, Plt Count 233, MPV 8.6, Immature Gran % (Auto) 0.300, Neut % (Auto) 58.7, Lymph % (Auto) 28.0, [place] % (Auto) 9.5, Eos % (Auto) 2.5, Baso % (Auto) 1.0, Absolute Neuts (auto) 3.9, Absolute Lymphs (auto) 1.88, Nucleated RBC % 0, Sodium 138, Potassium 4.1, Chloride 106, Carbon Dioxide 21.8, Anion Gap 10, BUN 14, Creatinine 0.89, Estim Creat Clear Calc 89.29, Est GFR (MDRD) Non-Af 91, BUN/Creatinine Ratio 15.5, Glucose 97, Calcium 8.8 09/29/24 06:43: POC Glucose 102 09/29/24 11:25: POC Glucose 104 Clinical Impression(s) from Imaging Studies Foot X-Ray 09/27/24 11:45 IMPRESSION: Soft tissue swelling with a small amount of air seen within the soft tissues overlying the great toe. No bony destruction. Calcaneal spurs. Reading Location: [id number] Lower Extremity MRI 09/28/24 09:30 IMPRESSION: There is abnormal increased T2 signal, decreased precontrast T1 signal, and increased postcontrast T1 signal in the distal phalanx of the 3rd digit, sagittal image , which meets the criteria for osteomyelitis. Reading Location: [facility] Charges/Coding Visit Charges Inpatient E&M: 44746 Subs Hosp L2
[2024-09-29] MEDS: Lactobacillis Acidophilus 1 CAP PO (20:37)
[2024-09-30] VITALS (16 sets, daily range): BP systolic 112–154; BP diastolic 70–81; PULSE 61–93; RESP 14–20; TEMP 36.1–36.9; O2SAT 95–100; BMI 32.8; BMI 32.9
[2024-09-30] MEDS: Vancomycin HCl 1,250 MG in 0.9% Normal Saline (250mL Bag) 250 ML 167 MG IV ×2 (00:37→13:01)
[2024-09-30] MEDS: Piperacil/Tazobactam 3.375 GM in 0.9% Normal Saline (50mL MB+) 50 ML IV ×3 (06:29→22:19)
--- NOTE | 2024-09-30 07:31 | HP.PCM_ITS ---
HPI - General General Date of Admission: 09/27/24 Chief Complaint: Infection of the right third toe HPI Narrative DURGA DUNN, is a 73 M who presents right third digit that is gangrenous, small vessel disease secondary to trauma due to the patient trimming his own nails that cut the skin. Has osteomyelitis now. [facility] Medical History (Updated 09/30/24 @ 07:[address] Fred Yanez MD) PAD (peripheral artery disease) Cellulitis of third toe of right foot Type 2 diabetes mellitus Elevated blood pressure reading with diagnosis of hypertension Home Medications ?Medication ?Instructions ?Recorded ?Last Taken ?Type ezetimibe 10 mg tablet 10 mg PO DAILY 09/22/2409/13 History gabapentin 300 mg capsule 900 mg PO BID md ordered 01/0709/27/24 08:00 History lisinopril 40 mg tablet 40 mg PO DAILY 09/22/2409/13 History metformin 500 mg tablet 1,000 mg PO BID 09/22/2401/07 History Allergy/AdvReac Type Severity Reaction Status Date / Time No Known Allergies Allergy Verified 09/22/24 17:15 Family History no significant family his Social History household members: spouse housing: house Smoking Status: Never smoker Vital Signs Vital Signs Vital Signs: 09/29/24 09:00 09/29/24 09:00 09/29/24 10:00 Temperature 98.3 F Temperature Source Oral Pulse Rate 72 Pulse Strength Normal (2+) Respiratory Rate 16 Respiratory Effort Normal Non-Labored Blood Pressure 156/81 H Blood Pressure Mean 106 Blood Pressure Source Monitor Blood Pressure Position Semi-Fowlers Blood Pressure Location Right Arm Pulse Ox 98 Oxygen Delivery Method Room Air Room Air 09/29/24 12:46 09/29/24 15:00 09/29/24 15:00 Temperature 97.7 F L 98.0 F Temperature Source Oral Oral Pulse Rate 69 73 Pulse Strength Respiratory Rate 18 18 16 Respiratory Effort Normal Non-Labored Blood Pressure 134/71 H 161/81 H Blood Pressure Mean 92 107 Blood Pressure Source Monitor Blood Pressure Position Semi-Fowlers Blood Pressure Location Right Arm Pulse Ox 98 98 Oxygen Delivery Method Room Air Room Air Room Air 09/29/24 15:36 09/29/24 16:43 09/29/24 20:25 Temperature 98.0 F 98.2 F 98 F Temperature Source Oral Oral Temporal Pulse Rate 73 75 73 Pulse Strength Respiratory Rate 16 16 16 Respiratory Effort Blood Pressure 161/81 H 150/68 H 173/85 H Blood Pressure Mean 107 95 114 Blood Pressure Source Monitor Monitor Monitor Blood Pressure Position Semi-Fowlers Semi-Fowlers Semi-Fowlers Blood Pressure Location Right Arm Right Arm Right Arm Pulse Ox 98 98 98 Oxygen Delivery Method Room Air Room Air Room Air 09/30/24 06:35 Temperature 97.8 F Temperature Source Oral Pulse Rate 68 Pulse Strength Respiratory Rate 16 Respiratory Effort Blood Pressure 143/81 H Blood Pressure Mean 101 Blood Pressure Source Monitor Blood Pressure Position Semi-Fowlers Blood Pressure Location Right Arm Pulse Ox 100 Oxygen Delivery Method Room Air Weight Weight: 104 kg Body Mass Index (BMI) 32.8 Results Lab / Micro Data 09/29/24 05:50 09/29/24 05:50 Labs: Laboratory Results - last 24 hr 09/29/24 11:25: POC Glucose 104 09/29/24 16:37: POC Glucose 245 H 09/30/24 06:33: POC Glucose 111 H Micro: Microbiology 09/27/24 11:00 Blood Culture (Wb) - Anticubital Left Blood Culture - Preliminary No growth in 48 hours. 09/27/24 11:00 Blood Culture (Wb) - Left Hand Blood Culture - Preliminary No growth in 48 hours. Assessment & Plan Assessment/Plan (1) Osteomyelitis: (2) Ulcer of right foot due to type 2 diabetes mellitus: (3) PAD (peripheral artery disease): PLAN: Plan Amputation right third digit with advancement flap as the patient does not have circulation extending to the digit secondary to very poor small vessel disease.
--- NOTE | 2024-09-30 10:18 | PRE.ANES_ITS ---
ASA Classification* ASA Classification ASA Classification: 2 Assessment & Plan Anesthesia* Anesthesia Assessment Anesthesia Assessment: Discussed sedation and/or anesthesia options, risks, benefits, and alternatives with patient/parents/legal guardian/POA. Questions invited. The patient/parents/legal guardian/POA seems to understand and agrees to proceed with anesthesia plan. Reviewed the physical assessment, medical history, allergy history and patient home medications list prior to surgery/procedure/anesthetic and documented any changes. Performed airway and anesthesia risk assessments. Anesthesia Type Anesthesia Type: General and MAC History Source History Obtained from:: Patient and Chart Anesthesia Focused Assessment* Temperature: 98.2 F Pulse Rate: 66 Blood Pressure: 123/70 Respiratory Rate: 18 Pulse Ox: 98 Oxygen Delivery Method: Room Air Airway Assessment Mouth opens: >3 cm Mallampati Score: II Teeth Condition: Caps/Crowns (Patient has a crown left lower molar.) and Missing (Patient has 1 missing tooth. Rest of the teeth are tight.) Neck Range of motion (ROM): Limited ROM (Slight Decrease) Labs Anesthesia Preop lab: CBC WBC 6.7 K/mm3 (4.4-11.0) 09/29/24 05:50 09/29/24 RBC 4.36 M/mm3 (4.6-6.2) L 09/29/24 05:50 09/29/24 Hgb 13.0 g/dL (13.0-16.5) 09/29/24 05:50 09/29/24 Hct 38.4 % (40-54) L 09/29/24 05:50 09/29/24 Plt Count 233 K/mm3 (150-450) 09/29/24 05:50 09/29/24 CHEMISTRY Potassium 4.1 mmol/L (3.3-5.1) 09/29/24 05:50 09/29/24 Sodium 138 mmol/L (133-145) 09/29/24 05:50 09/29/24 BUN 14 mg/dL (4-19) 09/29/24 05:50 09/29/24 Creatinine 0.89 mg/dL (0.70-1.20) 09/29/24 05:50 09/29/24 Glucose 97 mg/dL (70-99) 09/29/24 05:50 09/29/24 POC Glucose 115 mg/dL (74-106) H 09/30/24 09:49 09/30/24 COAG Pre-Assessment Diagnosis/Proposed Procedure Planned Operative Procedure(s): Amputation third digit right foot with advancement flap. Anesthesia History Anesthesia History - plastics supervisor: Anesthesia History - plastics supervisor Hx Hospitalization Any Problems With Anesthesia Yes: nausea 09/29/24 00:37 Cholinesterase deficiency No 09/29/24 00:37 You/Your Family Experience No 09/29/24 00:37 fever (hyperthermia) with Relationship Recent Exposure to Contagious No 09/29/24 00:37 Disease Does patient have nerve No 09/29/24 00:37 stimulator Patient instructed to have No 09/29/24 00:37 device shut off --Does patient have Pacemaker No 09/30/24 09:59 or ICD? When Was Last Pacemaker Check QUESTION #4 FULL TEXT: You/Your Family Experience fever (hyperthermia) with Anesthesia Last Oral Intake Last Oral intake: Last Oral Intake NPO since 00:00 09/30/24 09:59 Meds taken in AM with sips of water? Meds patient instructed to take am of surgery PONV PONV - plastics supervisor: PONV - plastics supervisor Female HX of Motion Sickness HX of N/V After Surgery Non-Smoker Duration of Surgery greater than 60 minutes Number of Risk Factors PONV Score Height & Weight Height & Weight: Anesthesia: Height & Weight Height 5 ft 10 in 09/30/24 09:59 Weight: 104 kg 09/30/24 09:59 Body Mass Index (BMI) 32.8 09/30/24 09:59 Respiratory Assessment Respiratory Assessment - plastics supervisor: Respiratory Tract Infection Hx - plastics supervisor Hx Respiratory Tract Infection No 09/29/24 00:37 STOP Sleep Apnea STOP Sleep Apnea - plastics supervisor: STOP Sleep Apnea - plastics supervisor Hx Hypertension Yes 09/27/24 13:21 Hx Sleep Apnea Yes 09/27/24 13:21 CPAP Yes 09/27/24 13:21 BIPAP No 09/27/24 13:21 Do you snore loudly (louder than talking or can be heard Do you often feel tired/ fatigued/ sleepy during daytime? Has anyone observed you stop breathing during sleep? STOP Results Positive 09/27/24 13:21 QUESTION #5 FULL TEXT : Do you snore loudly (louder than talking or can be heard through closed doors)? 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 Specify any problems Hx of Preganancy in last 3 N/A 09/27/24 13:21 Months Nurse Filling Out Transfusion SHESS 09/27/24 13:21 & Questions: Date: 09/27/24 09/27/24 13:21 Time: 13:23 09/27/24 13:21 Patient unable to answer at this time (ie. confused, unrespo /Reproduction History /Reproductive History - plastics supervisor: /Reproductive Hx- plastics supervisor Hx Now Gestational Age (in weeks): EDC: Hx Hx Para Hx Section SAB Active Medications Active Medications: Current Medications Generic Name Dose Route Start Last Admin Trade Name Freq PRN Reason Stop Dose Admin Acetaminophen 650 mg 09/27/24 13:05 09/27/24 23:15 Acetaminophen 325 Mg Tablet PO 650 mg Q6H PRN PRN Administration Pain 1-10 Or Fever >100.7 Ezetimibe 10 mg 09/28/24 10:00 09/29/24 10:53 Ezetimibe 10 Mg Tablet PO Not Given DAILY ROYCE Glucagon 1 mg 09/27/24 18:01 Glucagon 1 Mg/Ml Syringe IM X1 PRN Hypoglycemia Protocol Heparin Sodium (Porcine) 5,000 unit 09/27/24 22:00 09/29/24 18:54 Heparin Injection (Vial) 5,000 Unit/Ml Vial SC Not Given Q12 ROYCE Sodium Chloride 250 mls @ 15 mls/hr 09/27/24 13:04 IV .[id number] PRN Saline Flush Sodium Chloride 250 mls @ 15 mls/hr 09/27/24 13:04 IV .[id number] PRN Additional IVPB Infusion Vancomycin IV-PHARMACY TO DOSE 500 mls @ 250 mls/hr 09/27/24 13:05 1 each/ Sodium Chloride IV PRN PRN Rx to Dose Protocol Piperacillin Sod/Tazobactam 50 mls @ 12.5 mls/hr 09/27/24 22:00 09/30/24 06:29 Sod 3.375 gm/ Sodium Chloride IV 12.5 mls/hr Q8 ROYCE Administration Vancomycin HCl 1,250 mg/ 275 mls @ 167 mls/hr 09/28/24 00:30 09/30/24 02:16 Sodium Chloride IV Infused Q12H ROYCE Infusion Dextrose 250 mls @ 0 mls/hr 09/27/24 18:01 Dextrose 10%-Water IV .Q0M PRN HYPOGLYCEMIA Protocol As Directed Insulin Human Lispro 0 unit 09/28/24 07:00 09/30/24 06:34 Insulin Lispro 100 Unit/Ml Insuln.Pen SC Not Given TIDAC ROYCE Protocol Lisinopril 40 mg 09/28/24 10:00 09/29/24 15:47 Lisinopril 40 Mg Tablet PO 40 mg DAILY ROYCE Administration Protocol Metformin HCl 1,000 mg 09/27/24 17:00 09/28/24 07:51 Metformin Hcl 1,000 Mg Tablet PO 1,000 mg BIDCM ROYCE Administration Ondansetron HCl 4 mg 09/27/24 13:05 Ondansetron 4 Mg/2 Ml Vial IV Q8H PRN PRN NAUSEA/VOMITING Sodium Chloride 10 - 40 ml 09/27/24 13:04 09/27/24 23:16 0.9% Saline Lock 10 Ml Syringe IV 10 ml UD PRN Administration SALINE FLUSH Vancomycin Protocol 1 lab 09/30/24 23:00 Vancomycin Trough/Random Due [facility] 10/01/24 01:00 DAILY [facility] Medical History PAD (peripheral artery disease) Cellulitis of third toe of right foot Type 2 diabetes mellitus Elevated blood pressure reading with diagnosis of hypertension Home Medications ?Medication ?Instructions ?Recorded ?Last Taken ?Type ezetimibe 10 mg tablet 10 mg PO DAILY 09/22/24 07 History gabapentin 300 mg capsule 900 mg PO BID md ordered 01/0709/27/24 08:00 History lisinopril 40 mg tablet 40 mg PO DAILY 09/22/2409/13 History metformin 500 mg tablet 1,000 mg PO BID 09/22/2401/07 History Allergy/AdvReac Type Severity Reaction Status Date / Time No Known Allergies Allergy Verified 09/22/24 17:15 Surgical History (Updated 09/30/24 @ 10:[address] Emmanuel Caba MD) H/O umbilical hernia repair S/p bilateral carpal tunnel release Skin cancer (melanoma) History of left shoulder replacement Biceps muscle tear Social History household members: spouse housing: house Smoking Status: Never smoker Review of Systems (Anesthesia) ROS Narrative System reviewed and no additional complaints, except as documented.
--- NOTE | 2024-09-30 11:00 | AMP_PTH ---
PATIENT: DURGA DUNN LOC: MS3 U#:[id number] AGE/SX: 74/M ROOM: [facility] [place] RE09/27/[address]: Dr. Santiago Burrows MD : 1950 BED: 1 DIS: 10/03/2024 SPEC #: [id number] RECD: 09/30/24 13:09 STATUS: JESSICA MICHELNIE #: [id number] MAGAN: 09/30/24 11:[address]: Fred Yanez DEPT: SURGICAL PATHOLOGY RECD BY: Hernán Jasso ENTERED: 10/03/24 11:07 SP TYPE: Amputation OTHR DR: DO Dr. Santiago Flannery MD Dr. Robert Leininger, MD Dr. Victor Velasquez, MD Tissues: A - Toe, NOS Procedures: Decalcification bone/plaque Surgery Specimen Level IV HEADER OPERATION: Amputation 3rd digit, foot PRE-OP DIAGNOSIS: Osteomyelitis, ulcer of right foot due to type 2 diabetes mellitus, peripheral artery disease TISSUE SUBMITTED: A- Right 3rd toe MICROSCOPIC DIAGNOSIS A. Toe, right, third, osteomyelitis, ulcer of right foot due to type 2 diabetes mellitus, amputation: - Cutaneous ulcer with suppurative inflammation. - Osteomyelitis. MICROSCOPIC DESCRIPTION Slides are reviewed. GROSS DESCRIPTION A. Received in formalin labeled with the patient's name and date of . Designated as right 3rd toe is a 5.0 x 1.68 x 1.7 cm digit anteriorly surfaced by a nail. The skin is corral, wrinkled and peeling on the distal aspect. There is a 1.2 x 0.9 cm somewhat ulcerative eschar on the distal tip. Sectioning reveals corral-yellow, focally brittle medullary bone. Peer Support Specialist sections are submitted in 2 cassettes, following decalcification. UT 10/03/2024 CPT:20193,17421
--- NOTE | 2024-09-30 11:46 | PCM.OPRPT ---
Operative Report (Standard) Operative Information Date of Procedure: 09/30/24 Pre-Operative Diagnosis: Osteomyelitis third digit right foot 2. Puncture wound right foot 3. Peripheral vascular disease 4. Diabetes with diabetic ulceration posttraumatic injury Post-Operative Diagnosis: Same as above Surgery/Procedure Performed: 1. Amputation third digit right foot 2. Advancement flap right foot less than 10 cm? podiatric medicine doctor: No Type of Anesthesia: Local and MAC RN Documented Start/Stop Times: Operation Date: 09/30/24 11:00 Case Time Into Pre-Op 09/30/24 10:03 Out of Pre-Op 09/30/24 10:53 Anesthesia Start 09/30/24 11:03 Into Room 09/30/24 11:03 Procedure Start 09/30/24 11:17 Procedure End 09/30/24 11:40 Anesthesia End 09/30/24 11:44 Out of Room 09/30/24 11:44 Procedure Start Time: 11:17 Procedure Stop Time: 11:40 Select all DRAINS/GRAFTS/IMPLANTS that apply: None Estimated Blood Loss: 10 Specimen collected: Yes Description of specimen(s) removed: 3rd digit Description of surgery: Patient is a known patient of mine since seeing him as a consultation in the hospital in which he had traumatically caused a sore at the tip of his toe by cutting his pin instead of his toenail at that point due to his small vessel disease the wound did not heal and it became quickly infected and the bone at this point the patient continues to have an open ulceration of the distal tuft third digit in which it is contracted and has an open sore it is noted to be at the area of the bone MRI confirmed osteomyelitis we had vascular centimeters he has small vessel disease and therefore I believe removing the toe proximally would be better than distally. He does understand we had a long discussion we discussed all risks complications benefits of the surgical procedure all questions were answered no guarantees given implied. Procedure patient was seen in the preoperative holding area chart was reviewed and consent was signed. Patient was then taken back to the operating room placed on the table in normal supine position once MAC sedation was then achieved and a local consisting of quarter percent Marcaine plain was injected about the right foot. It was then scrubbed prepped and draped usual aseptic technique. No tourniquet was used. Tensions undirected the right foot in which I made the malcom Y skin plasty at the most proximal aspect of the toe as I incised it down to including subcutaneous tissue I am made the flap viable so that it was still viable proximally. I cut the V all the way down to create the Y down to the subcutaneous tissue therefore I then made a circumferential incision around the third digit after making this incision I then was able to disarticulate the toe from the metatarsal phalangeal joint level. Thus removing the toe but leaving most of the skin I felt comfortable with this area at that point then I cauterize any bleeders I was able to remove any necrotic tissue. We flushed with copious amounts normal sterile saline. I cauterized any other further bleeders I then had to place the toe back into position. At that point then sincerity made the malcom Y skin plasty in which I undermined the skin proximally I then went back to the skin plasty I undermined the skin to create the mobile flap to move from proximal to distal at that point then I felt very good about the mobility of it I undermined the tissue down to the subcutaneous tissue and lifting the tissue up the skin plasty measured approximately 1 cm x 0.3 x 0.2 cm. This V skin triangular skin was then cut it was then pulled from proximal to distal the distal flap was then pulled upward and the 2 were then closed with 3-0 Vicryl and 3-0 Prolene this allowed for excellent closure across the site thus removing the third digit the site was flushed and closed properly. He was then dressed with Betadine soaked Adaptic dry dressing and compression bandage was applied he tolerated procedure well without complications he will be sent back to his room we will plan for dressing change tomorrow and then discharge tomorrow. Surgical Findings: Osteomyelitis third digit distal tuft right foot with peripheral vascular changes. Complications Complications: No
--- NOTE | 2024-09-30 11:47 | PCM.POST.ANE ---
Anesthesia: Postop Eval I Current Vital Signs Temperature: 97.0 F Pulse Rate: 82 Blood Pressure: 131/79 Respiratory Rate: 20 Pulse Ox: 98 Oxygen Delivery Method: Room Air Assessment Airway patent: Yes Spontaneous unlabored respirations: Yes Mental status: Awake nausea: No Vomiting: No Anesthesia Complication: No Fluid Hydration Crystalloid volume administer (ml): 100 Total IV fluid infused: 100 Progress Note Anesthesia document: Postop Eval 1 completed: Yes
--- NOTE | 2024-09-30 14:20 | POSTOPAN2_ITS ---
Anesthesia Postop Eval I Sum Postop Eval Completion status Anesthesia document: Postop Eval 1 completed: Yes Anesthesia Postop Eval I Summary Anesthesia Postop Eval I Summary: Anesthesia Postop Eval I: Assessment Summary Airway patent Yes 09/30/24 11:48 [email or web address] Spontaneous unlabored Yes 09/30/24 11:48 [email or web address] [email or web address] respirations Mental status Awake 09/30/24 11:48 [email or web address] nausea No 09/30/24 11:48 [email or web address] [email or web address] Vomiting No 09/30/24 11:48 [email or web address] [email or web address] Anesthesia Postop Eval I: Fluid Summary Crystalloid volume administer 100 09/30/24 11:48 [email or web address] (ml) Colloids volume administered ( ml) Blood Product volume administered (ml) Total IV fluid infused 100 09/30/24 11:48 [email or web address] Anesthesia Postop Eval I: Summary Notes Anesthesia Complication No 09/30/24 11:48 [email or web address] [email or web address] Anesthesia Complication Comment: Post-operative progress note Anesthesia: Postop Eval II Evaluation Mental status: Awake and Calm Pain Level: 0 nausea: No Vomiting: No Complications Anesthesia Complication: No
--- NOTE | 2024-09-30 14:20 | PCM.POSTANE2 ---
Anesthesia Postop Eval I Sum Postop Eval Completion status Anesthesia document: Postop Eval 1 completed: Yes Anesthesia Postop Eval I Summary Anesthesia Postop Eval I Summary: Anesthesia Postop Eval I: Assessment Summary Airway patent Yes 09/30/24 11:48 [email or web address] Spontaneous unlabored Yes 09/30/24 11:48 HEALTH [email or web address] respirations Mental status Awake 09/30/24 11:48 [email or web address] nausea No 09/30/24 11:48 HEALTH [email or web address] Vomiting No 09/30/24 11:48 HEALTH [email or web address] Anesthesia Postop Eval I: Fluid Summary Crystalloid volume administer 100 09/30/24 11:48 HEALTH [email or web address] (ml) Colloids volume administered ( ml) Blood Product volume administered (ml) Total IV fluid infused 100 09/30/24 11:48 HEALTH [email or web address] Anesthesia Postop Eval I: Summary Notes Anesthesia Complication No 09/30/24 11:48 HEALTH [email or web address] Anesthesia Complication Comment: Post-operative progress note Anesthesia: Postop Eval II Evaluation Mental status: Awake and Calm Pain Level: 0 nausea: No Vomiting: No Complications Anesthesia Complication: No
--- NOTE | 2024-09-30 14:36 | CASEMGMT ---
RN CM into pt room, pt states will change his dressing in the morning and he will follow up in the office to have it changed again. Pt states that he has a surgical shoe that is with him here. Pt denies any homegoing needs.
--- NOTE | 2024-09-30 16:13 | PN.HOSP_ITS ---
Reason for Visit Chief Complaint: Infection of the right third toe Objective Data Objective Data Vital Signs: Vital Signs Temp Pulse Resp BP Pulse Ox O2 Del Method 98.3 F 64 16 138/72 H 99 Room Air 09/30/24 14:28 09/30/24 14:28 09/30/24 14:28 09/30/24 14:28 09/30/24 14:28 09/30/24 14:28 Oxygen Delivery Method Room Air Weight: 229 lb 4.492 oz Body Mass Index (BMI) 32.8 Intake & Output: Intake and Output for Last 24 Hours 09/28/24 09/29/24 09/30/24 23:59 23:59 23:59 Intake Total 1600.00 / 1600.00 1500 / 1500 750 / 750 Output Total 610 / 610 Balance 1600.00 / 1600.00 1500 / 1500 140 / 140 Lab / Micro Data 09/29/24 05:50 09/29/24 05:50 Labs: Laboratory Results - last 24 hr 09/29/24 16:37: POC Glucose 245 H 09/30/24 06:33: POC Glucose 111 H 09/30/24 09:49: POC Glucose 115 H 09/30/24 11:48: POC Glucose 108 H Micro: Microbiology 09/27/24 11:00 Blood Culture (Wb) - Anticubital Left Blood Culture - Preliminary No growth in 48 hours. 09/27/24 11:00 Blood Culture (Wb) - Left Hand Blood Culture - Preliminary No growth in 48 hours. Physical Exam Narrative Seen and examined. Patient went to the OR in the morning. Seen after the surgery. Doing well. Vitals within normal limit. Did not urinate after surgery but feels that he needs to void. Vascular surgery consult reviewed. History of DM type II. Plan for surgery today Physical exam General: Alert, Oriented x3, Cooperative HEENT: Atraumatic, PERRLA, EOMI, Normocephalic. Oral: No Gingival or Mucosal Lesions/ Ulcerations Neck: Supple, No JVD, Negative Carotid Bruits Chest wall/Lungs: Air entry equal in bilateral lung bases. No crepitation/rhonchi Cardiovascular: Regular rate and rhythm, Normal S1,S2, No M/G/R Abdomen: Bowel Sounds Present, Soft, Non Tender, Non-Distended : No dysuria. No renal angle tenderness. No suprapubic tenderness. Extremities: No edema, Capillary Refill Less than 3 Seconds Skin: Right foot is covered with Manuel wrap bandage. Musculoskeletal: No Tenderness to Palpation of Joints or Extremities Neurological: Cranial nerves II-XII grossly intact, DTR 2+/4. No acute focal neurological deficit. Psych/Mental Status: Normal Affect, Appropriate. Assessment & Plan Assessment/Plan (1) Cellulitis of third toe of right foot: PLAN: Plan 1. Cellulitis and acute osteomyelitis of the right third toe-failed outpatient treatment with mild PAD. Patient is being admitted on [facility] floor. On IV vancomycin and Zosyn. Patient was seen by sanitation worker hosing machinery. PVR studies recommended vascular surgery input therefore vascular surgery consulted. MRI of the right foot shows osteomyelitis of right third digit. Follow-up podiatry input needed. CRP pending 09/29: Vascular surgery consult reviewed. PVR from outside facility suggest normal perfusion to the level of ankle and primarily small vessel disease. Patient also has multiphasic signal in PT and DP with palpable pedal vessel therefore possible small vessel disease. Plan for surgical amputation with advancement flap of third digit right foot. 09/30: Patient had amputation of third digit right foot with advancement flap right foot. Diagnosis acute osteomyelitis of right third digit. #2 type 2 diabetes-patient is currently on metformin, glucose 106, 129. A1c 7.3%. Glucose is reasonably controlled. #3 hyperlipidemia-patient is on Zetia #4 essential hypertension-patient is on lisinopril Microbiology Past 72 Hours 09/27/24 11:00 Blood Culture (Wb) - Anticubital Left Blood Culture - Preliminary No growth in 48 hours. 09/27/24 11:00 Blood Culture (Wb) - Left Hand Blood Culture - Preliminary No growth in 48 hours. Laboratory Results 09/29/24 16:37: POC Glucose 245 H 09/30/24 06:33: POC Glucose 111 H 09/30/24 09:49: POC Glucose 115 H 09/30/24 11:48: POC Glucose 108 H Clinical Impression(s) from Imaging Studies Foot X-Ray 09/27/24 11:45 IMPRESSION: Soft tissue swelling with a small amount of air seen within the soft tissues overlying the great toe. No bony destruction. Calcaneal spurs. Reading Location: [id number] Lower Extremity MRI 09/28/24 09:30 IMPRESSION: There is abnormal increased T2 signal, decreased precontrast T1 signal, and increased postcontrast T1 signal in the distal phalanx of the 3rd digit, sagittal image , which meets the criteria for osteomyelitis. Reading Location: [facility] Charges/Coding Visit Charges Inpatient E&M: 78515 Subs Hosp L2
[2024-09-30 17:50] LABS: Hematocrit 40.0 % (40-54); Hemoglobin 13.6 g/dL (13.0-16.5); Immature Granulocytes Count 0.020 X10^3/uL (0.0-0.0); Mean Corp Hgb Conc 34.0 g/dL (32-36); Mean Corpuscular Volume 87.9 fL (80-94); Mean Platelet Vol. 8.2 fl (6.2-12.0); NRBC Flagged by Analyzer 0 % (0-5); Platelet Count 231 K/mm3 (150-450); RBC Distribution Width CV 13.9 % (11.6-14.6); RBC Distribution Width SD 44.6 fl (35.1-43.9); Red Blood Count 4.55 M/mm3 (4.6-6.2); White Blood Count 6.6 K/mm3 (4.4-11.0)
[2024-09-30] MEDS: Lactobacillis Acidophilus 1 CAP PO (22:15)
[2024-09-30] MEDS: Heparin Injection (Vial) 5,000 UNIT/ML VIAL 5000 UNIT SC (22:16)
[2024-10-01 01:28] LABS: Vancomycin, Trough Level 14.5 ug/mL (5.0-15.0)
--- NOTE | 2024-10-01 02:19 | PCM.RX.CS ---
Consult Antibiotic Management Pharmacy has been consulted to manage selected antibiotic: Vancomycin Type of Intervention Type of Consult: Follow-up Labs Labs: Sodium 138 mmol/L (133-145) 09/29/24 05:50 Potassium 4.1 mmol/L (3.3-5.1) 09/29/24 05:50 Chloride 106 mmol/L (98-108) 09/29/24 05:50 Carbon Dioxide 21.8 mmol/L (21.0-32.0) 09/29/24 05:50 Anion Gap 10 (5-15) 09/29/24 05:50 BUN 14 mg/dL (4-19) 09/29/24 05:50 Creatinine 0.89 mg/dL (0.70-1.20) 09/29/24 05:50 Est GFR (MDRD) Non-Af 91 (>60) 09/29/24 05:50 BUN/Creatinine Ratio 15.5 RATIO (10-20) 09/29/24 05:50 Glucose 97 mg/dL (70-99) 09/29/24 05:50 Vancomycin Trough 14.5 ug/mL (5.0-15.0) 10/01/24 00:10 Microbiology Microbiology: Microbiology 09/27/24 11:00 Blood Culture (Wb) - Anticubital Left Blood Culture - Preliminary No growth in 48 hours. 09/27/24 11:00 Blood Culture (Wb) - Left Hand Blood Culture - Preliminary No growth in 48 hours. Dosing Weight Weight used for dosin kg Estimated Creatinine Clearance Estimated Creatinine Clearance: 89 Goal Trough Goal Trough: 10-15 mcg/mL Pharmacy Plan for Drug Dosing Pharmacy Plan for Drug Dosing: Vancomycin trough level of 14.5, drawn 11hrs post-dose, was within the target range of 10-15. Will continue dosing at 1250mg q12h, and will draw another trough level in four days. Pharmacy Service will continue to monitor and adjust dosing as required. Follow-Up Labs Follow-Up Labs: Trough: Vancomycin Date/Time Labs Ordered Labs to be done on [date and time ordered]: 10/05/24 @0000
[2024-10-01] MEDS: Vancomycin HCl 1,250 MG in 0.9% Normal Saline (250mL Bag) 250 ML 167 MG IV ×2 (02:31→14:16)
[2024-10-01 02:33] VITALS: BP 123/70; PULSE 57; RESP 18; TEMP 36.4; O2SAT 98; BMI 32.9
[2024-10-01] MEDS: Piperacil/Tazobactam 3.375 GM in 0.9% Normal Saline (50mL MB+) 50 ML IV (05:33)
[2024-10-01 05:48] LABS: Hematocrit 40.0 % (40-54); Hemoglobin 13.3 g/dL (13.0-16.5); Mean Corp Hgb Conc 33.3 g/dL (32-36); Mean Corpuscular Volume 89.5 fL (80-94); Mean Platelet Vol. 8.3 fl (6.2-12.0); Platelet Count 232 K/mm3 (150-450); RBC Distribution Width CV 13.7 % (11.6-14.6); RBC Distribution Width SD 44.8 fl (35.1-43.9); Red Blood Count 4.47 M/mm3 (4.6-6.2); White Blood Count 6.6 K/mm3 (4.4-11.0)
[2024-10-01 06:13] LABS: Anion Gap 8 (5-15); BUN 14 mg/dL (4-19); BUN/Creat Ratio 13.9 RATIO (10-20); Calcium,Total 8.7 mg/dL (7.6-11.0); Carbon Dioxide 24.1 mmol/L (21.0-32.0); Chloride 105 mmol/L (98-108); Estimated Creatinine Clearance 79.47 ml/min (50-250); Glucose 119 mg/dL (70-99); Potassium 4.1 mmol/L (3.3-5.1)
--- NOTE | 2024-10-01 07:06 | PCM.PN.SRG ---
Subjective Subjective Patient postop day #1 status post amputation third digit left foot with advancement flap overall pain got worse overnight he did have to be back on his Neurontin as well as Percocet but has calmed down significantly. He has no complaints at this time. He feels good laying comfortably. Denies nausea vomiting chills or fever. No calf pain or shortness of breath Objective Data Objective Data Vital Signs: Vital Signs Temp Pulse Resp BP Pulse Ox O2 Del Method 97.5 F L 57 L 18 123/70 H 98 CPAP 10/01/24 02:33 10/01/24 02:33 10/01/24 02:33 10/01/24 02:33 10/01/24 02:33 10/01/24 02:33 Oxygen Delivery Method CPAP Weight: 104 kg Body Mass Index (BMI) 32.8 Intake & Output: Intake and Output for Last 24 Hours 09/29/24 09/30/24 10/01/24 23:59 23:59 23:59 Intake Total 1500 / 1500 1600 / 1600 325 / 325 Output Total 1010 / 1010 800 / 800 Balance 1500 / 1500 590 / 590 -475 / -475 Lab / Micro Data 10/01/24 04:42 10/01/24 04:42 Labs: Laboratory Results - last 24 hr 09/30/24 09:49: POC Glucose 115 H 09/30/24 11:48: POC Glucose 108 H 09/30/24 16:51: POC Glucose 164 H 09/30/24 17:15: WBC 6.6, RBC 4.55 L, Hgb 13.6, Hct 40.0, MCV 87.9, MCH 29.9, MCHC 34.0, RDW Std Deviation 44.6 H, RDW Coeff of Baldo 13.9, Plt Count 231, MPV 8.2, Immature Gran % (Auto) 0.300, Neut % (Auto) 60.0, Lymph % (Auto) 27.7, [place] % (Auto) 9.1, Eos % (Auto) 2.3, Baso % (Auto) 0.6, Absolute Neuts (auto) 3.9, Absolute Lymphs (auto) 1.82, Nucleated RBC % 0 10/01/24 00:10: Vancomycin Trough 14.5 10/01/24 04:42: WBC 6.6, RBC 4.47 L, Hgb 13.3, Hct 40.0, MCV 89.5, MCH 29.8, MCHC 33.3, RDW Std Deviation 44.8 H, RDW Coeff of Baldo 13.7, Plt Count 232, MPV 8.3, Sodium 137, Potassium 4.1, Chloride 105, Carbon Dioxide 24.1, Anion Gap 8, BUN 14, Creatinine 1.00, Estim Creat Clear Calc 79.47, Est GFR (MDRD) Non-Af 80, BUN/Creatinine Ratio 13.9, Glucose 119 H, Calcium 8.7 Micro: Microbiology 09/27/24 11:00 Blood Culture (Wb) - Anticubital Left Blood Culture - Preliminary No growth in 48 hours. 09/27/24 11:00 Blood Culture (Wb) - Left Hand Blood Culture - Preliminary No growth in 48 hours. Physical Exam Narrative On exam left foot today stable postop with sutures intact skin is well coapted minimal redness actually there is minimal bruising as well. Sutures intact dressing was clean dry and intact minimal drainage at this point vital signs stable blood pressure is intact he is using his BiPAP machine. Having no complaints at all today I believe it was just his neuropathy that got worse at night. I did restart his gabapentin and I think he will need a set of Percocet to go home just in case. I spoke with his family otherwise he is stable postop. Have therapy work with him prior to discharge. Const alert, oriented x3, no apparent distress, average body habitus, no limitations, healthy appearing and well nourished Assessment & Plan Assessment/Plan (1) PAD (peripheral artery disease): (2) Osteomyelitis: (3) Ulcer of right foot due to type 2 diabetes mellitus: PLAN: Plan At this point dressing change today I believe he should leave this alone he will follow-up with me in 12 days otherwise he can be discharged from my standpoint.
[2024-10-01 08:28] VITALS: BMI 32.9
[2024-10-01] MEDS: Lactobacillis Acidophilus 1 CAP PO ×2 (08:50→22:36)
[2024-10-01] MEDS: Heparin Injection (Vial) 5,000 UNIT/ML VIAL 5000 UNIT SC ×2 (08:50→22:36)
[2024-10-01 09:03] VITALS: BP 143/76; PULSE 63; RESP 16; TEMP 36.5; O2SAT 99
[2024-10-01 12:28] VITALS: BMI 32.9
--- NOTE | 2024-10-01 12:28 | PCM.PN.HOSP ---
Reason for Visit Chief Complaint: Infection of the right third toe Objective Data Objective Data Vital Signs: Vital Signs Temp Pulse Resp BP Pulse Ox O2 Del Method 97.7 F L 63 16 143/76 H 99 Room Air 10/01/24 09:03 10/01/24 09:03 10/01/24 09:03 10/01/24 09:03 10/01/24 09:03 10/01/24 09:06 Oxygen Delivery Method Room Air Weight: 229 lb 4.492 oz Body Mass Index (BMI) 32.8 Intake & Output: Intake and Output for Last 24 Hours 09/29/24 09/30/24 10/01/24 23:59 23:59 23:59 Intake Total 1500 / 1500 1600 / 1600 375 / 375 Output Total 1010 / 1010 800 / 800 Balance 1500 / 1500 590 / 590 -425 / -425 Lab / Micro Data 10/01/24 04:42 10/01/24 04:42 Labs: Laboratory Results - last 24 hr 09/30/24 16:51: POC Glucose 164 H 09/30/24 17:15: WBC 6.6, RBC 4.55 L, Hgb 13.6, Hct 40.0, MCV 87.9, MCH 29.9, MCHC 34.0, RDW Std Deviation 44.6 H, RDW Coeff of Baldo 13.9, Plt Count 231, MPV 8.2, Immature Gran % (Auto) 0.300, Neut % (Auto) 60.0, Lymph % (Auto) 27.7, [place] % (Auto) 9.1, Eos % (Auto) 2.3, Baso % (Auto) 0.6, Absolute Neuts (auto) 3.9, Absolute Lymphs (auto) 1.82, Nucleated RBC % 0 10/01/24 00:10: Vancomycin Trough 14.5 10/01/24 04:42: WBC 6.6, RBC 4.47 L, Hgb 13.3, Hct 40.0, MCV 89.5, MCH 29.8, MCHC 33.3, RDW Std Deviation 44.8 H, RDW Coeff of Baldo 13.7, Plt Count 232, MPV 8.3, Sodium 137, Potassium 4.1, Chloride 105, Carbon Dioxide 24.1, Anion Gap 8, BUN 14, Creatinine 1.00, Estim Creat Clear Calc 79.47, Est GFR (MDRD) Non-Af 80, BUN/Creatinine Ratio 13.9, Glucose 119 H, Calcium 8.7 10/01/24 07:15: POC Glucose 97 10/01/24 11:21: POC Glucose 158 H Micro: Microbiology 09/27/24 11:00 Blood Culture (Wb) - Anticubital Left Blood Culture - Preliminary No growth in 48 hours. 09/27/24 11:00 Blood Culture (Wb) - Left Hand Blood Culture - Preliminary No growth in 48 hours. Physical Exam Narrative Seen and examined. Doing well. Vitals within normal limit. Did not urinate after surgery but feels that he needs to void. Vascular surgery consult reviewed. History of DM type II. Physical exam General: Alert, Oriented x3, Cooperative HEENT: Atraumatic, PERRLA, EOMI, Normocephalic. Oral: No Gingival or Mucosal Lesions/ Ulcerations Neck: Supple, No JVD, Negative Carotid Bruits Chest wall/Lungs: Air entry equal in bilateral lung bases. No crepitation/rhonchi Cardiovascular: Regular rate and rhythm, Normal S1,S2, No M/G/R Abdomen: Bowel Sounds Present, Soft, Non Tender, Non-Distended : No dysuria. No renal angle tenderness. No suprapubic tenderness. Extremities: No edema, Capillary Refill Less than 3 Seconds Skin: Right foot is covered with Manuel wrap bandage. Musculoskeletal: No Tenderness to Palpation of Joints or Extremities Neurological: Cranial nerves II-XII grossly intact, DTR 2+/4. No acute focal neurological deficit. Psych/Mental Status: Normal Affect, Appropriate. Assessment & Plan Assessment/Plan (1) Cellulitis of third toe of right foot: PLAN: Plan 1. Cellulitis and acute osteomyelitis of the right third toe-failed outpatient treatment with mild PAD. [facility] On IV vancomycin and Zosyn. Patient was seen by regional economist. PVR studies recommended vascular surgery input therefore vascular surgery consulted. MRI of the right foot shows osteomyelitis of right third digit. Follow-up podiatry input needed. CRP pending 09/29: Vascular surgery consult reviewed. PVR from outside facility suggest normal perfusion to the level of ankle and primarily small vessel disease. Patient also has multiphasic signal in PT and DP with palpable pedal vessel therefore possible small vessel disease. Plan for surgical amputation with advancement flap of third digit right foot. 09/30: Patient had amputation of third digit right foot with advancement flap right foot. Diagnosis acute osteomyelitis of right third digit. 10/01: No operative culture on the microbiology lab. Higher Education Administrator informed about that. Continue empiric antibiotic. ID consulted. H&H normal. #2 type 2 diabetes-patient is currently on metformin, glucose 106, 129. A1c 7.3%. Glucose is reasonably controlled. 10/01 119 BMP. #3 hyperlipidemia-patient is on Zetia #4 essential hypertension-patient is on lisinopril Microbiology Past 72 Hours 09/27/24 11:00 Blood Culture (Wb) - Anticubital Left Blood Culture - Preliminary No growth in 48 hours. 09/27/24 11:00 Blood Culture (Wb) - Left Hand Blood Culture - Preliminary No growth in 48 hours. Laboratory Results 09/30/24 16:51: POC Glucose 164 H 09/30/24 17:15: WBC 6.6, RBC 4.55 L, Hgb 13.6, Hct 40.0, MCV 87.9, MCH 29.9, MCHC 34.0, RDW Std Deviation 44.6 H, RDW Coeff of Baldo 13.9, Plt Count 231, MPV 8.2, Immature Gran % (Auto) 0.300, Neut % (Auto) 60.0, Lymph % (Auto) 27.7, [place] % (Auto) 9.1, Eos % (Auto) 2.3, Baso % (Auto) 0.6, Absolute Neuts (auto) 3.9, Absolute Lymphs (auto) 1.82, Nucleated RBC % 0 10/01/24 00:10: Vancomycin Trough 14.5 10/01/24 04:42: WBC 6.6, RBC 4.47 L, Hgb 13.3, Hct 40.0, MCV 89.5, MCH 29.8, MCHC 33.3, RDW Std Deviation 44.8 H, RDW Coeff of Baldo 13.7, Plt Count 232, MPV 8.3, Sodium 137, Potassium 4.1, Chloride 105, Carbon Dioxide 24.1, Anion Gap 8, BUN 14, Creatinine 1.00, Estim Creat Clear Calc 79.47, Est GFR (MDRD) Non-Af 80, BUN/Creatinine Ratio 13.9, Glucose 119 H, Calcium 8.7 10/01/24 07:15: POC Glucose 97 10/01/24 11:21: POC Glucose 158 H Clinical Impression(s) from Imaging Studies Foot X-Ray 09/27/24 11:45 IMPRESSION: Soft tissue swelling with a small amount of air seen within the soft tissues overlying the great toe. No bony destruction. Calcaneal spurs. Reading Location: [id number] Lower Extremity MRI 09/28/24 09:30 IMPRESSION: There is abnormal increased T2 signal, decreased precontrast T1 signal, and increased postcontrast T1 signal in the distal phalanx of the 3rd digit, sagittal image , which meets the criteria for osteomyelitis. Reading Location: [facility] Charges/Coding Visit Charges Inpatient E&M: 78061 Subs Hosp L2
[2024-10-01] MEDS: Senna/Docusate Sodium 1 Tablet 2 TABLET PO ×2 (14:26→22:37)
[2024-10-01] MEDS: Polyethylene Glycol 3350 17 GM PACKET PO ×2 (14:26→22:36)
[2024-10-01 15:00] VITALS: BP 144/66; PULSE 65; RESP 18; TEMP 36.5; O2SAT 98
[2024-10-01 16:28] VITALS: BMI 32.9
[2024-10-01] MEDS: Ampicillin/Sulbactam 3 GM in 0.9% Normal Saline (100mL MB+) 100 ML IV ×2 (18:25→23:50)
[2024-10-01 20:41] VITALS: BP 167/77; PULSE 68; RESP 18; TEMP 36.6; O2SAT 100
[2024-10-02] MEDS: Vancomycin HCl 1,250 MG in 0.9% Normal Saline (250mL Bag) 250 ML 167 MG IV ×2 (00:40→14:30)
[2024-10-02] MEDS: 0.9% Normal Saline (250mL Bag) 250 ML 15 ML IV ×2 (04:29→23:42)
[2024-10-02 04:31] VITALS: BP 135/77; PULSE 62; RESP 18; TEMP 36.6; O2SAT 99
[2024-10-02] MEDS: Ampicillin/Sulbactam 3 GM in 0.9% Normal Saline (100mL MB+) 100 ML IV ×4 (06:16→23:42)
[2024-10-02 06:23] LABS: Hematocrit 38.2 % (40-54); Hemoglobin 12.7 g/dL (13.0-16.5); Mean Corp Hgb Conc 33.2 g/dL (32-36); Mean Corpuscular Volume 90.5 fL (80-94); Mean Platelet Vol. 8.6 fl (6.2-12.0); Platelet Count 214 K/mm3 (150-450); RBC Distribution Width CV 13.9 % (11.6-14.6); RBC Distribution Width SD 45.9 fl (35.1-43.9); Red Blood Count 4.22 M/mm3 (4.6-6.2); White Blood Count 6.1 K/mm3 (4.4-11.0)
[2024-10-02 07:03] LABS: Anion Gap 9 (5-15); BUN 18 mg/dL (4-19); BUN/Creat Ratio 20.6 RATIO (10-20); Calcium,Total 8.5 mg/dL (7.6-11.0); Carbon Dioxide 25.1 mmol/L (21.0-32.0); Chloride 107 mmol/L (98-108); Estimated Creatinine Clearance 91.34 ml/min (50-250); Glucose 140 mg/dL (70-99); Potassium 4.2 mmol/L (3.3-5.1)
[2024-10-02 08:30] VITALS: BP 132/73; PULSE 53; RESP 18; TEMP 36.6; O2SAT 100
[2024-10-02] MEDS: Lactobacillis Acidophilus 1 CAP PO ×2 (08:32→21:41)
[2024-10-02] MEDS: Polyethylene Glycol 3350 17 GM PACKET PO ×2 (08:33→21:42)
[2024-10-02] MEDS: Senna/Docusate Sodium 1 Tablet 2 TABLET PO ×2 (08:33→21:43)
[2024-10-02] MEDS: Heparin Injection (Vial) 5,000 UNIT/ML VIAL 5000 UNIT SC ×2 (08:33→21:42)
--- NOTE | 2024-10-02 14:02 | PCM.PN.HOSP ---
Reason for Visit Chief Complaint: Infection of the right third toe Objective Data Objective Data Vital Signs: Vital Signs Temp Pulse Resp BP Pulse Ox O2 Del Method 97.8 F 53 L 18 132/73 H 100 Room Air 10/02/24 08:30 10/02/24 08:30 10/02/24 08:30 10/02/24 08:30 10/02/24 08:30 10/02/24 08:30 Oxygen Delivery Method Room Air Weight: 229 lb 4.492 oz Body Mass Index (BMI) 32.8 Intake & Output: Intake and Output for Last 24 Hours 09/30/24 10/01/24 10/02/24 23:59 23:59 23:59 Intake Total 1600 / 1600 2600 / 2600 1715 / 1715 Output Total 1010 / 1010 2450 / 2450 700 / 700 Balance 590 / 590 150 / 150 1015 / 1015 Lab / Micro Data 10/02/24 05:53 10/02/24 05:53 Labs: Laboratory Results - last 24 hr 10/01/24 16:35: POC Glucose 149 H 10/02/24 05:53: WBC 6.1, RBC 4.22 L, Hgb 12.7 L, Hct 38.2 L, MCV 90.5, MCH 30.1, MCHC 33.2, RDW Std Deviation 45.9 H, RDW Coeff of Baldo 13.9, Plt Count 214, MPV 8.6, Sodium 140, Potassium 4.2, Chloride 107, Carbon Dioxide 25.1, Anion Gap 9, BUN 18, Creatinine 0.87, Estim Creat Clear Calc 91.34, Est GFR (MDRD) Non-Af 91, BUN/Creatinine Ratio 20.6 H, Glucose 140 H, Calcium 8.5 10/02/24 06:22: POC Glucose 140 H 10/02/24 11:59: POC Glucose 131 H Micro: Microbiology 09/27/24 11:00 Blood Culture (Wb) - Anticubital Left Blood Culture - Final No growth in 5 days. 09/27/24 11:00 Blood Culture (Wb) - Left Hand Blood Culture - Final No growth in 5 days. Physical Exam Narrative Seen and examined. Patient did not move bowel since last . Patient on senna S and MiraLAX. Dulcolax oral and lactulose 20 g 1 dose ordered. No cultures were sent by railroad operating engineer after surgery Vascular surgery consult reviewed. History of DM type II. Physical exam General: Alert, Oriented x3, Cooperative HEENT: Atraumatic, PERRLA, EOMI, Normocephalic. Oral: No Gingival or Mucosal Lesions/ Ulcerations Neck: Supple, No JVD, Negative Carotid Bruits Chest wall/Lungs: Air entry equal in bilateral lung bases. No crepitation/rhonchi Cardiovascular: Regular rate and rhythm, Normal S1,S2, No M/G/R Abdomen: Bowel Sounds Present, Soft, Non Tender, Non-Distended : No dysuria. No renal angle tenderness. No suprapubic tenderness. Extremities: No edema, Capillary Refill Less than 3 Seconds Skin: Right foot is covered with Manuel wrap bandage. Musculoskeletal: No Tenderness to Palpation of Joints or Extremities Neurological: Cranial nerves II-XII grossly intact, DTR 2+/4. No acute focal neurological deficit. Psych/Mental Status: Normal Affect, Appropriate. Assessment & Plan Assessment/Plan (1) Cellulitis of third toe of right foot: PLAN: Plan 1. Cellulitis and acute osteomyelitis of the right third toe-failed outpatient treatment with mild PAD. Patient is being admitted on [facility] floor. On IV vancomycin and Zosyn. Patient was seen by railroad operating engineer. PVR studies recommended vascular surgery input therefore vascular surgery consulted. MRI of the right foot shows osteomyelitis of right third digit. Follow-up podiatry input needed. CRP pending 09/29: Vascular surgery consult reviewed. PVR from outside facility suggest normal perfusion to the level of ankle and primarily small vessel disease. Patient also has multiphasic signal in PT and DP with palpable pedal vessel therefore possible small vessel disease. Plan for surgical amputation with advancement flap of third digit right foot. 09/30: Patient had amputation of third digit right foot with advancement flap right foot. Diagnosis acute osteomyelitis of right third digit. 10/01: No operative culture on the microbiology lab. Ios Developer informed about that. Continue empiric antibiotic. ID consulted. H&H normal. 10/02: Discussed with the railroad operating engineer and no cultures were sent. Anticipate discharge tomorrow after ID evaluation on empiric antibiotics. #2 type 2 diabetes-patient is currently on metformin, glucose 106, 129. A1c 7.3%. Glucose is reasonably controlled. 7/19 119 BMP. 10/02: Glucose 140. #3 hyperlipidemia-patient is on Zetia #4 essential hypertension-patient is on lisinopril 5. Constipation: Did not need bowel since . On senna S2 tablet twice daily and MiraLAX 17 g twice daily. Lactulose 20 g 1 dose and Dulcolax 10 mg 1 dose ordered. Microbiology Past 72 Hours 09/27/24 11:00 Blood Culture (Wb) - Anticubital Left Blood Culture - Preliminary No growth in 48 hours. 09/27/24 11:00 Blood Culture (Wb) - Left Hand Blood Culture - Preliminary No growth in 48 hours. Microbiology Past 72 Hours 09/27/24 11:00 Blood Culture (Wb) - Anticubital Left Blood Culture - Final No growth in 5 days. 09/27/24 11:00 Blood Culture (Wb) - Left Hand Blood Culture - Final No growth in 5 days. Laboratory Results 10/01/24 16:35: POC Glucose 149 H 10/02/24 05:53: WBC 6.1, RBC 4.22 L, Hgb 12.7 L, Hct 38.2 L, MCV 90.5, MCH 30.1, MCHC 33.2, RDW Std Deviation 45.9 H, RDW Coeff of Baldo 13.9, Plt Count 214, MPV 8.6, Sodium 140, Potassium 4.2, Chloride 107, Carbon Dioxide 25.1, Anion Gap 9, BUN 18, Creatinine 0.87, Estim Creat Clear Calc 91.34, Est GFR (MDRD) Non-Af 91, BUN/Creatinine Ratio 20.6 H, Glucose 140 H, Calcium 8.5 10/02/24 06:22: POC Glucose 140 H 10/02/24 11:59: POC Glucose 131 H Clinical Impression(s) from Imaging Studies Foot X-Ray 09/27/24 11:45 IMPRESSION: Soft tissue swelling with a small amount of air seen within the soft tissues overlying the great toe. No bony destruction. Calcaneal spurs. Reading Location: [id number] Lower Extremity MRI 09/28/24 09:30 IMPRESSION: There is abnormal increased T2 signal, decreased precontrast T1 signal, and increased postcontrast T1 signal in the distal phalanx of the 3rd digit, sagittal image , which meets the criteria for osteomyelitis. Reading Location: [facility] Charges/Coding Visit Charges Inpatient E&M: 72877 Subs Hosp L2
[2024-10-02 14:36] VITALS: BP 176/78; PULSE 71; RESP 18; TEMP 36.6; O2SAT 100
[2024-10-02 16:41] VITALS: BP 158/78
[2024-10-02 20:16] VITALS: BP 183/77; PULSE 68; RESP 18; TEMP 36.6; O2SAT 100
[2024-10-02 21:42] VITALS: BP 183/77; PULSE 68
[2024-10-03] MEDS: Vancomycin HCl 1,250 MG in 0.9% Normal Saline (250mL Bag) 250 ML 167 MG IV (00:48)
[2024-10-03] MEDS: Ampicillin/Sulbactam 3 GM in 0.9% Normal Saline (100mL MB+) 100 ML IV (05:20)
[2024-10-03 05:26] VITALS: BP 136/74; PULSE 68; RESP 18; TEMP 36.4; O2SAT 98
[2024-10-03 07:56] VITALS: BP 163/79; PULSE 62; RESP 18; TEMP 36.6; O2SAT 99
[2024-10-03] MEDS: Senna/Docusate Sodium 1 Tablet 2 TABLET PO (07:57)
[2024-10-03] MEDS: Heparin Injection (Vial) 5,000 UNIT/ML VIAL 5000 UNIT SC (07:58)
[2024-10-03] MEDS: Lactobacillis Acidophilus 1 CAP PO (07:58)
--- NOTE | 2024-10-03 09:13 | DCINST_ITS ---
Discharge Instructions DC O2, CPAP, BIPAP needs Home O2 Discharge instructions: No Follow Up Care Test Results: Test results from this visit will be discussed in further detail at your follow- up appointment, if applicable. Discharge Plan Admission Admit Date/Time: 09/27/24 12:18 Primary Reason for Your Visit: Right third toe osteomyelitis status post amputation Attending Provider: Santiago Burrows Primary Care Provider: Juan Alcaraz Consulting Providers: Fred Lewis; Jonathan Greer; Kyree Wesley Instructions Additional Instructions / Restrictions: elevate right foot do not get up too often, ice when laying down reinforce dressing prn do not get dressing wet, keep clean dry and intact follow up with dr. lewis in 10 days [phone] Discharge Orders/Prescriptions Prescriptions: New oxycodone 5 mg tablet 5 mg PO TID PRN (Reason: pain) 7 Days Qty: 21 0RF sennosides-docusate sodium [Stimulant Laxative Plus] 8.6-50 mg Tablet 2 tab PO BID PRN (Reason: Constipation) Qty: 0 0RF Rx Instructions: [id number] Continued metformin 500 mg tablet 1,000 mg PO BID gabapentin 300 mg capsule 900 mg PO BID lisinopril 40 mg tablet 40 mg PO DAILY ezetimibe 10 mg tablet 10 mg PO DAILY Other Ambulatory Orders: Physical Therapy Evaluation (Routine) Location: None Selected Ordered By: Dr. Fred Lewis Referrals / Follow Up: Juan Alcaraz MD [Primary Care Provider] - 10/05/24 9:20 am (Arrive at 9:05.) Fred Lewis MD [Med Staff - Active Staff] - Within 2 Weeks Kyree Wesley MD [Med Staff - Active Staff] - Within 1 Month Disposition Disposition (needs filled in before D/C Order can be placed): Home, Self Care
--- NOTE | 2024-10-03 11:14 | PCM.CONS.GEN ---
Assessment & Plan Assessment/Plan (1) Osteomyelitis: PLAN: Now s/p OR 09/30 for R 3rd toe amp by Dr. Yanez. Ok for d/c home on po doxy and augmentin x1 week. Will follow as needed. thank you, d/w Dr. Burrows HPI Consult Data Date of Consult: 10/03/24 HPI Narrative Reason for Consultation: osteo HPI Narrative: DURGA DUNN, is a 74 M with DM, presented 09/27 with three weeks R 3rd toe swelling, redness. Had been on bactrim and augmentin without improvement. Sent to ED, admitted on vanc/unasyn, taken to OR 09/30 for toe amp by Dr. Yanez. Feeling well. Full ROS performed and neg except as noted above. [facility] Medical History PAD (peripheral artery disease) Cellulitis of third toe of right foot Type 2 diabetes mellitus Elevated blood pressure reading with diagnosis of hypertension Home Medications ?Medication ?Instructions ?Recorded ?Last Taken ?Type ezetimibe 10 mg tablet 10 mg PO DAILY 09/22/24 09/22/24 History gabapentin 300 mg capsule 900 mg PO BID md ordered 09/22/24 09/27/24 08:00 History lisinopril 40 mg tablet 40 mg PO DAILY 09/22/24 09/22/24 History metformin 500 mg tablet 1,000 mg PO BID 09/22/24 09/22/24 History oxycodone 5 mg tablet 5 mg PO TID PRN pain 7 days #21 10/03/24 Unknown Rx tabs Allergy/AdvReac Type Severity Reaction Status Date / Time No Known Allergies Allergy Verified 09/22/24 17:15 Surgical History (Updated 09/30/24 @ 10:[address] Emmanuel Caba MD) H/O umbilical hernia repair S/p bilateral carpal tunnel release Skin cancer (melanoma) History of left shoulder replacement Biceps muscle tear Social History household members: spouse housing: house Smoking Status: Never smoker Physical Exam Const alert, oriented x3 and no apparent distress General Appearance: cooperative HEENT normocephalic and head/scalp atraumatic Eyes PERRL and EOMs intact bilaterally Neck supple and No nodes Resp normal air movement and clear to auscultation bilaterally Cardio regular rate and regular rhythm GI soft to palpation, non-tender and non-distended Extremity General Extremity: Negative for edema Skin no rashes or lesions noted Neuro CN's II-XII intact bilaterally Lab / Micro Data Attestation: I reviewed the patient's lab results. 10/02/24 05:53 10/02/24 05:53 Labs: Laboratory Results - last 24 hr 10/02/24 11:59: POC Glucose 131 H 10/02/24 16:37: POC Glucose 146 H 10/03/24 06:39: POC Glucose 141 H Micro: Microbiology 09/27/24 11:00 Blood Culture (Wb) - Anticubital Left Blood Culture - Final No growth in 5 days. 09/27/24 11:00 Blood Culture (Wb) - Left Hand Blood Culture - Final No growth in 5 days.
--- NOTE | 2024-10-03 11:58 | DS.PCM_ITS ---
Providers Date of Admission: 09/27/24 Date of Discharge: 10/03/24 Primary Care Physician: Dr. Juan Alcaraz MD Consultations 09/27/24 13:05 Consult: Podiatry Routine Consulting Provider: Fred Lewis Reason for Consult: right third toe infection EMERGENT Consult: No Notified: Yes Date Notified: 09/27/24 Time Notified: 14:40 Method of Notification: page 09/27/24 21:28 Consult: Vascular Surgery Routine Consulting Provider: Fred Lewis Reason for Consult: small vessel disease, diabetic ulcer EMERGENT Consult: No Notified: Yes Date Notified: 09/27/24 Time Notified: 21:28 Method of Notification: Text 09/28/24 06:03 Consult: Onc/Wound/university demonstrator Routine Comment: Reason for Consult:: right foot 10/01/24 12:33 Consult: Infectious Disease Routine Consulting Provider: Kyree Wesley Reason for Consult: right 3rd toe amputation after OM diagnosis EMERGENT Consult: No Notified: Yes Date Notified: 10/01/24 Time Notified: 12:33 Method of Notification: Text Reason For Visit: INFFECTED THIRD TOES RIGHT FOOT Diagnosis Discharge Diagnosis (1) Osteomyelitis: Status: Acute Code(s): M86.9 - Osteomyelitis, unspecified Plan 1. Cellulitis and acute osteomyelitis of the right third toe-failed outpatient treatment with mild PAD. Patient is being admitted on [facility] floor. On IV vancomycin and Zosyn. Patient was seen by commercial fisherman. PVR studies recommended vascular surgery input therefore vascular surgery consulted. MRI of the right foot shows osteomyelitis of right third digit. Follow-up podiatry input needed. CRP pending 09/29: Vascular surgery consult reviewed. PVR from outside facility suggest normal perfusion to the level of ankle and primarily small vessel disease. Patient also has multiphasic signal in PT and DP with palpable pedal vessel therefore possible small vessel disease. Plan for surgical amputation with advancement flap of third digit right foot. 09/30: Patient had amputation of third digit right foot with advancement flap right foot. Diagnosis acute osteomyelitis of right third digit. 10/01: No operative culture on the microbiology lab. Director Maternal Child informed about that. Continue empiric antibiotic. ID consulted. H&H normal. 10/02: Discussed with the commercial fisherman and no cultures were sent. Anticipate discharge tomorrow after ID evaluation on empiric antibiotics. 10/03: Discussed with ID. 1 week of prescription for Augmentin and doxycycline given by ID. Follow-up with commercial fisherman in 2 weeks. Follow-up ID in 1 month. Patient is discharged home #2 type 2 diabetes-patient is currently on metformin, glucose 106, 129. A1c 7.3%. Glucose is reasonably controlled. 10/01 119 BMP. 10/02: Glucose 140. 10/03: Continue patient home metformin 1000 mg p.o. twice daily. Follow-up PCP for optimal control of glucose. #3 hyperlipidemia-patient is on Zetia #4 essential hypertension-patient is on lisinopril 10/02 Infalyte PCP for optimal control of hypertension 5. Constipation: Did not need bowel since . On senna S2 tablet twice daily and MiraLAX 17 g twice daily. Lactulose 20 g 1 dose and Dulcolax 10 mg 1 dose ordered. Microbiology Past 72 Hours 09/27/24 11:00 Blood Culture (Wb) - Anticubital Left Blood Culture - Preliminary No growth in 48 hours. 09/27/24 11:00 Blood Culture (Wb) - Left Hand Blood Culture - Preliminary No growth in 48 hours. Microbiology Past 72 Hours 09/27/24 11:00 Blood Culture (Wb) - Anticubital Left Blood Culture - Final No growth in 5 days. 09/27/24 11:00 Blood Culture (Wb) - Left Hand Blood Culture - Final No growth in 5 days. Laboratory Results 10/01/24 16:35: POC Glucose 149 H 10/02/24 05:53: WBC 6.1, RBC 4.22 L, Hgb 12.7 L, Hct 38.2 L, MCV 90.5, MCH 30.1, MCHC 33.2, RDW Std Deviation 45.9 H, RDW Coeff of Baldo 13.9, Plt Count 214, MPV 8.6, Sodium 140, Potassium 4.2, Chloride 107, Carbon Dioxide 25.1, Anion Gap 9, BUN 18, Creatinine 0.87, Estim Creat Clear Calc 91.34, Est GFR (MDRD) Non-Af 91, BUN/Creatinine Ratio 20.6 H, Glucose 140 H, Calcium 8.5 10/02/24 06:22: POC Glucose 140 H 10/02/24 11:59: POC Glucose 131 H Clinical Impression(s) from Imaging Studies Foot X-Ray 09/27/24 11:45 IMPRESSION: Soft tissue swelling with a small amount of air seen within the soft tissues overlying the great toe. No bony destruction. Calcaneal spurs. Reading Location: [id number] Lower Extremity MRI 09/28/24 09:30 IMPRESSION: There is abnormal increased T2 signal, decreased precontrast T1 signal, and increased postcontrast T1 signal in the distal phalanx of the 3rd digit, sagittal image , which meets the criteria for osteomyelitis. Reading [facility] Medications at Discharge Home Medications ezetimibe 10 mg tablet 10 mg PO DAILY 09/22/24 gabapentin 300 mg capsule 900 mg PO BID md ordered 09/22/24 lisinopril 40 mg tablet 40 mg PO DAILY 09/22/24 metformin 500 mg tablet 1,000 mg PO BID 09/22/24 oxycodone 5 mg tablet 5 mg PO TID PRN pain 7 days #21 tabs 10/03/24 sennosides 8.6 mg-docusate sodium 50 mg tablet (Stimulant Laxative Plus) 2 tab PO BID PRN Constipation #0 tabs 10/03/24 Physical Exam Narrative Seen and examined. Patient moved his bowel. large and formed bowel movement. Continue senna S MiraLAX as an outpatient No cultures were sent by commercial fisherman after surgery Vascular surgery consult reviewed. History of DM type II. Physical exam General: Alert, Oriented x3, Cooperative HEENT: Atraumatic, PERRLA, EOMI, Normocephalic. Oral: No Gingival or Mucosal Lesions/ Ulcerations Neck: Supple, No JVD, Negative Carotid Bruits Chest wall/Lungs: Air entry equal in bilateral lung bases. No crepitation/rhonchi Cardiovascular: Regular rate and rhythm, Normal S1,S2, No M/G/R Abdomen: Bowel Sounds Present, Soft, Non Tender, Non-Distended : No dysuria. No renal angle tenderness. No suprapubic tenderness. Extremities: No edema, Capillary Refill Less than 3 Seconds Skin: Right foot is covered with Manuel wrap bandage. Dressing is dry. Musculoskeletal: No Tenderness to Palpation of Joints or Extremities Neurological: Cranial nerves II-XII grossly intact, DTR 2+/4. No acute focal neurological deficit. Psych/Mental Status: Normal Affect, Appropriate. Weight / BMI Weight Weight: 229 lb 4.492 oz Body Mass Index (BMI) 32.8 ABG / Lab / Microbiology Data 10/02/24 05:53 10/02/24 05:53 Laboratory: Laboratory Results - last 24 hr 10/02/24 11:59: POC Glucose 131 H 10/02/24 16:37: POC Glucose 146 H 10/03/24 06:39: POC Glucose 141 H Microbiology: Microbiology 09/27/24 11:00 Blood Culture (Wb) - Anticubital Left Blood Culture - Final No growth in 5 days. 09/27/24 11:00 Blood Culture (Wb) - Left Hand Blood Culture - Final No growth in 5 days. D/C Instructions DC O2, CPAP, BIPAP Needs Home O2 Discharge instructions: No Meaningful Use Info Meaningful Use Meaningful Use Diagnoses (Choose all that apply): None applicable Discharge Plan Admission Admit Date/Time: 09/27/24 12:18 Primary Reason for Your Visit: Right third toe osteomyelitis status post amputation Attending Provider: Santiago Burrows Primary Care Provider: Juan Alcaraz Consulting Providers: Fred Lewis; Jonathan Greer; Kyree Wesley Instructions Additional Instructions / Restrictions: elevate right foot do not get up too often, ice when laying down reinforce dressing prn do not get dressing wet, keep clean dry and intact follow up with dr. lewis in 10 days [phone] Discharge Orders/Prescriptions Prescriptions: New oxycodone 5 mg tablet 5 mg PO TID PRN (Reason: pain) 7 Days Qty: 21 0RF sennosides-docusate sodium [Stimulant Laxative Plus] 8.6-50 mg Tablet 2 tab PO BID PRN (Reason: Constipation) Qty: 0 0RF Rx Instructions: Haem-rxa-lnopnzm Continued metformin 500 mg tablet 1,000 mg PO BID gabapentin 300 mg capsule 900 mg PO BID lisinopril 40 mg tablet 40 mg PO DAILY ezetimibe 10 mg tablet 10 mg PO DAILY Other Ambulatory Orders: Physical Therapy Evaluation (Routine) Location: None Selected Ordered By: Dr. Fred Lewis Referrals / Follow Up: Fred Lewis MD [Med Staff - Active Staff] - Within 2 Weeks Kyree Wesley MD [Med Staff - Active Staff] - Within 1 Month Juan Alcaraz MD [Primary Care Provider] - 10/05/24 9:20 am (Arrive at 9:05.) Disposition Disposition (needs filled in before D/C Order can be placed): Home, Self Care Charges/Coding Visit Charges Inpatient E&M: 19440 Disch Hosp >30min
--- NOTE | 2024-10-03 13:05 | CASEMGMT ---
Dr. Burrows to call in atb meds. TC to [facility], requested meds be delivered to pt room.
--- NOTE | 2024-10-03 14:50 | PHA.DC.MC.R ---
Pharmacy [facility] Counseling Pharmacy Service has performed discharge medication reconciliation and counseling for this patient. 1. OXYCODONE 5MG PO TID PRN PAIN 2. DOXYCYCLINE 100MG PO BID X 7 DAYS 3. AUGMENTIN 875MG PO BID X 7 DAYS 4. SENNA/DOCUSATE 2T PO BID PRN CONSTIPATION The patient's discharge medication list was reviewed for discrepancies and discrepancies were resolved. The patient was counseled on the following discharge medications and changes in medications for homegoing were reviewed. The Reason for Use, instructions for use, and potential side effects were reviewed for all new medications. The patient's questions regarding all of their medications were answered. The patient was able to verbally demonstrate an understanding of their discharge medications. Medications at Discharge Home Medications ezetimibe 10 mg tablet 10 mg PO DAILY 09/22/24 gabapentin 300 mg capsule 900 mg PO BID md ordered 09/22/24 lisinopril 40 mg tablet 40 mg PO DAILY 09/22/24 metformin 500 mg tablet 1,000 mg PO BID 09/22/24 amoxicillin 875 mg-potassium clavulanate 125 mg tablet 1 tab PO BID 1 week #14 tabs 10/03/24 doxycycline monohydrate 100 mg capsule 100 mg PO BID 1 week #14 caps 10/03/24 oxycodone 5 mg tablet 5 mg PO TID PRN pain 7 days #21 tabs 10/03/24 sennosides 8.6 mg-docusate sodium 50 mg tablet (Stimulant Laxative Plus) 2 tab PO BID PRN Constipation #0 tabs 10/03/24
== END 2024-10-03 15:39 | disposition home or self-care (01) | DRG 617 ==
LOC: ED 11:51 → MS3 12:47
PROVIDERS: Anesthesiology; Internal Medicine; Podiatrist Foot & Ankle Surgery; Admitting Provider Internal Medicine; Emergency Provider Surgery; PCP Internal Medicine; Visit Provider Internal Medicine
PROC: 0Y6T0Z0 Detachment at Right 3rd Toe, Complete, Open Approach (ICD-10-PCS; principal; 2024-09-30 10:45)
DX: E11.621 Type 2 diabetes mellitus with foot ulcer (principal); M86.171 Other acute osteomyelitis, right ankle and foot; E11.40 Type 2 diabetes mellitus with diabetic neuropathy, unspecified; E11.51 Type 2 diabetes mellitus with diabetic peripheral angiopathy without gangrene; L03.031 Cellulitis of right toe; I10 Essential (primary) hypertension; E11.69 Type 2 diabetes mellitus with other specified complication; E11.628 Type 2 diabetes mellitus with other skin complications; L97.512 Non-pressure chronic ulcer of other part of right foot with fat layer exposed; E78.5 Hyperlipidemia, unspecified; S91.134A Puncture wound without foreign body of right lesser toe(s) without damage to nail, initial encounter; X58.XXXA Exposure to other specified factors, initial encounter; Z79.84 Long term (current) use of oral hypoglycemic drugs; Z79.899 Other long term (current) drug therapy
CPT/HCPCS: 36415; 73630; 73720; 80048; 80202; 82962; 83036; 83605; 85025; 85027; 85652; 86140; 86141; 87040; 88305; 88311; 93005; 97116; 97162; 97165; 97530; 97535; 99285; A9575; A4216; J0295; J2405

== ENCOUNTER → 2024-12-21 | Outpatient (CLI) | payer MEDICARE, OTHER, SELFPAY ==
[2024-12-21 17:21] LABS: Hematocrit 44.0 % (40-54); Hemoglobin 14.6 g/dL (13.0-16.5); Immature Granulocytes Count 0.030 X10^3/uL (0.0-0.0); Mean Corp Hgb Conc 33.2 g/dL (32-36); Mean Corpuscular Volume 88.2 fL (80-94); Mean Platelet Vol. 9.0 fl (6.2-12.0); NRBC Flagged by Analyzer 0 % (0-5); Platelet Count 225 K/mm3 (150-450); RBC Distribution Width CV 13.3 % (11.6-14.6); RBC Distribution Width SD 42.6 fl (35.1-43.9); Red Blood Count 4.99 M/mm3 (4.6-6.2); White Blood Count 8.6 K/mm3 (4.4-11.0)
[2024-12-21 17:47] LABS: Microalbumin,Random Urine 164.0 mg/L (<20 mg/L)
[2024-12-21 18:09] LABS: AST(SGOT) 25 U/L (<=37); Alanine Aminotransfer ALT/SGPT 26 U/L (<=46); Albumin, Serum 4.3 g/dL (3.4-4.8); Alkaline Phosphatase 58 U/L (40-129); Anion Gap 12 (5-15); BUN 21 mg/dL (4-19); BUN/Creat Ratio 14.9 RATIO (10-20); Calcium,Total 9.2 mg/dL (7.6-11.0); Carbon Dioxide 26.0 mmol/L (21.0-32.0); Chloride 100 mmol/L (98-108); Cholesterol 158 mg/dL (<=200); Globulin 2.9 g/dL (2.2-4.2); Glucose 123 mg/dL (70-99); Low Density Lipoprotein Calc. 82 mg/dL; Potassium 4.1 mmol/L (3.3-5.1); Triglycerides 215 mg/dL; Very Low Density Lipoprotein 43 mg/dL (5-40); Vitamin B12 524 pg/mL (180-914); Vitamin D,25 Hydroxy 24.2 ng/mL (30-100); cholesterol:hdl ratio screen 4.80
== END | disposition home or self-care (01) ==
LOC: VSLAB 15:03
PROVIDERS: PCP Nurse Practitioner Family; Visit Provider Nurse Practitioner Family
DX: E11.9 Type 2 diabetes mellitus without complications (principal); E55.9 Vitamin D deficiency, unspecified
CPT/HCPCS: 36415; 80053; 80061; 82043; 82306; 82607; 84443; 85025